=== PATIENT | male | born 1955 | race Caucasian/White ===

== ENCOUNTER 2019-06-16 08:24 | Day surgery (SDC) | payer OTHER ==
[2019-06-13 17:09] VITALS: BMI 34.0
[2019-06-16 08:53] LABS: BASO % 0.7 % (0-2.0); HEMATOCRIT 38.2 % (35.4-49); HEMOGLOBIN 12.5 GM/dL (11.7-16.9); MCH 30.1 pg (25.7-33.7); MCHC 32.7 g/dl (32.0-35.9); MEAN CELL VOLUME 92.1 fl (80-96); MONO % 10.6 % (3.8-10.2); NEUT % 68.7 % (42.8-82.8); PLATELET COUNT 253 K/MM3 (134-434); RBC 4.14 M/mm3 (4.00-5.60); RDW 13.7 % (11.9-15.9); WHITE BLOOD COUNT 8.1 K/mm3 (4.0-10.0)
[2019-06-16 10:01] LABS: INR 1.03 (0.83-1.09); PROTHROMBIN TIME (PATIENT) 12.1 SEC (9.7-13.0)
[2019-06-16 14:38] VITALS: TEMP 98
[2019-06-16 15:40] VITALS: BP 121/61; PULSE 68
--- NOTE | 2019-06-18 14:25 | PATH ---
Surgical Pathology Report Patient Name: JANELLE HAYES [facility]. Rec. #: [id number] /Age/Gender: 1955 (Age: 64) / M Account: [id number] Location: RADIOLOGY INTER Taken: 06/16/2019 Received: 06/16/2019 Reported: 06/18/2019 Physicians: Didi Cruz M.D. Specimen(s) Received LUNG, RIGHT, BIOPSY Clinical History 64-year-old male with biopsy proven left lung cancer and newly diagnosed right lower lobe nodule Final Diagnosis LUNG, RIGHT, CT GUIDED CORE BIOPSY: NON-SMALL CELL CARCINOMA, POORLY DIFFERENTIATED, FAVOR SQUAMOUS. SEE COMMENT. Comment: Immunohistochemical stains performed at [place], [place] ([id number]) and interpreted at [facility] show the tumor is positive for CK7, p40, and TTF-1 (weak, patchy), while negative for Napsin-A. Prior history of left lung cancer noted. Molecular studies pending, findings will be reported separately. Findings discussed with Dr. Cruz. Positive and negative controls (internal if applicable) show appropriate results. Electronically Signed Mayte Figueroa M.D. Gross Description Received in formalin labeled "right lung biopsy," is a 0.7 x 0.4 x 0.1 cm aggregate of slaughter soft tissue fragments. The formalin is filtered and the specimen is entirely submitted in one cassette. DL/06/16/2019 saudi/06/16/2019
== END 2019-06-16 16:00 ==
LOC: JRADIR 08:24
PROVIDERS: ATTEND Internal Medicine Hematology & Oncology
PROC: 0BBF3ZX Excision of Right Lower Lung Lobe, Percutaneous Approach, Diagnostic (ICD-10-PCS; principal; 2019-06-16)
DX: C34.31 Malignant neoplasm of lower lobe, right bronchus or lung (principal)
CPT/HCPCS: 32405; 36415; 71045-TC-FY; 77012-TC; 85025; 85610; 88305-TC

== ENCOUNTER 2019-10-07 09:11 | Day surgery (SDC) | payer OTHER ==
[2019-10-07 10:25] LABS: BASO % 0.8 % (0-2.0); EOS % 5.3 % (0-4.5); HEMOGLOBIN 12.2 GM/dL (11.7-16.9); LYMPH % 8.7 % (8-40); MCH 29.6 pg (25.7-33.7); MCHC 32.9 g/dl (32.0-35.9); MEAN PLT VOLUME 7.4 fl (7.5-11.1); NEUT % 73.2 % (42.8-82.8); PLATELET COUNT 257 K/MM3 (134-434); RBC 4.11 M/mm3 (4.00-5.60); RDW 14.8 % (11.9-15.9); WHITE BLOOD COUNT 8.2 K/mm3 (4.0-10.0)
[2019-10-07 10:46] LABS: INR 1.01 (0.83-1.09); PROTHROMBIN TIME (PATIENT) 11.9 SEC (9.7-13.0)
[2019-10-07] MEDS ORDERED: ONDANSETRON 4 MG/2 ML VIAL IVPUSH ONE (14:00)
--- NOTE | 2019-10-07 17:14 | PN ---
Progress Note (short form) - Note Progress Note: Patient seen in ambulatory surgery Underwent port insertion and post procedure-- nausea without emesis, some dehydration and required IV hydration and anti- emetics. Patient to receive taxol/carboplatinum on 10/08/2019. History of SAIGE resection for SCC of lung and history of SRS of RUL - both histologies SCC. Had positive mediastinal lymphadenopathy at time of surgery.Staged as pT3, pN2, pN0. For adjuvant therapy. Additional history of anemia, asthma, COPd, sleep apnea, -oxygen requiring H.s. HTN, HLD, TB treated with one year of INH, and [place] x2 with 2 cardiac stents. 1-08/21 ppd smoker x50 years; history of alcohol abuse and former drug abuse with marijuana and cocaine . Last Vital Signs Temp Pulse Resp BP Pulse Ox 97.6 F 66 20 92/40 L 90 L 10/07/19 13:35 10/07/19 13:35 10/07/19 13:35 10/07/19 13:35 10/07/19 13:35 Unkempt HEENT: [place]ILL[place], EOM Intact Oropharynx: No thrush, No mucositis Cor: RSR, No murmurs, No gallops Lungs:\rhonchi, wheezes Abd: Soft, Normal bowel sounds, No organomegaly Ext:No significant edema Skin: No rashes, Integument intact CBC, BMP 10/07/19 09:09 Impression SCC of SAIGE- s/p resection; SRS-- RUL for SCC. For adjuvant treatment with carboplatinum and taxol.
[2019-10-07] MEDS ORDERED: D5-1/2NS+20 MEQ KCL - 20 MEQ/1,000 ML INFUS.BAG IV SCH (17:15)
[2019-10-07] MEDS ORDERED: ALBUTEROL SO4 0.083% IH SOL 2.5 MG/3 ML VIAL.NEB. NEB PRN (17:18)
[2019-10-07] MEDS ORDERED: ONDANSETRON 4 MG/2 ML VIAL IVPB PRN (17:20)
[2019-10-07 18:25] VITALS: BMI 35.9
[2019-10-07] MEDS: BUDESONIDE/FORMETEROL FUMARATE 160/4.5 mcg INHALER IH SCH (22:16)
[2019-10-08 07:15] LABS: BASO % 0.5 % (0-2.0); EOS % 5.2 % (0-4.5); HEMATOCRIT 33.3 % (35.4-49); LYMPH % 10.4 % (8-40); MCH 29.8 pg (25.7-33.7); MCHC 33.1 g/dl (32.0-35.9); MEAN CELL VOLUME 90.2 fl (80-96); MEAN PLT VOLUME 7.2 fl (7.5-11.1); NEUT % 71.9 % (42.8-82.8); PLATELET COUNT 219 K/MM3 (134-434); RBC 3.69 M/mm3 (4.00-5.60); RDW 14.6 % (11.9-15.9); WHITE BLOOD COUNT 6.5 K/mm3 (4.0-10.0)
[2019-10-08 07:49] LABS: ALBUMIN 2.8 g/dl (3.4-5.0); BILIRUBIN,TOTAL 0.2 mg/dL (0.2-1); BLOOD UREA NITROGEN 14.6 mg/dL (7-18); CALCIUM 9.1 mg/dL (8.5-10.1); CREATININE 0.8 mg/dL (0.55-1.3); POTASSIUM 4.3 mmol/L (3.5-5.1); TOT PROT 6.2 g/dl (6.4-8.2)
[2019-10-08 08:24] VITALS: BP 123/60; PULSE 73; TEMP 98
[2019-10-08] MEDS: BUDESONIDE/FORMETEROL FUMARATE 160/4.5 mcg INHALER IH SCH (09:00)
[2019-10-08] MEDS ORDERED: DEXAMETHASONE 4 MG TABLET (FP) PO ONE ×2 (10:00)
--- NOTE | 2019-10-08 10:42 | CON.CARD ---
Consult Consult Specialty:: Cardiology Referred by:: Heme/onc Reason for Consultation:: history of CAD - History of Present Illness Chief Complaint: short of breath, cough History of Present Illness: 64M h/o HTN, HLD, CAD s/p [place] and two stents, lung cancer here s/p port insertion with plan to receive taxol/carboplatin while here. No chest pain, palps, dizziness, dyspnea. Complains of cough. Sees Dr. Best for cardio. - Alcohol/Substance Use Hx Alcohol Use: Yes (1984 stopped) - Smoking History Smoking history: Former smoker Have you smoked in the past 12 months: No If you are a former smoker, when did you quit?: 1984 Home Medications - Allergies Allergies/Adverse Reactions: Allergies Allergy/AdvReac Type Severity Reaction Status Date / Time egg Allergy Severe Difficulty Verified 07/03/19 10:18 Breathing mayonnaise Allergy Severe Difficulty Verified 07/03/19 10:18 Breathing Penicillins Allergy Severe Difficulty Verified 07/03/19 10:18 Breathing - Home Medications Home Medications: Ambulatory Orders Albuterol 0.083% Nebulizer Anupama [Ventolin 0.083% Nebulizer Soln -] 1 neb NEB Q6H 06/13/19 Aspirin [ASA -] 81 mg PO DAILY 06/13/19 Budesonide/Formeterol Fumarate [SYMBICORT 160/4.5mcg -] 2 inh PO BID 06/13/19 Bupropion HCl [Bupropion HCl Sr] 150 mg PO DAILY 06/13/19 Clopidogrel Bisulfate [Plavix -] 75 mg PO DAILY 06/13/19 Ferrous Sulfate [Iron] 325 mg PO DAILY 06/13/19 Multivitamins [Tab-A-Vit -] 1 tab PO DAILY 06/13/19 Cholecalciferol (Vitamin D3) [Vitamin D3] 1,000 unit PO DAILY 06/16/19 Mag Hydrox/Al Hydrox/Simeth [Mylanta Suspension -] 30 ml PO PRN 06/16/19 Polyethylene Glycol 3350 [Miralax (For Daily Use) -] 17 gm PO HS 06/16/19 Sennosides [Senna] 8.6 mg PO HS 06/16/19 Simvastatin [Zocor] 80 mg PO HS 06/16/19 Family Medical History Family History: Unremarkable Review of Systems - Review of Systems Constitutional: reports: No Symptoms Eyes: reports: No Symptoms HENT: reports: No Symptoms Neck: reports: No Symptoms Cardiovascular: reports: No Symptoms Respiratory: reports: Cough Gastrointestinal: reports: No Symptoms Genitourinary: reports: No Symptoms Musculoskeletal: reports: No Symptoms Integumentary: reports: No Symptoms Neurological: reports: No Symptoms Endocrine: reports: No Symptoms Hematology/Lymphatic: reports: No Symptoms Psychiatric: reports: No Symptoms Vital Signs: Vital Signs Temperature 98 F 10/08/19 08:22 Pulse Rate 73 10/08/19 08:22 Respiratory Rate 20 10/08/19 08:22 Blood Pressure 123/60 10/08/19 08:22 O2 Sat by Pulse Oximetry (%) 90 L 10/07/19 13:35 Constitutional: Yes: No Distress, Calm Eyes: Yes: Conjunctiva Clear, EOM Intact HENT: Yes: Atraumatic, Normocephalic Neck: Yes: Supple, Trachea Midline Respiratory: Yes: Regular, Cough, Diminished Gastrointestinal: Yes: Normal Bowel Sounds, Soft Cardiovascular: Yes: Regular Rate and Rhythm JVD: No Integumentary: No: Jaundice Neurological: Yes: Alert, Oriented Psychiatric: No: Agitated - Other Data Labs, Other Data: CBC, BMP 10/08/19 06:45 10/08/19 06:35 INR, PTT INR 1.01 (0.83-1.09) 10/07/19 09:18 Assessment/Plan echo 06/2019 nl LV/RV function, tr TR mibi 06/2019 mild inferolateral ischemia, no TID, nl EF lung cancer, s/p port insertion - stable post op - manage per onc, plan for chemo here CAD s/p [place], stents - mild ischemia on mibi 06/2019, low risk finding, asymptomatic - resume aspirin, clopidogrel when able post op - cont statin HLD - cont statin HTN - not on meds, stable here, monitor
== END 2019-10-08 10:30 | disposition home or self-care (01) ==
LOC: JRADIR 09:11 → JASUSAT 09:11 → J7W 18:02 → JASUSAT 10-08 10:30
PROVIDERS: ATTEND Internal Medicine Hematology & Oncology
PROC: 05HM33Z Insertion of Infusion Device into Right Internal Jugular Vein, Percutaneous Approach (ICD-10-PCS; principal; 2019-10-07)
PROC: B543ZZA Ultrasonography of Right Jugular Veins, Guidance (ICD-10-PCS; 2019-10-07)
DX: Z45.2 Encounter for adjustment and management of vascular access device (principal); C34.91 Malignant neoplasm of unspecified part of right bronchus or lung
CPT/HCPCS: 36561; C1788; 36415; 77001-TC-FY; 80053; 85025; 85610

== ENCOUNTER 2019-10-08 05:55 | Day surgery (SDC) | payer OTHER ==
[2019-10-08] MEDS ORDERED: DIPHENHYDRAMINE IVPB ONE (10:00)
[2019-10-08] MEDS ORDERED: PALONOSETRON HCL 0.25 MG/5 ML VIAL IVPUSH ONE ×2 (10:00→13:15)
[2019-10-08] MEDS ORDERED: SODIUM CHLORIDE IVPB ONE ×4 (10:00→13:45)
[2019-10-08] MEDS ORDERED: FAMOTIDINE 20 MG/50 ML IVPB 20 MG/50 ML MG IVPB ONE ×2 (10:00→13:53)
[2019-10-08] MEDS ORDERED: DEXAMETHASONE SODIUM PHOSPHATE IVPB ONE (10:00)
[2019-10-08] MEDS ORDERED: FOSAPREPITANT DIMEGLUMINE 150 MG in SODIUM CHLORIDE 150 ML IVPB ONE (10:00)
[2019-10-08] MEDS ORDERED: PACLITAXEL IVPB ONE (10:30)
[2019-10-08] MEDS ORDERED: DEXAMETHASONE 4 MG TABLET (FP) PO ONE (10:30)
[2019-10-08] MEDS ORDERED: SODIUM CHLORIDE 0.9% IVPB ONE (10:30)
[2019-10-08] MEDS ORDERED: DEXAMETHASONE SODIUM PHOSPHATE 10 MG in SODIUM CHLORIDE 50 ML IVPB ONE (13:00)
[2019-10-08] MEDS ORDERED: PACLITAXEL PROTEIN BOUND IVPB ONE (13:15)
[2019-10-08] MEDS ORDERED: ALBUTEROL SO4 HFA INHALER IH PRN (13:28)
[2019-10-08] MEDS ORDERED: CARBOPLATIN IVPB ONE ×2 (13:30→13:45)
[2019-10-08] MEDS ORDERED: FOSAPREPITANT DIMEGLUMINE 150 MG in SODIUM CHLORIDE 145 ML IVPB ONE (13:52)
[2019-10-08] MEDS ORDERED: DEXAMETHASONE SOD PHOSPHATE 10 MG/1 ML VIAL ONE (14:08)
[2019-10-08] MEDS: GABAPENTIN 100 MG CAPSULE PO SCH ×2 (14:11→21:30)
[2019-10-08] MEDS ORDERED: PORTA CATH FLUSH 10 ML IVPUSH ONE (16:29)
--- NOTE | 2019-10-08 19:07 | PN ---
Progress Note (short form) - Note Progress Note: Patient seen and examined Received and tolerated chemotherapy with carboplatinum and abraxane. Offers no complaints Last Vital Signs Temp Pulse Resp BP Pulse Ox 98.2 F 77 20 125/66 10/08/19 17:48 10/08/19 17:48 10/08/19 17:48 10/08/19 17:48 HEENT: CAMILLA, EOM Intact Cor: RSR, No murmurs, No gallops Lungs: poor inspiratory effort Decreased breath ssounds Abd: Soft, Normal bowel sounds, No organomegaly Ext:LE edema Skin: No rashes, Integument intact Current Medications Generic Name Dose Route Start Last Admin Trade Name Freq PRN Reason Stop Dose Admin Albuterol Sulfate 2 puff 10/08/19 13:28 Ventolin Hfa Inhaler - IH Q6H PRN SHORTNESS OF BREATH Aspirin 81 mg 10/09/19 10:00 Asa - PO DAILY [facility] Atorvastatin Calcium 40 mg 10/08/19 22:00 Lipitor - PO HS JENY Bupropion HCl 150 mg 10/09/19 10:00 Wellbutrin Xl - PO DAILY [facility] Cholecalciferol 1,000 unit 10/09/19 10:00 Vitamin D3 - PO DAILY JENY Clopidogrel Bisulfate 75 mg 10/09/19 10:00 Plavix - PO DAILY JENY Gabapentin 100 mg 10/08/19 14:00 10/08/19 14:11 Neurontin - PO 100 mg TID [facility] Administration Pantoprazole Sodium 40 mg 10/09/19 10:00 Protonix Iv IVPB DAILY [facility] Polyethylene Glycol 17 gm 10/09/19 10:00 Miralax (For Daily Use) - PO DAILY [facility] Tamsulosin HCl 0.4 mg 10/09/19 08:30 Flomax - PO DAILY@0830 [facility] Impression: S/P chemotherapy with carboplatinum and abraxane. "Adjuvant" chemotherapy .
[2019-10-08] MEDS ORDERED: oxyCODONE HCL 5 MG TABLET PO PRN (20:25)
[2019-10-08] MEDS ORDERED: ACETAMINOPHEN 325 MG TABLET (FP) PO PRN (20:25)
[2019-10-08] MEDS: ATORVASTATIN CA 40 MG TABLET (FP) PO SCH (21:30)
[2019-10-08] MEDS: BUDESONIDE/FORMETEROL FUMARATE 160/4.5 mcg INHALER IH SCH (21:31)
[2019-10-08] MEDS ORDERED: PANTOPRAZOLE SODIUM 40 MG VIAL IVPB SCH (22:00)
[2019-10-09] MEDS: GABAPENTIN 100 MG CAPSULE PO SCH ×3 (06:21→21:35)
[2019-10-09 07:39] LABS: BASO % 0.1 % (0-2.0); HEMATOCRIT 33.2 % (35.4-49); HEMOGLOBIN 11.1 GM/dL (11.7-16.9); LYMPH % 2.5 % (8-40); MCH 29.8 pg (25.7-33.7); MCHC 33.4 g/dl (32.0-35.9); MEAN CELL VOLUME 89.2 fl (80-96); MEAN PLT VOLUME 7.6 fl (7.5-11.1); MONO % 0.7 % (3.8-10.2); NEUT % 96.7 % (42.8-82.8); PLATELET COUNT 220 K/MM3 (134-434); RBC 3.72 M/mm3 (4.00-5.60); RDW 14.5 % (11.9-15.9); WHITE BLOOD COUNT 9.8 K/mm3 (4.0-10.0)
[2019-10-09 08:14] LABS: ALBUMIN 2.7 g/dl (3.4-5.0); BILIRUBIN,TOTAL 0.1 mg/dL (0.2-1); CALCIUM 8.7 mg/dL (8.5-10.1); CREATININE 0.8 mg/dL (0.55-1.3); MAGNESIUM 2.3 mg/dL (1.8-2.4); POTASSIUM 4.5 mmol/L (3.5-5.1); TOT PROT 6.4 g/dl (6.4-8.2)
[2019-10-09] MEDS: TAMSULOSIN HCL 0.4 MG CAP PO SCH (09:02)
[2019-10-09] MEDS: ASPIRIN 81 MG CHEWABLE TABLETS PO SCH (09:03)
[2019-10-09] MEDS: CLOPIDOGREL BISULFATE 75 MG TABLET (FP) PO SCH (09:03)
[2019-10-09] MEDS: BUDESONIDE/FORMETEROL FUMARATE 160/4.5 mcg INHALER IH SCH ×2 (09:03→21:35)
[2019-10-09] MEDS: CHOLECALCIFEROL (VIT D3) 1,000 UNIT (25 MCG) TABLET PO SCH (09:03)
[2019-10-09] MEDS: POLYETHYLENE GLYCOL 3350 119 GM BTL PO SCH (09:22)
[2019-10-09 09:46] LABS: ANISOCYTOSIS 0; MACROCYTOSIS 0; PLATELET ESTIMATE NORMAL
[2019-10-09] MEDS ORDERED: PANTOPRAZOLE SODIUM 40 MG VIAL IVPB SCH (10:00)
[2019-10-09] MEDS ORDERED: SODIUM CHLORIDE 500 ML IV SCH (10:00)
[2019-10-09] MEDS ORDERED: SODIUM CHLORIDE 1,000 ML IV SCH (10:00)
[2019-10-09] MEDS ORDERED: TBO-FILGRASTIM 480 MCG/0.8 ML DISP.SYRIN SQ ONE (15:00)
[2019-10-09] MEDS: ATORVASTATIN CA 40 MG TABLET (FP) PO SCH (21:35)
[2019-10-10] MEDS: GABAPENTIN 100 MG CAPSULE PO SCH (05:24)
[2019-10-10 08:38] VITALS: BP 133/59; PULSE 86; TEMP 97.9
[2019-10-10] MEDS: TAMSULOSIN HCL 0.4 MG CAP PO SCH (08:54)
[2019-10-10] MEDS: ASPIRIN 81 MG CHEWABLE TABLETS PO SCH (08:55)
[2019-10-10] MEDS: CLOPIDOGREL BISULFATE 75 MG TABLET (FP) PO SCH (08:55)
[2019-10-10] MEDS: CHOLECALCIFEROL (VIT D3) 1,000 UNIT (25 MCG) TABLET PO SCH (08:55)
[2019-10-10] MEDS: BUDESONIDE/FORMETEROL FUMARATE 160/4.5 mcg INHALER IH SCH (08:57)
[2019-10-10] MEDS: POLYETHYLENE GLYCOL 3350 119 GM BTL PO SCH (09:03)
--- NOTE | 2019-10-11 09:03 | PN ---
Progress Note (short form) - Note Progress Note: Feels ok No specific complaints AFVSS Cor: RSR, No murmurs, No gallops Lungs: Clear to P&A Abd: Soft, Normal bowel sounds, No organomegaly Ext:No significant edema Labs/meds reviewed A/P 61 y/o History of SAIGE resection for SCC of lung and history of SRS of RUL - both histologies SCC. Had positive mediastinal lymphadenopathy at time of surgery.Staged as pT3, pN2. 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 HTN, HLD, TB treated with one year of INH, and [place] x2 with 2 cardiac stents. 1-1/2 ppd smoker x50 years; history of alcohol abuse and former drug abuse with marijuana and cocaine s/p carboplatin and abraxane For neupogen
== END 2019-10-10 09:44 ==
LOC: JONCCHEMO 05:55 → J7W 10:31 → JONCCHEMO 10-10 09:44
PROVIDERS: ATTEND Internal Medicine Hematology & Oncology
PROC: 3E04305 Introduction of Other Antineoplastic into Central Vein, Percutaneous Approach (ICD-10-PCS; principal; 2019-10-08)
PROC: 3E043GC Introduction of Other Therapeutic Substance into Central Vein, Percutaneous Approach (ICD-10-PCS; 2019-10-08)
DX: Z51.11 Encounter for antineoplastic chemotherapy (principal); C34.92 Malignant neoplasm of unspecified part of left bronchus or lung
CPT/HCPCS: 36415; 80053; 83735; 85025; 96367; 96413; 96417; J1100; J1447; J1453; J2469; J9264

== ENCOUNTER 2019-10-15 05:41 | Day surgery (SDC) | payer OTHER ==
--- NOTE | 2019-10-11 08:50 | PN ---
Progress Note (short form) - Note Progress Note: PAtient seen and examined Feels ok No specific complaints AFVSS Cor: RSR, No murmurs, No gallops Lungs: Clear to P&A Abd: Soft, Normal bowel sounds, No organomegaly Ext:No significant edema Labs/meds reviewed A/P 61 y/o History of SAIGE resection for SCC of lung and history of SRS of RUL - both histologies SCC. Had positive mediastinal lymphadenopathy at time of surgery.Staged as pT3, pN2. 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 HTN, HLD, TB treated with one year of INH, and [place] x2 with 2 cardiac stents. 1-1/2 ppd smoker x50 years; history of alcohol abuse and former drug abuse with marijuana and cocaine s/p carboplatin and abraxane For neupogen
[2019-10-15] MEDS ORDERED: PALONOSETRON HCL 0.25 MG/5 ML VIAL IVPUSH ONE (10:00)
[2019-10-15] MEDS ORDERED: PACLITAXEL PROTEIN BOUND IVPB ONE (10:30)
[2019-10-15] MEDS ORDERED: SODIUM CHLORIDE IVPB ONE (10:30)
[2019-10-15 11:04] LABS: BASO % 0.3 % (0-2.0); EOS % 11.2 % (0-4.5); HEMATOCRIT 34.7 % (35.4-49); HEMOGLOBIN 11.3 GM/dL (11.7-16.9); LYMPH % 11.8 % (8-40); MCH 29.3 pg (25.7-33.7); MCHC 32.6 g/dl (32.0-35.9); MEAN CELL VOLUME 89.6 fl (80-96); MEAN PLT VOLUME 7.7 fl (7.5-11.1); MONO % 8.8 % (3.8-10.2); NEUT % 67.9 % (42.8-82.8); PLATELET COUNT 196 K/MM3 (134-434); RBC 3.87 M/mm3 (4.00-5.60); RDW 14.8 % (11.9-15.9); WHITE BLOOD COUNT 4.3 K/mm3 (4.0-10.0)
[2019-10-15] MEDS ORDERED: DEXAMETHASONE SOD PHOSPHATE 10 MG/1 ML VIAL IVPB ONE (11:35)
[2019-10-15 11:39] LABS: BILIRUBIN,TOTAL 0.4 mg/dL (0.2-1); BLOOD UREA NITROGEN 19.2 mg/dL (7-18); CALCIUM 9.2 mg/dL (8.5-10.1); CREATININE 0.8 mg/dL (0.55-1.3); POTASSIUM 4.6 mmol/L (3.5-5.1); TOT PROT 6.6 g/dl (6.4-8.2)
[2019-10-15] MEDS ORDERED: DEXAMETHASONE INJECTION 10 MG in SODIUM CHLORIDE 50 ML IVPB ONE (12:00)
[2019-10-15 16:02] VITALS: TEMP 98
[2019-10-15 16:03] VITALS: BP 131/77; PULSE 67
== END 2019-10-15 14:20 | disposition home or self-care (01) ==
LOC: JONCCHEMO 05:41 → J7W 11:25 → JONCCHEMO 14:20
PROVIDERS: ATTEND Internal Medicine Hematology & Oncology
DX: Z51.11 Encounter for antineoplastic chemotherapy (principal); C34.92 Malignant neoplasm of unspecified part of left bronchus or lung
CPT/HCPCS: 36415; 80053; 85025; 96375; 96413; J1100; J2469; J9264

== ENCOUNTER 2019-10-16 05:46 | Day surgery (SDC) | payer OTHER ==
[2019-10-16] MEDS ORDERED: TBO-FILGRASTIM 480 MCG/0.8 ML DISP.SYRIN SQ SCH (12:15)
[2019-10-16 15:10] VITALS: BP 126/73; PULSE 75; TEMP 97.8
== END 2019-10-16 12:45 | disposition home or self-care (01) ==
LOC: JONCCHEMO 05:46 → J7W 13:02
PROVIDERS: ATTEND Internal Medicine Hematology & Oncology
PROC: 3E013GC Introduction of Other Therapeutic Substance into Subcutaneous Tissue, Percutaneous Approach (ICD-10-PCS; principal; 2019-10-16)
DX: C34.92 Malignant neoplasm of unspecified part of left bronchus or lung (principal); Z76.89 Persons encountering health services in other specified circumstances
CPT/HCPCS: 96372; J1447

== ENCOUNTER 2019-10-22 05:44 | Day surgery (SDC) | payer OTHER ==
[2019-10-22 09:08] LABS: BASO % 0.8 % (0-2.0); EOS % 6.9 % (0-4.5); HEMATOCRIT 33.6 % (35.4-49); LYMPH % 15.5 % (8-40); MCH 29.3 pg (25.7-33.7); MCHC 32.7 g/dl (32.0-35.9); MEAN CELL VOLUME 89.4 fl (80-96); MEAN PLT VOLUME 7.7 fl (7.5-11.1); MONO % 11.6 % (3.8-10.2); NEUT % 65.2 % (42.8-82.8); PLATELET COUNT 183 K/MM3 (134-434); RBC 3.75 M/mm3 (4.00-5.60); RDW 15.1 % (11.9-15.9); WHITE BLOOD COUNT 3.1 K/mm3 (4.0-10.0)
[2019-10-22 09:49] LABS: ALBUMIN 3.1 g/dl (3.4-5.0); BILIRUBIN,TOTAL 0.2 mg/dL (0.2-1); CALCIUM 9.6 mg/dL (8.5-10.1); CREATININE 0.9 mg/dL (0.55-1.3); POTASSIUM 4.4 mmol/L (3.5-5.1); TOT PROT 6.6 g/dl (6.4-8.2)
[2019-10-22] MEDS ORDERED: PALONOSETRON HCL 0.25 MG/5 ML VIAL IVPUSH ONE (10:00)
[2019-10-22] MEDS ORDERED: DEXAMETHASONE SOD PHOSPHATE 4 MG/1 ML VIAL IVPB ONE (10:11)
[2019-10-22] MEDS ORDERED: SODIUM CHLORIDE IVPB ONE (10:30)
[2019-10-22] MEDS ORDERED: PACLITAXEL PROTEIN BOUND IVPB ONE (10:30)
[2019-10-22 14:19] VITALS: TEMP 97.9
[2019-10-22 14:20] VITALS: BP 131/69; PULSE 73
== END 2019-10-22 11:45 | disposition home or self-care (01) ==
LOC: JONCCHEMO 05:44 → J7W 10:26 → JONCCHEMO 11:45
PROVIDERS: ATTEND Internal Medicine Hematology & Oncology
PROC: 3E04305 Introduction of Other Antineoplastic into Central Vein, Percutaneous Approach (ICD-10-PCS; principal; 2019-10-22)
PROC: 3E043GC Introduction of Other Therapeutic Substance into Central Vein, Percutaneous Approach (ICD-10-PCS; 2019-10-22)
DX: Z51.11 Encounter for antineoplastic chemotherapy (principal); C34.92 Malignant neoplasm of unspecified part of left bronchus or lung
CPT/HCPCS: 36415; 80053; 85025; 96367; 96375; 96413; J2469; J9264

== ENCOUNTER 2019-10-29 07:19 | Day surgery (SDC) | payer OTHER ==
[2019-10-29] MEDS ORDERED: DEXAMETHASONE SODIUM PHOSPHATE 10 MG in SODIUM CHLORIDE 50 ML IVPB ONE (10:00)
[2019-10-29] MEDS ORDERED: PALONOSETRON HCL 0.25 MG/5 ML VIAL IVPUSH ONE (10:00)
[2019-10-29] MEDS ORDERED: DEXAMETHASONE SODIUM PHOSPHATE 16 MG in SODIUM CHLORIDE 50 ML IVPB ONE (10:12)
[2019-10-29] MEDS ORDERED: FOSAPREPITANT DIMEGLUMINE 150 MG in SODIUM CHLORIDE 145 ML IVPB ONE (10:12)
[2019-10-29 10:27] LABS: BASO % 0.8 % (0-2.0); EOS % 3.5 % (0-4.5); HEMATOCRIT 31.8 % (35.4-49); HEMOGLOBIN 10.3 GM/dL (11.7-16.9); LYMPH % 14.1 % (8-40); MCH 29.3 pg (25.7-33.7); MCHC 32.4 g/dl (32.0-35.9); MEAN CELL VOLUME 90.5 fl (80-96); MONO % 10.4 % (3.8-10.2); NEUT % 71.2 % (42.8-82.8); PLATELET COUNT 144 K/MM3 (134-434); RBC 3.51 M/mm3 (4.00-5.60); RDW 14.9 % (11.9-15.9); WHITE BLOOD COUNT 3.8 K/mm3 (4.0-10.0)
[2019-10-29] MEDS ORDERED: PACLITAXEL PROTEIN BOUND IVPB ONE (10:30)
[2019-10-29] MEDS ORDERED: SODIUM CHLORIDE IVPB ONE ×3 (10:30→12:00)
[2019-10-29] MEDS ORDERED: CARBOPLATIN IVPB ONE ×2 (11:00→12:00)
[2019-10-29 11:07] LABS: BILIRUBIN,TOTAL 0.3 mg/dL (0.2-1); BLOOD UREA NITROGEN 15.5 mg/dL (7-18); CALCIUM 8.6 mg/dL (8.5-10.1); CREATININE 0.9 mg/dL (0.55-1.3); MAGNESIUM 1.9 mg/dL (1.8-2.4); POTASSIUM 4.2 mmol/L (3.5-5.1); TOT PROT 6.4 g/dl (6.4-8.2)
[2019-10-29 15:18] LABS: ANISOCYTOSIS 1+; MACROCYTOSIS 0; PLATELET ESTIMATE DECREASED
[2019-10-29 18:23] VITALS: TEMP 98.4
[2019-10-29 18:28] VITALS: BP 109/61; PULSE 69
[2019-10-29] MEDS ORDERED: PORTA CATH FLUSH 10 ML IVPUSH ONE (18:28)
== END 2019-10-29 14:35 | disposition home or self-care (01) ==
LOC: JONCCHEMO 07:19 → J7W 10:29 → JONCCHEMO 14:35
PROVIDERS: ATTEND Internal Medicine Hematology & Oncology
DX: Z51.11 Encounter for antineoplastic chemotherapy (principal); C34.92 Malignant neoplasm of unspecified part of left bronchus or lung
CPT/HCPCS: 36415; 80053; 83735; 85025; J1453; J2469; J9264

== ENCOUNTER 2020-03-03 07:12 | Day surgery (SDC) | payer OTHER ==
[2020-03-03 10:01] VITALS: BP 102/66; PULSE 108; TEMP 98.5
[2020-03-03 10:34] LABS: BASO % 0.5 % (0-2.0); EOS % 3.6 % (0-4.5); HEMATOCRIT 28.1 % (35.4-49); HEMOGLOBIN 9.4 GM/dL (11.7-16.9); LYMPH % 12.6 % (8-40); MCHC 33.3 g/dl (32.0-35.9); MEAN PLT VOLUME 7.3 fl (7.5-11.1); MONO % 11.2 % (3.8-10.2); NEUT % 72.1 % (42.8-82.8); PLATELET COUNT 219 K/MM3 (134-434); RBC 2.68 M/mm3 (4.00-5.60); WHITE BLOOD COUNT 5.4 K/mm3 (4.0-10.0)
[2020-03-03 10:57] LABS: ANISOCYTOSIS 1+; MACROCYTOSIS 1+; PLATELET ESTIMATE NORMAL
[2020-03-03 11:42] LABS: ALBUMIN 3.2 g/dl (3.4-5.0); BILIRUBIN,TOTAL 0.4 mg/dL (0.2-1); BLOOD UREA NITROGEN 22.3 mg/dL (7-18); CALCIUM 9.5 mg/dL (8.5-10.1); CREATININE 0.9 mg/dL (0.55-1.3); POTASSIUM 4.2 mmol/L (3.5-5.1); TOT PROT 6.7 g/dl (6.4-8.2)
[2020-03-03] MEDS ORDERED: DIPHENHYDRAMINE 25 MG in SODIUM CHLORIDE 50 ML IVPB ONE (12:00)
[2020-03-03] MEDS ORDERED: ACETAMINOPHEN 325 MG TABLET (FP) PO ONE (12:00)
[2020-03-03] MEDS ORDERED: SODIUM CHLORIDE 250 ML IV STA (12:15)
[2020-03-03] MEDS ORDERED: PEMBROLIZUMAB 200 MG in SODIUM CHLORIDE 50 ML IV ONE (12:30)
[2020-03-03] MEDS ORDERED: PORTA CATH FLUSH 10 ML IVPUSH ONE (16:06)
== END 2020-03-03 13:35 | disposition home or self-care (01) ==
LOC: JONCCHEMO 07:12
PROVIDERS: ATTEND Internal Medicine Hematology & Oncology
DX: Z51.11 Encounter for antineoplastic chemotherapy (principal); C34.90 Malignant neoplasm of unspecified part of unspecified bronchus or lung
CPT/HCPCS: 36415; 80053; 84439; 84443; 85025; 96361; 96375; 96413; J9271

== ENCOUNTER 2020-03-24 07:17 | Day surgery (SDC) | payer OTHER ==
[2020-03-24] MEDS ORDERED: ACETAMINOPHEN 325 MG TABLET (FP) PO ONE (10:00)
[2020-03-24] MEDS ORDERED: DIPHENHYDRAMINE 25 MG in SODIUM CHLORIDE 50 ML IVPB ONE (10:00)
[2020-03-24] MEDS ORDERED: PEMBROLIZUMAB 200 MG in SODIUM CHLORIDE 50 ML IV ONE (10:30)
[2020-03-24 11:43] LABS: BASO % 0.5 % (0-2.0); HEMATOCRIT 32.5 % (35.4-49); HEMOGLOBIN 10.6 GM/dL (11.7-16.9); LYMPH % 9.1 % (8-40); MCH 33.6 pg (25.7-33.7); MCHC 32.6 g/dl (32.0-35.9); MEAN CELL VOLUME 103.1 fl (80-96); MEAN PLT VOLUME 7.6 fl (7.5-11.1); MONO % 11.3 % (3.8-10.2); NEUT % 75.1 % (42.8-82.8); PLATELET COUNT 230 K/MM3 (134-434); RBC 3.16 M/mm3 (4.00-5.60); RDW 17.1 % (11.9-15.9); WHITE BLOOD COUNT 8.6 K/mm3 (4.0-10.0)
[2020-03-24 12:24] LABS: ALBUMIN 3.3 g/dl (3.4-5.0); BILIRUBIN,TOTAL 0.2 mg/dL (0.2-1); BLOOD UREA NITROGEN 19.2 mg/dL (7-18); CALCIUM 9.4 mg/dL (8.5-10.1); CREATININE 0.9 mg/dL (0.55-1.3); TOT PROT 6.9 g/dl (6.4-8.2)
[2020-03-24 12:41] LABS: MAGNESIUM 2.1 mg/dL (1.8-2.4)
[2020-03-24 16:20] VITALS: TEMP 98.2
[2020-03-24 16:23] VITALS: BP 126/63; PULSE 79
[2020-03-24] MEDS ORDERED: PORTA CATH FLUSH 10 ML IVPUSH ONE (16:23)
== END 2020-03-24 14:15 | disposition home or self-care (01) ==
LOC: JONCCHEMO 07:17
PROVIDERS: ATTEND Internal Medicine Hematology & Oncology
PROC: 3E04305 Introduction of Other Antineoplastic into Central Vein, Percutaneous Approach (ICD-10-PCS; principal; 2020-03-24)
PROC: 3E043GC Introduction of Other Therapeutic Substance into Central Vein, Percutaneous Approach (ICD-10-PCS; 2020-03-24)
DX: Z51.11 Encounter for antineoplastic chemotherapy (principal); C34.92 Malignant neoplasm of unspecified part of left bronchus or lung; I10 Essential (primary) hypertension; I25.2 Old myocardial infarction; G47.30 Sleep apnea, unspecified; Z86.73 Personal history of transient ischemic attack (TIA), and cerebral infarction without residual deficits; E78.00 Pure hypercholesterolemia, unspecified; J44.9 Chronic obstructive pulmonary disease, unspecified; Z86.11 Personal history of tuberculosis
CPT/HCPCS: 36415; 80053; 83735; 84439; 84443; 85025; 96375; 96413; J9271

== ENCOUNTER 2020-04-14 10:07 | Inpatient (IN) | payer OTHER ==
[2020-04-14] MEDS ORDERED: LACTATED RINGERS SOLUTION 1000 ML INFUS.BAG IV ONE ×2 (10:46→10:56)
[2020-04-14] MEDS ORDERED: ACETAMINOPHEN 1000 MG/100 ML VIAL (NON FORMULARY) IVPB ONE (10:56)
[2020-04-14] MEDS ORDERED: ACETAMINOPHEN INJECTION 100 ML IVPB ONE (11:10)
--- NOTE | 2020-04-14 11:10 | PDOC ---
Documentation entered by Silvana Jj SCRIBE, acting as scribe for Beckie Brooke MD. Beckie Brooke MD: This documentation has been prepared by the Анна rivas Brenda, SCRIBE, under my direction and personally reviewed by me in its entirety. I confirm that the documentation accurately reflects all work, treatment, procedures, and medical decision making performed by me. History of Present Illness - General Chief Complaint: Lightheaded Stated Complaint: PAIN Time Seen by Provider: 04/14/20 10:40 History Source: Patient Exam Limitations: No Limitations - History of Present Illness Initial Comments: 04/14/20 10:44 64 YOM with a significant PMH of Sq Cell Lung CA (s/p resection in Jul 2019, port insertion, and chemo with carbo/abraxane), HTN, HLD, CAD (stents x2, on Plavix), COPD, [place] (on home O2 at night as needed), GERD, PVD and recent admission for COVID presents to the ED from [facility] for evaluation of nausea and weakness today. Patient states that he woke up today and felt very nauseas, tired, sleepy, weak and warm, prompting his arrival to the ED. He is also endorsing a low appetite, recent cough and shortness of breath along with 2 days of nonbloody diarrhea. Last chemotherapy was 3 weeks ago. Denies chest pain, palpitation, dizziness, Vomiting, abdominal pain, bladder and bowel problems, leg swelling, weakness, numbness or tingling. No sick contacts or travel. No new changes in medications. Allergies: Penicillins Past Medical History: Sq Call CA (s/p resection in Jul 2019, port insertion, and chemo with carbo/abraxane), HTN, CAD (stents x2, on Plavix), [place] (on home O2 at night as needed) and recent admission for COVID Social history: Lives at [facility]. No tobacco, ETOH or drug use. Meds: as documented in EMR Oncologist: Didi Cruz From [facility] 04/14/20 12:09 04/14/20 12:28 04/14/20 13:22 04/14/20 13:27 04/14/20 13:43 Past History - Medical History Allergies/Adverse Reactions: Allergies Allergy/AdvReac Type Severity Reaction Status Date / Time egg Allergy Severe Difficulty Verified 04/14/20 10:27 Breathing mayonnaise Allergy Severe Difficulty Verified 04/14/20 10:27 Breathing Penicillins Allergy Severe Difficulty Verified 04/14/20 10:27 Breathing Home Medications: Ambulatory Orders Aspirin [ASA -] 81 mg PO DAILY 06/13/19 Budesonide/Formeterol Fumarate [SYMBICORT 160/4.5mcg -] 2 inh PO BID 06/13/19 Bupropion HCl [Bupropion HCl Sr] 150 mg PO DAILY 06/13/19 Clopidogrel Bisulfate [Plavix -] 75 mg PO DAILY 06/13/19 Polyethylene Glycol 3350 [Miralax 119 gm Btl -] 17 gm PO HS 06/16/19 Sennosides [Senna] 8.6 mg PO HS 06/16/19 Simvastatin [Zocor] 80 mg PO HS 06/16/19 Tamsulosin HCl [Flomax] 0.4 mg PO HS 12/20/19 Ascorbic Acid [Vitamin C -] 250 mg PO BID #42 tablet 12/22/19 Zinc 50 mg PO BID #42 tablet 12/22/19 Acetaminophen [Tylenol] 650 mg PO ASDIR 03/03/20 Budesonide/Formeterol Fumarate [SYMBICORT 160/4.5mcg -] 2 inh IH BID 03/03/20 Cholecalciferol (Vitamin D3) [Vitamin D3 -] 1,000 unit PO DAILY 03/03/20 Ferrous Sulfate [Feosol] 325 mg PO DAILY 03/03/20 Mag Hydrox/Al Hydrox/Simeth [Mylanta *Suspension*] 15 ml PO ASDIR 03/03/20 Pantoprazole Sodium [Protonix -] 20 mg PO BID 03/03/20 Anemia: Yes Asthma: Yes Cancer: Yes (lung) Cardiac Disorders: Yes (CAD,NM,2 stents 2002, NSTEMI 2018) CVA: Yes (TIA) COPD: Yes HTN: Yes Hypercholesterolemia: Yes - Surgical History Cardiac Surgery: Yes (2 stents) - Psycho-Social/Smoking History Smoking History: Never smoked Have you smoked in the past 12 months: No If you are a former smoker, when did you quit?: 1984 - Substance Abuse Hx (Audit-C & DAST Scrn) How often the patient has a drink containing alcohol: Never Score: In Men: 4 or > Positive; In Women: 3 or > Positive: 0 Screen Result (Pos requires Nsg. Audit-10AR): Negative Review of Systems - Review of Systems Able to Perform ROS?: Yes Comments:: 04/14/20 10:46 Constitutional: (+) Feverish (+) Tired (+) Weakness generalized. no fevers or chills. HEENT: no headache or dizziness. No congestion. No visual/hearing disturbances. CVS: no cp or syncope. Resp: (+) Cough. No sob. Gastrointestinal: (+) Nausea (+) Diarrhea. no abdominal pain or vomiting. Genitourinary: no urinary sx, hematuria. MUSCULOSKELETAL: No joint pain and swelling. No neck or back pain. SKIN: no redness or skin changes, no discharge, no rash. No wounds. Hematologic: no easy bruising/bleeding. +history of anemia NEUROLOGIC: No headache, dizziness, LOC or altered mental status. No weakness, numbness or tingling. Psych: no anxiety +history of depression. Allergic/Immunologic: +medication allergies All other systems reviewed and negative, or as documented in HPI. 04/14/20 12:10 04/14/20 13:43 *Physical Exam - Vital Signs Last Vital Signs Temp Pulse Resp BP Pulse Ox 98 F 125 H 22 H 89/60 L 98 04/14/20 10:25 04/14/20 10:25 04/14/20 10:25 04/14/20 10:25 04/14/20 10:25 - Physical Exam 04/14/20 11:02 General: malaised appearing, awake and alert, NAD. HEENT: EOMI, PERRL, normal conjunctiva. airway patent, dry membranes. clear oropharynx. Neck: supple, FROM Resp: decreased breath sounds in the right lower lobe, normal and even respirations, no respiratory distress CVS: (+) Tachycardic (+) Irregularly Irregular. 2+ peripheral pulses throughout, no peripheral edema Chest: (+) Right chest port access. in place, no crepitus, no discoloration. Abdomen: soft, NTND, no rebound or guarding. No CVAT. Back: nontender, normal inspection and ROM MSK: no edema, HUMPHREY x4, ROM intact. No clubbing or cyanosis. normal bulk and tone. Extremities: no calf tenderness Neuro: alert, oriented appropriately; no focal neurologic deficits, speech clear. Skin: (+) Non blanching punctate machular lesions on LE. (+) Pale appearing (+) Dry Skin. Perfused, cap refill <2 sec. 04/14/20 12:11 04/14/20 12:13 04/14/20 12:53 04/14/20 13:23 Heart Score/ECG Review #1 ECG reviewed & interpreted by me at: 10:50 Compared to previous ECG there are: Changes noted 04/14/20 11:09 EKG atrial fibrillation RVR at 124 bpm. no interval abnormalities, narrow QRS, ST and T wave segments and morphology normal. Nonspecific T wave abnormalities ED Treatment Course - LABORATORY CBC & Chemistry Diagram: 04/14/20 10:50 04/14/20 10:50 Medical Decision Making - Critical Care Time Total Critical Care Time (minutes): 45 (Afib RVR) Critical Care Statement: The care of this patient involved high complexity decision making to prevent further life threatening deterioration of the patient's condition and/or to evaluate & treat vital organ system(s) failure or risk of failure. - Medical Decision Making 04/14/20 12:11 Vital Signs Temp Pulse Resp BP Pulse Ox 98.1 F 135 H 19 118/65 98 04/14/20 11:15 04/14/20 11:15 04/14/20 11:15 04/14/20 11:15 04/14/20 11:18 vitals reviewed, initially soft BP new onset Afib, irreg irregular, in RVR likely etiology of her sx lungs clear, no respiratory distress DDX. pulmonary edema, ACS, arrhythmia, anemia, electrolyte/metabolic derangements, dehydration, infection. sent in from Dr Ruiz' office - pending thyroid, culture. cortisol, LDH/cpk - all ordered sent in from there for new onset Afib apparently labs and lytes, trop, ekg covid swab again 04/14/20 12:28 IVF hydration for soft BP, responding, mentating, maps are appropriate. given rate control, diltiazem/ with improvement in rate control of new onset Afib EKG with Afib RVR trop is elevated 2.8 given ASA for NSTEMI likely demand ischemia, no cp or sob, ekg without changes aside from Afib RVR cxr Cardiomegaly, right-sided effusion versus developing infiltrate. We will give antibiotics to cover for pneumonia, healthcare associated. Cefepime and vancomycin is appropriate to cover. given pcn allergy, low cross reactivity with pcn. Blood cultures are pending. 04/14/20 13:[address] Argueta customer service consultant - agree with plan, add on heparin gtt for AC admit to [facility] - Discharge Information Problems reviewed: Yes Clinical Impression/Diagnosis: Atrial fibrillation with RVR, NSTEMI (non-ST elevated myocardial infarction) Condition: Guarded - Admission Yes - Follow up/Referral Referrals: Kota Xavier MD [Primary Care Provider] - - Patient Discharge Instructions - Post Discharge Activity Vital Signs - Vital Signs Vital signs refused: No Pulse Rate: 98 Respiratory Rate: 18 Blood Pressure: 103/63 BP Location: Left Arm Blood Pressure position: Supine
[2020-04-14 11:30] LABS: BASO % 0.4 % (0-2.0); EOS % 1.7 % (0-4.5); LYMPH % 8.7 % (8-40); MCH 31.5 pg (25.7-33.7); MCHC 32.3 g/dl (32.0-35.9); MEAN CELL VOLUME 97.5 fl (80-96); MEAN PLT VOLUME 7.7 fl (7.5-11.1); MONO % 15.2 % (3.8-10.2); PLATELET COUNT 184 K/MM3 (134-434); RBC 3.18 M/mm3 (4.00-5.60); WHITE BLOOD COUNT 7.9 K/mm3 (4.0-10.0)
[2020-04-14 11:37] LABS: INR 1.15 (0.83-1.09); PROTHROMBIN TIME (PATIENT) 13.6 SEC (9.7-13.0)
[2020-04-14 11:40] LABS: ACTIVATED PTT 32.5 SECONDS (25.2-36.5)
[2020-04-14] MEDS ORDERED: dilTIAZem HCL 50 MG/10 ML - 10 ML VIAL IVPUSH ONE (11:42)
[2020-04-14] MEDS ORDERED: dilTIAZem HCL 125 MG/25 ML - 25 ML VIAL ONE (11:42)
[2020-04-14] MEDS ORDERED: dilTIAZem HCL 60 MG TABLET ONE (12:16)
[2020-04-14 12:18] LABS: ALBUMIN 2.8 g/dl (3.4-5.0); BILIRUBIN,TOTAL 0.4 mg/dL (0.2-1); BLOOD UREA NITROGEN 28.1 mg/dL (7-18); CALCIUM 10.2 mg/dL (8.5-10.1); CREATININE 0.8 mg/dL (0.55-1.3); POTASSIUM 4.7 mmol/L (3.5-5.1); TOT PROT 6.5 g/dl (6.4-8.2)
[2020-04-14] MEDS ORDERED: ASPIRIN 81 MG CHEWABLE TABLETS PO ONE (12:25)
[2020-04-14] MEDS ORDERED: ASPIRIN 81 MG CHEWABLE TABLETS ONE (12:29)
[2020-04-14] MEDS ORDERED: CEFEPIME HCL/D5W 1 GM/50 ML BAG IVPB ONE (12:33)
[2020-04-14] MEDS ORDERED: VANCOMYCIN 2,000 MG in DEXTROSE 5%-WATER - 250 ML IVPB ONE (12:34)
[2020-04-14] MEDS ORDERED: CEFEPIME 1 GM/100 ML BAG IVPB ONE (12:39)
[2020-04-14] MEDS ORDERED: VANCOMYCIN 1 GRAM (PRE-DOCKED) 2,000 MG/500 ML BAG IVPB ONE (12:39)
--- NOTE | 2020-04-14 13:33 | HP ---
Admitting History and Physical - Primary Care Physician PCP: Andrea Galindo - Admission Chief Complaint: weakness History of Present Illness: History of Present Illness Initial Comments: 04/14/20 10:44 64 YOM with a significant PMH of Sq Cell Lung CA (s/p resection in Jul 2019, port insertion, and chemo with carbo/abraxane), HTN, HLD, CAD (stents x2, on Plavix), COPD, [place] (on home O2 at night as needed), GERD, PVD and recent admission for COVID presents to the ED from [facility] for evaluation of nausea and weakness today. Patient states that he woke up today and felt very nauseas, tired, sleepy, weak and warm, prompting his arrival to the ED. He is also endorsing a low appetite, recent cough and shortness of breath along with 2 days of nonbloody diarrhea. Last chemotherapy was 3 weeks ago. Denies chest pain, palpitation, dizziness, Vomiting, abdominal pain, bladder and bowel problems, leg swelling, weakness, numbness or tingling. No sick contacts or travel. No new changes in medications. Allergies: Penicillins Past Medical History: Sq Call CA (s/p resection in Jul 2019, port insertion, and chemo with carbo/abraxane), HTN, CAD (stents x2, on Plavix), [place] (on home O2 at night as needed) and recent admission for COVID Social history: Lives at [facility]. No tobacco, ETOH or drug use. Meds: as documented in EMR Oncologist: Didi Cruz From [facility] Pt examined by me in the ER Had chemo 3 weeks ago-- he c/o feeling weak, lightheaded, diarrhea+ No pain No chest pain No palpitations In the ER found to be in rapid Afib and NSTEMI Rate controlled with IV Cardizem and now he is on Heparin gtt History Source: Patient, Transfer Record - Past Medical History Cardiovascular: Yes: CAD, HTN, [place] Pulmonary: Yes: Cancer (Lung CA-- Left) Gastrointestinal: Yes: Other (GERD) Infectious Disease: Yes: Other (COVID 19 in November) - Past Surgical History Past Surgical History: Yes: Stent - Smoking History Smoking history: Never smoked Have you smoked in the past 12 months: No If you are a former smoker, when did you quit?: 1984 - Alcohol/Substance Use Hx Alcohol Use: Yes (1984 stopped) - Social History History of Recent Travel: No Home Medications - Allergies Allergies/Adverse Reactions: Allergies Allergy/AdvReac Type Severity Reaction Status Date / Time egg Allergy Severe Difficulty Verified 04/14/20 10:27 Breathing mayonnaise Allergy Severe Difficulty Verified 04/14/20 10:27 Breathing Penicillins Allergy Severe Difficulty Verified 04/14/20 10:27 Breathing - Home Medications Home Medications: Ambulatory Orders Aspirin [ASA -] 81 mg PO DAILY 06/13/19 Budesonide/Formeterol Fumarate [SYMBICORT 160/4.5mcg -] 2 inh PO BID 06/13/19 Bupropion HCl [Bupropion HCl Sr] 150 mg PO DAILY 06/13/19 Clopidogrel Bisulfate [Plavix -] 75 mg PO DAILY 06/13/19 Polyethylene Glycol 3350 [Miralax 119 gm Btl -] 17 gm PO HS 06/16/19 Sennosides [Senna] 8.6 mg PO HS 06/16/19 Simvastatin [Zocor] 80 mg PO HS 06/16/19 Tamsulosin HCl [Flomax] 0.4 mg PO HS 12/20/19 Ascorbic Acid [Vitamin C -] 250 mg PO BID #42 tablet 12/22/19 Zinc 50 mg PO BID #42 tablet 12/22/19 Acetaminophen [Tylenol] 650 mg PO ASDIR 03/03/20 Budesonide/Formeterol Fumarate [SYMBICORT 160/4.5mcg -] 2 inh IH BID 03/03/20 Cholecalciferol (Vitamin D3) [Vitamin D3 -] 1,000 unit PO DAILY 03/03/20 Ferrous Sulfate [Feosol] 325 mg PO DAILY 03/03/20 Mag Hydrox/Al Hydrox/Simeth [Mylanta *Suspension*] 15 ml PO ASDIR 03/03/20 Pantoprazole Sodium [Protonix -] 20 mg PO BID 03/03/20 Review of Systems - Review of Systems Constitutional: reports: Weakness. denies: Chills, Fever Cardiovascular: denies: Chest Pain, Edema, Palpitations, Shortness of Breath Respiratory: denies: Cough, SOB Physical Examination Vital Signs: Vital Signs Temperature 98.1 F 04/14/20 11:15 Pulse Rate 98 H 04/14/20 13:33 Respiratory Rate 18 04/14/20 13:33 Blood Pressure 118/65 04/14/20 11:15 O2 Sat by Pulse Oximetry (%) 98 04/14/20 11:18 Constitutional: Yes: No Distress, Calm Cardiovascular: Yes: Pulse Irregular Respiratory: Yes: Diminished Gastrointestinal: Yes: Normal Bowel Sounds, Soft, Abdomen, Obese. No: Tenderness Edema: Yes Edema: LLE: Trace, RLE: Trace Integumentary: Yes: Other (scales diffuse) Psychiatric: Yes: Alert, Oriented Labs: CBC, BMP 04/14/20 10:50 04/14/20 10:50 Imaging - Results Chest X-ray: Image Reviewed (right lung Pneumonia) EKG: Image Reviewed (Afib with RVR) Problem List - Problems (1) Pneumonia Code(s): J18.9 - PNEUMONIA, UNSPECIFIED ORGANISM (2) Hyperthyroidism Code(s): E05.90 - THYROTOXICOSIS, UNSP WITHOUT THYROTOXIC CRISIS OR STORM (3) Atrial fibrillation with RVR Code(s): I48.91 - UNSPECIFIED ATRIAL FIBRILLATION (4) NSTEMI (non-ST elevated myocardial infarction) Code(s): I21.4 - NON-ST ELEVATION (NSTEMI) MYOCARDIAL INFARCTION (5) Anemia Code(s): D64.9 - ANEMIA, UNSPECIFIED (6) CAD (coronary artery disease) Code(s): I25.10 - ATHSCL HEART DISEASE OF [place] CORONARY ARTERY W/O ANG PCTRS (7) Lung cancer Code(s): C34.90 - MALIGNANT NEOPLASM OF UNSP PART OF UNSP BRONCHUS OR LUNG Assessment/Plan PLAN AFib with RVR Hyperthyroidism NSTEMI right pneumonia Lung CA--- squamous cell left -- on Heparin gtt -- check cbc, monitor for bleeding -- check cardiac enzymes -- received iv antibiotics in ER -- check COVID 19 -- continue with iv antibiotics -- check sputum cultures -- start methimazole for hyperthyroidism -- telemetry -- rate control as per Cardiology
--- NOTE | 2020-04-14 14:00 | CON.CARD ---
Cardiology Consult (text) - Consultation Consultation Note: Consult Specialty:: Cardiology Referred by:: medicine Reason for Consultation:: afib - History of Present Illness Chief Complaint: nausea, weakness History of Present Illness: 64M h/o HTN, HLD, CAD s/p NE and two stents, lung cancer p/w nausea, weakness. also complained of diarrhea. Noted to have afib with RVR in the ER, no prior diagnosis of afib. Improved with IV cardizem. No chest pain, palps, dizziness, dyspnea. Feels better after IVF. Sees Dr. Best for cardio. - Alcohol/Substance Use Hx Alcohol Use: Yes (1984 stopped) - Smoking History Smoking history: Former smoker Have you smoked in the past 12 months: No If you are a former smoker, when did you quit?: 1984 Home Medications - Allergies Allergies/Adverse Reactions: Allergies Allergy/AdvReac Type Severity Reaction Status Date / Time egg Allergy Severe Difficulty Verified 04/14/20 10:27 Breathing mayonnaise Allergy Severe Difficulty Verified 04/14/20 10:27 Breathing Penicillins Allergy Severe Difficulty Verified 04/14/20 10:27 Breathing Home Medications Medication Instructions Recorded Aspirin [ASA -] 81 mg PO DAILY 06/13/19 Budesonide/Formeterol Fumarate 2 inh PO BID 06/13/19 [SYMBICORT 160/4.5mcg -] Bupropion HCl [Bupropion HCl Sr] 150 mg PO DAILY 06/13/19 Clopidogrel Bisulfate [Plavix -] 75 mg PO DAILY 06/13/19 Polyethylene Glycol 3350 [Miralax 17 gm PO HS 06/16/19 119 gm Btl -] Sennosides [Senna] 8.6 mg PO HS 06/16/19 Simvastatin [Zocor] 80 mg PO HS 06/16/19 Tamsulosin HCl [Flomax] 0.4 mg PO HS 12/20/19 Ascorbic Acid [Vitamin C -] 250 mg PO BID #42 tablet 12/22/19 Zinc 50 mg PO BID #42 tablet 12/22/19 Acetaminophen [Tylenol] 650 mg PO ASDIR 03/03/20 Budesonide/Formeterol Fumarate 2 inh IH BID 03/03/20 [SYMBICORT 160/4.5mcg -] Cholecalciferol (Vitamin D3) 1,000 unit PO DAILY 07/15/20 [Vitamin D3 -] Ferrous Sulfate [Feosol] 325 mg PO DAILY 03/03/20 Mag Hydrox/Al Hydrox/Simeth 15 ml PO ASDIR 03/03/20 [Mylanta *Suspension*] Pantoprazole Sodium [Protonix -] 20 mg PO BID 03/03/20 Family Medical History Family History: Unremarkable Review of Systems - Review of Systems Constitutional: reports: No Symptoms Eyes: reports: No Symptoms HENT: reports: No Symptoms Neck: reports: No Symptoms Cardiovascular: reports: No Symptoms Respiratory: reports: Cough Gastrointestinal: reports: No Symptoms Genitourinary: reports: No Symptoms Musculoskeletal: reports: No Symptoms Integumentary: reports: No Symptoms Neurological: reports: No Symptoms Endocrine: reports: No Symptoms Hematology/Lymphatic: reports: No Symptoms Psychiatric: reports: No Symptoms Vital Signs Period Temp Pulse Resp BP Sys/Adams Pulse Ox Last 24 Hr 98 F-98.1 F 98-135 18-22 89-118/60-65 98-99 Constitutional: Yes: No Distress, Calm Eyes: Yes: Conjunctiva Clear, EOM Intact HENT: Yes: Atraumatic, Normocephalic Neck: Yes: Supple, Trachea Midline Respiratory: Yes: Regular, Cough, Diminished Gastrointestinal: Yes: Normal Bowel Sounds, Soft Cardiovascular: Yes: irregular, nl s1 s2 JVD: No Integumentary: No: Jaundice Neurological: Yes: Alert, Oriented Psychiatric: No: Agitated Laboratory Last Values WBC 7.9 K/mm3 (4.0-10.0) 04/14/20 10:50 RBC 3.18 M/mm3 (4.00-5.60) L 04/14/20 10:50 Hgb 10.0 GM/dL (11.7-16.9) L 04/14/20 10:50 Hct 31.0 % (35.4-49) L 04/14/20 10:50 MCV 97.5 fl (80-96) H 04/14/20 10:50 MCH 31.5 pg (25.7-33.7) 04/14/20 10:50 MCHC 32.3 g/dl (32.0-35.9) 04/14/20 10:50 RDW 17.0 % (11.9-15.9) H 04/14/20 10:50 Plt Count 184 K/MM3 (134-434) 04/14/20 10:50 MPV 7.7 fl (7.5-11.1) 04/14/20 10:50 Absolute Neuts (auto) 5.9 K/mm3 (1.5-8.0) 04/14/20 10:50 Neutrophils % 74.0 % (42.8-82.8) 04/14/20 10:50 Lymphocytes % 8.7 % (8-40) 04/14/20 10:50 Monocytes % 15.2 % (3.8-10.2) H 04/14/20 10:50 Eosinophils % 1.7 % (0-4.5) 04/14/20 10:50 Basophils % 0.4 % (0-2.0) 04/14/20 10:50 Nucleated RBC % 0 % (0-0) 04/14/20 10:50 PT with INR 13.60 SEC (9.7-13.0) H 04/14/20 10:50 INR 1.15 (0.83-1.09) H 04/14/20 10:50 PTT (Actin FS) 32.5 SECONDS (25.2-36.5) 04/14/20 10:50 Sodium 139 mmol/L (136-145) 04/14/20 10:50 Potassium 4.7 mmol/L (3.5-5.1) 04/14/20 10:50 Chloride 101 mmol/L (98-107) 04/14/20 10:50 Carbon Dioxide 28 mmol/L (21-32) 04/14/20 10:50 Anion Gap 10 MMOL/L (8-16) 04/14/20 10:50 BUN 28.1 mg/dL (7-18) H 04/14/20 10:50 Creatinine 0.8 mg/dL (0.55-1.3) 04/14/20 10:50 Est GFR (CKD-EPI)AfAm 107.89 04/14/20 10:50 Est GFR (CKD-EPI)NonAf 93.09 04/14/20 10:50 Random Glucose 124 mg/dL (74-106) H 04/14/20 10:50 Lactic Acid 1.2 mmol/L (0.4-2.0) 04/14/20 10:50 Calcium 10.2 mg/dL (8.5-10.1) H 04/14/20 10:50 Total Bilirubin 0.4 mg/dL (0.2-1) 04/14/20 10:50 AST 30 U/L (15-37) 04/14/20 10:50 ALT 31 U/L (13-61) 04/14/20 10:50 Alkaline Phosphatase 86 U/L (45-117) 04/14/20 10:50 LD Total 187 U/L (87-246) 04/14/20 10:50 Creatine Kinase 131 U/L (26-308) 04/14/20 10:50 Troponin I 2.84 ng/ml (0.00-0.05) H* 04/14/20 10:50 Total Protein 6.5 g/dl (6.4-8.2) 04/14/20 10:50 Albumin 2.8 g/dl (3.4-5.0) L 04/14/20 10:50 TSH 0.01 uIU/ml (0.358-3.74) L D 04/14/20 10:50 Free T4 7.45 ng/dl (0.76-1.16) H 04/14/20 10:50 Blood Type O POSITIVE 04/14/20 10:50 Antibody Screen Negative 04/14/20 10:50 Assessment/Plan echo 06/2019 nl LV/RV function, tr TR mibi 06/2019 mild inferolateral ischemia, no TID, nl EF CXR: progressive R sided infiltrative changes, L side clear tele: afib RVR -> rates 90s-110s after IV cardizem afib - new diagnosis - initially in RVR, now improved after cardizem IV - start cardizem 30 mg PO Q6H, uptitrate as needed - monitor on tele - [id number] warrants AC, start heparin gtt here if no contraindication - check echo - may be in setting of hyperthyroidism hyperthyroidism - TSH 0.01 here with new onset afib - manage per primary elevated trop - no chest pain - likely demand in setting of new onset afib with RVR - serial cardiac enzymes - heparin gtt as above ?PNA - abx per primary, infiltrate on cxr lung cancer - manage per onc - had planned chemo this week CAD s/p NE, stents - mild ischemia on mibi 06/2019, low risk finding, asymptomatic - cont plavix, dc aspirin now on anticoagulation - cont statin HLD - cont statin HTN - not on meds, stable here, monitor
[2020-04-14] MEDS ORDERED: HEPARIN NA (PORCINE) 5,000 UNITS/ML 1ML VIAL ONE (14:24)
[2020-04-14] MEDS ORDERED: HEPARIN INFUSION - 25,000 UNITS/500 ML INFUS.BAG IVPB ONE (14:24)
[2020-04-14] MEDS: HEPARIN NA (PORCINE) 5,000 UNITS/ML 1ML VIAL IVPUSH PRN ×2 (14:33→21:45)
[2020-04-14] MEDS: HEPARIN - 25,000 UNIT in SODIUM CHLORIDE 495 ML IV SCH (14:33)
[2020-04-14] MEDS ORDERED: ACETAMINOPHEN 325 MG TABLET (FP) PO PRN (15:03)
[2020-04-14] MEDS ORDERED: POLYETHYLENE GLYCOL 3350 119 GM BTL PO PRN (15:03)
[2020-04-14] MEDS: SODIUM CHLORIDE 1,000 ML IV SCH (15:37)
--- NOTE | 2020-04-14 16:05 | EKG ---
Test Reason : Blood Pressure : / mmHG Vent. Rate : 124 BPM Atrial Rate : 097 BPM P-R Int : 000 ms QRS Dur : 094 ms QT Int : 292 ms P-R-T Axes : 000 020 -02 degrees QTc Int : 419 ms ATRIAL FIBRILLATION WITH RAPID VENTRICULAR RESPONSE NONSPECIFIC ST ABNORMALITY ABNORMAL ECG WHEN COMPARED WITH ECG OF 22-DEC-2019 09:31, ATRIAL FIBRILLATION HAS REPLACED SINUS RHYTHM MINIMAL CRITERIA FOR INFERIOR INFARCT ARE NO LONGER PRESENT ST NOW DEPRESSED IN INFERIOR LEADS ST NOW DEPRESSED IN ANTEROLATERAL LEADS Confirmed by MD Andi, Kristofer ([id number]) on 04/14/2020 4:04:54 PM Referred By: Confirmed By:Kristofer Escamilla MD
[2020-04-14] MEDS: METHIMAZOLE 10 MG TABLET (FP) PO SCH ×2 (16:23→17:56)
[2020-04-14] MEDS ORDERED: CEFEPIME HCL 1 GM VIAL (RESTRICTED TO ID) ONE (17:37)
[2020-04-14] MEDS ORDERED: DEXTROSE 5%-WATER 100 ML IVPB ONE (17:37)
[2020-04-14] MEDS: dilTIAZem HCL 30 MG TABLET PO SCH ×2 (17:56→23:42)
[2020-04-14] MEDS: CEFEPIME 1 GM in DEXTROSE 5%-WATER 100 ML IVPB SCH (17:56)
[2020-04-14] MEDS ORDERED: CEFEPIME HCL/D5W 1 GM/50 ML BAG IVPB SCH (18:00)
[2020-04-14 18:09] LABS: URINE APPEARANCE CLEAR; URINE BILIRUBIN 1+ (NEGATIVE); URINE COLOR DK YELLOW; URINE GLUCOSE (UA) NEGATIVE (NEGATIVE); URINE KETONE NEGATIVE (NEGATIVE); URINE LEUK ESTERASE NEGATIVE (NEGATIVE); URINE NITRITE NEGATIVE (NEGATIVE); URINE PROTEIN NEGATIVE (NEGATIVE); URINE UROBILINOGEN 0.2 mg/dL (0.2-1.0)
[2020-04-14] MEDS: PANTOPRAZOLE 20 MG TABLET PO SCH (21:58)
[2020-04-14] MEDS: SENNOSIDES 8.6MG TABLET (FP) PO SCH (21:58)
[2020-04-14] MEDS: ATORVASTATIN CA 80 MG TABLET (FP) PO SCH (21:58)
[2020-04-14] MEDS: TAMSULOSIN HCL 0.4 MG CAP PO SCH (21:58)
[2020-04-14] MEDS: BUDESONIDE/FORMETEROL FUMARATE 160/4.5 mcg INHALER IH SCH (22:28)
[2020-04-15] MEDS ORDERED: DEXTROSE 5%-WATER 100 ML IVPB ONE ×2 (01:18→09:08)
[2020-04-15] MEDS ORDERED: CEFEPIME HCL 1 GM VIAL (RESTRICTED TO ID) ONE ×2 (01:18→09:08)
[2020-04-15] MEDS: CEFEPIME 1 GM in DEXTROSE 5%-WATER 100 ML IVPB SCH ×2 (02:13→09:13)
[2020-04-15] MEDS: HEPARIN NA (PORCINE) 5,000 UNITS/ML 1ML VIAL IVPUSH PRN ×3 (04:51→22:00)
[2020-04-15 05:01] LABS: BASO % 0.4 % (0-2.0); EOS % 2.6 % (0-4.5); HEMATOCRIT 27.7 % (35.4-49); LYMPH % 8.6 % (8-40); MCH 31.7 pg (25.7-33.7); MCHC 32.3 g/dl (32.0-35.9); MEAN PLT VOLUME 8.1 fl (7.5-11.1); NEUT % 74.4 % (42.8-82.8); PLATELET COUNT 168 K/MM3 (134-434); RBC 2.83 M/mm3 (4.00-5.60); RDW 17.2 % (11.9-15.9); WHITE BLOOD COUNT 7.4 K/mm3 (4.0-10.0)
[2020-04-15] MEDS: dilTIAZem HCL 30 MG TABLET PO SCH ×3 (06:13→18:25)
--- NOTE | 2020-04-15 09:01 | CONSULT ---
Consult Consult Specialty:: Endocrinology Referred by:: Dr Maher Reason for Consultation:: Hyperthyroidism - History of Present Illness Chief Complaint: Weakness History of Present Illness: This is a 64 Y/O man with a significant PMH of Sq Cell Lung CA (s/p resection in Jul 2019, port insertion, and chemo with carbo/abraxane and Pembrolizumab), HTN, HLD, CAD (stents x2, on Plavix), COPD, [place] (on home O2 at night as needed), GERD, PVD and recent admission for COVID presented to the ED from [facility] for evaluation of nausea and weakness.. Pt found to be in A Fib with progressively increasing FT4. Pt started on Methimazole. Pt referred for management of abnormal TFT - History Source History Provided By: Patient, Medical Record - Past Medical History Cardio/Vascular: Yes: CAD, HTN, [place] Pulmonary: Yes: Cancer (Lung CA-- Left) Gastrointestinal: Yes: Other (GERD) Infectious Disease: Yes: Other (COVID 19 in November) - Past Surgical History Past Surgical History: Yes: Stent - Alcohol/Substance Use Hx Alcohol Use: Yes (1985 stopped) - Smoking History Smoking history: Never smoked Have you smoked in the past 12 months: No If you are a former smoker, when did you quit?: 1984 - Social History Usual Living Arrangement: Long-Term History of Recent Travel: No Home Medications - Allergies Allergies/Adverse Reactions: Allergies Allergy/AdvReac Type Severity Reaction Status Date / Time egg Allergy Severe Difficulty Verified 04/14/20 10:27 Breathing mayonnaise Allergy Severe Difficulty Verified 04/14/20 10:27 Breathing Penicillins Allergy Severe Difficulty Verified 04/14/20 10:27 Breathing - Home Medications Home Medications: Ambulatory Orders Aspirin [ASA -] 81 mg PO DAILY 06/13/19 Budesonide/Formeterol Fumarate [SYMBICORT 160/4.5mcg -] 2 inh PO BID 06/13/19 Bupropion HCl [Bupropion HCl Sr] 150 mg PO DAILY 06/13/19 Clopidogrel Bisulfate [Plavix -] 75 mg PO DAILY 06/13/19 Polyethylene Glycol 3350 [Miralax 119 gm Btl -] 17 gm PO HS 06/16/19 Sennosides [Senna] 8.6 mg PO HS 06/16/19 Simvastatin [Zocor] 80 mg PO HS 06/16/19 Tamsulosin HCl [Flomax] 0.4 mg PO HS 12/20/19 Ascorbic Acid [Vitamin C -] 250 mg PO BID #42 tablet 12/22/19 Zinc 50 mg PO BID #42 tablet 12/22/19 Acetaminophen [Tylenol] 650 mg PO ASDIR 03/03/20 Budesonide/Formeterol Fumarate [SYMBICORT 160/4.5mcg -] 2 inh IH BID 03/03/20 Cholecalciferol (Vitamin D3) [Vitamin D3 -] 1,000 unit PO DAILY 03/03/20 Ferrous Sulfate [Feosol] 325 mg PO DAILY 03/03/20 Mag Hydrox/Al Hydrox/Simeth [Mylanta *Suspension*] 15 ml PO ASDIR 03/03/20 Pantoprazole Sodium [Protonix -] 20 mg PO BID 03/03/20 Review of Systems - Review of Systems Constitutional: reports: Malaise, Weakness Eyes: reports: No Symptoms HENT: reports: No Symptoms Neck: reports: No Symptoms Cardiovascular: reports: No Symptoms Respiratory: reports: No Symptoms Gastrointestinal: reports: No Symptoms Genitourinary: reports: No Symptoms Musculoskeletal: reports: No Symptoms Neurological: reports: No Symptoms Endocrine: reports: No Symptoms Hematology/Lymphatic: reports: No Symptoms Physical Exam Vital Signs: Vital Signs Temperature 98 F 04/15/20 06:00 Pulse Rate 93 H 04/15/20 06:00 Respiratory Rate 19 04/15/20 06:00 Blood Pressure 120/59 L 04/15/20 06:00 O2 Sat by Pulse Oximetry (%) 98 04/15/20 06:00 Constitutional: Yes: No Distress, Calm Eyes: Yes: Conjunctiva Clear, EOM Intact HENT: Yes: Atraumatic, Normocephalic Neck: Yes: Supple, Trachea Midline Cardiovascular: Yes: Pulse Irregular Respiratory: Yes: Regular, CTA Bilaterally Gastrointestinal: Yes: Normal Bowel Sounds, Soft Extremities: Yes: WNL Edema: No Neurological: Yes: Alert Labs: CBC, BMP 04/15/20 04:50 Assessment/Plan AP: Hyperthyroidism: Graves vs Thyroiditis sec to Pembrolizumab FT4 1.12 on 03/03 to 1.38 on 03/24 to 7.45 on 04/14 In view of rapid rise of FT4, thyroiditis is the more likey diagnosis On Methimazole 10mg QD Off Pembrolizumab now Will consider Prednisone 1mg/Kg if no improvement. Monitor TFT, sed rate, IL6 Cortisol pending Lung CA A Fib CAD HLD Will f/u
[2020-04-15] MEDS: CLOPIDOGREL BISULFATE 75 MG TABLET (FP) PO SCH (09:13)
[2020-04-15] MEDS: PANTOPRAZOLE 20 MG TABLET PO SCH ×2 (09:13→22:11)
[2020-04-15] MEDS: BUDESONIDE/FORMETEROL FUMARATE 160/4.5 mcg INHALER IH SCH ×2 (09:14→22:14)
[2020-04-15] MEDS: METHIMAZOLE 10 MG TABLET (FP) PO SCH (09:14)
[2020-04-15 09:16] LABS: ALBUMIN 2.5 g/dl (3.4-5.0); BILIRUBIN,TOTAL 0.8 mg/dL (0.2-1); BLOOD UREA NITROGEN 25.4 mg/dL (7-18); CALCIUM 9.6 mg/dL (8.5-10.1); CREATININE 0.6 mg/dL (0.55-1.3); POTASSIUM 4.3 mmol/L (3.5-5.1); TOT PROT 5.8 g/dl (6.4-8.2)
[2020-04-15] MEDS ORDERED: PATIENT'S OWN MEDICATION (NON-FORMULARY) (Bupropion Hcl [Bupropion Hcl Sr] 150 MG) PO SCH (10:00)
[2020-04-15] MEDS ORDERED: ASPIRIN 81 MG CHEWABLE TABLETS PO SCH (10:00)
--- NOTE | 2020-04-15 12:35 | PN ---
Progress Note (short form) - Note Progress Note: ID CONSULT DICTATED R/O POST OBSTRUCTIVE R PNEUMONIA AFIB HX MAJOR PCN ALLERGY S/P COVID-19 OBTAIN SPUTUM C/S EMPIRIC VANCOMYCIN/ AZTREONAM
--- NOTE | 2020-04-15 12:51 | ECHO ---
Name: JANELLE HAYES Exam:Adult Echocardiogram Study Date: 04/15/2020 10:24 AM Age: 64 yrs Reason For Study: afib MMode/2D Measurements & Calculations IVSd: 1.1 cm Ao root diam: 3.5 cm LVIDd: 4.5 cm LA dimension: 3.8 cm LVIDs: 3.3 cm LVPWd: 1.3 cm LVPWs: 1.5 cm EDV(Teich): 93.4 ml ESV(Teich): 43.9 ml LAV (MOD-bp): 94.0 ml RV S Shun: 11.7 cm/sec Doppler Measurements & Calculations MV E max shun: 104.6 cm/sec Ao V2 max: 170.1 cm/sec MV A max shun: 80.5 cm/sec Ao max P.6 mmHg MV E/A: 1.3 MV dec time: 0.13 sec LV V1 max P.4 mmHg MR max shun: 511.7 cm/sec LV V1 max: 92.8 cm/sec MR max P.8 mmHg TR max shun: 514.4 cm/sec PA V2 max: 112.0 cm/sec TR max P.8 mmHg PA max P.0 mmHg Med Peak E' Shun: 8.2 cm/sec Med E/e': 12.7 Lat Peak E' Shun: 11.7 cm/sec Lat E/e': 8.9 Procedure A complete two-dimensional transthoracic echocardiogram was performed (2D, M-mode, Doppler and color flow Doppler). Left Ventricle The left ventricular size, thickness and function are normal. Ejection Fraction = 60-65%. The left ve ntricular wall motion is normal. Right Ventricle The right ventricle is normal in size and function. Atria Normal left and right atrial size and function. Mitral Valve There is no mitral regurgitation noted. Tricuspid Valve There is trace tricuspid regurgitation. There was insufficient TR detected to calculate RV systolic p ressure. Aortic Valve No hemodynamically significant valvular aortic stenosis. No aortic regurgitation is present. Pulmonic Valve There is no pulmonic valvular regurgitation. Great Vessels The aortic root is normal size. Pericardium/Pleura There is no pericardial effusion. Interpretation Summary The left ventricular size, thickness and function are normal The right ventricle is normal in size and function. There is trace tricuspid regurgitation. MD Bhavik Best 04/15/2020 12:50 PM
[2020-04-15] MEDS ORDERED: AZTREONAM 1 GM VIAL (RESTRICTED TO ID) ONE ×2 (13:22→18:05)
[2020-04-15] MEDS ORDERED: DEXTROSE 5%-WATER - 50 ML IVPB ONE ×2 (13:22→18:05)
[2020-04-15] MEDS: AZTREONAM 1 GM in DEXTROSE 5%-WATER - 50 ML IVPB SCH ×2 (13:26→18:25)
[2020-04-15] MEDS: VANCOMYCIN 1 GRAM (PRE-DOCKED) 1,000 MG/250 ML BAG IVPB SCH (13:30)
--- NOTE | 2020-04-15 13:37 | PN ---
Progress Note (short form) - Note Progress Note: comfortable no complaints Vital Signs - 24 hr 04/14/20 04/14/20 04/14/20 13:46 15:29 16:40 Temperature 98.1 F Pulse Rate 98 H Pulse Rate [ 95 H 98 H Apical] Respiratory 18 19 19 Rate Blood Pressure 103/63 Blood Pressure 95/57 L 101/69 [Right Arm] O2 Sat by Pulse 98 99 Oximetry (%) 04/14/20 04/14/20 04/15/20 17:20 21:00 00:00 Temperature 97.8 F 97.4 F L 97.8 F Pulse Rate 114 H 94 H 125 H Pulse Rate [ Apical] Respiratory 22 H 18 20 Rate Blood Pressure 114/60 103/62 100/60 Blood Pressure [Right Arm] O2 Sat by Pulse 99 97 Oximetry (%) 04/15/20 04/15/20 06:00 10:00 Temperature 98 F 98.2 F Pulse Rate 93 H 101 H Pulse Rate [ Apical] Respiratory 19 18 Rate Blood Pressure 120/59 L 110/51 L Blood Pressure [Right Arm] O2 Sat by Pulse 98 98 Oximetry (%) Current Medications Generic Name Dose Route Start Last Admin Trade Name Freq PRN Reason Stop Dose Admin Acetaminophen 650 mg 04/14/20 15:03 Tylenol - PO Q6H PRN FEVER Atorvastatin Calcium 80 mg 04/14/20 22:00 04/14/20 21:58 Lipitor - PO 80 mg HS JENY Administration Budesonide/Formoterol Fumarate 2 puff 04/14/20 22:00 04/15/20 09:14 Symbicort 160/4.5mcg - IH 2 puff BID JENY Administration Bupropion HCl 150 mg 04/15/20 10:00 04/15/20 09:13 Wellbutrin Xl - PO 150 mg DAILY JENY Administration Clopidogrel Bisulfate 75 mg 04/15/20 10:00 04/15/20 09:13 Plavix - PO 75 mg DAILY JENY Administration Diltiazem HCl 30 mg 04/14/20 18:00 04/15/20 12:48 Cardizem - PO 30 mg Q6HPO JENY Administration Heparin Sodium (Porcine) 1,000 unit 04/14/20 13:34 04/15/20 12:50 Heparin - IVPUSH 1,000 unit PRN PRN Administration Heparin Heparin Sodium (Porcine) 5,000 unit 04/14/20 13:34 04/15/20 04:51 Heparin - IVPUSH 5,000 unit PRN PRN Administration Heparin Heparin Sodium (Porcine) 25, 500 mls @ 20 mls/hr 04/14/20 13:45 04/15/20 12:42 000 unit/ Sodium Chloride IV 1,400 unit/hr TITR JENY 28 mls/hr Titration Protocol 1,000 UNIT/HR Sodium Chloride 1,000 mls @ 83 mls/hr 04/14/20 15:15 04/14/20 15:37 Normal Saline - IV 83 mls/hr ASDIR JENY Administration Vancomycin HCl 1,000 mg in 250 mls @ 166.667 mls/hr 04/15/20 13:15 04/15/20 13:30 Vancomycin (Pre-Docked) IVPB 166.667 mls/hr Q12H JENY Administration Protocol Aztreonam 1 gm/ Dextrose 50 mls @ 100 mls/hr 04/15/20 13:15 04/15/20 13:26 IVPB 100 mls/hr Q8H-IV JENY Administration Protocol Methimazole 10 mg 04/14/20 15:15 04/15/20 09:14 Tapazole - PO 10 mg DAILY JENY Administration Pantoprazole Sodium 20 mg 04/14/20 22:00 04/15/20 09:13 Protonix - PO 20 mg BID JENY Administration Polyethylene Glycol 17 gm 04/14/20 15:03 Miralax (For Daily Use) - PO HS PRN CONSTIPATION Senna 2 tab 04/14/20 22:00 04/14/20 21:58 Senna - PO 2 tab HS JENY Administration Tamsulosin HCl 0.4 mg 04/14/20 22:00 04/14/20 21:58 Flomax - PO 0.4 mg HS JENY Administration Laboratory Results - last 24 hr 04/14/20 04/14/20 04/14/20 15:30 17:15 20:25 WBC RBC Hgb Hct MCV MCH MCHC RDW Plt Count MPV Absolute Neuts (auto) Neutrophils % Lymphocytes % Monocytes % Eosinophils % Basophils % Nucleated RBC % PTT (Actin FS) Sodium Potassium Chloride Carbon Dioxide Anion Gap BUN Creatinine Est GFR (CKD-EPI)AfAm Est GFR (CKD-EPI)NonAf Random Glucose Calcium Total Bilirubin AST ALT Alkaline Phosphatase Creatine Kinase 128 104 Troponin I 3.00 H* 1.89 H* Total Protein Albumin Urine Color Dk yellow Urine Appearance Clear Urine pH 5.0 Ur Specific [place] 1.024 Urine Protein Negative Urine Glucose (UA) Negative Urine Ketones Negative Urine Blood Negative Urine Nitrite Negative Urine Bilirubin 1+ H Urine Urobilinogen 0.2 Ur Leukocyte Esterase Negative 04/14/20 04/15/20 04/15/20 20:25 04:00 04:00 WBC RBC Hgb Hct MCV MCH MCHC RDW Plt Count MPV Absolute Neuts (auto) Neutrophils % Lymphocytes % Monocytes % Eosinophils % Basophils % Nucleated RBC % PTT (Actin FS) 33.1 33.6 Sodium 140 Potassium 4.3 Chloride 104 Carbon Dioxide 28 Anion Gap 8 BUN 25.4 H Creatinine 0.6 Est GFR (CKD-EPI)AfAm 121.43 Est GFR (CKD-EPI)NonAf 104.77 Random Glucose 111 H Calcium 9.6 Total Bilirubin 0.8 AST 25 ALT 24 Alkaline Phosphatase 75 Creatine Kinase 82 Troponin I 1.67 H* Total Protein 5.8 L Albumin 2.5 L Urine Color Urine Appearance Urine pH Ur Specific [place] Urine Protein Urine Glucose (UA) Urine Ketones Urine Blood Urine Nitrite Urine Bilirubin Urine Urobilinogen Ur Leukocyte Esterase 04/15/20 04/15/20 04:50 11:25 WBC 7.4 RBC 2.83 L Hgb 9.0 L Hct 27.7 L MCV 98.0 H MCH 31.7 MCHC 32.3 RDW 17.2 H Plt Count 168 MPV 8.1 Absolute Neuts (auto) 5.5 Neutrophils % 74.4 Lymphocytes % 8.6 Monocytes % 14.0 H Eosinophils % 2.6 Basophils % 0.4 Nucleated RBC % 0 PTT (Actin FS) 48.4 H Sodium Potassium Chloride Carbon Dioxide Anion Gap BUN Creatinine Est GFR (CKD-EPI)AfAm Est GFR (CKD-EPI)NonAf Random Glucose Calcium Total Bilirubin AST ALT Alkaline Phosphatase Creatine Kinase Troponin I Total Protein Albumin Urine Color Urine Appearance Urine pH Ur Specific [place] Urine Protein Urine Glucose (UA) Urine Ketones Urine Blood Urine Nitrite Urine Bilirubin Urine Urobilinogen Ur Leukocyte Esterase S1 S2 Irregular Lungs decreased Abd- soft, obese, NT Edema PLAN continue with rate control with cardizem-- may need to add beta-blockers ID eval appreciated Endocrinology eval for hyperthyroidism echo--->normal LV function cardiac enzymes trending down COVID pending Problem List - Problems (1) Pneumonia Code(s): J18.9 - PNEUMONIA, UNSPECIFIED ORGANISM (2) Hyperthyroidism Code(s): E05.90 - THYROTOXICOSIS, UNSP WITHOUT THYROTOXIC CRISIS OR STORM (3) Atrial fibrillation with RVR Code(s): I48.91 - UNSPECIFIED ATRIAL FIBRILLATION (4) NSTEMI (non-ST elevated myocardial infarction) Code(s): I21.4 - NON-ST ELEVATION (NSTEMI) MYOCARDIAL INFARCTION (5) Anemia Code(s): D64.9 - ANEMIA, UNSPECIFIED (6) CAD (coronary artery disease) Code(s): I25.10 - ATHSCL HEART DISEASE OF [place] CORONARY ARTERY W/O ANG PCTRS (7) Lung cancer Code(s): C34.90 - MALIGNANT NEOPLASM OF UNSP PART OF UNSP BRONCHUS OR LUNG
--- NOTE | 2020-04-15 13:48 | CON.HO ---
Consult - text type - Consultation Consultation Note: 64M h/o HTN, HLD, CAD s/p ND, stents, lung cancer p/w nausea, weakness. Also complained of diarrhea. Noted to have afib on ausculataion. no prior diagnosis of afib. No chest pain, palps, dizziness, dyspnea. Sent to ER - Alcohol/Substance Use Hx Alcohol Use: Yes (1985 stopped) - Smoking History Smoking history: Former smoker - Allergies Allergies/Adverse Reactions: Allergies Allergy/AdvReac Type Severity Reaction Status Date / Time egg Allergy Severe Difficulty Verified 04/14/20 10:27 Breathing mayonnaise Allergy Severe Difficulty Verified 04/14/20 10:27 Breathing Penicillins Allergy Severe Difficulty Verified 04/14/20 10:27 Breathing Home Medications Medication Instructions Recorded Aspirin [ASA -] 81 mg PO DAILY 06/13/19 Budesonide/Formeterol Fumarate 2 inh PO BID 06/13/19 [SYMBICORT 160/4.5mcg -] Bupropion HCl [Bupropion HCl Sr] 150 mg PO DAILY 06/13/19 Clopidogrel Bisulfate [Plavix -] 75 mg PO DAILY 06/13/19 Polyethylene Glycol 3350 [Miralax 17 gm PO HS 06/16/19 119 gm Btl -] Sennosides [Senna] 8.6 mg PO HS 06/16/19 Simvastatin [Zocor] 80 mg PO HS 06/16/19 Tamsulosin HCl [Flomax] 0.4 mg PO HS 12/20/19 Ascorbic Acid [Vitamin C -] 250 mg PO BID #42 tablet 12/22/19 Zinc 50 mg PO BID #42 tablet 12/22/19 Acetaminophen [Tylenol] 650 mg PO ASDIR 03/03/20 Budesonide/Formeterol Fumarate 2 inh IH BID 03/03/20 [SYMBICORT 160/4.5mcg -] Cholecalciferol (Vitamin D3) 1,000 unit PO DAILY 03/03/20 [Vitamin D3 -] Ferrous Sulfate [Feosol] 325 mg PO DAILY 03/03/20 Mag Hydrox/Al Hydrox/Simeth 15 ml PO ASDIR 03/03/20 [Mylanta *Suspension*] Pantoprazole Sodium [Protonix -] 20 mg PO BID 03/03/20 Family Medical History Family History: Unremarkable Vital Signs Period Temp Pulse Resp BP Sys/Adams Pulse Ox Last 24 Hr 98 F-98.1 F 98-135 18-22 89-118/60-65 98-99 Cor: RSR, No murmurs, No gallops Lungs:coarse breath sounds at bases Abd: Soft, Normal bowel sounds, No organomegaly Ext:No significant edema Labs/Meds reviewed Assessment/Plan 64 y/o with HTN, CAD s/p stents, COPD/ILD, obesity Oligometastatic Squamous cell lung cancer. stage IV, s/p Lt. upper lobe wedge resection/Rt. upper lobe SRS s/p carbo/abraxane on immunotherapy with pembrolizumab Was due for C3 but present with generalized weakness/nausea/'new onset afib. fT4 7/TSH 0.01/ new onset afib ? autoimmune thyroiditis related to pembrolizumab. afib secondary to hyperthyroidism endocrine and cardiology consults holding pembrolizumab
--- NOTE | 2020-04-15 13:53 | CONS ---
INFECTIOUS DISEASE CONSULTATION DATE OF CONSULTATION: DATE OF DICTATION: 04/15/2020 HISTORY: The patient is a 64-[facility]-old [facility] who is evaluated for possible pneumonia. He has a known history of squamous cell CA of the lung. He is status post lung resection in July 2019 and chemotherapy, last cycle of which was approximately 3 weeks ago. He now presents with complaints of increasing shortness of breath, generalized weakness, anorexia, nausea and cough. He presented to the emergency room where he was noted to be hypotensive with new onset atrial fibrillation and hypothyroidism. Chest x-ray shows right-sided mass-like infiltrate. When compared to a CAT scan from January, he had similar mass-like infiltrate present at that time. Patient was empirically treated with vancomycin and cefepime for possible pneumonia. He is comfortable at rest. He denies any shortness of breath. He denies any chest pain, cough, sputum production or hemoptysis. He denies any ill contacts. He did have COVID-19 in November 2019, from which he recovered. He has a history of MAJOR PENICILLIN ALLERGY, reports developing shortness of breath in childhood after receiving penicillin. PAST MEDICAL HISTORY: Positive for squamous cell carcinoma of the lung, status post lung resection and chemotherapy; history of hypertension; hyperlipidemia, coronary artery disease; coronary artery stents; obstructive sleep apnea. PAST SURGICAL HISTORY: Status post port. ALLERGIES: To PENICILLIN, reports developing shortness of breath in childhood. MEDICATIONS: Include cefepime, vancomycin, tamsulosin, Plavix, heparin, Lipitor, diltiazem, Tylenol, aspirin, Protonix, Tapazole. Blood and urine cultures are pending. Sputum culture pending. PHYSICAL EXAMINATION: General: He is awake. He is in no acute distress. Vital Signs: Temperature 98.2, blood pressure 110/51, pulse 101 regular, respirations 18 per minute. HEENT: Sclerae are anicteric. Heart: Sounds S1, S2, irregular. Lungs: Rhonchi and wheezing right lung field. Abdomen: Obese, soft, nontender. Extremities: Edema 1+. LABORATORY DATA: White count 7.4, hematocrit 27.7, platelet count 168. Creatinine 0.6. Urine leukocyte esterase negative. IMPRESSION: 1. Rule out postobstructive right-sided pneumonia. 2. Squamous cell carcinoma of the lung. 3. New onset atrial fibrillation. 4. MAJOR PENICILLIN ALLERGY. 5. Status post COVID-19. Obtain sputum culture, urine legionella and pneumococcal antigen. Empiric antibiotic coverage in this patient with MAJOR PENICILLIN ALLERGY with vancomycin and Azactam. Thank you for the kind referral. DAMARI JOHNSTON M.D. [id number]
[2020-04-15] MEDS: MINERAL OIL/PET HY-PHL TOPICAL OINTMENT 454 GM JAR TP SCH (15:32)
--- NOTE | 2020-04-15 15:41 | PN ---
Progress Note (short form) - Note Progress Note: s: no cp sob palps dizzy; +cough Current Medications Generic Name Dose Route Start Last Admin Trade Name Freq PRN Reason Stop Dose Admin Acetaminophen 650 mg 04/14/20 15:03 Tylenol - PO Q6H PRN FEVER Atorvastatin Calcium 80 mg 04/14/20 22:00 04/14/20 21:58 Lipitor - PO 80 mg HS JENY Administration Budesonide/Formoterol Fumarate 2 puff 04/14/20 22:00 04/15/20 09:14 Symbicort 160/4.5mcg - IH 2 puff BID JENY Administration Bupropion HCl 150 mg 04/15/20 10:00 04/15/20 09:13 Wellbutrin Xl - PO 150 mg DAILY JENY Administration Clopidogrel Bisulfate 75 mg 04/15/20 10:00 04/15/20 09:13 Plavix - PO 75 mg DAILY JENY Administration Diltiazem HCl 30 mg 04/14/20 18:00 04/15/20 12:48 Cardizem - PO 30 mg Q6HPO JENY Administration Emollient Ointment 1 applic 04/15/20 13:45 04/15/20 15:32 Aquaphor - TP 1 applic DAILY JENY Administration Heparin Sodium (Porcine) 1,000 unit 04/14/20 13:34 04/15/20 12:50 Heparin - IVPUSH 1,000 unit PRN PRN Administration Heparin Heparin Sodium (Porcine) 5,000 unit 04/14/20 13:34 04/15/20 04:51 Heparin - IVPUSH 5,000 unit PRN PRN Administration Heparin Heparin Sodium (Porcine) 25, 500 mls @ 20 mls/hr 04/14/20 13:45 04/15/20 12:42 000 unit/ Sodium Chloride IV 1,400 unit/hr TITR JENY 28 mls/hr Titration Protocol 1,000 UNIT/HR Sodium Chloride 1,000 mls @ 83 mls/hr 04/14/20 15:15 04/14/20 15:37 Normal Saline - IV 83 mls/hr ASDIR JENY Administration Vancomycin HCl 1,000 mg in 250 mls @ 166.667 mls/hr 04/15/20 13:15 04/15/20 13:30 Vancomycin (Pre-Docked) IVPB 166.667 mls/hr Q12H JENY Administration Protocol Aztreonam 1 gm/ Dextrose 50 mls @ 100 mls/hr 04/15/20 13:15 04/15/20 13:26 IVPB 100 mls/hr Q8H-IV JENY Administration Protocol Methimazole 10 mg 04/14/20 15:15 04/15/20 09:14 Tapazole - PO 10 mg DAILY JENY Administration Pantoprazole Sodium 20 mg 04/14/20 22:00 04/15/20 09:13 Protonix - PO 20 mg BID JENY Administration Polyethylene Glycol 17 gm 04/14/20 15:03 Miralax (For Daily Use) - PO HS PRN CONSTIPATION Senna 2 tab 04/14/20 22:00 04/14/20 21:58 Senna - PO 2 tab HS JENY Administration Tamsulosin HCl 0.4 mg 04/14/20 22:00 04/14/20 21:58 Flomax - PO 0.4 mg HS JENY Administration Vital Signs Period Temp Pulse Resp BP Sys/Adams Pulse Ox Last 24 Hr 97.4 F-98.2 F 93-125 18-22 100-121/50-69 97-99 Constitutional: Yes: No Distress, Calm Eyes: Yes: Conjunctiva Clear Neck: Yes: Supple, Trachea Midline Respiratory: Yes: Regular, Cough, Diminished Gastrointestinal: Yes: Normal Bowel Sounds, Soft Cardiovascular: Yes: irregular, nl s1 s2 JVD: No Integumentary: No: Jaundice Neurological: Yes: Alert, Oriented Psychiatric: No: Agitated CBC, BMP 04/15/20 04:50 04/15/20 04:00 Assessment/Plan echo 06/2019 nl LV/RV function, tr TR echo 03/2020: nl lv/rv, no sig valve path mibi 06/2019 mild inferolateral ischemia, no TID, nl EF CXR: progressive R sided infiltrative changes, L side clear tele: afib, rates low 100s afib - new diagnosis - initially in RVR, now improved after cardizem IV - cont cardizem 30 mg PO Q6H, uptitrate as needed - monitor on tele - [id number] warrants AC, on start heparin gtt - may be in setting of hyperthyroidism hyperthyroidism - TSH 0.01 here with new onset afib - manage per primary elevated trop - no chest pain - likely demand in setting of new onset afib with RVR - echo unremarkable - once acute issues resolve (pt with active PNA) would consider updated MIBI to monitor ischemic burden lung cancer - manage per onc - had planned chemo this week CAD s/p NH, stents - mild ischemia on mibi 06/2019, low risk finding, asymptomatic - cont plavix, dc aspirin now on anticoagulation - cont statin HLD - cont statin HTN - not on meds, stable here, monitor
[2020-04-15] MEDS ORDERED: PT OWN MED DRAWER 7, Y5N ONE (15:59)
[2020-04-15] MEDS: HEPARIN - 25,000 UNIT in SODIUM CHLORIDE 495 ML IV SCH (16:15)
--- NOTE | 2020-04-15 17:01 | PN ---
Physical Exam: SUBJECTIVE: Patient seen and examined. Denies chest pain, sob, abdominal pain, diarrhea. OBJECTIVE: Vital Signs Temperature 97.7 F 04/15/20 14:05 Pulse Rate 108 H 04/15/20 14:05 Respiratory Rate 20 04/15/20 14:05 Blood Pressure 121/50 L 04/15/20 14:05 O2 Sat by Pulse Oximetry (%) 98 04/15/20 10:00 GENERAL: The patient is awake, alert, and fully oriented, in no acute distress. NECK: supple. LUNGS: decreased breath sounds on bilateral bases HEART: Irregular, S1, S2 ABDOMEN: Soft, nontender, nondistended, normoactive bowel sounds EXTREMITIES: 2+ pulses, warm, well-perfused, no edema. NEUROLOGICAL: Cranial nerves II through XII grossly intact. Normal speech PSYCH: Normal mood, normal affect. SKIN: Warm, dry, normal turgor Laboratory Results - last 24 hr 04/14/20 04/14/20 04/14/20 15:30 17:15 20:25 WBC RBC Hgb Hct MCV MCH MCHC RDW Plt Count MPV Absolute Neuts (auto) Neutrophils % Lymphocytes % Monocytes % Eosinophils % Basophils % Nucleated RBC % PTT (Actin FS) Sodium Potassium Chloride Carbon Dioxide Anion Gap BUN Creatinine Est GFR (CKD-EPI)AfAm Est GFR (CKD-EPI)NonAf Random Glucose Calcium Total Bilirubin AST ALT Alkaline Phosphatase Creatine Kinase 128 104 Troponin I 3.00 H* 1.89 H* Total Protein Albumin Urine Color Dk yellow Urine Appearance Clear Urine pH 5.0 Ur Specific [place] 1.024 Urine Protein Negative Urine Glucose (UA) Negative Urine Ketones Negative Urine Blood Negative Urine Nitrite Negative Urine Bilirubin 1+ H Urine Urobilinogen 0.2 Ur Leukocyte Esterase Negative 04/14/20 04/15/20 04/15/20 20:25 04:00 04:00 WBC RBC Hgb Hct MCV MCH MCHC RDW Plt Count MPV Absolute Neuts (auto) Neutrophils % Lymphocytes % Monocytes % Eosinophils % Basophils % Nucleated RBC % PTT (Actin FS) 33.1 33.6 Sodium 140 Potassium 4.3 Chloride 104 Carbon Dioxide 28 Anion Gap 8 BUN 25.4 H Creatinine 0.6 Est GFR (CKD-EPI)AfAm 121.43 Est GFR (CKD-EPI)NonAf 104.77 Random Glucose 111 H Calcium 9.6 Total Bilirubin 0.8 AST 25 ALT 24 Alkaline Phosphatase 75 Creatine Kinase 82 Troponin I 1.67 H* Total Protein 5.8 L Albumin 2.5 L Urine Color Urine Appearance Urine pH Ur Specific [place] Urine Protein Urine Glucose (UA) Urine Ketones Urine Blood Urine Nitrite Urine Bilirubin Urine Urobilinogen Ur Leukocyte Esterase 04/15/20 04/15/20 04:50 11:25 WBC 7.4 RBC 2.83 L Hgb 9.0 L Hct 27.7 L MCV 98.0 H MCH 31.7 MCHC 32.3 RDW 17.2 H Plt Count 168 MPV 8.1 Absolute Neuts (auto) 5.5 Neutrophils % 74.4 Lymphocytes % 8.6 Monocytes % 14.0 H Eosinophils % 2.6 Basophils % 0.4 Nucleated RBC % 0 PTT (Actin FS) 48.4 H Sodium Potassium Chloride Carbon Dioxide Anion Gap BUN Creatinine Est GFR (CKD-EPI)AfAm Est GFR (CKD-EPI)NonAf Random Glucose Calcium Total Bilirubin AST ALT Alkaline Phosphatase Creatine Kinase Troponin I Total Protein Albumin Urine Color Urine Appearance Urine pH Ur Specific [place] Urine Protein Urine Glucose (UA) Urine Ketones Urine Blood Urine Nitrite Urine Bilirubin Urine Urobilinogen Ur Leukocyte Esterase Active Medications Generic Name Dose Route Start Last Admin Trade Name Freq PRN Reason Stop Dose Admin Acetaminophen 650 mg 04/14/20 15:03 Tylenol - PO Q6H PRN FEVER Atorvastatin Calcium 80 mg 04/14/20 22:00 04/14/20 21:58 Lipitor - PO 80 mg HS JENY Administration Budesonide/Formoterol Fumarate 2 puff 04/14/20 22:00 04/15/20 09:14 Symbicort 160/4.5mcg - IH 2 puff BID JENY Administration Bupropion HCl 150 mg 04/15/20 10:00 04/15/20 09:13 Wellbutrin Xl - PO 150 mg DAILY JENY Administration Clopidogrel Bisulfate 75 mg 04/15/20 10:00 04/15/20 09:13 Plavix - PO 75 mg DAILY JENY Administration Diltiazem HCl 30 mg 04/14/20 18:00 04/15/20 12:48 Cardizem - PO 30 mg Q6HPO JENY Administration Emollient Ointment 1 applic 04/15/20 13:45 04/15/20 15:32 Aquaphor - TP 1 applic DAILY JENY Administration Heparin Sodium (Porcine) 1,000 unit 04/14/20 13:34 04/15/20 12:50 Heparin - IVPUSH 1,000 unit PRN PRN Administration Heparin Heparin Sodium (Porcine) 5,000 unit 04/14/20 13:34 04/15/20 04:51 Heparin - IVPUSH 5,000 unit PRN PRN Administration Heparin Heparin Sodium (Porcine) 25, 500 mls @ 20 mls/hr 04/14/20 13:45 04/15/20 16:15 000 unit/ Sodium Chloride IV 1,400 unit/hr TITR JENY 28 mls/hr Administration Protocol 1,000 UNIT/HR Sodium Chloride 1,000 mls @ 83 mls/hr 04/14/20 15:15 04/14/20 15:37 Normal Saline - IV 83 mls/hr ASDIR JENY Administration Vancomycin HCl 1,000 mg in 250 mls @ 166.667 mls/hr 04/15/20 13:15 04/15/20 13:30 Vancomycin (Pre-Docked) IVPB 166.667 mls/hr Q12H JENY Administration Protocol Aztreonam 1 gm/ Dextrose 50 mls @ 100 mls/hr 04/15/20 13:15 04/15/20 13:26 IVPB 100 mls/hr Q8H-IV JENY Administration Protocol Methimazole 10 mg 04/14/20 15:15 04/15/20 09:14 Tapazole - PO 10 mg DAILY JENY Administration Pantoprazole Sodium 20 mg 04/14/20 22:00 04/15/20 09:13 Protonix - PO 20 mg BID JENY Administration Polyethylene Glycol 17 gm 04/14/20 15:03 Miralax (For Daily Use) - PO HS PRN CONSTIPATION Senna 2 tab 04/14/20 22:00 04/14/20 21:58 Senna - PO 2 tab HS JENY Administration Tamsulosin HCl 0.4 mg 04/14/20 22:00 04/14/20 21:58 Flomax - PO 0.4 mg HS JENY Administration ASSESSMENT/PLAN: Patient is a 64 YOM with a significant PMH of Sq Cell Lung CA (s/p resection in Jul 2019, port insertion, and chemo with carbo/abraxane), HTN, HLD, CAD (stents x2, on Plavix), COPD, [place] (on home O2 at night as needed), GERD, PVD and recent admission for COVID presents to the ED after found to be tachycardic on Dr. Tolbert's clinic. Found to have Afib with RVR, with TFT consistent with hyperthyroid. #Metastatic squamous cell lung Ca -on carbo/abraxane, and immunotherapy with pembrolizumab, 2 cycles completed -New onset Afib with RVR, improved with cardizem. -TSH 0.01, FT4 7 -- ?autoimmune thyroiditis possible 2/2 pembrolizumab -afib likely 2/2 hyperthyroidism, ?r/o post obstructive pneumonia -empiric vancomycin/aztreonam. ID on board -holding pembrolizumab -Methimazole 10mg daily started. -Endocrine consulted. -Cardiology consulted. Visit type - Emergency Visit Emergency Visit: Yes ED Registration Date: 04/14/20 Care time: The patient presented to the Emergency Department on the above date and was hospitalized for further evaluation of their emergent condition. - New Patient This patient is new to me today: Yes Date on this admission: 04/15/20 - Critical Care Critical Care patient: No - Medication Review Med list reviewed for High Risk Meds patients 65 and older: Yes ATTENDING PHYSICIAN STATEMENT I saw and evaluated the patient. I reviewed the resident's note and discussed the case with the resident. I agree with the resident's findings and plan as documented. SUBJECTIVE: OBJECTIVE: ASSESSMENT AND PLAN:
[2020-04-15] MEDS: SODIUM CHLORIDE 1,000 ML IV SCH (18:24)
--- NOTE | 2020-04-15 21:59 | PN ---
Teaching Attending Note Name of Resident: Yennifer Gottlieb ATTENDING PHYSICIAN STATEMENT I saw and evaluated the patient. I reviewed the resident's note and discussed the case with the resident. I agree with the resident's findings and plan as documented. ASSESSMENT AND PLAN: 64 yo M with NSCLCa, squamous cell, stage IV. S/p SAIGE wedge resection, and RUL SRS. S/p tx with carbo/abraxane anf pembrolizumab. Admitted with new onset afib. Noted hypothyroid. Possible autoimmune thyroiditis related to pembrolizumab. On empiric vancomycin/aztreonam continue to hold pembrolizumab C/wMethimazole started. Follow-up Endocrine recommendations. D/w House Staff
[2020-04-15] MEDS: ATORVASTATIN CA 80 MG TABLET (FP) PO SCH (22:11)
[2020-04-15] MEDS: TAMSULOSIN HCL 0.4 MG CAP PO SCH (22:11)
[2020-04-15] MEDS: SENNOSIDES 8.6MG TABLET (FP) PO SCH (22:11)
[2020-04-16] MEDS: VANCOMYCIN 1 GRAM (PRE-DOCKED) 1,000 MG/250 ML BAG IVPB SCH ×2 (00:23→12:51)
[2020-04-16] MEDS: dilTIAZem HCL 30 MG TABLET PO SCH ×2 (00:23→07:00)
[2020-04-16] MEDS ORDERED: AZTREONAM 1 GM VIAL (RESTRICTED TO ID) ONE ×3 (01:11→15:45)
[2020-04-16] MEDS ORDERED: DEXTROSE 5%-WATER - 50 ML IVPB ONE ×3 (01:11→15:45)
[2020-04-16] MEDS: AZTREONAM 1 GM in DEXTROSE 5%-WATER - 50 ML IVPB SCH ×3 (02:45→17:11)
[2020-04-16] MEDS: HEPARIN NA (PORCINE) 5,000 UNITS/ML 1ML VIAL IVPUSH PRN (04:09)
--- NOTE | 2020-04-16 06:00 | PN ---
Progress Note, Physician Chief Complaint: TELE: NSR Denies CP/SOB/dizziness History of Present Illness: CAD Lung CA PAF - Current Medication List Current Medications: Active Medications Acetaminophen (Tylenol -) 650 mg PO Q6H PRN PRN Reason: FEVER Last Admin: 04/16/20 01:03 Dose: 650 mg Documented by: Atorvastatin Calcium (Lipitor -) 80 mg PO HS [facility] Last Admin: 04/15/20 22:11 Dose: 80 mg Documented by: Budesonide/Formoterol Fumarate (Symbicort 160/4.5mcg -) 2 puff IH BID [facility] Last Admin: 04/15/20 22:14 Dose: 2 puff Documented by: Bupropion HCl (Wellbutrin Xl -) 150 mg PO DAILY [facility] Last Admin: 04/15/20 09:13 Dose: 150 mg Documented by: Clopidogrel Bisulfate (Plavix -) 75 mg PO DAILY [facility] Last Admin: 04/15/20 09:13 Dose: 75 mg Documented by: Diltiazem HCl (Cardizem -) 30 mg PO Q6HPO [facility] Last Admin: 04/16/20 00:23 Dose: 30 mg Documented by: Emollient Ointment (Aquaphor -) 1 applic TP DAILY [facility] Last Admin: 04/15/20 15:32 Dose: 1 applic Documented by: Heparin Sodium (Porcine) (Heparin -) 1,000 unit IVPUSH PRN PRN PRN Reason: Heparin Last Admin: 04/16/20 04:09 Dose: 1,000 unit Documented by: Heparin Sodium (Porcine) (Heparin -) 5,000 unit IVPUSH PRN PRN PRN Reason: Heparin Last Admin: 04/15/20 22:00 Dose: 5,000 unit Documented by: Heparin Sodium (Porcine) 25, (000 unit/ Sodium Chloride) 500 mls @ 20 mls/hr IV TITR [facility]; Protocol Last Titration: 04/16/20 04:01 Dose: 1,650 unit/hr, 33 mls/hr Documented by: Sodium Chloride (Normal Saline -) 1,000 mls @ 83 mls/hr IV ASDIR JENY Last Admin: 04/15/20 18:24 Dose: Not Given Documented by: Vancomycin HCl (Vancomycin (Pre-Docked)) 1,000 mg in 250 mls @ 166.667 mls/hr IVPB Q12H JENY; Protocol Last Admin: 04/16/20 00:23 Dose: 166.667 mls/hr Documented by: Aztreonam 1 gm/ Dextrose 50 mls @ 100 mls/hr IVPB Q8H-IV [facility]; Protocol Last Admin: 04/16/20 02:45 Dose: 100 mls/hr Documented by: Methimazole (Tapazole -) 10 mg PO DAILY [facility] Last Admin: 04/15/20 09:14 Dose: 10 mg Documented by: Pantoprazole Sodium (Protonix -) 20 mg PO BID [facility] Last Admin: 04/15/20 22:11 Dose: 20 mg Documented by: Polyethylene Glycol (Miralax (For Daily Use) -) 17 gm PO HS PRN PRN Reason: CONSTIPATION Senna (Senna -) 2 tab PO HS [facility] Last Admin: 04/15/20 22:11 Dose: 2 tab Documented by: Tamsulosin HCl (Flomax -) 0.4 mg PO [facility] Last Admin: 04/15/20 22:11 Dose: 0.4 mg Documented by: - Objective Vital Signs: Vital Signs Temperature 97.9 F 04/16/20 01:00 Pulse Rate 94 H 04/16/20 01:00 Respiratory Rate 18 04/16/20 01:00 Blood Pressure 101/44 L 04/16/20 01:00 O2 Sat by Pulse Oximetry (%) 98 04/15/20 10:00 Constitutional: Yes: No Distress Cardiovascular: Yes: Regular Rate and Rhythm Respiratory: Yes: Other (decreased breath sounds) Gastrointestinal: Yes: Soft (nt) Edema: No Neurological: Yes: Alert ...Motor Strength: WNL Labs: CBC, BMP 04/15/20 04:50 04/15/20 04:00 INR, PTT INR 1.15 (0.83-1.09) H 04/14/20 10:50 Laboratory Tests 04/14/20 04/14/20 04/14/20 12:10 15:30 20:25 PTT (Actin FS) Sodium Potassium Troponin I 3.00 H* 1.89 H* Free T4 COVID-19 (HERNANDEZ) Not detected 04/15/20 04/16/20 04/16/20 04:00 03:35 06:28 PTT (Actin FS) 47.3 H Sodium 140 Potassium 4.3 Troponin I 1.67 H* Free T4 6.57 H COVID-19 (HERNANDEZ) Assessment/Plan DATA: echo 06/2019 nl LV/RV function, tr TR echo 03/2020: nl lv/rv, no sig valve path mibi 06/2019 mild inferolateral ischemia, no TID, nl EF CXR: progressive R sided infiltrative changes, L side clear afib: paroxysmal. In sinus this AM - new diagnosis - initially in RVR, now improved after cardizem IV - convert cardizem to CD 120 today - monitor on tele - Would convert UFH hep gtts to Eliquis if no contraindications - free T4 elevated, management as per PMD hyperthyroidism: - TSH 0.01 here with new onset afib - manage per primary elevated trop: - no chest pain - likely demand in setting of new onset afib with RVR - echo unremarkable - once acute issues resolve (pt with active PNA) would consider updated MIBI to monitor ischemic burden lung cancer: - manage per onc - had planned chemo this week CAD s/p [place], stents - mild ischemia on mibi 06/2019, low risk finding, asymptomatic - cont plavix, dc aspirin now on anticoagulation - cont statin HLD: - cont statin HTN: - not on meds, stable here, monitor
--- NOTE | 2020-04-16 08:40 | PN ---
Progress Note (short form) - Note Progress Note: Denies any complaints Vital Signs Period Temp Pulse Resp BP Sys/Adams Pulse Ox Last 24 Hr 97.7 F-98.9 F 94-108 18-20 101-121/44-70 90-100 PE: Awake alert Neck: Supple HEENT: EOMI Lungs: basal crackles CVS: S1S2 Abd: Benign Ext: No edema CMP Sodium 140 mmol/L (136-145) 04/15/20 04:00 Potassium 4.3 mmol/L (3.5-5.1) 04/15/20 04:00 Chloride 104 mmol/L (98-107) 04/15/20 04:00 Carbon Dioxide 28 mmol/L (21-32) 04/15/20 04:00 Anion Gap 8 MMOL/L (8-16) 04/15/20 04:00 BUN 25.4 mg/dL (7-18) H 04/15/20 04:00 Creatinine 0.6 mg/dL (0.55-1.3) 04/15/20 04:00 Est GFR (CKD-EPI)AfAm 121.43 04/15/20 04:00 Est GFR (CKD-EPI)NonAf 104.77 04/15/20 04:00 Random Glucose 111 mg/dL (74-106) H 04/15/20 04:00 Lactic Acid 1.2 mmol/L (0.4-2.0) 04/14/20 10:50 Calcium 9.6 mg/dL (8.5-10.1) 04/15/20 04:00 Total Bilirubin 0.8 mg/dL (0.2-1) 04/15/20 04:00 AST 25 U/L (15-37) 04/15/20 04:00 ALT 24 U/L (13-61) 04/15/20 04:00 Alkaline Phosphatase 75 U/L (45-117) 04/15/20 04:00 LD Total 187 U/L (87-246) 04/14/20 10:50 Creatine Kinase 82 U/L (26-308) 04/15/20 04:00 Troponin I 1.67 ng/ml (0.00-0.05) H* 04/15/20 04:00 Total Protein 5.8 g/dl (6.4-8.2) L 04/15/20 04:00 Albumin 2.5 g/dl (3.4-5.0) L 04/15/20 04:00 TSH 0.01 uIU/ml (0.358-3.74) L D 04/14/20 10:50 Free T4 7.45 ng/dl (0.76-1.16) H 04/14/20 10:50 Current Medications Generic Name Dose Route Start Last Admin Trade Name Freq PRN Reason Stop Dose Admin Acetaminophen 650 mg 04/14/20 15:03 04/16/20 01:03 Tylenol - PO 650 mg Q6H PRN Administration FEVER Atorvastatin Calcium 80 mg 04/14/20 22:00 04/15/20 22:11 Lipitor - PO 80 mg HS JENY Administration Budesonide/Formoterol Fumarate 2 puff 04/14/20 22:00 04/15/20 22:14 Symbicort 160/4.5mcg - IH 2 puff BID JENY Administration Bupropion HCl 150 mg 04/15/20 10:00 04/15/20 09:13 Wellbutrin Xl - PO 150 mg DAILY JENY Administration Clopidogrel Bisulfate 75 mg 04/15/20 10:00 04/15/20 09:13 Plavix - PO 75 mg DAILY JENY Administration Diltiazem HCl 30 mg 04/14/20 18:00 04/16/20 07:00 Cardizem - PO 30 mg Q6HPO JENY Administration Emollient Ointment 1 applic 04/15/20 13:45 04/15/20 15:32 Aquaphor - TP 1 applic DAILY JENY Administration Heparin Sodium (Porcine) 1,000 unit 04/14/20 13:34 04/16/20 04:09 Heparin - IVPUSH 1,000 unit PRN PRN Administration Heparin Heparin Sodium (Porcine) 5,000 unit 04/14/20 13:34 04/15/20 22:00 Heparin - IVPUSH 5,000 unit PRN PRN Administration Heparin Heparin Sodium (Porcine) 25, 500 mls @ 20 mls/hr 04/14/20 13:45 04/16/20 04:01 000 unit/ Sodium Chloride IV 1,650 unit/hr TITR JENY 33 mls/hr Titration Protocol 1,000 UNIT/HR Sodium Chloride 1,000 mls @ 83 mls/hr 04/14/20 15:15 04/15/20 18:24 Normal Saline - IV Not Given ASDIR JENY Vancomycin HCl 1,000 mg in 250 mls @ 166.667 mls/hr 04/15/20 13:15 04/16/20 00:23 Vancomycin (Pre-Docked) IVPB 166.667 mls/hr Q12H JENY Administration Protocol Aztreonam 1 gm/ Dextrose 50 mls @ 100 mls/hr 04/15/20 13:15 04/16/20 02:45 IVPB 100 mls/hr Q8H-IV JENY Administration Protocol Methimazole 10 mg 04/14/20 15:15 04/15/20 09:14 Tapazole - PO 10 mg DAILY JENY Administration Pantoprazole Sodium 20 mg 04/14/20 22:00 04/15/20 22:11 Protonix - PO 20 mg BID JENY Administration Polyethylene Glycol 17 gm 04/14/20 15:03 Miralax (For Daily Use) - PO HS PRN CONSTIPATION Senna 2 tab 04/14/20 22:00 04/15/20 22:11 Senna - PO 2 tab HS JENY Administration Tamsulosin HCl 0.4 mg 04/14/20 22:00 04/15/20 22:11 Flomax - PO 0.4 mg HS JENY Administration AP: Hyperthyroidism: Graves vs Thyroiditis sec to Pembrolizumab FT4 6.57 today. Sed rate 117 IL6 pending FT4 1.12 on 03/03 to 1.38 on 03/24 to 7.45 on 04/14 In view of rapid rise of FT4, thyroiditis is the more likey diagnosis On Methimazole 10mg QD Off Pembrolizumab now Will consider Prednisone 1mg/Kg if no improvement. Continue to monitor TFT. Pt likely to go hypothyroid from the thyroiditis in the future and need LT4 replacement. If the TSI is reported WNL and FT4 continue to come down, will D/C Methimazole. Cortisol pending Lung CA A Fib CAD HLD Will f/u
[2020-04-16] MEDS: PANTOPRAZOLE 20 MG TABLET PO SCH ×2 (11:13→21:09)
[2020-04-16] MEDS: BUDESONIDE/FORMETEROL FUMARATE 160/4.5 mcg INHALER IH SCH ×2 (11:13→21:22)
[2020-04-16] MEDS: METHIMAZOLE 10 MG TABLET (FP) PO SCH (11:13)
[2020-04-16] MEDS: CLOPIDOGREL BISULFATE 75 MG TABLET (FP) PO SCH (11:13)
[2020-04-16] MEDS: MINERAL OIL/PET HY-PHL TOPICAL OINTMENT 454 GM JAR TP SCH (11:13)
--- NOTE | 2020-04-16 11:19 | PN ---
Progress Note, Physician History of Present Illness: pt seen/ examined chart is reviewed d/w RN also Awake/ Comfortable - Current Medication List Current Medications: Active Medications Acetaminophen (Tylenol -) 650 mg PO Q6H PRN PRN Reason: FEVER Last Admin: 04/16/20 01:03 Dose: 650 mg Documented by: Atorvastatin Calcium (Lipitor -) 80 mg PO HS [facility] Last Admin: 04/15/20 22:11 Dose: 80 mg Documented by: Budesonide/Formoterol Fumarate (Symbicort 160/4.5mcg -) 2 puff IH BID [facility] Last Admin: 04/16/20 11:13 Dose: 2 puff Documented by: Bupropion HCl (Wellbutrin Xl -) 150 mg PO DAILY [facility] Last Admin: 04/16/20 11:13 Dose: 150 mg Documented by: Clopidogrel Bisulfate (Plavix -) 75 mg PO DAILY [facility] Last Admin: 04/16/20 11:13 Dose: 75 mg Documented by: Diltiazem HCl (Cardizem Cd -) 120 mg PO DAILY [facility] Emollient Ointment (Aquaphor -) 1 applic TP DAILY [facility] Last Admin: 04/16/20 11:13 Dose: 1 applic Documented by: Heparin Sodium (Porcine) (Heparin -) 1,000 unit IVPUSH PRN PRN PRN Reason: Heparin Last Admin: 04/16/20 04:09 Dose: 1,000 unit Documented by: Heparin Sodium (Porcine) (Heparin -) 5,000 unit IVPUSH PRN PRN PRN Reason: Heparin Last Admin: 04/15/20 22:00 Dose: 5,000 unit Documented by: Heparin Sodium (Porcine) 25, (000 unit/ Sodium Chloride) 500 mls @ 20 mls/hr IV TITR [facility]; Protocol Last Titration: 04/16/20 04:01 Dose: 1,650 unit/hr, 33 mls/hr Documented by: Sodium Chloride (Normal Saline -) 1,000 mls @ 83 mls/hr IV ASDIR [facility] Last Admin: 04/15/20 18:24 Dose: Not Given Documented by: Vancomycin HCl (Vancomycin (Pre-Docked)) 1,000 mg in 250 mls @ 166.667 mls/hr IVPB Q12H [facility]; Protocol Last Admin: 04/16/20 00:23 Dose: 166.667 mls/hr Documented by: Aztreonam 1 gm/ Dextrose 50 mls @ 100 mls/hr IVPB Q8H-IV JENY; Protocol Last Admin: 04/16/20 11:12 Dose: 100 mls/hr Documented by: Methimazole (Tapazole -) 10 mg PO DAILY [facility] Last Admin: 04/16/20 11:13 Dose: 10 mg Documented by: Pantoprazole Sodium (Protonix -) 20 mg PO BID [facility] Last Admin: 04/16/20 11:13 Dose: 20 mg Documented by: Polyethylene Glycol (Miralax (For Daily Use) -) 17 gm PO HS PRN PRN Reason: CONSTIPATION Senna (Senna -) 2 tab PO HS [facility] Last Admin: 04/15/20 22:11 Dose: 2 tab Documented by: Tamsulosin HCl (Flomax -) 0.4 mg PO HS [facility] Last Admin: 04/15/20 22:11 Dose: 0.4 mg Documented by: - Objective Vital Signs: Vital Signs Temperature 98.3 F 04/16/20 06:00 Pulse Rate 99 H 04/16/20 06:00 Respiratory Rate 20 04/16/20 06:00 Blood Pressure 105/44 L 04/16/20 06:00 O2 Sat by Pulse Oximetry (%) 100 04/16/20 06:00 Constitutional: Yes: No Distress, Calm Neck: Yes: Supple Respiratory: Yes: Diminished Gastrointestinal: Yes: Soft Edema: RUE: 1+, LLE: 1+ Neurological: Yes: Alert Labs: CBC, BMP 04/15/20 04:50 04/15/20 04:00 INR, PTT INR 1.15 (0.83-1.09) H 04/14/20 10:50 Problem List - Problems (1) Acute on chronic respiratory failure with hypoxemia Code(s): J96.21 - ACUTE AND CHRONIC RESPIRATORY FAILURE WITH HYPOXIA (2) Atrial fibrillation with RVR Code(s): I48.91 - UNSPECIFIED ATRIAL FIBRILLATION (3) Hyperthyroidism Code(s): E05.90 - THYROTOXICOSIS, UNSP WITHOUT THYROTOXIC CRISIS OR STORM (4) NSTEMI (non-ST elevated myocardial infarction) Code(s): I21.4 - NON-ST ELEVATION (NSTEMI) MYOCARDIAL INFARCTION (5) Pneumonia Code(s): J18.9 - PNEUMONIA, UNSPECIFIED ORGANISM (6) CAD (coronary artery disease) Code(s): I25.10 - ATHSCL HEART DISEASE OF [place] CORONARY ARTERY W/O ANG PCTRS (7) Lung cancer Code(s): C34.90 - MALIGNANT NEOPLASM OF UNSP PART OF UNSP BRONCHUS OR LUNG Assessment/Plan Continue present care Abx Rate control d/c heparin-- Change to Eliquis Pulmonary consult D/W Dr Vasquez also will follow
[2020-04-16] MEDS: APIXABAN 5 MG TABLET PO SCH ×2 (12:51→21:09)
--- NOTE | 2020-04-16 12:51 | PN ---
Progress Note, Physician History of Present Illness: AWAKE SEATED IN BED NO C/O DYSPNEA/ COUGH AFEBRILE TOLERATING ANTIBIOTICS - Current Medication List Current Medications: Active Medications Acetaminophen (Tylenol -) 650 mg PO Q6H PRN PRN Reason: FEVER Last Admin: 04/16/20 01:03 Dose: 650 mg Documented by: Apixaban (Eliquis -) 5 mg PO BID [facility] Atorvastatin Calcium (Lipitor -) 80 mg PO HS [facility] Last Admin: 04/15/20 22:11 Dose: 80 mg Documented by: Budesonide/Formoterol Fumarate (Symbicort 160/4.5mcg -) 2 puff IH BID [facility] Last Admin: 04/16/20 11:13 Dose: 2 puff Documented by: Bupropion HCl (Wellbutrin Xl -) 150 mg PO DAILY [facility] Last Admin: 04/16/20 11:13 Dose: 150 mg Documented by: Clopidogrel Bisulfate (Plavix -) 75 mg PO DAILY [facility] Last Admin: 04/16/20 11:13 Dose: 75 mg Documented by: Diltiazem HCl (Cardizem Cd -) 120 mg PO DAILY [facility] Last Admin: 04/16/20 11:40 Dose: Not Given Documented by: Emollient Ointment (Aquaphor -) 1 applic TP DAILY [facility] Last Admin: 04/16/20 11:13 Dose: 1 applic Documented by: Sodium Chloride (Normal Saline -) 1,000 mls @ 83 mls/hr IV ASDIR [facility] Last Admin: 04/15/20 18:24 Dose: Not Given Documented by: Vancomycin HCl (Vancomycin (Pre-Docked)) 1,000 mg in 250 mls @ 166.667 mls/hr IVPB Q12H [facility]; Protocol Last Admin: 04/16/20 00:23 Dose: 166.667 mls/hr Documented by: Aztreonam 1 gm/ Dextrose 50 mls @ 100 mls/hr IVPB Q8H-IV [facility]; Protocol Last Admin: 04/16/20 11:12 Dose: 100 mls/hr Documented by: Methimazole (Tapazole -) 10 mg PO DAILY [facility] Last Admin: 04/16/20 11:13 Dose: 10 mg Documented by: Pantoprazole Sodium (Protonix -) 20 mg PO BID [facility] Last Admin: 04/16/20 11:13 Dose: 20 mg Documented by: Polyethylene Glycol (Miralax (For Daily Use) -) 17 gm PO HS PRN PRN Reason: CONSTIPATION Senna (Senna -) [address] [facility] Last Admin: 04/15/20 22:11 Dose: 2 tab Documented by: Tamsulosin HCl (Flomax -) 0.[address] [facility] Last Admin: 04/15/20 22:11 Dose: 0.4 mg Documented by: - Objective Vital Signs: Vital Signs Temperature 98.3 F 04/16/20 06:00 Pulse Rate 99 H 04/16/20 06:00 Respiratory Rate 20 04/16/20 06:00 Blood Pressure 105/44 L 04/16/20 06:00 O2 Sat by Pulse Oximetry (%) 100 04/16/20 06:00 Constitutional: Yes: No Distress Cardiovascular: Yes: Regular Rate and Rhythm, S1, S2 Respiratory: Yes: Diminished Gastrointestinal: Yes: Normal Bowel Sounds, Soft, Abdomen, Obese. No: Tenderness Edema: Yes Labs: CBC, BMP 04/15/20 04:50 04/15/20 04:00 INR, PTT INR 1.15 (0.83-1.09) H 04/14/20 10:50 Assessment/Plan R/O POST OBSTRUCTIVE PNEUMONIA PCN ALLERGY AWAIT C/S CONTINUE VANCOMYCIN / AZTREONAM
--- NOTE | 2020-04-16 13:35 | PN ---
Progress Note (short form) - Note Progress Note: PULMONARY CONSULLTATION DICTATED 04/16/20 IMP ACUTE ON CHRONIC HYPOXEMIC RESPIRATORY FAILURE RLL PNEUMONIA LIKELY POST-OBSTRUCTIVE ADVANCED COPD ON NOCTURNAL O2 H/O LUNG CA S/P SAIGE RESECTION WITH RECURRENCE ON CHEMO ASHD S/P STENT AFIB WTH RVR + TROPONINS LIKELY DEMAND ISCHEMIA [place] GERD H/O COVID-07 DECEMBER 2019 PLAN SUPPLEMENTAL O2 NIPPV NEEDED INHALED BRONCHODILATORS STEROIDS ABX PER ID CULTURES MONITOR LYTES ABG CHEST CT AC TREND TROPONIN DR DUNCAN Problem List - Problems (1) Acute on chronic respiratory failure with hypoxemia Code(s): J96.21 - ACUTE AND CHRONIC RESPIRATORY FAILURE WITH HYPOXIA (2) Atrial fibrillation with RVR Code(s): I48.91 - UNSPECIFIED ATRIAL FIBRILLATION (3) Pneumonia Code(s): J18.9 - PNEUMONIA, UNSPECIFIED ORGANISM (4) Anemia Code(s): D64.9 - ANEMIA, UNSPECIFIED (5) CAD (coronary artery disease) Code(s): I25.10 - ATHSCL HEART DISEASE OF [place] CORONARY ARTERY W/O ANG PCTRS (6) Lung cancer Code(s): C34.90 - MALIGNANT NEOPLASM OF UNSP PART OF UNSP BRONCHUS OR LUNG (7) COPD (chronic obstructive pulmonary disease) Code(s): J44.9 - CHRONIC OBSTRUCTIVE PULMONARY DISEASE, UNSPECIFIED
[2020-04-16 13:59] LABS: ARTERIAL BLD GAS O2 SATURATION 64.1 mmHg (95-98); ARTERIAL BLOOD GAS BASE EXCESS 1.4 mmol/L (-2-2); ARTERIAL BLOOD GAS pH 7.312 (7.350-7.450)
[2020-04-16 14:03] LABS: ALLENS TEST POSITIVE
[2020-04-16 14:09] LABS: ARTERIAL BLOOD GAS PO2 36.9 mmHg (80-100)
[2020-04-16] MEDS: methylPREDNISolone NA SUCC 40 MG/1 ML VIAL IVPUSH SCH ×2 (14:28→17:11)
[2020-04-16] MEDS ORDERED: ALBUTEROL SO4 2.5/IPRATROPIUM 0.5 INH SOL 3 ML VIAL.NEB. NEB PRN (14:28)
--- NOTE | 2020-04-16 14:46 | CONS ---
DATE OF CONSULTATION: 04/16/2020 REFERRING PHYSICIAN: Adam Childress MD HISTORY: The patient is a 64-year-old male with past medical history of lung cancer status post left upper lobe resection July 2019, status post port insertion due to chemotherapy, has recurrent disease in right lung. Most recent chemo 3 weeks ago. Hypertension, hyperlipidemia, ASHD status post stents, maintained on Plavix. COPD, obstructive sleep apnea on home O2, predominantly at night. GERD, PVD, recently hospitalized at [facility] secondary to COVID in November 2019, resident of [facility], transferred to [facility] with nausea and weakness. Patient apparently for the past week or so has been feeling shortness of breath and weak. He woke up the day of admission, felt very tired, nausea, sleepy, weak, and warm. In the ER he was noted to have a cough, increasing shortness of breath, nonbloody diarrhea. Of note is hospitalization is significant for he was noted on admission to be in rapid atrial fibrillation which was improved with IV Cardizem. He was transferred to medical telemetry unit for further monitoring. He was started on anticoagulation. He was also noted on x-ray to have increasing right mid lung field infiltrate on previous exam of January of 2020. He was then evaluated by ID and placed on broad-spectrum antibiotics for likely postobstructive pneumonia. Patient was also noted on the floor today to have increasing respiratory distress and hypoxemia. PAST MEDICAL HISTORY: Again includes lung cancer status post resection, status post chemo, most recent being 3 weeks ago. History of COVID-07 December 2019, squamous cell cancer of the lung, hypertension, hyperlipidemia, ASHD status post stents, obstructive sleep apnea, COPD on home O2 at night, GERD, recent COVID, hypertension. CURRENT MEDICATIONS: Include Symbicort 160/4.5, Flomax, Tylenol, Azactam, vancomycin, Eliquis, Wellbutrin, Tapazole, Aquaphor, Cardizem, MiraLax, senna, normal saline, Lipitor, and pantoprazole. REVIEW OF SYSTEMS: Positive dyspnea, positive cough, positive weakness. No chest pain. Has lower extremity edema. PHYSICAL EXAMINATION: General: The patient is an obese male, well-developed, well-nourished, tachypneic, in moderate respiratory distress. Vital Signs: He is currently afebrile. Blood pressure is 105/44. Heart rate is 99 and irregular. O2 saturation is 90 on 3 L nasal cannula. HEENT: Exam is normocephalic, atraumatic. Neck: Supple. Heart: Irregularly irregular. Chest: Few crackles noted in the right lung field. Abdomen: Soft. Bowel sounds are positive. Extremities: Bilateral lower extremity edema. LABORATORY: COVID is non-detected. WBC 7.4, hemoglobin 9, hematocrit 27.7, a platelet count of 168,000. BUN 25, creatinine 0.4. Troponin initially is 3, most recent 1.6. Chest x-ray: Cardiomegaly, increased infiltrate and consolidation in right mid lung field. IMPRESSION: 1. Acute on chronic hypoxemic respiratory failure, likely secondary to pneumonia, likely postobstructive. 2. Advanced chronic obstructive pulmonary disease on nocturnal oxygen. 3. History of lung cancer status post left upper lobe resection with recurrence, currently on chemotherapy. 4. Arteriosclerotic heart disease status post stents. 5. Atrial fibrillation with rapid ventricular response. 6. Positive troponins, likely demand ischemia. 7. Gastroesophageal reflux disease. 8. History of COVID-07 December 2019. PLAN: Supplemental O2, inhaled bronchodilators, steroids, antibiotics as per Infectious Disease. Cultures, monitor electrolytes. Check arterial blood gas. CT scan of the chest. Continue anticoagulation. Trend troponins. CK DUNCAN M.D. LAURA/[id number] MTDD
[2020-04-16 14:50] LABS: N-TERMINAL BNP 2543.8 pg/ml (5-125)
[2020-04-16] MEDS: SODIUM CHLORIDE 1,000 ML IV SCH (15:15)
--- NOTE | 2020-04-16 16:23 | PN ---
Physical Exam: SUBJECTIVE: Patient seen and examined. Patient was noted to have increased respiratory distress and hypoxic this morning on nasal cannula. He was placed on NIPPV. OBJECTIVE: Vital Signs Temperature 98.1 F 04/16/20 14:00 Pulse Rate 120 H 04/16/20 14:00 Respiratory Rate 04/16/20 14:00 Blood Pressure 126/67 04/16/20 14:00 O2 Sat by Pulse Oximetry (%) 100 04/16/20 06:00 GENERAL: The patient is awake, alert, and fully oriented, on bipap NECK: supple. LUNGS: decreased breath sounds bilateral bases HEART: Irregular, S1, S2 ABDOMEN: Soft, nontender, nondistended, normoactive bowel sounds EXTREMITIES: 2+ pulses, warm, well-perfused, no edema. NEUROLOGICAL: Cranial nerves II through XII grossly intact. Normal speech PSYCH: Normal mood, normal affect. SKIN: Warm, dry, normal turgor Laboratory Results - last 24 hr 04/14/20 04/15/20 04/15/20 12:10 04:00 20:35 ESR PTT (Actin FS) 39.3 H Anticoagulation Therapy Puncture Site Patient Temperature ABG pH ABG pCO2 ABG pO2 ABG HCO3 ABG O2 Sat (Measured) ABG O2 Content ABG Base Excess Donell Test Patient On Oxygen O2 Delivery Device Oxygen Flow Rate Vent Mode Vent Rate Mechanical Rate PEEP Pressure Support Vent B-Natriuretic Peptide Free T4 Thyroglobulin Antibody 206.6 H COVID-19 (HERNANDEZ) Not detected 04/16/20 04/16/20 04/16/20 03:35 06:28 06:28 ESR 117 H PTT (Actin FS) 47.3 H Anticoagulation Therapy Puncture Site Patient Temperature ABG pH ABG pCO2 ABG pO2 ABG HCO3 ABG O2 Sat (Measured) ABG O2 Content ABG Base Excess Donell Test Patient On Oxygen O2 Delivery Device Oxygen Flow Rate Vent Mode Vent Rate Mechanical Rate PEEP Pressure Support Vent B-Natriuretic Peptide 2543.8 H Free T4 6.57 H Thyroglobulin Antibody COVID-19 (HERNANDEZ) 04/16/20 04/16/20 13:03 13:40 ESR PTT (Actin FS) 27.8 Anticoagulation Therapy No Result Required. Puncture Site Left radial Patient Temperature No Result Required. ABG pH 7.312 L ABG pCO2 58.80 H ABG pO2 36.9 L* ABG HCO3 29.1 H ABG O2 Sat (Measured) 64.1 L ABG O2 Content No Result Required. ABG Base Excess 1.4 Donell Test Positive Patient On Oxygen Yes O2 Delivery Device No Result Required. Oxygen Flow Rate 50 Vent Mode No Result Required. Vent Rate No Result Required. Mechanical Rate No Result Required. PEEP No Result Required. Pressure Support Vent No Result Required. B-Natriuretic Peptide Free T4 Thyroglobulin Antibody COVID-19 (HERNANDEZ) Active Medications Generic Name Dose Route Start Last Admin Trade Name Freq PRN Reason Stop Dose Admin Acetaminophen 650 mg 04/14/20 15:03 04/16/20 01:03 Tylenol - PO 650 mg Q6H PRN Administration FEVER Albuterol/Ipratropium 1 amp 04/16/20 14:28 Duoneb - NEB Q4H PRN SHORTNESS OF BREATH Apixaban 5 mg 04/16/20 12:45 04/16/20 12:51 Eliquis - PO 5 mg BID JENY Administration Atorvastatin Calcium 80 mg 04/14/20 22:00 04/15/20 22:11 Lipitor - PO 80 mg HS JENY Administration Budesonide/Formoterol Fumarate 2 puff 04/14/20 22:00 04/16/20 11:13 Symbicort 160/4.5mcg - IH 2 puff BID JENY Administration Bupropion HCl 150 mg 04/15/20 10:00 04/16/20 11:13 Wellbutrin Xl - PO 150 mg DAILY JENY Administration Clopidogrel Bisulfate 75 mg 04/15/20 10:00 04/16/20 11:13 Plavix - PO 75 mg DAILY JENY Administration Diltiazem HCl 120 mg 04/16/20 11:30 04/16/20 11:40 Cardizem Cd - PO Not Given DAILY JEN[facility] Emollient Ointment 1 applic 04/15/20 13:45 04/16/20 11:13 Aquaphor - TP 1 applic DAILY [facility]Y Administration Sodium Chloride 1,000 mls @ 83 mls/hr 04/14/20 15:15 04/15/20 18:24 Normal Saline - IV Not Given ASDIR [facility] Vancomycin HCl 1,000 mg in 250 mls @ 166.667 mls/hr 04/15/20 13:15 04/16/20 12:51 Vancomycin (Pre-Docked) IVPB 166.667 mls/hr Q12H JENY Administration Protocol Aztreonam 1 gm/ Dextrose 50 mls @ 100 mls/hr 04/15/20 13:15 04/16/20 11:12 IVPB 100 mls/hr Q8H-IV JENY Administration Protocol Methimazole 10 mg 04/14/20 15:15 04/16/20 11:13 Tapazole - PO 10 mg DAILY [facility]Y Administration Methylprednisolone Sodium Succinate 40 mg 04/16/20 14:00 04/16/20 14:28 Solu-Medrol - IVPUSH 40 mg Q8H-IV JENY Administration Pantoprazole Sodium 20 mg 04/14/20 22:00 04/16/20 11:13 Protonix - PO 20 mg BID EJNY Administration Polyethylene Glycol 17 gm 04/14/20 15:03 Miralax (For Daily Use) - PO HS PRN CONSTIPATION Senna 2 tab 04/14/20 22:00 04/15/20 22:11 Senna - PO 2 tab HS JENY Administration Tamsulosin HCl 0.4 mg 04/14/20 22:00 04/15/20 22:11 Flomax - PO 0.4 mg HS JENY Administration ASSESSMENT/PLAN: Patient is a 64 YOM with a significant PMH of Sq Cell Lung CA (s/p resection in Jul 2019, port insertion, and chemo with carbo/abraxane), HTN, HLD, CAD (stents x2, on Plavix), COPD, [place] (on home O2 at night as needed), GERD, PVD and recent admission for COVID presents to the ED after found to be tachycardic on Dr. Tolbert's clinic. Found to have Afib with RVR, with TFT consistent with hyperthyroid. #Metastatic squamous cell lung Ca -on carbo/abraxane, and immunotherapy with pembrolizumab, 2 cycles completed -hyperthyroidism likely 2/2 autoimmune thyroiditis 2/2 ?pembrolizumab -holding pembrolizumab #Afib with RVR -likely 2/2 hyperthyroid, pneumonia, no hx of afib -Improved with IV Cardizem -continue PO cardizem q6h -Elevated troponins likely demand ischemia -cardiology on board #Hyperthyroidism -TSH 0.01, FT4 7 -- ?autoimmune thyroiditis possible 2/2 pembrolizumab -Methimazole 10mg daily started. -monitor TFT, ESR, IL-6 -Endocrine consulted. #Acute on chronic hypoxic and hypercapneic respiratory failure -CXR 04/16 : progressive bilateral pulmonary and pleural changes in comparison to CXR on 04/14 -likely 2/2 post obstructive pneumonia 2/2 Lung Ca, ?pneumonitis 2/2 pembrolizumab -on IV vancomycin/aztreonam. ID on board -on Solu-medrol 40mg q8h -Chest CT -continue bipap as per pulm -Pulm consulted. Visit type - Emergency Visit Emergency Visit: Yes ED Registration Date: 04/14/20 Care time: The patient presented to the Emergency Department on the above date and was hospitalized for further evaluation of their emergent condition. - New Patient This patient is new to me today: No - Critical Care Critical Care patient: No - Medication Review Med list reviewed for High Risk Meds patients 65 and older: Yes ATTENDING PHYSICIAN STATEMENT I saw and evaluated the patient. I reviewed the resident's note and discussed the case with the resident. I agree with the resident's findings and plan as documented. SUBJECTIVE: OBJECTIVE: ASSESSMENT AND PLAN:
--- NOTE | 2020-04-16 16:39 | PN ---
Teaching Attending Note Name of Resident: Yennifer Gottlieb ATTENDING PHYSICIAN STATEMENT I saw and evaluated the patient. I reviewed the resident's note and discussed the case with the resident. I agree with the resident's findings and plan as documented. 64M with metastatic Lung SCC on carbo/abraxane/pembrolizumab(last dose 03/24) who was admitted for Afib and found to be hyperthyroid; thought to possibly be due to AEI 2/2 immunotherapy. Endocrine is on board, and he has gotten methimazole. Afib is controlled with Cardizem; Eliquis also started. Missed his dose of pembro for this week; today patient was placed on bipap for hypercapneic respiratory failure with ABG concerning for CO2 58. Pulm is following and patient is currently on broad spectrum AB and solumderol [address] chest as patient may also have pneumonitis from his immunotherapy, although he is already on high dose steroids which would be the treatment paradigm.
[2020-04-16] MEDS: FUROSEMIDE 40 MG/4 ML INJECTABLE VIAL IVPUSH SCH (19:06)
[2020-04-16] MEDS: SENNOSIDES 8.6MG TABLET (FP) PO SCH (21:09)
[2020-04-16] MEDS: TAMSULOSIN HCL 0.4 MG CAP PO SCH (21:09)
[2020-04-16] MEDS: ATORVASTATIN CA 80 MG TABLET (FP) PO SCH (21:09)
[2020-04-17] MEDS: VANCOMYCIN 1 GRAM (PRE-DOCKED) 1,000 MG/250 ML BAG IVPB SCH ×2 (01:10→12:32)
[2020-04-17] MEDS: methylPREDNISolone NA SUCC 40 MG/1 ML VIAL IVPUSH SCH ×3 (01:15→18:39)
[2020-04-17] MEDS ORDERED: AZTREONAM 1 GM VIAL (RESTRICTED TO ID) ONE ×3 (02:04→15:25)
[2020-04-17] MEDS ORDERED: DEXTROSE 5%-WATER - 50 ML IVPB ONE ×3 (02:05→15:26)
[2020-04-17] MEDS: AZTREONAM 1 GM in DEXTROSE 5%-WATER - 50 ML IVPB SCH ×3 (02:10→18:39)
--- NOTE | 2020-04-17 06:21 | PN ---
Progress Note, Physician Chief Complaint: Volume overloaded yesterday Elevated BNP and congested CXR, started on IV Lasix yest; ?? weight reliable?? NET NEG about 500ccs TELE: NSR, artifact On BiPAP Per RN, improved from yesterday afternoon after receiving Lasix. History of Present Illness: AF Acute nel CHF Hyperthyroid Lung CA - Current Medication List Current Medications: Active Medications Acetaminophen (Tylenol -) 650 mg PO Q6H PRN PRN Reason: FEVER Last Admin: 04/16/20 01:03 Dose: 650 mg Documented by: Albuterol/Ipratropium (Duoneb -) 1 amp NEB Q4H PRN PRN Reason: SHORTNESS OF BREATH Apixaban (Eliquis -) 5 mg PO BID [facility] Last Admin: 04/16/20 21:09 Dose: 5 mg Documented by: Atorvastatin Calcium (Lipitor -) 80 mg PO HS [facility] Last Admin: 04/16/20 21:09 Dose: 80 mg Documented by: Budesonide/Formoterol Fumarate (Symbicort 160/4.5mcg -) 2 puff IH BID [facility] Last Admin: 04/16/20 21:22 Dose: 2 puff Documented by: Bupropion HCl (Wellbutrin Xl -) 150 mg PO DAILY [facility] Last Admin: 04/16/20 11:13 Dose: 150 mg Documented by: Clopidogrel Bisulfate (Plavix -) 75 mg PO DAILY [facility] Last Admin: 04/16/20 11:13 Dose: 75 mg Documented by: Diltiazem HCl (Cardizem Cd -) 120 mg PO DAILY [facility] Last Admin: 04/16/20 11:40 Dose: Not Given Documented by: Emollient Ointment (Aquaphor -) 1 applic TP DAILY [facility] Last Admin: 04/16/20 11:13 Dose: 1 applic Documented by: Furosemide (Lasix Injection -) 40 mg IVPUSH DAILY [facility] Last Admin: 04/16/20 19:06 Dose: 40 mg Documented by: Sodium Chloride (Normal Saline -) 1,000 mls @ 83 mls/hr IV ASDIR [facility] Last Admin: 04/16/20 15:15 Dose: Not Given Documented by: Vancomycin HCl (Vancomycin (Pre-Docked)) 1,000 mg in 250 mls @ 166.667 mls/hr IVPB Q12H [facility]EN[facility]; Protocol Last Admin: 04/17/20 01:10 Dose: 166.667 mls/hr Documented by: Aztreonam 1 gm/ Dextrose 50 mls @ 100 mls/hr IVPB Q8H-IV [facility]; Protocol Last Admin: 04/17/20 02:10 Dose: 100 mls/hr Documented by: Methimazole (Tapazole -) 10 mg PO DAILY [facility] Last Admin: 04/16/20 11:13 Dose: 10 mg Documented by: Methylprednisolone Sodium Succinate (Solu-Medrol -) 40 mg IVPUSH Q8H-IV [facility] Last Admin: 04/17/20 01:15 Dose: 40 mg Documented by: Pantoprazole Sodium (Protonix -) 20 mg PO BID [facility] Last Admin: 04/16/20 21:09 Dose: 20 mg Documented by: Polyethylene Glycol (Miralax (For Daily Use) -) 17 gm PO HS PRN PRN Reason: CONSTIPATION Senna (Senna -) 2 tab PO HS [facility] Last Admin: 04/16/20 21:09 Dose: 2 tab Documented by: Tamsulosin HCl (Flomax -) 0.4 mg PO [facility] Last Admin: 04/16/20 21:09 Dose: 0.4 mg Documented by: - Objective Vital Signs: Vital Signs Temperature 98 F 04/17/20 01:00 Pulse Rate 101 H 04/17/20 01:00 Respiratory Rate 20 04/17/20 01:00 Blood Pressure 128/54 L 04/17/20 01:00 O2 Sat by Pulse Oximetry (%) 95 04/17/20 04:30 Constitutional: Yes: No Distress Cardiovascular: Yes: Regular Rate and Rhythm Respiratory: Yes: Other (decreased breath sounds b/l. No active wheezing.) Gastrointestinal: Yes: Soft, Abdomen, Obese Edema: No Neurological: Yes: Alert, Oriented Labs: CBC, BMP 04/15/20 04:50 04/15/20 04:00 INR, PTT INR 1.15 (0.83-1.09) H 04/14/20 10:50 Laboratory Tests 04/17/20 04/17/20 06:35 06:35 WBC 6.2 Hgb 8.5 L Plt Count 162 Sodium 140 Potassium 3.7 BUN 20.0 H Creatinine 0.5 L - ....Imaging EKG: Image Reviewed Assessment/Plan DATA: echo 06/2019 nl LV/RV function, tr TR echo 03/2020: nl lv/rv, no sig valve path mibi 06/2019 mild inferolateral ischemia, no TID, nl EF IMP/PLAN: acute on chronic diastolic CHF: -likely precipitated by SALUD/steroids -IV Lasix, daily weights and BMP to follow renal fxn -clinically mildly improved, net neg about 500ccs; weights ?reliable Pafib: new dx -Remains in NSR. - initially in AF w/ RVR, now improved after cardizem IV and converted to cardizem CD 04/17. On Eliquis - monitor on tele - free T4 elevated, management as per PMD hyperthyroidism: - TSH 0.01 here with new onset afib - manage per primary elevated trop: - no chest pain - likely demand in setting of new onset afib with RVR - echo unremarkable - once acute issues resolve (pt with active PNA and CHF) would consider updated MIBI to monitor ischemic burden lung cancer: - manage per onc - had planned chemo this week CAD s/p IN, stents: - mild ischemia on mibi 06/2019, low risk finding, asymptomatic - cont plavix, dc aspirin now on anticoagulation - cont statin HLD: - cont statin HTN: - not on meds, stable here, monitor
[2020-04-17 07:21] LABS: HEMATOCRIT 26.3 % (35.4-49); HEMOGLOBIN 8.5 GM/dL (11.7-16.9); LYMPH % 3.3 % (8-40); MCH 31.2 pg (25.7-33.7); MCHC 32.5 g/dl (32.0-35.9); MEAN CELL VOLUME 95.9 fl (80-96); MEAN PLT VOLUME 8.2 fl (7.5-11.1); MONO % 2.2 % (3.8-10.2); NEUT % 94.5 % (42.8-82.8); PLATELET COUNT 162 K/MM3 (134-434); RBC 2.74 M/mm3 (4.00-5.60); RDW 16.6 % (11.9-15.9); WHITE BLOOD COUNT 6.2 K/mm3 (4.0-10.0)
[2020-04-17 07:56] LABS: ALBUMIN 2.4 g/dl (3.4-5.0); BILIRUBIN,TOTAL 0.5 mg/dL (0.2-1); CREATININE 0.5 mg/dL (0.55-1.3); POTASSIUM 3.7 mmol/L (3.5-5.1); TOT PROT 5.8 g/dl (6.4-8.2)
[2020-04-17] MEDS: FUROSEMIDE 40 MG/4 ML INJECTABLE VIAL IVPUSH SCH (09:33)
[2020-04-17] MEDS: CLOPIDOGREL BISULFATE 75 MG TABLET (FP) PO SCH (09:33)
[2020-04-17] MEDS: MINERAL OIL/PET HY-PHL TOPICAL OINTMENT 454 GM JAR TP SCH (09:34)
[2020-04-17] MEDS: METHIMAZOLE 10 MG TABLET (FP) PO SCH (09:34)
[2020-04-17] MEDS: PANTOPRAZOLE 20 MG TABLET PO SCH ×2 (09:34→21:22)
[2020-04-17] MEDS: BUDESONIDE/FORMETEROL FUMARATE 160/4.5 mcg INHALER IH SCH ×2 (09:34→21:22)
[2020-04-17] MEDS: APIXABAN 5 MG TABLET PO SCH ×2 (09:34→21:22)
[2020-04-17] MEDS: POTASSIUM CHLORIDE ORAL LIQUID 20 MEQ/15 ML PO SCH (10:00)
[2020-04-17 10:44] LABS: ANISOCYTOSIS 0; MACROCYTOSIS 0; PLATELET ESTIMATE DECREASED
--- NOTE | 2020-04-17 10:51 | PN ---
Progress Note (short form) - Note Progress Note: Feels better +SOB Vital Signs Period Temp Pulse Resp BP Sys/Adams Pulse Ox Last 24 Hr 98 F-98.7 F 99-120 20-22 126-144/54-70 93-98 PE: Awake alert Neck: Supple HEENT: EOMI Lungs: basal crackles CVS: S1S2 Abd: Benign Ext: trace edema CMP Sodium 140 mmol/L (136-145) 04/17/20 06:35 Potassium 3.7 mmol/L (3.5-5.1) 04/17/20 06:35 Chloride 101 mmol/L (98-107) 04/17/20 06:35 Carbon Dioxide 34 mmol/L (21-32) H 04/17/20 06:35 Anion Gap 5 MMOL/L (8-16) L 04/17/20 06:35 BUN 20.0 mg/dL (7-18) H 04/17/20 06:35 Creatinine 0.5 mg/dL (0.55-1.3) L 04/17/20 06:35 Est GFR (CKD-EPI)AfAm 130.88 04/17/20 06:35 Est GFR (CKD-EPI)NonAf 112.92 04/17/20 06:35 Random Glucose 186 mg/dL (74-106) H 04/17/20 06:35 Lactic Acid 1.2 mmol/L (0.4-2.0) 04/14/20 10:50 Calcium 10.0 mg/dL (8.5-10.1) 04/17/20 06:35 Total Bilirubin 0.5 mg/dL (0.2-1) 04/17/20 06:35 AST 14 U/L (15-37) L 04/17/20 06:35 ALT 18 U/L (13-61) 04/17/20 06:35 Alkaline Phosphatase 74 U/L (45-117) 04/17/20 06:35 LD Total 187 U/L (87-246) 04/14/20 10:50 Creatine Kinase 82 U/L (26-308) 04/15/20 04:00 Troponin I 1.67 ng/ml (0.00-0.05) H* 04/15/20 04:00 B-Natriuretic Peptide 2543.8 pg/ml (5-125) H 04/16/20 06:28 Total Protein 5.8 g/dl (6.4-8.2) L 04/17/20 06:35 Albumin 2.4 g/dl (3.4-5.0) L 04/17/20 06:35 TSH 0.01 uIU/ml (0.358-3.74) L D 04/14/20 10:50 Free T4 6.57 ng/dl (0.76-1.16) H 04/16/20 06:28 Free T3 9.9 pg/ml (2.0-4.4) H 04/16/20 06:28 Current Medications Generic Name Dose Route Start Last Admin Trade Name Freq PRN Reason Stop Dose Admin Acetaminophen 650 mg 04/14/20 15:03 04/16/20 01:03 Tylenol - PO 650 mg Q6H PRN Administration FEVER Albuterol/Ipratropium 1 amp 04/16/20 14:28 Duoneb - NEB Q4H PRN SHORTNESS OF BREATH Apixaban 5 mg 04/16/20 12:45 04/17/20 09:34 Eliquis - PO 5 mg BID JENY Administration Atorvastatin Calcium 80 mg 04/14/20 22:00 04/16/20 21:09 Lipitor - PO 80 mg HS JENY Administration Budesonide/Formoterol Fumarate 2 puff 04/14/20 22:00 04/17/20 09:34 Symbicort 160/4.5mcg - IH 2 puff BID JENY Administration Bupropion HCl 150 mg 04/15/20 10:00 04/17/20 09:34 Wellbutrin Xl - PO 150 mg DAILY JENY Administration Clopidogrel Bisulfate 75 mg 04/15/20 10:00 04/17/20 09:33 Plavix - PO 75 mg DAILY JENY Administration Diltiazem HCl 120 mg 04/16/20 11:30 04/17/20 09:33 Cardizem Cd - PO 120 mg DAILY JENY Administration Emollient Ointment 1 applic 04/15/20 13:45 04/17/20 09:34 Aquaphor - TP 1 applic DAILY JENY Administration Furosemide 40 mg 04/16/20 17:45 04/17/20 09:33 Lasix Injection - IVPUSH 40 mg DAILY JENY Administration Sodium Chloride 1,000 mls @ 83 mls/hr 04/14/20 15:15 04/16/20 15:15 Normal Saline - IV Not Given ASDIR JENY Vancomycin HCl 1,000 mg in 250 mls @ 166.667 mls/hr 04/15/20 13:15 04/17/20 01:10 Vancomycin (Pre-Docked) IVPB 166.667 mls/hr Q12H JENY Administration Protocol Aztreonam 1 gm/ Dextrose 50 mls @ 100 mls/hr 04/15/20 13:15 04/17/20 09:32 IVPB 100 mls/hr Q8H-IV JENY Administration Protocol Methimazole 10 mg 04/14/20 15:15 04/17/20 09:34 Tapazole - PO 10 mg DAILY JENY Administration Methylprednisolone Sodium Succinate 40 mg 04/16/20 14:00 04/17/20 09:33 Solu-Medrol - IVPUSH 40 mg Q8H-IV JENY Administration Pantoprazole Sodium 20 mg 04/14/20 22:00 04/17/20 09:34 Protonix - PO 20 mg BID JENY Administration Polyethylene Glycol 17 gm 04/14/20 15:03 Miralax (For Daily Use) - PO HS PRN CONSTIPATION Potassium Chloride 40 meq 04/17/20 10:00 04/17/20 10:00 Potassium Chloride Oral Liquid PO 40 meq DAILY JENY Administration Senna 2 tab 04/14/20 22:00 04/16/20 21:09 Senna - PO 2 tab HS JENY Administration Tamsulosin HCl 0.4 mg 04/14/20 22:00 04/16/20 21:09 Flomax - PO 0.4 mg HS JENY Administration AP: Hyperthyroidism: Graves vs Thyroiditis sec to Pembrolizumab FT4 6.57 today. Sed rate 117 IL6 pending FT4 1.12 on 03/03 to 1.38 on 03/24 to 7.45 on 04/14 In view of rapid rise of FT4, thyroiditis is the more likey diagnosis On Methimazole 10mg QD Off Pembrolizumab now On Methylprednisolone now for his lungs. It should help with the thyroiditis also. Continue to monitor TFT. Pt likely to go hypothyroid from the thyroiditis in the future and need LT4 replacement. If the TSI is reported WNL and FT4 continue to come down, will D/C Methimazole. Cortisol pending Lung CA A Fib CAD HLD Will f/u
--- NOTE | 2020-04-17 12:50 | PN ---
Progress Note, Physician History of Present Illness: pt seen/ examined chart is reviewed Awake/ Comfortable Decreased shortness of breath No distress - Current Medication List Current Medications: Active Medications Acetaminophen (Tylenol -) 650 mg PO Q6H PRN PRN Reason: FEVER Last Admin: 04/16/20 01:03 Dose: 650 mg Documented by: Albuterol/Ipratropium (Duoneb -) 1 amp NEB Q4H PRN PRN Reason: SHORTNESS OF BREATH Apixaban (Eliquis -) 5 mg PO BID [facility] Last Admin: 04/17/20 09:34 Dose: 5 mg Documented by: Atorvastatin Calcium (Lipitor -) 80 mg PO HS [facility] Last Admin: 04/16/20 21:09 Dose: 80 mg Documented by: Budesonide/Formoterol Fumarate (Symbicort 160/4.5mcg -) 2 puff IH BID [facility] Last Admin: 04/17/20 09:34 Dose: 2 puff Documented by: Bupropion HCl (Wellbutrin Xl -) 150 mg PO DAILY [facility] Last Admin: 04/17/20 09:34 Dose: 150 mg Documented by: Clopidogrel Bisulfate (Plavix -) 75 mg PO DAILY [facility] Last Admin: 04/17/20 09:33 Dose: 75 mg Documented by: Diltiazem HCl (Cardizem Cd -) 120 mg PO DAILY [facility] Last Admin: 04/17/20 09:33 Dose: 120 mg Documented by: Emollient Ointment (Aquaphor -) 1 applic TP DAILY [facility] Last Admin: 04/17/20 09:34 Dose: 1 applic Documented by: Furosemide (Lasix Injection -) 40 mg IVPUSH DAILY [facility] Last Admin: 04/17/20 09:33 Dose: 40 mg Documented by: Vancomycin HCl (Vancomycin (Pre-Docked)) 1,000 mg in 250 mls @ 166.667 mls/hr I VPB Q12H JENY; Protocol Last Admin: 04/17/20 12:32 Dose: 166.667 mls/hr Documented by: Aztreonam 1 gm/ Dextrose 50 mls @ 100 mls/hr IVPB Q8H-IV JENY; Protocol Last Admin: 04/17/20 09:32 Dose: 100 mls/hr Documented by: Methimazole (Tapazole -) 10 mg PO DAILY [facility] Last Admin: 04/17/20 09:34 Dose: 10 mg Documented by: Methylprednisolone Sodium Succinate (Solu-Medrol -) 40 mg IVPUSH Q8H-IV [facility] Last Admin: 04/17/20 09:33 Dose: 40 mg Documented by: Pantoprazole Sodium (Protonix -) 20 mg PO BID [facility] Last Admin: 04/17/20 09:34 Dose: 20 mg Documented by: Polyethylene Glycol (Miralax (For Daily Use) -) 17 gm PO HS PRN PRN Reason: CONSTIPATION Potassium Chloride (Potassium Chloride Oral Liquid) 40 meq PO DAILY [facility] Last Admin: 04/17/20 10:00 Dose: 40 meq Documented by: Senna (Senna -) 2 tab PO HS [facility] Last Admin: 04/16/20 21:09 Dose: 2 tab Documented by: Tamsulosin HCl (Flomax -) 0.4 mg PO HS [facility] Last Admin: 04/16/20 21:09 Dose: 0.4 mg Documented by: - Objective Vital Signs: Vital Signs Temperature 98 F 04/17/20 01:00 Pulse Rate 99 H 04/17/20 05:00 Respiratory Rate 20 04/17/20 05:00 Blood Pressure 136/70 04/17/20 05:00 O2 Sat by Pulse Oximetry (%) 95 04/17/20 04:30 Constitutional: Yes: No Distress Neck: Yes: Supple Cardiovascular: Yes: Regular Rate and Rhythm Respiratory: Yes: Other (Crackles) Gastrointestinal: Yes: Soft Edema: LLE: 1+, RLE: 1+ Labs: CBC, BMP 04/17/20 06:35 04/17/20 06:35 INR, PTT INR 1.15 (0.83-1.09) H 04/14/20 10:50 Problem List - Problems (1) Acute on chronic respiratory failure with hypoxemia Code(s): J96.21 - ACUTE AND CHRONIC RESPIRATORY FAILURE WITH HYPOXIA (2) Atrial fibrillation with RVR Code(s): I48.91 - UNSPECIFIED ATRIAL FIBRILLATION (3) Hyperthyroidism Code(s): E05.90 - THYROTOXICOSIS, UNSP WITHOUT THYROTOXIC CRISIS OR STORM (4) NSTEMI (non-ST elevated myocardial infarction) Code(s): I21.4 - NON-ST ELEVATION (NSTEMI) MYOCARDIAL INFARCTION (5) Pneumonia Code(s): J18.9 - PNEUMONIA, UNSPECIFIED ORGANISM (6) CAD (coronary artery disease) Code(s): I25.10 - ATHSCL HEART DISEASE OF [place] CORONARY ARTERY W/O ANG PCTRS (7) Lung cancer Code(s): C34.90 - MALIGNANT NEOPLASM OF UNSP PART OF UNSP BRONCHUS OR LUNG Assessment/Plan Continue present care Abx Rate control Pulmonary consult appreciated will follow
--- NOTE | 2020-04-17 13:09 | PN ---
Progress Note (short form) - Note Progress Note: PULMONARY States breathing is improving. Minimal cough. No fevers. Vital Signs Period Temp Pulse Resp BP Sys/Adams Pulse Ox Last 24 Hr 98 F-98.7 F 99-120 20-22 126-144/54-70 93-98 Gen: NAD at rest Heart: RRR Lung: decreased breath sounds at the bases Abd: soft, nontender Ext: no edema CBC, BMP 04/17/20 06:35 04/17/20 06:35 Active Medications Acetaminophen (Tylenol -) 650 mg PO Q6H PRN PRN Reason: FEVER Last Admin: 04/16/20 01:03 Dose: 650 mg Documented by: Albuterol/Ipratropium (Duoneb -) 1 amp NEB Q4H PRN PRN Reason: SHORTNESS OF BREATH Apixaban (Eliquis -) 5 mg PO BID [facility] Last Admin: 04/17/20 09:34 Dose: 5 mg Documented by: Atorvastatin Calcium (Lipitor -) 80 mg PO HS [facility] Last Admin: 04/16/20 21:09 Dose: 80 mg Documented by: Budesonide/Formoterol Fumarate (Symbicort 160/4.5mcg -) 2 puff IH BID [facility] Last Admin: 04/17/20 09:34 Dose: 2 puff Documented by: Bupropion HCl (Wellbutrin Xl -) 150 mg PO DAILY [facility] Last Admin: 04/17/20 09:34 Dose: 150 mg Documented by: Clopidogrel Bisulfate (Plavix -) 75 mg PO DAILY [facility] Last Admin: 04/17/20 09:33 Dose: 75 mg Documented by: Diltiazem HCl (Cardizem Cd -) 120 mg PO DAILY [facility] Last Admin: 04/17/20 09:33 Dose: 120 mg Documented by: Emollient Ointment (Aquaphor -) 1 applic TP DAILY [facility] Last Admin: 04/17/20 09:34 Dose: 1 applic Documented by: Furosemide (Lasix Injection -) 40 mg IVPUSH DAILY [facility] Last Admin: 04/17/20 09:33 Dose: 40 mg Documented by: Vancomycin HCl (Vancomycin (Pre-Docked)) 1,000 mg in 250 mls @ 166.667 mls/hr IVPB Q12H [facility]; Protocol Last Admin: 04/17/20 12:32 Dose: 166.667 mls/hr Documented by: Aztreonam 1 gm/ Dextrose 50 mls @ 100 mls/hr IVPB Q8H-IV JENY; Protocol Last Admin: 04/17/20 09:32 Dose: 100 mls/hr Documented by: Methimazole (Tapazole -) 10 mg PO DAILY [facility] Last Admin: 04/17/20 09:34 Dose: 10 mg Documented by: Methylprednisolone Sodium Succinate (Solu-Medrol -) 40 mg IVPUSH Q8H-IV JENY Last Admin: 04/17/20 09:33 Dose: 40 mg Documented by: Pantoprazole Sodium (Protonix -) 20 mg PO BID [facility] Last Admin: 04/17/20 09:34 Dose: 20 mg Documented by: Polyethylene Glycol (Miralax (For Daily Use) -) 17 gm PO HS PRN PRN Reason: CONSTIPATION Potassium Chloride (Potassium Chloride Oral Liquid) 40 meq PO DAILY [facility] Last Admin: 04/17/20 10:00 Dose: 40 meq Documented by: Senna (Senna -) 2 tab PO HS [facility] Last Admin: 04/16/20 21:09 Dose: 2 tab Documented by: Tamsulosin HCl (Flomax -) 0.4 mg PO HS [facility] Last Admin: 04/16/20 21:09 Dose: 0.4 mg Documented by: A/P Acute on Chronic Hypoxic Respiratory Failure Lung Cancer Pneumonia COPD Atrial Fibrillation CAD +Troponins likely Demand Ischemia [place] GERD h/o COVID19 - continue antibiotics - f/u cultures - inhaled bronchodilators - continue medrol - O2 to keep SpO2 >90% - rate control - continue anticoagulation
[2020-04-17 16:07] LABS: THYROID STIM IMMUNOGLOBULIN <0.10 IU/L (0.00-0.55)
--- NOTE | 2020-04-17 21:15 | PN ---
Progress Note (short form) - Note Progress Note: Patient seen in follow up. No new complaints. No significant events overnight. Inpatient Meds reviewed. Current Medications Generic Name Dose Route Start Last Admin Trade Name Freq PRN Reason Stop Dose Admin Acetaminophen 650 mg 04/14/20 15:03 04/16/20 01:03 Tylenol - PO 650 mg Q6H PRN Administration FEVER Albuterol/Ipratropium 1 amp 04/16/20 14:28 Duoneb - NEB Q4H PRN SHORTNESS OF BREATH Apixaban 5 mg 04/16/20 12:45 04/17/20 09:34 Eliquis - PO 5 mg BID JENY Administration Atorvastatin Calcium 80 mg 04/14/20 22:00 04/16/20 21:09 Lipitor - PO 80 mg HS JENY Administration Budesonide/Formoterol Fumarate 2 puff 04/14/20 22:00 04/17/20 09:34 Symbicort 160/4.5mcg - IH 2 puff BID JENY Administration Bupropion HCl 150 mg 04/15/20 10:00 04/17/20 09:34 Wellbutrin Xl - PO 150 mg DAILY JENY Administration Clopidogrel Bisulfate 75 mg 04/15/20 10:00 04/17/20 09:33 Plavix - PO 75 mg DAILY JENY Administration Diltiazem HCl 120 mg 04/16/20 11:30 04/17/20 09:33 Cardizem Cd - PO 120 mg DAILY JENY Administration Emollient Ointment 1 applic 04/15/20 13:45 04/17/20 09:34 Aquaphor - TP 1 applic DAILY JENY Administration Furosemide 40 mg 04/16/20 17:45 04/17/20 09:33 Lasix Injection - IVPUSH 40 mg DAILY JENY Administration Vancomycin HCl 1,000 mg in 250 mls @ 166.667 mls/hr 04/15/20 13:15 04/17/20 12:32 Vancomycin (Pre-Docked) IVPB 166.667 mls/hr Q12H JENY Administration Protocol Aztreonam 1 gm/ Dextrose 50 mls @ 100 mls/hr 04/15/20 13:15 04/17/20 18:39 IVPB 100 mls/hr Q8H-IV JENY Administration Protocol Methimazole 10 mg 04/14/20 15:15 04/17/20 09:34 Tapazole - PO 10 mg DAILY JENY Administration Methylprednisolone Sodium Succinate 40 mg 04/16/20 14:00 04/17/20 18:39 Solu-Medrol - IVPUSH 40 mg Q8H-IV JENY Administration Pantoprazole Sodium 20 mg 04/14/20 22:00 04/17/20 09:34 Protonix - PO 20 mg BID JENY Administration Polyethylene Glycol 17 gm 04/14/20 15:03 Miralax (For Daily Use) - PO HS PRN CONSTIPATION Potassium Chloride 40 meq 04/17/20 10:00 04/17/20 10:00 Potassium Chloride Oral Liquid PO 40 meq DAILY JENY Administration Senna 2 tab 04/14/20 22:00 04/16/20 21:09 Senna - PO 2 tab HS JENY Administration Tamsulosin HCl 0.4 mg 04/14/20 22:00 04/16/20 21:09 Flomax - PO 0.4 mg HS JENY Administration On Examination: Last Vital Signs Temp Pulse Resp BP Pulse Ox 97.9 F 93 H 20 106/51 L 97 04/17/20 14:00 04/17/20 14:00 04/17/20 10:00 04/17/20 14:00 04/17/20 12:30 General: In no acute distress, lying comfortably flat and supine in bed. Extremities: No pallor or icterus. No palpable lymphadenopathy. CVS: S1, S2, regular, no gallop or murmur. Chest: soft breath sounds bilaterally, clear Abdomen: Non-distended, non-tender, no palpable organomegaly. Neuro: Alert, oriented, non-focal. Labs: CBC, BMP 04/17/20 06:35 04/17/20 06:35 Assessment. Metastatic SCC lung, on carbo/abraxane/pembrolizumab (last dose 03/24), was admitted for Afib. Started on Eliquis. Dyspneic on admission, improved with diuresis. Empirically on antibiotic for presumptive pneumonia - ?discontinue. Will follow up with oncology following discharge.
[2020-04-17] MEDS: TAMSULOSIN HCL 0.4 MG CAP PO SCH (21:22)
[2020-04-17] MEDS: ATORVASTATIN CA 80 MG TABLET (FP) PO SCH (21:22)
[2020-04-17] MEDS: SENNOSIDES 8.6MG TABLET (FP) PO SCH (21:22)
[2020-04-18] MEDS ORDERED: AZTREONAM 1 GM VIAL (RESTRICTED TO ID) ONE ×3 (01:10→17:04)
[2020-04-18] MEDS ORDERED: DEXTROSE 5%-WATER - 50 ML IVPB ONE ×2 (01:10→17:04)
[2020-04-18] MEDS: AZTREONAM 1 GM in DEXTROSE 5%-WATER - 50 ML IVPB SCH ×3 (01:57→19:04)
[2020-04-18] MEDS: VANCOMYCIN 1 GRAM (PRE-DOCKED) 1,000 MG/250 ML BAG IVPB SCH ×2 (01:57→15:25)
[2020-04-18] MEDS: methylPREDNISolone NA SUCC 40 MG/1 ML VIAL IVPUSH SCH ×3 (01:57→19:04)
--- NOTE | 2020-04-18 05:48 | PN ---
Progress Note, Physician Chief Complaint: weight stable F/u CXR today: pending Appears comfortable BP slightly low this AM TELE: NORMAL SINUS - Current Medication List Current Medications: Active Medications Acetaminophen (Tylenol -) 650 mg PO Q6H PRN PRN Reason: FEVER Last Admin: 04/16/20 01:03 Dose: 650 mg Documented by: Albuterol/Ipratropium (Duoneb -) 1 amp NEB Q4H PRN PRN Reason: SHORTNESS OF BREATH Apixaban (Eliquis -) 5 mg PO BID [facility] Last Admin: 04/17/20 21:22 Dose: 5 mg Documented by: Atorvastatin Calcium (Lipitor -) 80 mg PO HS [facility] Last Admin: 04/17/20 21:22 Dose: 80 mg Documented by: Budesonide/Formoterol Fumarate (Symbicort 160/4.5mcg -) 2 puff IH BID [facility] Last Admin: 04/17/20 21:22 Dose: 2 puff Documented by: Bupropion HCl (Wellbutrin Xl -) 150 mg PO DAILY [facility] Last Admin: 04/17/20 09:34 Dose: 150 mg Documented by: Clopidogrel Bisulfate (Plavix -) 75 mg PO DAILY [facility] Last Admin: 04/17/20 09:33 Dose: 75 mg Documented by: Diltiazem HCl (Cardizem Cd -) 120 mg PO DAILY [facility] Last Admin: 04/17/20 09:33 Dose: 120 mg Documented by: Emollient Ointment (Aquaphor -) 1 applic TP DAILY [facility] Last Admin: 04/17/20 09:34 Dose: 1 applic Documented by: Furosemide (Lasix Injection -) 40 mg IVPUSH DAILY [facility] Last Admin: 04/17/20 09:33 Dose: 40 mg Documented by: Vancomycin HCl (Vancomycin (Pre-Docked)) 1,000 mg in 250 mls @ 166.667 mls/hr IVPB Q12H JENY; Protocol Last Admin: 04/18/20 01:57 Dose: 166.667 mls/hr Documented by: Aztreonam 1 gm/ Dextrose 50 mls @ 100 mls/hr IVPB Q8H-IV JENY; Protocol Last Admin: 04/18/20 01:57 Dose: 100 mls/hr Documented by: Methimazole (Tapazole -) 10 mg PO DAILY [facility] Last Admin: 04/17/20 09:34 Dose: 10 mg Documented by: Methylprednisolone Sodium Succinate (Solu-Medrol -) 40 mg IVPUSH Q8H-IV [facility] Last Admin: 04/18/20 01:57 Dose: 40 mg Documented by: Pantoprazole Sodium (Protonix -) 20 mg PO BID [facility] Last Admin: 04/17/20 21:22 Dose: 20 mg Documented by: Polyethylene Glycol (Miralax (For Daily Use) -) 17 gm PO HS PRN PRN Reason: CONSTIPATION Potassium Chloride (Potassium Chloride Oral Liquid) 40 meq PO DAILY [facility] Last Admin: 04/17/20 10:00 Dose: 40 meq Documented by: Senna (Senna -) 2 tab PO HS [facility] Last Admin: 04/17/20 21:22 Dose: 2 tab Documented by: Tamsulosin HCl (Flomax -) 0.4 mg PO HS [facility] Last Admin: 04/17/20 21:22 Dose: 0.4 mg Documented by: - Objective Vital Signs: Vital Signs Temperature 98.4 F 04/18/20 00:56 Pulse Rate 81 04/18/20 00:56 Respiratory Rate 20 04/18/20 00:56 Blood Pressure 127/51 L 04/18/20 00:56 O2 Sat by Pulse Oximetry (%) 95 04/17/20 22:00 Constitutional: Yes: No Distress Eyes: Yes: Conjunctiva Clear Cardiovascular: Yes: Regular Rate and Rhythm Respiratory: Yes: Other (decreased breath sounds b/l) Gastrointestinal: Yes: Soft, Abdomen, Obese Edema: No Neurological: Yes: Alert, Oriented Labs: CBC, BMP 04/17/20 06:35 04/17/20 06:35 INR, PTT INR 1.15 (0.83-1.09) H 04/14/20 10:50 Laboratory Tests 04/18/20 06:59 Sodium 137 Potassium 4.5 BUN 34.0 H Creatinine 0.6 Magnesium 2.1 Laboratory Tests 04/18/20 06:59 BUN 34.0 H Creatinine 0.6 - ....Imaging EKG: Image Reviewed Assessment/Plan DATA: echo 06/2019 nl LV/RV function, tr TR echo 03/2020: nl lv/rv, no sig valve path mibi 06/2019 mild inferolateral ischemia, no TID, nl EF IMP/PLAN: acute on chronic diastolic CHF: improved now with soft BP and elevated BUN -precipitant was likely SALUD/steroids -hold Lasix today, CXR. D/W RN Pafib: new dx -Remains in NSR. - initially in AF w/ RVR, now improved after cardizem IV and converted to cardizem CD 04/17. On Eliquis - monitor on tele - free T4 elevated, management as per PMD hyperthyroidism: - TSH 0.01 here with new onset afib - manage per primary elevated trop: - no chest pain - likely demand in setting of new onset afib with RVR - echo unremarkable - once acute issues resolve (pt with active PNA and CHF) would consider updated MIBI to monitor ischemic burden lung cancer: - manage per onc - had planned chemo this week CAD s/p CT, stents: - mild ischemia on mibi 06/2019, low risk finding, asymptomatic - cont plavix, dc aspirin now on anticoagulation - cont statin HLD: - cont statin HTN: - not on meds, stable here, monitor
[2020-04-18 08:49] LABS: CALCIUM 10.2 mg/dL (8.5-10.1); CREATININE 0.6 mg/dL (0.55-1.3); MAGNESIUM 2.1 mg/dL (1.8-2.4); POTASSIUM 4.5 mmol/L (3.5-5.1)
[2020-04-18] MEDS: APIXABAN 5 MG TABLET PO SCH ×2 (09:51→21:24)
[2020-04-18] MEDS: CLOPIDOGREL BISULFATE 75 MG TABLET (FP) PO SCH (09:51)
[2020-04-18] MEDS: PANTOPRAZOLE 20 MG TABLET PO SCH ×2 (09:51→21:24)
[2020-04-18] MEDS: POTASSIUM CHLORIDE ORAL LIQUID 20 MEQ/15 ML PO SCH (09:51)
[2020-04-18] MEDS: MINERAL OIL/PET HY-PHL TOPICAL OINTMENT 454 GM JAR TP SCH (09:52)
[2020-04-18] MEDS: METHIMAZOLE 10 MG TABLET (FP) PO SCH (09:52)
[2020-04-18] MEDS: BUDESONIDE/FORMETEROL FUMARATE 160/4.5 mcg INHALER IH SCH ×2 (09:53→21:40)
--- NOTE | 2020-04-18 10:09 | PN ---
Progress Note, Physician History of Present Illness: pt seen/ examined continue to improve slowly Awake/ Comfortable Decreased shortness of breath No distress - Current Medication List Current Medications: Active Medications Acetaminophen (Tylenol -) 650 mg PO Q6H PRN PRN Reason: FEVER Last Admin: 04/16/20 01:03 Dose: 650 mg Documented by: Albuterol/Ipratropium (Duoneb -) 1 amp NEB Q4H PRN PRN Reason: SHORTNESS OF BREATH Apixaban (Eliquis -) 5 mg PO BID [facility] Last Admin: 04/18/20 09:51 Dose: 5 mg Documented by: Atorvastatin Calcium (Lipitor -) 80 mg PO HS [facility] Last Admin: 04/17/20 21:22 Dose: 80 mg Documented by: Budesonide/Formoterol Fumarate (Symbicort 160/4.5mcg -) 2 puff IH BID [facility] Last Admin: 04/18/20 09:53 Dose: 2 puff Documented by: Bupropion HCl (Wellbutrin Xl -) 150 mg PO DAILY [facility] Last Admin: 04/18/20 09:52 Dose: 150 mg Documented by: Clopidogrel Bisulfate (Plavix -) 75 mg PO DAILY [facility] Last Admin: 04/18/20 09:51 Dose: 75 mg Documented by: Diltiazem HCl (Cardizem Cd -) 120 mg PO DAILY [facility] Last Admin: 04/18/20 09:53 Dose: 120 mg Documented by: Emollient Ointment (Aquaphor -) 1 applic TP DAILY [facility] Last Admin: 04/18/20 09:52 Dose: 1 applic Documented by: Vancomycin HCl (Vancomycin (Pre-Docked)) 1,000 mg in 250 mls @ 166.667 mls/hr IVPB Q12H [facility]; Protocol Last Admin: 04/18/20 01:57 Dose: 166.667 mls/hr Documented by: Aztreonam 1 gm/ Dextrose 50 mls @ 100 mls/hr IVPB Q8H-IV JENY; Protocol Last Admin: 04/18/20 09:51 Dose: 100 mls/hr Documented by: Methimazole (Tapazole -) 10 mg PO DAILY [facility] Last Admin: 04/18/20 09:52 Dose: 10 mg Documented by: Methylprednisolone Sodium Succinate (Solu-Medrol -) 40 mg IVPUSH Q8H-IV [facility] Last Admin: 04/18/20 09:51 Dose: 40 mg Documented by: Pantoprazole Sodium (Protonix -) 20 mg PO BID [facility] Last Admin: 04/18/20 09:51 Dose: 20 mg Documented by: Polyethylene Glycol (Miralax (For Daily Use) -) 17 gm PO HS PRN PRN Reason: CONSTIPATION Potassium Chloride (Potassium Chloride Oral Liquid) 40 meq PO DAILY [facility] Last Admin: 04/18/20 09:51 Dose: 40 meq Documented by: Senna (Senna -) 2 tab PO HS [facility] Last Admin: 04/17/20 21:22 Dose: 2 tab Documented by: Tamsulosin HCl (Flomax -) 0.4 mg PO [facility] Last Admin: 04/17/20 21:22 Dose: 0.4 mg Documented by: - Objective Vital Signs: Vital Signs Temperature 98.4 F 04/18/20 00:56 Pulse Rate 82 04/18/20 06:00 Respiratory Rate 20 04/18/20 06:00 Blood Pressure 96/46 L 04/18/20 06:00 O2 Sat by Pulse Oximetry (%) 93 L 04/18/20 08:51 Constitutional: Yes: No Distress, Calm Eyes: Yes: Conjunctiva Clear Neck: Yes: Supple Cardiovascular: Yes: Pulse Irregular Respiratory: Yes: Diminished Gastrointestinal: Yes: Soft Edema: LLE: 1+, RLE: 1+ Neurological: Yes: Alert Labs: CBC, BMP 04/17/20 06:35 04/18/20 06:59 INR, PTT INR 1.15 (0.83-1.09) H 04/14/20 10:50 Problem List - Problems (1) Acute on chronic respiratory failure with hypoxemia Code(s): J96.21 - ACUTE AND CHRONIC RESPIRATORY FAILURE WITH HYPOXIA (2) Atrial fibrillation with RVR Code(s): I48.91 - UNSPECIFIED ATRIAL FIBRILLATION (3) Hyperthyroidism Code(s): E05.90 - THYROTOXICOSIS, UNSP WITHOUT THYROTOXIC CRISIS OR STORM (4) NSTEMI (non-ST elevated myocardial infarction) Code(s): I21.4 - NON-ST ELEVATION (NSTEMI) MYOCARDIAL INFARCTION (5) Pneumonia Code(s): J18.9 - PNEUMONIA, UNSPECIFIED ORGANISM (6) CAD (coronary artery disease) Code(s): I25.10 - ATHSCL HEART DISEASE OF LIME CORONARY ARTERY W/O ANG PCTRS (7) Lung cancer Code(s): C34.90 - MALIGNANT NEOPLASM OF UNSP PART OF UNSP BRONCHUS OR LUNG Assessment/Plan clinically better Continue present care Abx heart rate under control monitor discharge planning Anticipate tomorrow if remains stable will follow
--- NOTE | 2020-04-18 12:02 | PN ---
Progress Note (short form) - Note Progress Note: PULMONARY States breathing is improving. Minimal cough. No fevers. Vital Signs Period Temp Pulse Resp BP Sys/Adams Pulse Ox Last 24 Hr 97.9 F-98.5 F 81-93 20-22 96-128/46-55 93-99 Gen: NAD at rest Heart: RRR Lung: decreased breath sounds at the bases Abd: soft, nontender Ext: no edema CBC, BMP 04/17/20 06:35 04/18/20 06:59 Active Medications Acetaminophen (Tylenol -) 650 mg PO Q6H PRN PRN Reason: FEVER Last Admin: 04/16/20 01:03 Dose: 650 mg Documented by: Albuterol/Ipratropium (Duoneb -) 1 amp NEB Q4H PRN PRN Reason: SHORTNESS OF BREATH Apixaban (Eliquis -) 5 mg PO BID [facility] Last Admin: 04/18/20 09:51 Dose: 5 mg Documented by: Atorvastatin Calcium (Lipitor -) 80 mg PO HS [facility] Last Admin: 04/17/20 21:22 Dose: 80 mg Documented by: Budesonide/Formoterol Fumarate (Symbicort 160/4.5mcg -) 2 puff IH BID [facility] Last Admin: 04/18/20 09:53 Dose: 2 puff Documented by: Bupropion HCl (Wellbutrin Xl -) 150 mg PO DAILY [facility] Last Admin: 04/18/20 09:52 Dose: 150 mg Documented by: Clopidogrel Bisulfate (Plavix -) 75 mg PO DAILY [facility] Last Admin: 04/18/20 09:51 Dose: 75 mg Documented by: Diltiazem HCl (Cardizem Cd -) 120 mg PO DAILY [facility] Last Admin: 04/18/20 09:53 Dose: 120 mg Documented by: Emollient Ointment (Aquaphor -) 1 applic TP DAILY [facility] Last Admin: 04/18/20 09:52 Dose: 1 applic Documented by: Vancomycin HCl (Vancomycin (Pre-Docked)) 1,000 mg in 250 mls @ 166.667 mls/hr IVPB Q12H [facility]; Protocol Last Admin: 04/18/20 01:57 Dose: 166.667 mls/hr Documented by: Aztreonam 1 gm/ Dextrose 50 mls @ 100 mls/hr IVPB Q8H-IV [facility]EN[facility]; Protocol Last Admin: 04/18/20 09:51 Dose: 100 mls/hr Documented by: Methimazole (Tapazole -) 10 mg PO DAILY [facility] Last Admin: 04/18/20 09:52 Dose: 10 mg Documented by: Methylprednisolone Sodium Succinate (Solu-Medrol -) 40 mg IVPUSH Q8H-IV [facility] Last Admin: 04/18/20 09:51 Dose: 40 mg Documented by: Pantoprazole Sodium (Protonix -) 20 mg PO BID [facility] Last Admin: 04/18/20 09:51 Dose: 20 mg Documented by: Polyethylene Glycol (Miralax (For Daily Use) -) 17 gm PO HS PRN PRN Reason: CONSTIPATION Potassium Chloride (Potassium Chloride Oral Liquid) 40 meq PO DAILY [facility] Last Admin: 04/18/20 09:51 Dose: 40 meq Documented by: Senna (Senna -) 2 tab PO HS [facility] Last Admin: 04/17/20 21:22 Dose: 2 tab Documented by: Tamsulosin HCl (Flomax -) 0.4 mg PO HS [facility] Last Admin: 04/17/20 21:22 Dose: 0.4 mg Documented by: A/P Acute on Chronic Hypoxic Respiratory Failure Lung Cancer Pneumonia COPD Atrial Fibrillation CAD +Troponins likely Demand Ischemia [place] GERD h/o COVID19 - continue antibiotics - f/u cultures - inhaled bronchodilators - continue medrol - O2 to keep SpO2 >90% - rate control - continue anticoagulation
[2020-04-18] MEDS: ATORVASTATIN CA 80 MG TABLET (FP) PO SCH (21:24)
[2020-04-18] MEDS: TAMSULOSIN HCL 0.4 MG CAP PO SCH (21:24)
[2020-04-18] MEDS: SENNOSIDES 8.6MG TABLET (FP) PO SCH (21:24)
[2020-04-19] MEDS ORDERED: DEXTROSE 5%-WATER - 50 ML IVPB ONE ×2 (00:57→17:45)
[2020-04-19] MEDS ORDERED: AZTREONAM 1 GM VIAL (RESTRICTED TO ID) ONE ×2 (00:57→17:44)
[2020-04-19] MEDS: methylPREDNISolone NA SUCC 40 MG/1 ML VIAL IVPUSH SCH ×3 (01:11→21:45)
[2020-04-19] MEDS: VANCOMYCIN 1 GRAM (PRE-DOCKED) 1,000 MG/250 ML BAG IVPB SCH ×2 (01:11→12:44)
[2020-04-19] MEDS: AZTREONAM 1 GM in DEXTROSE 5%-WATER - 50 ML IVPB SCH ×3 (03:19→17:46)
--- NOTE | 2020-04-19 07:41 | PN ---
Progress Note, Physician History of Present Illness: pulmonary alert,no distress,-sob,-cp - Current Medication List Current Medications: Active Medications Acetaminophen (Tylenol -) 650 mg PO Q6H PRN PRN Reason: FEVER Last Admin: 04/16/20 01:03 Dose: 650 mg Documented by: Albuterol/Ipratropium (Duoneb -) 1 amp NEB Q4H PRN PRN Reason: SHORTNESS OF BREATH Apixaban (Eliquis -) 5 mg PO BID [facility] Last Admin: 04/18/20 21:24 Dose: 5 mg Documented by: Atorvastatin Calcium (Lipitor -) 80 mg PO HS [facility] Last Admin: 04/18/20 21:24 Dose: 80 mg Documented by: Budesonide/Formoterol Fumarate (Symbicort 160/4.5mcg -) 2 puff IH BID [facility] Last Admin: 04/18/20 21:40 Dose: 2 puff Documented by: Bupropion HCl (Wellbutrin Xl -) 150 mg PO DAILY [facility] Last Admin: 04/18/20 09:52 Dose: 150 mg Documented by: Clopidogrel Bisulfate (Plavix -) 75 mg PO DAILY [facility] Last Admin: 04/18/20 09:51 Dose: 75 mg Documented by: Diltiazem HCl (Cardizem Cd -) 120 mg PO DAILY [facility] Last Admin: 04/18/20 09:53 Dose: 120 mg Documented by: Emollient Ointment (Aquaphor -) 1 applic TP DAILY [facility] Last Admin: 04/18/20 09:52 Dose: 1 applic Documented by: Vancomycin HCl (Vancomycin (Pre-Docked)) 1,000 mg in 250 mls @ 166.667 mls/hr IVPB Q12H [facility]; Protocol Last Admin: 04/19/20 01:11 Dose: 166.667 mls/hr Documented by: Aztreonam 1 gm/ Dextrose 50 mls @ 100 mls/hr IVPB Q8H-IV [facility]; Protocol Last Admin: 04/19/20 03:19 Dose: 100 mls/hr Documented by: Methimazole (Tapazole -) 10 mg PO DAILY [facility] Last Admin: 04/18/20 09:52 Dose: 10 mg Documented by: Methylprednisolone Sodium Succinate (Solu-Medrol -) 40 mg IVPUSH Q8H-IV [facility] Last Admin: 04/19/20 01:11 Dose: 40 mg Documented by: Pantoprazole Sodium (Protonix -) 20 mg PO BID [facility] Last Admin: 04/18/20 21:24 Dose: 20 mg Documented by: Polyethylene Glycol (Miralax (For Daily Use) -) 17 gm PO HS PRN PRN Reason: CONSTIPATION Potassium Chloride (Potassium Chloride Oral Liquid) 40 meq PO DAILY [facility] Last Admin: 04/18/20 09:51 Dose: 40 meq Documented by: Senna (Senna -) 2 tab PO [facility] Last Admin: 04/18/20 21:24 Dose: Not Given Documented by: Tamsulosin HCl (Flomax -) 0.4 mg PO [facility] Last Admin: 04/18/20 21:24 Dose: 0.4 mg Documented by: - Objective Vital Signs: Vital Signs Temperature 97.8 F 04/19/20 02:00 Pulse Rate 76 04/19/20 06:00 Respiratory Rate 22 H 04/19/20 06:00 Blood Pressure 111/60 04/19/20 06:00 O2 Sat by Pulse Oximetry (%) 98 04/19/20 04:30 Constitutional: Yes: Calm, Obese Eyes: Yes: WNL HENT: Yes: WNL Neck: Yes: WNL Cardiovascular: Yes: Pulse Irregular, S1, S2 Respiratory: Yes: Diminished Gastrointestinal: Yes: Normal Bowel Sounds, Soft, Abdomen, Obese Extremities: Yes: WNL Edema: Yes Labs: Problem List - Problems (1) Acute on chronic respiratory failure with hypoxemia Code(s): J96.21 - ACUTE AND CHRONIC RESPIRATORY FAILURE WITH HYPOXIA (2) Atrial fibrillation with RVR Code(s): I48.91 - UNSPECIFIED ATRIAL FIBRILLATION (3) Pneumonia Code(s): J18.9 - PNEUMONIA, UNSPECIFIED ORGANISM (4) Anemia Code(s): D64.9 - ANEMIA, UNSPECIFIED (5) CAD (coronary artery disease) Code(s): I25.10 - ATHSCL HEART DISEASE OF [place] CORONARY ARTERY W/O ANG PCTRS (6) Lung cancer Code(s): C34.90 - MALIGNANT NEOPLASM OF UNSP PART OF UNSP BRONCHUS OR LUNG (7) COPD (chronic obstructive pulmonary disease) Code(s): J44.9 - CHRONIC OBSTRUCTIVE PULMONARY DISEASE, UNSPECIFIED Assessment/Plan A/P Acute on Chronic Hypoxic Respiratory Failure improved Lung Cancer Pneumonia COPD Atrial Fibrillation CAD +Troponins likely Demand Ischemia [place] GERD h/o COVID19 - continue antibiotics - inhaled bronchodilators - medrol taper - O2 to keep SpO2 >90% - rate control - anticoagulation DR DUNCAN
[2020-04-19 08:05] LABS: CALCIUM 9.9 mg/dL (8.5-10.1); CREATININE 0.7 mg/dL (0.55-1.3)
[2020-04-19] MEDS ORDERED: PT OWN MED DRAWER 7, Y5N ONE ×2 (09:40→17:44)
[2020-04-19] MEDS: MINERAL OIL/PET HY-PHL TOPICAL OINTMENT 454 GM JAR TP SCH (09:51)
[2020-04-19] MEDS: PANTOPRAZOLE 20 MG TABLET PO SCH ×2 (09:51→21:45)
[2020-04-19] MEDS: CLOPIDOGREL BISULFATE 75 MG TABLET (FP) PO SCH (09:51)
[2020-04-19] MEDS: APIXABAN 5 MG TABLET PO SCH ×2 (09:51→21:45)
[2020-04-19] MEDS: POTASSIUM CHLORIDE ORAL LIQUID 20 MEQ/15 ML PO SCH (09:52)
[2020-04-19] MEDS: METHIMAZOLE 10 MG TABLET (FP) PO SCH (09:53)
[2020-04-19] MEDS: BUDESONIDE/FORMETEROL FUMARATE 160/4.5 mcg INHALER IH SCH ×2 (09:53→21:46)
--- NOTE | 2020-04-19 11:15 | PN ---
Physical Exam: SUBJECTIVE: Patient seen and examined. Patient reports feeling better. Denies any fevers, chills, chest pain, shortness of breath. Was on bipap overnight, desats to the 80s on venti mask while sleeping. He reports breathing better with the bipap at night. OBJECTIVE: Vital Signs Temperature 97.7 F 04/19/20 09:59 Pulse Rate 92 H 04/19/20 09:59 Respiratory Rate 18 04/19/20 09:59 Blood Pressure 121/65 04/19/20 09:59 O2 Sat by Pulse Oximetry (%) 96 04/19/20 09:59 GENERAL: The patient is awake, alert, and fully oriented, on 5L Nc NECK: supple. LUNGS: coarse breath sounds bilaterally HEART: Irregular, S1, S2 ABDOMEN: Soft, nontender, nondistended, normoactive bowel sounds EXTREMITIES: 2+ pulses, warm, well-perfused, no edema. NEUROLOGICAL: Cranial nerves II through XII grossly intact. Normal speech PSYCH: Normal mood, normal affect. SKIN: Warm, dry, normal turgor Laboratory Results - last 24 hr 04/16/20 04/19/20 06:28 05:45 Sodium 138 Potassium 5.0 Chloride 101 Carbon Dioxide 34 H Anion Gap 3 L BUN 41.0 H Creatinine 0.7 Est GFR (CKD-EPI)AfAm 113.98 Est GFR (CKD-EPI)NonAf 98.34 Random Glucose 191 H Calcium 9.9 Interleukin 6 36.2 H Active Medications Generic Name Dose Route Start Last Admin Trade Name Freq PRN Reason Stop Dose Admin Acetaminophen 650 mg 04/14/20 15:03 04/16/20 01:03 Tylenol - PO 650 mg Q6H PRN Administration FEVER Albuterol/Ipratropium 1 amp 04/16/20 14:28 Duoneb - NEB Q4H PRN SHORTNESS OF BREATH Apixaban 5 mg 04/16/20 12:45 04/19/20 09:51 Eliquis - PO 5 mg BID [facility] Administration Atorvastatin Calcium 80 mg 04/14/20 22:00 04/18/20 21:24 Lipitor - PO 80 mg HS [facility] Administration Budesonide/Formoterol Fumarate 2 puff 04/14/20 22:00 04/19/20 09:53 Symbicort 160/4.5mcg - IH 2 puff BID [facility] Administration Bupropion HCl 150 mg 04/15/20 10:00 04/19/20 09:51 Wellbutrin Xl - PO 150 mg DAILY [facility] Administration Clopidogrel Bisulfate 75 mg 04/15/20 10:00 04/19/20 09:51 Plavix - PO 75 mg DAILY [facility] Administration Diltiazem HCl 120 mg 04/16/20 11:30 04/19/20 09:52 Cardizem Cd - PO 120 mg DAILY [facility] Administration Emollient Ointment 1 applic 04/15/20 13:45 04/19/20 09:51 Aquaphor - TP 1 applic DAILY [facility] Administration Vancomycin HCl 1,000 mg in 250 mls @ 166.667 mls/hr 04/15/20 13:15 04/19/20 01:11 Vancomycin (Pre-Docked) IVPB 166.667 mls/hr Q12H [facility] Administration Protocol Aztreonam 1 gm/ Dextrose 50 mls @ 100 mls/hr 04/15/20 13:15 04/19/20 10:36 IVPB 100 mls/hr Q8H-IV [facility] Administration Protocol Methimazole 10 mg 04/14/20 15:15 04/19/20 09:53 Tapazole - PO 10 mg DAILY [facility] Administration Methylprednisolone Sodium Succinate 40 mg 04/16/20 14:00 04/19/20 09:51 Solu-Medrol - IVPUSH 40 mg Q8H-IV [facility] Administration Pantoprazole Sodium 20 mg 04/14/20 22:00 04/19/20 09:51 Protonix - PO 20 mg BID [facility] Administration Polyethylene Glycol 17 gm 04/14/20 15:03 Miralax (For Daily Use) - PO HS PRN CONSTIPATION Potassium Chloride 40 meq 04/17/20 10:00 04/19/20 09:52 Potassium Chloride Oral Liquid PO Not Given DAILY [facility] Senna 2 tab 04/14/20 22:00 04/18/20 21:24 Senna - PO Not Given HS [facility] Tamsulosin HCl 0.4 mg 04/14/20 22:00 04/18/20 21:24 Flomax - PO 0.4 mg HS [facility] Administration ASSESSMENT/PLAN: Patient is a 64 YOM with a significant PMH of Sq Cell Lung CA (s/p resection in Jul 2019, port insertion, and chemo with carbo/abraxane), HTN, HLD, CAD (stents x2, on Plavix), COPD, [place] (on home O2 at night as needed), GERD, PVD and recent admission for COVID presents to the ED after found to be tachycardic on Dr. Tolbert's clinic. Found to have Afib with RVR, with TFT consistent with hyperthyroid. #Metastatic squamous cell lung Ca -on carbo/abraxane, and immunotherapy with pembrolizumab, 2 cycles completed -hyperthyroidism likely 2/2 autoimmune thyroiditis 2/2 ?pembrolizumab -holding pembrolizumab #Afib with RVR -likely 2/2 hyperthyroid, pneumonia, no hx of afib -Improved with IV Cardizem -continue PO cardizem 120mg daily -on Eliquis 5mg bid -Elevated troponins likely demand ischemia -cardiology on board #Hyperthyroidism -TSH 0.01, FT4 7 -- ?autoimmune thyroiditis possible 2/2 pembrolizumab -Pt likely to go hypothyroid from the thyroiditis in the future and need LT4 replacement. If the TSI is reported WNL and FT4 continue to come down, will D/C Methimazole. -FT4 trending down, TSI wnl -Methimazole 10mg daily -Endocrine on board #Acute on chronic hypoxic and hypercapneic respiratory failure -CXR 04/16 : progressive bilateral pulmonary and pleural changes in comparison to CXR on 04/14 -likely 2/2 post obstructive pneumonia 2/2 Lung Ca, ?pneumonitis 2/2 pembrolizumab -on IV vancomycin/aztreonam. ID on board -Blood cultures negative, Urine legionella/pneumoniae negative -inhaled bronchodilators -on Solu-medrol 40mg q8h -supplemental oxygen to keep spo2 >90% -bipap prn -Pulm consulted. Visit type - Emergency Visit Emergency Visit: Yes ED Registration Date: 04/14/20 Care time: The patient presented to the Emergency Department on the above date and was hospitalized for further evaluation of their emergent condition. - New Patient This patient is new to me today: No - Critical Care Critical Care patient: No - Medication Review Med list reviewed for High Risk Meds patients 65 and older: Yes ATTENDING PHYSICIAN STATEMENT I saw and evaluated the patient. I reviewed the resident's note and discussed the case with the resident. I agree with the resident's findings and plan as documented. SUBJECTIVE: OBJECTIVE: ASSESSMENT AND PLAN:
--- NOTE | 2020-04-19 11:17 | PN ---
Progress Note, Physician History of Present Illness: pt seen/ examined continue to improve Awake/ Comfortable Decreased shortness of breath No distress - Current Medication List Current Medications: Active Medications Acetaminophen (Tylenol -) 650 mg PO Q6H PRN PRN Reason: FEVER Last Admin: 04/16/20 01:03 Dose: 650 mg Documented by: Albuterol/Ipratropium (Duoneb -) 1 amp NEB Q4H PRN PRN Reason: SHORTNESS OF BREATH Apixaban (Eliquis -) 5 mg PO BID [facility] Last Admin: 04/19/20 09:51 Dose: 5 mg Documented by: Atorvastatin Calcium (Lipitor -) 80 mg PO HS [facility] Last Admin: 04/18/20 21:24 Dose: 80 mg Documented by: Budesonide/Formoterol Fumarate (Symbicort 160/4.5mcg -) 2 puff IH BID [facility] Last Admin: 04/19/20 09:53 Dose: 2 puff Documented by: Bupropion HCl (Wellbutrin Xl -) 150 mg PO DAILY [facility] Last Admin: 04/19/20 09:51 Dose: 150 mg Documented by: Clopidogrel Bisulfate (Plavix -) 75 mg PO DAILY [facility] Last Admin: 04/19/20 09:51 Dose: 75 mg Documented by: Diltiazem HCl (Cardizem Cd -) 120 mg PO DAILY [facility] Last Admin: 04/19/20 09:52 Dose: 120 mg Documented by: Emollient Ointment (Aquaphor -) 1 applic TP DAILY [facility] Last Admin: 04/19/20 09:51 Dose: 1 applic Documented by: Vancomycin HCl (Vancomycin (Pre-Docked)) 1,000 mg in 250 mls @ 166.667 mls/hr IVPB Q12H [facility]; Protocol Last Admin: 04/19/20 01:11 Dose: 166.667 mls/hr Documented by: Aztreonam 1 gm/ Dextrose 50 mls @ 100 mls/hr IVPB Q8H-IV [facility]; Protocol Last Admin: 04/19/20 10:36 Dose: 100 mls/hr Documented by: Methimazole (Tapazole -) 10 mg PO DAILY [facility] Last Admin: 04/19/20 09:53 Dose: 10 mg Documented by: Methylprednisolone Sodium Succinate (Solu-Medrol -) 40 mg IVPUSH Q8H-IV [facility] Last Admin: 04/19/20 09:51 Dose: 40 mg Documented by: Pantoprazole Sodium (Protonix -) 20 mg PO BID [facility] Last Admin: 04/19/20 09:51 Dose: 20 mg Documented by: Polyethylene Glycol (Miralax (For Daily Use) -) 17 gm PO HS PRN PRN Reason: CONSTIPATION Potassium Chloride (Potassium Chloride Oral Liquid) 40 meq PO DAILY [facility] Last Admin: 04/19/20 09:52 Dose: Not Given Documented by: Senna (Senna -) 2 tab PO [facility] Last Admin: 04/18/20 21:24 Dose: Not Given Documented by: Tamsulosin HCl (Flomax -) 0.4 mg PO [facility] Last Admin: 04/18/20 21:24 Dose: 0.4 mg Documented by: - Objective Vital Signs: Vital Signs Temperature 97.7 F 04/19/20 09:59 Pulse Rate 92 H 04/19/20 09:59 Respiratory Rate 18 04/19/20 09:59 Blood Pressure 121/65 04/19/20 09:59 O2 Sat by Pulse Oximetry (%) 96 04/19/20 09:59 Constitutional: Yes: No Distress, Calm Neck: Yes: Supple Cardiovascular: Yes: Pulse Irregular Respiratory: Yes: Diminished Gastrointestinal: Yes: Soft Edema: No Neurological: Yes: Alert Labs: CBC, BMP 04/17/20 06:35 04/19/20 05:45 INR, PTT INR 1.15 (0.83-1.09) H 04/14/20 10:50 Problem List - Problems (1) Acute on chronic respiratory failure with hypoxemia Code(s): J96.21 - ACUTE AND CHRONIC RESPIRATORY FAILURE WITH HYPOXIA (2) Atrial fibrillation with RVR Code(s): I48.91 - UNSPECIFIED ATRIAL FIBRILLATION (3) Hyperthyroidism Code(s): E05.90 - THYROTOXICOSIS, UNSP WITHOUT THYROTOXIC CRISIS OR STORM (4) NSTEMI (non-ST elevated myocardial infarction) Code(s): I21.4 - NON-ST ELEVATION (NSTEMI) MYOCARDIAL INFARCTION (5) Pneumonia Code(s): J18.9 - PNEUMONIA, UNSPECIFIED ORGANISM (6) CAD (coronary artery disease) Code(s): I25.10 - ATHSCL HEART DISEASE OF [place] CORONARY ARTERY W/O ANG PCTRS (7) Lung cancer Code(s): C34.90 - MALIGNANT NEOPLASM OF UNSP PART OF UNSP BRONCHUS OR LUNG Assessment/Plan clinically better Continue present care Abx heart rate under control monitor taper steroids will follow
--- NOTE | 2020-04-19 11:53 | PN ---
Progress Note (short form) - Note Progress Note: s: no cp sob palps dizzy; +cough Current Medications Generic Name Dose Route Start Last Admin Trade Name Freq PRN Reason Stop Dose Admin Acetaminophen 650 mg 04/14/20 15:03 04/16/20 01:03 Tylenol - PO 650 mg Q6H PRN Administration FEVER Albuterol/Ipratropium 1 amp 04/16/20 14:28 Duoneb - NEB Q4H PRN SHORTNESS OF BREATH Apixaban 5 mg 04/16/20 12:45 04/19/20 09:51 Eliquis - PO 5 mg BID [facility] Administration Atorvastatin Calcium 80 mg 04/14/20 22:00 04/18/20 21:24 Lipitor - PO 80 mg HS [facility] Administration Budesonide/Formoterol Fumarate 2 puff 04/14/20 22:00 04/19/20 09:53 Symbicort 160/4.5mcg - IH 2 puff BID [facility] Administration Bupropion HCl 150 mg 04/15/20 10:00 04/19/20 09:51 Wellbutrin Xl - PO 150 mg DAILY [facility] Administration Clopidogrel Bisulfate 75 mg 04/15/20 10:00 04/19/20 09:51 Plavix - PO 75 mg DAILY [facility] Administration Diltiazem HCl 120 mg 04/16/20 11:30 04/19/20 09:52 Cardizem Cd - PO 120 mg DAILY [facility] Administration Emollient Ointment 1 applic 04/15/20 13:45 04/19/20 09:51 Aquaphor - TP 1 applic DAILY [facility] Administration Furosemide 40 mg 04/19/20 12:00 Lasix Injection - IVPUSH DAILY [facility] Vancomycin HCl 1,000 mg in 250 mls @ 166.667 mls/hr 04/15/20 13:15 04/19/20 01:11 Vancomycin (Pre-Docked) IVPB 166.667 mls/hr Q12H [facility] Administration Protocol Aztreonam 1 gm/ Dextrose 50 mls @ 100 mls/hr 04/15/20 13:15 04/19/20 10:36 IVPB 100 mls/hr Q8H-IV [facility] Administration Protocol Methimazole 10 mg 04/14/20 15:15 04/19/20 09:53 Tapazole - PO 10 mg DAILY [facility] Administration Methylprednisolone Sodium Succinate 40 mg 04/19/20 22:00 Solu-Medrol - IVPUSH BID [facility] Pantoprazole Sodium 20 mg 04/14/20 22:00 04/19/20 09:51 Protonix - PO 20 mg BID [facility] Administration Polyethylene Glycol 17 gm 04/14/20 15:03 Miralax (For Daily Use) - PO HS PRN CONSTIPATION Potassium Chloride 40 meq 04/17/20 10:00 04/19/20 09:52 Potassium Chloride Oral Liquid PO Not Given DAILY [facility] Senna 2 tab 04/14/20 22:00 04/18/20 21:24 Senna - PO Not Given HS [facility] Tamsulosin HCl 0.4 mg 04/14/20 22:00 04/18/20 21:24 Flomax - PO 0.4 mg HS [facility] Administration Vital Signs Period Temp Pulse Resp BP Sys/Adams Pulse Ox Last 24 Hr 97.0 F-98.1 F 76-99 18-22 99-137/51-69 96-99 Constitutional: Yes: No Distress, Calm Eyes: Yes: Conjunctiva Clear Neck: Yes: Supple, Trachea Midline Respiratory: Yes: Regular, Cough, Diminished Gastrointestinal: Yes: Normal Bowel Sounds, Soft Cardiovascular: Yes: irregular, nl s1 s2 JVD: No Integumentary: No: Jaundice Neurological: Yes: Alert, Oriented Psychiatric: No: Agitated CBC, BMP 04/17/20 06:35 04/19/20 05:45 Assessment/Plan echo 06/2019 nl LV/RV function, tr TR echo 03/2020: nl lv/rv, no sig valve path mibi 06/2019 mild inferolateral ischemia, no TID, nl EF CXR: progressive R sided infiltrative changes, L side clear tele: sr acute on chronic diastolic CHF: -cxr still with CHF, cr stable (bun likely up due to steroids), will resume lasix iv -daily chem7 Pafib: new dx -Remains in SR. - initially in AF w/ RVR, now improved after cardizem IV and converted to cardizem CD 04/17. On Eliquis - monitor on tele - free T4 elevated, management as per PMD hyperthyroidism: - TSH 0.01 here with new onset afib - manage per primary elevated trop: - no chest pain - likely demand in setting of new onset afib with RVR - echo unremarkable - once acute issues resolve (pt with active PNA and CHF) would consider updated MIBI to monitor ischemic burden lung cancer: - manage per onc CAD s/p TN, stents: - mild ischemia on mibi 06/2019, low risk finding, asymptomatic - cont plavix, dc aspirin now on anticoagulation - cont statin HLD: - cont statin HTN: - not on meds, stable here, monitor
[2020-04-19] MEDS: FUROSEMIDE 40 MG/4 ML INJECTABLE VIAL IVPUSH SCH (12:33)
--- NOTE | 2020-04-19 15:53 | PN ---
Teaching Attending Note Name of Resident: Yennifer Gottlieb 64M with metastatic Lung SCC on carbo/abraxane/pembrolizumab(last dose 03/24) who was admitted for Afib and found to be hyperthyroid; thought to possibly be due to pembro? Endocrine is on board, and he has gotten methimazole with improvement, afib also controlled. Had some hypoxia requiring bipap but now downgraded to NC during the day, currently on broad spectrum ab and solumedrol 40mg q8hrs. Recommend titrating down steroids as patient is clinically improving.
[2020-04-19] MEDS: ATORVASTATIN CA 80 MG TABLET (FP) PO SCH (21:45)
[2020-04-19] MEDS: TAMSULOSIN HCL 0.4 MG CAP PO SCH (21:46)
[2020-04-19] MEDS: SENNOSIDES 8.6MG TABLET (FP) PO SCH (21:46)
[2020-04-20] MEDS ORDERED: PT OWN MED DRAWER 7, Y5N ONE (01:01)
[2020-04-20] MEDS ORDERED: AZTREONAM 1 GM VIAL (RESTRICTED TO ID) ONE ×4 (01:02→17:06)
[2020-04-20] MEDS: AZTREONAM 1 GM in DEXTROSE 5%-WATER - 50 ML IVPB SCH ×3 (01:15→17:08)
[2020-04-20] MEDS: VANCOMYCIN 1 GRAM (PRE-DOCKED) 1,000 MG/250 ML BAG IVPB SCH ×2 (01:55→14:14)
--- NOTE | 2020-04-20 07:43 | PN ---
Progress Note, Physician History of Present Illness: pulmonary alert,less dyspneic on nasal o2 5l,02 sat 94% - Current Medication List Current Medications: Active Medications Acetaminophen (Tylenol -) 650 mg PO Q6H PRN PRN Reason: FEVER Last Admin: 04/16/20 01:03 Dose: 650 mg Documented by: Albuterol/Ipratropium (Duoneb -) 1 amp NEB Q4H PRN PRN Reason: SHORTNESS OF BREATH Apixaban (Eliquis -) 5 mg PO BID [facility] Last Admin: 04/19/20 21:45 Dose: 5 mg Documented by: Atorvastatin Calcium (Lipitor -) 80 mg PO HS [facility] Last Admin: 04/19/20 21:45 Dose: 80 mg Documented by: Budesonide/Formoterol Fumarate (Symbicort 160/4.5mcg -) 2 puff IH BID [facility] Last Admin: 04/19/20 21:46 Dose: 2 puff Documented by: Bupropion HCl (Wellbutrin Xl -) 150 mg PO DAILY [facility] Last Admin: 04/19/20 09:51 Dose: 150 mg Documented by: Clopidogrel Bisulfate (Plavix -) 75 mg PO DAILY [facility] Last Admin: 04/19/20 09:51 Dose: 75 mg Documented by: Diltiazem HCl (Cardizem Cd -) 120 mg PO DAILY [facility] Last Admin: 04/19/20 09:52 Dose: 120 mg Documented by: Emollient Ointment (Aquaphor -) 1 applic TP DAILY [facility] Last Admin: 04/19/20 09:51 Dose: 1 applic Documented by: Furosemide (Lasix Injection -) 40 mg IVPUSH DAILY [facility] Last Admin: 04/19/20 12:33 Dose: 40 mg Documented by: Vancomycin HCl (Vancomycin (Pre-Docked)) 1,000 mg in 250 mls @ 166.667 mls/hr IVPB Q12H JENY; Protocol Last Admin: 04/20/20 01:55 Dose: 166.667 mls/hr Documented by: Aztreonam 1 gm/ Dextrose 50 mls @ 100 mls/hr IVPB Q8H-IV JENY; Protocol Last Admin: 04/20/20 01:15 Dose: 100 mls/hr Documented by: Methimazole (Tapazole -) 10 mg PO DAILY [facility] Last Admin: 04/19/20 09:53 Dose: 10 mg Documented by: Methylprednisolone Sodium Succinate (Solu-Medrol -) 40 mg IVPUSH BID [facility] Last Admin: 04/19/20 21:45 Dose: 40 mg Documented by: Pantoprazole Sodium (Protonix -) 20 mg PO BID [facility] Last Admin: 04/19/20 21:45 Dose: 20 mg Documented by: Polyethylene Glycol (Miralax (For Daily Use) -) 17 gm PO HS PRN PRN Reason: CONSTIPATION Potassium Chloride (Potassium Chloride Oral Liquid) 40 meq PO DAILY [facility] Last Admin: 04/19/20 09:52 Dose: Not Given Documented by: Senna (Senna -) 2 tab PO [facility] Last Admin: 04/19/20 21:46 Dose: Not Given Documented by: Tamsulosin HCl (Flomax -) 0.4 mg PO HS [facility] Last Admin: 04/19/20 21:46 Dose: 0.4 mg Documented by: - Objective Vital Signs: Vital Signs Temperature 97.8 F 04/20/20 06:00 Pulse Rate 85 04/20/20 06:00 Respiratory Rate 04/20/20 06:00 Blood Pressure 99/54 L 04/20/20 06:00 O2 Sat by Pulse Oximetry (%) 94 L 04/20/20 06:00 Constitutional: Yes: Calm, Obese Eyes: Yes: WNL HENT: Yes: WNL Neck: Yes: WNL Cardiovascular: Yes: Pulse Irregular, S1, S2 Respiratory: Yes: Diminished Gastrointestinal: Yes: Normal Bowel Sounds, Soft, Abdomen, Obese Extremities: Yes: WNL Edema: Yes Labs: CBC, BMP 04/17/20 06:3 Problem List - Problems (1) Acute on chronic respiratory failure with hypoxemia Code(s): J96.21 - ACUTE AND CHRONIC RESPIRATORY FAILURE WITH HYPOXIA (2) Atrial fibrillation with RVR Code(s): I48.91 - UNSPECIFIED ATRIAL FIBRILLATION (3) Pneumonia Code(s): J18.9 - PNEUMONIA, UNSPECIFIED ORGANISM (4) Anemia Code(s): D64.9 - ANEMIA, UNSPECIFIED (5) CAD (coronary artery disease) Code(s): I25.10 - ATHSCL HEART DISEASE OF [place] CORONARY ARTERY W/O ANG PCTRS (6) Lung cancer Code(s): C34.90 - MALIGNANT NEOPLASM OF UNSP PART OF UNSP BRONCHUS OR LUNG (7) COPD (chronic obstructive pulmonary disease) Code(s): J44.9 - CHRONIC OBSTRUCTIVE PULMONARY DISEASE, UNSPECIFIED Assessment/Plan A/P Acute on Chronic Hypoxic Respiratory Failure improving Lung Cancer Pneumonia COPD Atrial Fibrillation CAD +Troponins likely Demand Ischemia [place] GERD h/o COVID19 - continue antibiotics - inhaled bronchodilators - continue medrol taper - O2 to keep SpO2 >90% - rate control - anticoagulation - chest ct DR DUNCAN
[2020-04-20] MEDS ORDERED: DEXTROSE 5%-WATER - 50 ML IVPB ONE ×2 (09:51→17:06)
[2020-04-20] MEDS: POTASSIUM CHLORIDE ORAL LIQUID 20 MEQ/15 ML PO SCH (09:57)
[2020-04-20] MEDS: APIXABAN 5 MG TABLET PO SCH ×2 (09:57→21:47)
[2020-04-20] MEDS: PANTOPRAZOLE 20 MG TABLET PO SCH ×2 (09:57→21:47)
[2020-04-20] MEDS: CLOPIDOGREL BISULFATE 75 MG TABLET (FP) PO SCH (09:57)
[2020-04-20] MEDS: METHIMAZOLE 10 MG TABLET (FP) PO SCH (09:58)
[2020-04-20] MEDS: MINERAL OIL/PET HY-PHL TOPICAL OINTMENT 454 GM JAR TP SCH (10:00)
[2020-04-20] MEDS: BUDESONIDE/FORMETEROL FUMARATE 160/4.5 mcg INHALER IH SCH ×2 (10:00→21:54)
[2020-04-20] MEDS: FUROSEMIDE 40 MG/4 ML INJECTABLE VIAL IVPUSH SCH (10:09)
[2020-04-20] MEDS: methylPREDNISolone NA SUCC 40 MG/1 ML VIAL IVPUSH SCH ×2 (10:10→21:47)
--- NOTE | 2020-04-20 12:59 | PN ---
Progress Note (short form) - Note Progress Note: s: no cp sob palps dizzy. still has cough Current Medications Generic Name Dose Route Start Last Admin Trade Name Freq PRN Reason Stop Dose Admin Acetaminophen 650 mg 04/14/20 15:03 04/16/20 01:03 Tylenol - PO 650 mg Q6H PRN Administration FEVER Albuterol/Ipratropium 1 amp 04/16/20 14:28 Duoneb - NEB Q4H PRN SHORTNESS OF BREATH Apixaban 5 mg 04/16/20 12:45 04/20/20 09:57 Eliquis - PO 5 mg BID JENY Administration Atorvastatin Calcium 80 mg 04/14/20 22:00 04/19/20 21:45 Lipitor - PO 80 mg HS JENY Administration Budesonide/Formoterol Fumarate 2 puff 04/14/20 22:00 04/20/20 10:00 Symbicort 160/4.5mcg - IH 2 puff BID JENY Administration Bupropion HCl 150 mg 04/15/20 10:00 04/20/20 09:57 Wellbutrin Xl - PO 150 mg DAILY JENY Administration Clopidogrel Bisulfate 75 mg 04/15/20 10:00 04/20/20 09:57 Plavix - PO 75 mg DAILY JENY Administration Diltiazem HCl 120 mg 04/16/20 11:30 04/20/20 09:58 Cardizem Cd - PO 120 mg DAILY JENY Administration Emollient Ointment 1 applic 04/15/20 13:45 04/20/20 10:00 Aquaphor - TP 1 applic DAILY JENY Administration Furosemide 40 mg 04/19/20 12:00 04/20/20 10:09 Lasix Injection - IVPUSH 40 mg DAILY JENY Administration Vancomycin HCl 1,000 mg in 250 mls @ 166.667 mls/hr 04/15/20 13:15 04/20/20 01:55 Vancomycin (Pre-Docked) IVPB 166.667 mls/hr Q12H JENY Administration Protocol Aztreonam 1 gm/ Dextrose 50 mls @ 100 mls/hr 04/15/20 13:15 04/20/20 09:58 IVPB 100 mls/hr Q8H-IV JENY Administration Protocol Methimazole 10 mg 04/14/20 15:15 04/20/20 09:58 Tapazole - PO 10 mg DAILY JENY Administration Methylprednisolone Sodium Succinate 40 mg 04/19/20 22:00 04/20/20 10:10 Solu-Medrol - IVPUSH 40 mg BID JENY Administration Pantoprazole Sodium 20 mg 04/14/20 22:00 04/20/20 09:57 Protonix - PO 20 mg BID JENY Administration Polyethylene Glycol 17 gm 04/14/20 15:03 Miralax (For Daily Use) - PO HS PRN CONSTIPATION Potassium Chloride 40 meq 04/17/20 10:00 04/20/20 09:57 Potassium Chloride Oral Liquid PO 40 meq DAILY JENY Administration Senna 2 tab 04/14/20 22:00 04/19/20 21:46 Senna - PO Not Given HS JENY Tamsulosin HCl 0.4 mg 04/14/20 22:00 04/19/20 21:46 Flomax - PO 0.4 mg HS JENY Administration Vital Signs Period Temp Pulse Resp BP Sys/Adams Pulse Ox Last 24 Hr 97.5 F-97.8 F 85-105 18-20 99-126/46-71 94-100 Constitutional: Yes: No Distress, Calm Eyes: Yes: Conjunctiva Clear Neck: Yes: Supple, Trachea Midline Respiratory: Yes: Regular, Cough, Diminished Gastrointestinal: Yes: Normal Bowel Sounds, Soft Cardiovascular: Yes: irregular, nl s1 s2 JVD: No Integumentary: No: Jaundice Neurological: Yes: Alert, Oriented Psychiatric: No: Agitated Assessment/Plan echo 06/2019 nl LV/RV function, tr TR echo 03/2020: nl lv/rv, no sig valve path mibi 06/2019 mild inferolateral ischemia, no TID, nl EF CXR: progressive R sided infiltrative changes, L side clear tele: sr, NSVT acute on chronic diastolic CHF: -cxr 04/18 still with CHF, cr stable (bun likely up due to steroids) - cont lasix iv -daily chem7 Pafib: new dx -Remains in SR. - initially in AF w/ RVR, now improved after cardizem IV and converted to cardizem CD 04/17. On Eliquis - monitor on tele - free T4 elevated, management as per PMD hyperthyroidism: - TSH 0.01 here with new onset afib - manage per primary elevated trop: - no chest pain - likely demand in setting of new onset afib with RVR - echo unremarkable - once acute issues resolve (pt with active PNA and CHF) would consider updated MIBI to monitor ischemic burden lung cancer: - manage per onc CAD s/p ND, stents: - mild ischemia on mibi 06/2019, low risk finding, asymptomatic - cont plavix, dc aspirin now on anticoagulation - cont statin HLD: - cont statin HTN: - not on meds, stable here, monitor NSVT - maintain K>4, Mg >2 - normal LV function on echo here - mibi when acute issues resolve
--- NOTE | 2020-04-20 14:30 | PN ---
Physical Exam: SUBJECTIVE: Patient seen and examined. Denies fevers, chills, chest pain, shortness of breath. On bipap at night. OBJECTIVE: Vital Signs Temperature 97.9 F 04/20/20 10:00 Pulse Rate 92 H 04/20/20 10:00 Respiratory Rate 20 04/20/20 10:00 Blood Pressure 130/62 04/20/20 10:00 O2 Sat by Pulse Oximetry (%) 91 L 04/20/20 10:00 GENERAL: The patient is awake, alert, and fully oriented, on 5L Nc NECK: supple. LUNGS: coarse breath sounds bilaterally HEART: regular, S1, S2 ABDOMEN: Soft, nontender, nondistended, normoactive bowel sounds EXTREMITIES: 2+ pulses, warm, well-perfused, no edema. NEUROLOGICAL: Cranial nerves II through XII grossly intact. Normal speech PSYCH: Normal mood, normal affect. SKIN: Warm, dry, normal turgor Laboratory Results - last 24 hr 04/14/20 04/18/20 17:15 06:59 Free T3 4.4 Ur Free Cortisol 24 Hr Cancelled Urine Free Cortisol Cancelled Active Medications Generic Name Dose Route Start Last Admin Trade Name Freq PRN Reason Stop Dose Admin Acetaminophen 650 mg 04/14/20 15:03 04/16/20 01:03 Tylenol - PO 650 mg Q6H PRN Administration FEVER Albuterol/Ipratropium 1 amp 04/16/20 14:28 Duoneb - NEB Q4H PRN SHORTNESS OF BREATH Apixaban 5 mg 04/16/20 12:45 04/20/20 09:57 Eliquis - PO 5 mg BID JENY Administration Atorvastatin Calcium 80 mg 04/14/20 22:00 04/19/20 21:45 Lipitor - PO 80 mg HS JENY Administration Budesonide/Formoterol Fumarate 2 puff 04/14/20 22:00 04/20/20 10:00 Symbicort 160/4.5mcg - IH 2 puff BID JENY Administration Bupropion HCl 150 mg 04/15/20 10:00 04/20/20 09:57 Wellbutrin Xl - PO 150 mg DAILY JENY Administration Clopidogrel Bisulfate 75 mg 04/15/20 10:00 04/20/20 09:57 Plavix - PO 75 mg DAILY JENY Administration Diltiazem HCl 120 mg 04/16/20 11:30 04/20/20 09:58 Cardizem Cd - PO 120 mg DAILY JENY Administration Emollient Ointment 1 applic 04/15/20 13:45 04/20/20 10:00 Aquaphor - TP 1 applic DAILY JENY Administration Furosemide 40 mg 04/19/20 12:00 04/20/20 10:09 Lasix Injection - IVPUSH 40 mg DAILY JENY Administration Vancomycin HCl 1,000 mg in 250 mls @ 166.667 mls/hr 04/15/20 13:15 04/20/20 14:14 Vancomycin (Pre-Docked) IVPB 166.667 mls/hr Q12H JENY Administration Protocol Aztreonam 1 gm/ Dextrose 50 mls @ 100 mls/hr 04/15/20 13:15 04/20/20 09:58 IVPB 100 mls/hr Q8H-IV JENY Administration Protocol Methimazole 10 mg 04/14/20 15:15 04/20/20 09:58 Tapazole - PO 10 mg DAILY JENY Administration Methylprednisolone Sodium Succinate 40 mg 04/19/20 22:00 04/20/20 10:10 Solu-Medrol - IVPUSH 40 mg BID JENY Administration Pantoprazole Sodium 20 mg 04/14/20 22:00 04/20/20 09:57 Protonix - PO 20 mg BID JENY Administration Polyethylene Glycol 17 gm 04/14/20 15:03 Miralax (For Daily Use) - PO HS PRN CONSTIPATION Potassium Chloride 40 meq 04/17/20 10:00 04/20/20 09:57 Potassium Chloride Oral Liquid PO 40 meq DAILY JENY Administration Senna 2 tab 04/14/20 22:00 04/19/20 21:46 Senna - PO Not Given HS JENY Tamsulosin HCl 0.4 mg 04/14/20 22:00 04/19/20 21:46 Flomax - PO 0.4 mg HS JEYN Administration ASSESSMENT/PLAN: Patient is a 64 YOM with a significant PMH of Sq Cell Lung CA (s/p resection in Jul 2019, port insertion, and chemo with carbo/abraxane), HTN, HLD, CAD (stents x2, on Plavix), COPD, [place] (on home O2 at night as needed), GERD, PVD and recent admission for COVID presents to the ED after found to be tachycardic on Dr. Tolbert's clinic. Found to have Afib with RVR, with TFT consistent with hyperthyroid. #Metastatic squamous cell lung Ca -on carbo/abraxane, and immunotherapy with pembrolizumab, 2 cycles completed -hyperthyroidism likely 2/2 autoimmune thyroiditis 2/2 ?pembrolizumab -holding pembrolizumab #Afib with RVR -likely 2/2 hyperthyroid, pneumonia, no hx of afib -Improved with IV Cardizem -continue PO cardizem 120mg daily -on Eliquis 5mg bid -Elevated troponins likely demand ischemia -cardiology on board #Hyperthyroidism -TSH 0.01, FT4 7 -- ?autoimmune thyroiditis possible 2/2 pembrolizumab -Pt likely to go hypothyroid from the thyroiditis and need LT4 replacement. -FT4 trending down, TSI wnl -Methimazole 10mg daily -Endocrine on board #Acute on chronic hypoxic and hypercapneic respiratory failure -CXR 04/16 : progressive bilateral pulmonary and pleural changes in comparison to CXR on 04/14 -likely 2/2 post obstructive pneumonia 2/2 Lung Ca, ?pneumonitis 2/2 pembrolizumab -on IV vancomycin/aztreonam. ID on board -Blood cultures negative, Urine legionella/pneumoniae negative -inhaled bronchodilators -on Solu-medrol 40mg bid -supplemental oxygen to keep spo2 >90% -bipap prn -Pulm consulted. Visit type - Emergency Visit Emergency Visit: Yes ED Registration Date: 04/14/20 Care time: The patient presented to the Emergency Department on the above date and was hospitalized for further evaluation of their emergent condition. - New Patient This patient is new to me today: No - Critical Care Critical Care patient: No - Medication Review Med list reviewed for High Risk Meds patients 65 and older: Yes ATTENDING PHYSICIAN STATEMENT I saw and evaluated the patient. I reviewed the resident's note and discussed the case with the resident. I agree with the resident's findings and plan as documented. SUBJECTIVE: OBJECTIVE: ASSESSMENT AND PLAN:
--- NOTE | 2020-04-20 14:40 | PN ---
Progress Note (short form) - Note Progress Note: comfortable tremors Vital Signs - 24 hr 04/19/20 04/19/20 04/19/20 17:54 20:11 21:00 Temperature 97.6 F 97.6 F Pulse Rate 88 88 Respiratory 20 20 Rate Blood Pressure 111/46 L 121/61 O2 Sat by Pulse 96 96 95 Oximetry (%) 04/20/20 04/20/20 04/20/20 01:00 02:00 04:52 Temperature 97.5 F L Pulse Rate 105 H Respiratory 20 Rate Blood Pressure 126/71 O2 Sat by Pulse 95 100 Oximetry (%) 04/20/20 04/20/20 04/20/20 06:00 09:00 10:00 Temperature 97.8 F 97.9 F Pulse Rate 85 92 H Respiratory 20 20 Rate Blood Pressure 99/54 L 130/62 O2 Sat by Pulse 94 L 91 L 91 L Oximetry (%) Current Medications Generic Name Dose Route Start Last Admin Trade Name Freq PRN Reason Stop Dose Admin Acetaminophen 650 mg 04/14/20 15:03 04/16/20 01:03 Tylenol - PO 650 mg Q6H PRN Administration FEVER Albuterol/Ipratropium 1 amp 04/16/20 14:28 Duoneb - NEB Q4H PRN SHORTNESS OF BREATH Apixaban 5 mg 04/16/20 12:45 04/20/20 09:57 Eliquis - PO 5 mg BID JENY Administration Atorvastatin Calcium 80 mg 04/14/20 22:00 04/19/20 21:45 Lipitor - PO 80 mg HS JENY Administration Budesonide/Formoterol Fumarate 2 puff 04/14/20 22:00 04/20/20 10:00 Symbicort 160/4.5mcg - IH 2 puff BID JENY Administration Bupropion HCl 150 mg 04/15/20 10:00 04/20/20 09:57 Wellbutrin Xl - PO 150 mg DAILY JENY Administration Clopidogrel Bisulfate 75 mg 04/15/20 10:00 04/20/20 09:57 Plavix - PO 75 mg DAILY JENY Administration Diltiazem HCl 120 mg 04/16/20 11:30 04/20/20 09:58 Cardizem Cd - PO 120 mg DAILY JENY Administration Emollient Ointment 1 applic 04/15/20 13:45 04/20/20 10:00 Aquaphor - TP 1 applic DAILY JENY Administration Furosemide 40 mg 04/19/20 12:00 04/20/20 10:09 Lasix Injection - IVPUSH 40 mg DAILY JENY Administration Vancomycin HCl 1,000 mg in 250 mls @ 166.667 mls/hr 04/15/20 13:15 04/20/20 14:14 Vancomycin (Pre-Docked) IVPB 166.667 mls/hr Q12H JENY Administration Protocol Aztreonam 1 gm/ Dextrose 50 mls @ 100 mls/hr 04/15/20 13:15 04/20/20 09:58 IVPB 100 mls/hr Q8H-IV JENY Administration Protocol Methimazole 10 mg 04/14/20 15:15 04/20/20 09:58 Tapazole - PO 10 mg DAILY JENY Administration Methylprednisolone Sodium Succinate 40 mg 04/19/20 22:00 04/20/20 10:10 Solu-Medrol - IVPUSH 40 mg BID JENY Administration Pantoprazole Sodium 20 mg 04/14/20 22:00 04/20/20 09:57 Protonix - PO 20 mg BID JENY Administration Polyethylene Glycol 17 gm 04/14/20 15:03 Miralax (For Daily Use) - PO HS PRN CONSTIPATION Potassium Chloride 40 meq 04/17/20 10:00 04/20/20 09:57 Potassium Chloride Oral Liquid PO 40 meq DAILY JENY Administration Senna 2 tab 04/14/20 22:00 04/19/20 21:46 Senna - PO Not Given HS JENY Tamsulosin HCl 0.4 mg 04/14/20 22:00 04/19/20 21:46 Flomax - PO 0.4 mg HS JENY Administration Laboratory Results - last 24 hr 04/14/20 04/18/20 17:15 06:59 Free T3 4.4 Ur Free Cortisol 24 Hr Cancelled Urine Free Cortisol Cancelled tremors+ S1 S2 Irregular Lungs decreased Abd- soft, obese, NT Edema PLAN recheck TSH, free T4 rate control with Cardizem Taper solumedrol PT eval continue with iv antibiotics per ID Problem List - Problems (1) Pneumonia Code(s): J18.9 - PNEUMONIA, UNSPECIFIED ORGANISM (2) Hyperthyroidism Code(s): E05.90 - THYROTOXICOSIS, UNSP WITHOUT THYROTOXIC CRISIS OR STORM (3) Atrial fibrillation with RVR Code(s): I48.91 - UNSPECIFIED ATRIAL FIBRILLATION (4) NSTEMI (non-ST elevated myocardial infarction) Code(s): I21.4 - NON-ST ELEVATION (NSTEMI) MYOCARDIAL INFARCTION (5) Anemia Code(s): D64.9 - ANEMIA, UNSPECIFIED (6) CAD (coronary artery disease) Code(s): I25.10 - ATHSCL HEART DISEASE OF [place] CORONARY ARTERY W/O ANG PCTRS (7) Lung cancer Code(s): C34.90 - MALIGNANT NEOPLASM OF UNSP PART OF UNSP BRONCHUS OR LUNG
--- NOTE | 2020-04-20 16:13 | PN ---
Teaching Attending Note Name of Resident: Yennifer Gottlieb ATTENDING PHYSICIAN STATEMENT I saw and evaluated the patient. I reviewed the resident's note and discussed the case with the resident. I agree with the resident's findings and plan as documented. ASSESSMENT AND PLAN: 64 y/o gentleman with HTN, CAD s/p stents, COPD/ILD, obesity Oligometastatic Squamous cell lung cancer. Stage IV, s/p Lt. upper lobe wedge resection/Rt. upper lobe SRS s/p carbo/abraxane on immunotherapy with pembrolizumab (on hold) Was due for C3 but presented with generalized weakness/nausea/'new onset afib. fT4 7/TSH 0.01/ new onset afib ? autoimmune thyroiditis related to pembrolizumab. afib secondary to hyperthyroidism Solumedrol 40 mg IV bid (tapering)
[2020-04-20 16:24] VITALS: BMI 35.3
[2020-04-20] MEDS: TAMSULOSIN HCL 0.4 MG CAP PO SCH (21:47)
[2020-04-20] MEDS: ATORVASTATIN CA 80 MG TABLET (FP) PO SCH (21:47)
[2020-04-20] MEDS: SENNOSIDES 8.6MG TABLET (FP) PO SCH (21:53)
[2020-04-21] MEDS ORDERED: AZTREONAM 1 GM VIAL (RESTRICTED TO ID) ONE ×2 (00:49→09:27)
[2020-04-21] MEDS ORDERED: DEXTROSE 5%-WATER - 50 ML IVPB ONE ×2 (00:50→09:27)
[2020-04-21] MEDS: AZTREONAM 1 GM in DEXTROSE 5%-WATER - 50 ML IVPB SCH ×3 (01:00→18:52)
[2020-04-21] MEDS: VANCOMYCIN 1 GRAM (PRE-DOCKED) 1,000 MG/250 ML BAG IVPB SCH ×2 (01:49→13:54)
[2020-04-21 06:56] LABS: HEMATOCRIT 28.6 % (35.4-49); HEMOGLOBIN 9.1 GM/dL (11.7-16.9); MCHC 31.9 g/dl (32.0-35.9); MEAN CELL VOLUME 97.2 fl (80-96); MEAN PLT VOLUME 8.8 fl (7.5-11.1); PLATELET COUNT 170 K/MM3 (134-434); RBC 2.94 M/mm3 (4.00-5.60); RDW 17.6 % (11.9-15.9); WHITE BLOOD COUNT 14.6 K/mm3 (4.0-10.0)
--- NOTE | 2020-04-21 07:09 | PN ---
Progress Note, Physician History of Present Illness: PULMONARY ALERT,COMFORTABLE,ON NASAL O2,LESS DYSPNEIC,O2 SAT 91% - Current Medication List Current Medications: Active Medications Acetaminophen (Tylenol -) 650 mg PO Q6H PRN PRN Reason: FEVER Last Admin: 04/16/20 01:03 Dose: 650 mg Documented by: Albuterol/Ipratropium (Duoneb -) 1 amp NEB Q4H PRN PRN Reason: SHORTNESS OF BREATH Last Admin: 04/20/20 21:01 Dose: 1 amp Documented by: Apixaban (Eliquis -) 5 mg PO BID [facility] Last Admin: 04/20/20 21:47 Dose: 5 mg Documented by: Atorvastatin Calcium (Lipitor -) 80 mg PO HS [facility] Last Admin: 04/20/20 21:47 Dose: 80 mg Documented by: Budesonide/Formoterol Fumarate (Symbicort 160/4.5mcg -) 2 puff IH BID [facility] Last Admin: 04/20/20 21:54 Dose: 2 puff Documented by: Bupropion HCl (Wellbutrin Xl -) 150 mg PO DAILY [facility] Last Admin: 04/20/20 09:57 Dose: 150 mg Documented by: Clopidogrel Bisulfate (Plavix -) 75 mg PO DAILY [facility] Last Admin: 04/20/20 09:57 Dose: 75 mg Documented by: Diltiazem HCl (Cardizem Cd -) 120 mg PO DAILY [facility] Last Admin: 04/20/20 09:58 Dose: 120 mg Documented by: Emollient Ointment (Aquaphor -) 1 applic TP DAILY [facility] Last Admin: 04/20/20 10:00 Dose: 1 applic Documented by: Furosemide (Lasix Injection -) 40 mg IVPUSH DAILY [facility] Last Admin: 04/20/20 10:09 Dose: 40 mg Documented by: Vancomycin HCl (Vancomycin (Pre-Docked)) 1,000 mg in 250 mls @ 166.667 mls/hr IVPB Q12H JENY; Protocol Last Admin: 04/21/20 01:49 Dose: 166.667 mls/hr Documented by: Aztreonam 1 gm/ Dextrose 50 mls @ 100 mls/hr IVPB Q8H-IV JENY; Protocol Last Admin: 04/21/20 01:00 Dose: 100 mls/hr Documented by: Methimazole (Tapazole -) 10 mg PO DAILY [facility] Last Admin: 04/20/20 09:58 Dose: 10 mg Documented by: Methylprednisolone Sodium Succinate (Solu-Medrol -) 40 mg IVPUSH BID [facility] Last Admin: 04/20/20 21:47 Dose: 40 mg Documented by: Pantoprazole Sodium (Protonix -) 20 mg PO BID [facility] Last Admin: 04/20/20 21:47 Dose: 20 mg Documented by: Polyethylene Glycol (Miralax (For Daily Use) -) 17 gm PO HS PRN PRN Reason: CONSTIPATION Potassium Chloride (Potassium Chloride Oral Liquid) 40 meq PO DAILY [facility] Last Admin: 04/20/20 09:57 Dose: 40 meq Documented by: Senna (Senna -) 2 tab PO [facility] Last Admin: 04/20/20 21:53 Dose: Not Given Documented by: Tamsulosin HCl (Flomax -) 0.4 mg PO HS [facility] Last Admin: 04/20/20 21:47 Dose: 0.4 mg Documented by: - Objective Vital Signs: Vital Signs Temperature 97.6 F 04/21/20 06:00 Pulse Rate 83 04/21/20 06:00 Respiratory Rate 20 04/21/20 06:00 Blood Pressure 101/52 L 04/21/20 06:00 O2 Sat by Pulse Oximetry (%) 91 L 04/21/20 06:00 Constitutional: Yes: Calm, Obese Eyes: Yes: WNL HENT: Yes: WNL Neck: Yes: WNL Cardiovascular: Yes: Pulse Irregular, S1, S2 Respiratory: Yes: Wheezes (FEW SCATTERED WHEEZES) Gastrointestinal: Yes: Normal Bowel Sounds, Soft, Abdomen, Obese Extremities: Yes: WNL Edema: Yes Labs: CBC, BMP 04/21/20 06:30 - ....Imaging Cat Scan: Report Reviewed, Image Reviewed ([place] EFFUSIONS) Problem List - Problems (1) Acute on chronic respiratory failure with hypoxemia Code(s): J96.21 - ACUTE AND CHRONIC RESPIRATORY FAILURE WITH HYPOXIA (2) Atrial fibrillation with RVR Code(s): I48.91 - UNSPECIFIED ATRIAL FIBRILLATION (3) Pneumonia Code(s): J18.9 - PNEUMONIA, UNSPECIFIED ORGANISM (4) Anemia Code(s): D64.9 - ANEMIA, UNSPECIFIED (5) CAD (coronary artery disease) Code(s): I25.10 - ATHSCL HEART DISEASE OF [place] CORONARY ARTERY W/O ANG PCTRS (6) Lung cancer Code(s): C34.90 - MALIGNANT NEOPLASM OF UNSP PART OF UNSP BRONCHUS OR LUNG (7) COPD (chronic obstructive pulmonary disease) Code(s): J44.9 - CHRONIC OBSTRUCTIVE PULMONARY DISEASE, UNSPECIFIED Assessment/Plan A/P Acute on Chronic Hypoxic Respiratory Failure Lung Cancer Pneumonia COPD Atrial Fibrillation CHF CAD +Troponins likely Demand Ischemia [place] GERD h/o COVID19 - continue antibiotics - inhaled bronchodilators - continue medrol taper - O2 to keep SpO2 >90% - rate control - anticoagulation - jackix DR DUNCAN
[2020-04-21 07:22] LABS: ALBUMIN 2.4 g/dl (3.4-5.0); BILIRUBIN,TOTAL 0.4 mg/dL (0.2-1); BLOOD UREA NITROGEN 34.6 mg/dL (7-18); CALCIUM 9.9 mg/dL (8.5-10.1); CREATININE 0.7 mg/dL (0.55-1.3); TOT PROT 5.9 g/dl (6.4-8.2)
[2020-04-21] MEDS: FUROSEMIDE 40 MG/4 ML INJECTABLE VIAL IVPUSH SCH (10:46)
[2020-04-21] MEDS: methylPREDNISolone NA SUCC 40 MG/1 ML VIAL IVPUSH SCH (10:50)
[2020-04-21] MEDS: PANTOPRAZOLE 20 MG TABLET PO SCH ×2 (10:50→21:54)
[2020-04-21] MEDS: POTASSIUM CHLORIDE ORAL LIQUID 20 MEQ/15 ML PO SCH (10:50)
[2020-04-21] MEDS: MINERAL OIL/PET HY-PHL TOPICAL OINTMENT 454 GM JAR TP SCH (10:51)
[2020-04-21] MEDS: BUDESONIDE/FORMETEROL FUMARATE 160/4.5 mcg INHALER IH SCH ×2 (10:51→21:59)
[2020-04-21] MEDS: APIXABAN 5 MG TABLET PO SCH ×2 (10:51→21:54)
[2020-04-21] MEDS: CLOPIDOGREL BISULFATE 75 MG TABLET (FP) PO SCH (10:51)
[2020-04-21] MEDS: METHIMAZOLE 10 MG TABLET (FP) PO SCH (11:08)
--- NOTE | 2020-04-21 12:36 | PN ---
Progress Note (short form) - Note Progress Note: s: no cp sob palps dizzy Current Medications Generic Name Dose Route Start Last Admin Trade Name Freq PRN Reason Stop Dose Admin Acetaminophen 650 mg 04/14/20 15:03 04/16/20 01:03 Tylenol - PO 650 mg Q6H PRN Administration FEVER Albuterol/Ipratropium 1 amp 04/16/20 14:28 04/20/20 21:01 Duoneb - NEB 1 amp Q4H PRN Administration SHORTNESS OF BREATH Apixaban 5 mg 04/16/20 12:45 04/21/20 10:51 Eliquis - PO 5 mg BID JENY Administration Atorvastatin Calcium 80 mg 04/14/20 22:00 04/20/20 21:47 Lipitor - PO 80 mg HS JENY Administration Budesonide/Formoterol Fumarate 2 puff 04/14/20 22:00 04/21/20 10:51 Symbicort 160/4.5mcg - IH 2 puff BID JENY Administration Bupropion HCl 150 mg 04/15/20 10:00 04/21/20 10:50 Wellbutrin Xl - PO 150 mg DAILY JENY Administration Clopidogrel Bisulfate 75 mg 04/15/20 10:00 04/21/20 10:51 Plavix - PO 75 mg DAILY JENY Administration Diltiazem HCl 120 mg 04/16/20 11:30 04/21/20 10:51 Cardizem Cd - PO 120 mg DAILY JENY Administration Emollient Ointment 1 applic 04/15/20 13:45 04/21/20 10:51 Aquaphor - TP 1 applic DAILY JENY Administration Furosemide 40 mg 04/19/20 12:00 04/21/20 10:46 Lasix Injection - IVPUSH 40 mg DAILY JENY Administration Vancomycin HCl 1,000 mg in 250 mls @ 166.667 mls/hr 04/15/20 13:15 04/21/20 01:49 Vancomycin (Pre-Docked) IVPB 166.667 mls/hr Q12H JENY Administration Protocol Aztreonam 1 gm/ Dextrose 50 mls @ 100 mls/hr 04/15/20 13:15 04/21/20 10:46 IVPB 100 mls/hr Q8H-IV JENY Administration Protocol Methimazole 10 mg 04/14/20 15:15 04/21/20 11:08 Tapazole - PO 10 mg DAILY JENY Administration Methylprednisolone Sodium Succinate 40 mg 04/19/20 22:00 04/21/20 10:50 Solu-Medrol - IVPUSH 40 mg BID JENY Administration Pantoprazole Sodium 20 mg 04/14/20 22:00 04/21/20 10:50 Protonix - PO 20 mg BID JENY Administration Polyethylene Glycol 17 gm 04/14/20 15:03 Miralax (For Daily Use) - PO HS PRN CONSTIPATION Potassium Chloride 40 meq 04/17/20 10:00 04/21/20 10:50 Potassium Chloride Oral Liquid PO Not Given DAILY JENY Senna 2 tab 04/14/20 22:00 04/20/20 21:53 Senna - PO Not Given HS JENY Tamsulosin HCl 0.4 mg 04/14/20 22:00 04/20/20 21:47 Flomax - PO 0.4 mg HS JENY Administration Vital Signs Period Temp Pulse Resp BP Sys/Adams Pulse Ox Last 24 Hr 97.6 F-97.9 F 80-90 20-22 101-122/50-58 88-98 Constitutional: Yes: No Distress, Calm Eyes: Yes: Conjunctiva Clear Neck: Yes: Supple, Trachea Midline Respiratory: Yes: Regular, Cough, Diminished Gastrointestinal: Yes: Normal Bowel Sounds, Soft Cardiovascular: Yes: irregular, nl s1 s2 JVD: No Integumentary: No: Jaundice Neurological: Yes: Alert, Oriented Psychiatric: No: Agitated Assessment/Plan echo 06/2019 nl LV/RV function, tr TR echo 03/2020: nl lv/rv, no sig valve path mibi 06/2019 mild inferolateral ischemia, no TID, nl EF CXR: progressive R sided infiltrative changes, L side clear tele: sr, NSVT, brief episodes afib rvr acute on chronic diastolic CHF: -cr stable (bun likely up due to steroids) - cont lasix iv -daily chem7 Pafib: new dx -Remains in SR. - initially in AF w/ RVR, now improved after cardizem IV and converted to cardizem CD 04/17. On Eliquis - monitor on tele - free T4 elevated, management as per PMD hyperthyroidism: - TSH 0.01 here with new onset afib - manage per primary elevated trop: - no chest pain - likely demand in setting of new onset afib with RVR - echo unremarkable - once acute issues resolve (pt with active PNA and CHF) would consider updated MIBI to monitor ischemic burden lung cancer: - manage per onc CAD s/p [place], stents: - mild ischemia on mibi 06/2019, low risk finding, asymptomatic - cont plavix, dc aspirin now on anticoagulation - cont statin HLD: - cont statin HTN: - not on meds, stable here, monitor NSVT - maintain K>4, Mg >2 - normal LV function on echo here - mibi when acute issues resolve
--- NOTE | 2020-04-21 12:41 | PN ---
Progress Note (short form) - Note Progress Note: comfortable no sob no chest pain no palpitations Vital Signs - 24 hr 04/20/20 04/20/20 04/20/20 14:00 17:26 21:00 Temperature 97.9 F 97.7 F 97.9 F Pulse Rate 90 85 87 Respiratory 22 H 20 20 Rate Blood Pressure 112/52 L 109/51 L 121/58 L O2 Sat by Pulse 92 L 94 L Oximetry (%) 04/20/20 04/21/20 04/21/20 23:38 02:00 02:12 Temperature 97.8 F Pulse Rate 80 Respiratory 20 Rate Blood Pressure 122/50 L O2 Sat by Pulse 97 88 L 98 Oximetry (%) 04/21/20 06:00 Temperature 97.6 F Pulse Rate 83 Respiratory 20 Rate Blood Pressure 101/52 L O2 Sat by Pulse 91 L Oximetry (%) Current Medications Generic Name Dose Route Start Last Admin Trade Name Freq PRN Reason Stop Dose Admin Acetaminophen 650 mg 04/14/20 15:03 04/16/20 01:03 Tylenol - PO 650 mg Q6H PRN Administration FEVER Albuterol/Ipratropium 1 amp 04/16/20 14:28 04/20/20 21:01 Duoneb - NEB 1 amp Q4H PRN Administration SHORTNESS OF BREATH Apixaban 5 mg 04/16/20 12:45 04/21/20 10:51 Eliquis - PO 5 mg BID JENY Administration Atorvastatin Calcium 80 mg 04/14/20 22:00 04/20/20 21:47 Lipitor - PO 80 mg HS JENY Administration Budesonide/Formoterol Fumarate 2 puff 04/14/20 22:00 04/21/20 10:51 Symbicort 160/4.5mcg - IH 2 puff BID JENY Administration Bupropion HCl 150 mg 04/15/20 10:00 04/21/20 10:50 Wellbutrin Xl - PO 150 mg DAILY JENY Administration Clopidogrel Bisulfate 75 mg 04/15/20 10:00 04/21/20 10:51 Plavix - PO 75 mg DAILY JENY Administration Diltiazem HCl 120 mg 04/16/20 11:30 04/21/20 10:51 Cardizem Cd - PO 120 mg DAILY JENY Administration Emollient Ointment 1 applic 04/15/20 13:45 04/21/20 10:51 Aquaphor - TP 1 applic DAILY JENY Administration Furosemide 40 mg 04/19/20 12:00 04/21/20 10:46 Lasix Injection - IVPUSH 40 mg DAILY JENY Administration Vancomycin HCl 1,000 mg in 250 mls @ 166.667 mls/hr 04/15/20 13:15 04/21/20 01:49 Vancomycin (Pre-Docked) IVPB 166.667 mls/hr Q12H JENY Administration Protocol Aztreonam 1 gm/ Dextrose 50 mls @ 100 mls/hr 04/15/20 13:15 04/21/20 10:46 IVPB 100 mls/hr Q8H-IV JENY Administration Protocol Methimazole 10 mg 04/14/20 15:15 04/21/20 11:08 Tapazole - PO 10 mg DAILY JENY Administration Methylprednisolone Sodium Succinate 40 mg 04/19/20 22:00 04/21/20 10:50 Solu-Medrol - IVPUSH 40 mg BID JENY Administration Pantoprazole Sodium 20 mg 04/14/20 22:00 04/21/20 10:50 Protonix - PO 20 mg BID JENY Administration Polyethylene Glycol 17 gm 04/14/20 15:03 Miralax (For Daily Use) - PO HS PRN CONSTIPATION Potassium Chloride 40 meq 04/17/20 10:00 04/21/20 10:50 Potassium Chloride Oral Liquid PO Not Given DAILY JENY Senna 2 tab 04/14/20 22:00 04/20/20 21:53 Senna - PO Not Given HS JENY Tamsulosin HCl 0.4 mg 04/14/20 22:00 04/20/20 21:47 Flomax - PO 0.4 mg HS JENY Administration Laboratory Results - last 24 hr 04/14/20 04/21/20 04/21/20 17:15 06:30 06:30 WBC 14.6 H RBC 2.94 L Hgb 9.1 L Hct 28.6 L MCV 97.2 H MCH 31.0 MCHC 31.9 L RDW 17.6 H Plt Count 170 MPV 8.8 Sodium 138 Potassium 5.0 Chloride 99 Carbon Dioxide 35 H Anion Gap 4 L BUN 34.6 H Creatinine 0.7 Est GFR (CKD-EPI)AfAm 113.98 Est GFR (CKD-EPI)NonAf 98.34 Random Glucose 149 H Calcium 9.9 Total Bilirubin 0.4 AST 16 ALT 26 Alkaline Phosphatase 74 Total Protein 5.9 L Albumin 2.4 L TSH 0.01 L Free T4 2.69 H Ur Free Cortisol 24 Hr Cancelled Urine Free Cortisol Cancelled S1 S2 Irregular Lungs decreased Abd- soft, obese, NT Edema PLAN Afib- -rate control with Cardizem. -Had episodes of RVR today -spoke with Cardiology Thyroiditis --TSH- remains the same -- free T4 trending down Acute on chronic respiratory failure --Taper solumedrol --PT eval -- CT chest reviewed Pneumonia --continue with iv antibiotics per ID Problem List - Problems (1) Pneumonia Code(s): J18.9 - PNEUMONIA, UNSPECIFIED ORGANISM (2) Hyperthyroidism Code(s): E05.90 - THYROTOXICOSIS, UNSP WITHOUT THYROTOXIC CRISIS OR STORM (3) Atrial fibrillation with RVR Code(s): I48.91 - UNSPECIFIED ATRIAL FIBRILLATION (4) NSTEMI (non-ST elevated myocardial infarction) Code(s): I21.4 - NON-ST ELEVATION (NSTEMI) MYOCARDIAL INFARCTION (5) Anemia Code(s): D64.9 - ANEMIA, UNSPECIFIED (6) CAD (coronary artery disease) Code(s): I25.10 - ATHSCL HEART DISEASE OF [place] CORONARY ARTERY W/O ANG PCTRS (7) Lung cancer Code(s): C34.90 - MALIGNANT NEOPLASM OF UNSP PART OF UNSP BRONCHUS OR LUNG
[2020-04-21] MEDS ORDERED: FUROSEMIDE 40 MG/4 ML INJECTABLE VIAL IVPUSH SCH (12:44)
[2020-04-21] MEDS: ATORVASTATIN CA 80 MG TABLET (FP) PO SCH (21:54)
[2020-04-21] MEDS: TAMSULOSIN HCL 0.4 MG CAP PO SCH (21:54)
[2020-04-21] MEDS: SENNOSIDES 8.6MG TABLET (FP) PO SCH (21:58)
--- NOTE | 2020-04-21 22:51 | PN.HO ---
Progress Note (short form) - Note Progress Note: PAtient seen and examined Feels improved AFVSS Cor: RSR, No murmurs, No gallops Lungs: decreased at bases Abd: Soft, Normal bowel sounds, No organomegaly Ext:No significant edema Labs/Meds reviewed A/P 64 y/o with HTN, CAD s/p stents, COPD/ILD, obesity Oligometastatic Squamous cell lung cancer. stage IV, s/p Lt. upper lobe wedge resection/Rt. upper lobe SRS s/p carbo/abraxane on immunotherapy with pembrolizumab Was due for C3 but present with generalized weakness/nausea/'new onset afib. fT4 7/TSH 0.01/ new onset afib ? autoimmune thyroiditis related to pembrolizumab. afib secondary to hyperthyroidism CHF ? pneumonits on steroid taper/ antibiotics/ diuretics/methimazole CT chest reviewed Repeat imaging as outpatient
[2020-04-22] MEDS ORDERED: AZTREONAM 1 GM VIAL (RESTRICTED TO ID) ONE ×2 (00:58→08:32)
[2020-04-22] MEDS ORDERED: DEXTROSE 5%-WATER - 50 ML IVPB ONE ×2 (00:59→08:32)
[2020-04-22] MEDS: VANCOMYCIN 1 GRAM (PRE-DOCKED) 1,000 MG/250 ML BAG IVPB SCH (01:03)
[2020-04-22] MEDS: AZTREONAM 1 GM in DEXTROSE 5%-WATER - 50 ML IVPB SCH ×2 (02:28→09:25)
[2020-04-22 06:48] LABS: HEMATOCRIT 27.7 % (35.4-49); HEMOGLOBIN 8.9 GM/dL (11.7-16.9); MCHC 31.9 g/dl (32.0-35.9); MEAN CELL VOLUME 97.2 fl (80-96); MEAN PLT VOLUME 8.6 fl (7.5-11.1); PLATELET COUNT 163 K/MM3 (134-434); RBC 2.85 M/mm3 (4.00-5.60); WHITE BLOOD COUNT 14.5 K/mm3 (4.0-10.0)
[2020-04-22 07:18] LABS: BLOOD UREA NITROGEN 31.7 mg/dL (7-18); CALCIUM 9.2 mg/dL (8.5-10.1); CREATININE 0.6 mg/dL (0.55-1.3); POTASSIUM 4.2 mmol/L (3.5-5.1)
--- NOTE | 2020-04-22 07:49 | PN ---
Progress Note, Physician History of Present Illness: pulmonary alert,dyspnea improving on nasal o2 - Current Medication List Current Medications: Active Medications Acetaminophen (Tylenol -) 650 mg PO Q6H PRN PRN Reason: FEVER Last Admin: 04/16/20 01:03 Dose: 650 mg Documented by: Apixaban (Eliquis -) 5 mg PO BID [facility] Last Admin: 04/21/20 21:54 Dose: 5 mg Documented by: Atorvastatin Calcium (Lipitor -) 80 mg PO HS [facility] Last Admin: 04/21/20 21:54 Dose: 80 mg Documented by: Budesonide/Formoterol Fumarate (Symbicort 160/4.5mcg -) 2 puff IH BID [facility] Last Admin: 04/21/20 21:59 Dose: 2 puff Documented by: Bupropion HCl (Wellbutrin Xl -) 150 mg PO DAILY [facility] Last Admin: 04/21/20 10:50 Dose: 150 mg Documented by: Clopidogrel Bisulfate (Plavix -) 75 mg PO DAILY [facility] Last Admin: 04/21/20 10:51 Dose: 75 mg Documented by: Diltiazem HCl (Cardizem Cd -) 120 mg PO DAILY [facility] Last Admin: 04/21/20 10:51 Dose: 120 mg Documented by: Emollient Ointment (Aquaphor -) 1 applic TP DAILY [facility] Last Admin: 04/21/20 10:51 Dose: 1 applic Documented by: Furosemide (Lasix Injection -) 40 mg IVPUSH DAILY [facility] Vancomycin HCl (Vancomycin (Pre-Docked)) 1,000 mg in 250 mls @ 166.667 mls/hr IVPB Q12H [facility]; Protocol Last Admin: 04/22/20 01:03 Dose: 166.667 mls/hr Documented by: Aztreonam 1 gm/ Dextrose 50 mls @ 100 mls/hr IVPB Q8H-IV JENY; Protocol Last Admin: 04/22/20 02:28 Dose: 100 mls/hr Documented by: Methimazole (Tapazole -) 10 mg PO DAILY [facility] Last Admin: 04/21/20 11:08 Dose: 10 mg Documented by: Methylprednisolone Sodium Succinate (Solu-Medrol -) 40 mg IVPUSH DAILY [facility] Pantoprazole Sodium (Protonix -) 20 mg PO BID [facility] Last Admin: 04/21/20 21:54 Dose: 20 mg Documented by: Polyethylene Glycol (Miralax (For Daily Use) -) 17 gm PO HS PRN PRN Reason: CONSTIPATION Potassium Chloride (Potassium Chloride Oral Liquid) 40 meq PO DAILY [facility] Last Admin: 04/21/20 10:50 Dose: Not Given Documented by: Senna (Senna -) 2 tab PO [facility] Last Admin: 04/21/20 21:58 Dose: Not Given Documented by: Tamsulosin HCl (Flomax -) 0.4 mg PO [facility] Last Admin: 04/21/20 21:54 Dose: 0.4 mg Documented by: - Objective Vital Signs: Vital Signs Temperature 97.8 F 04/22/20 06:00 Pulse Rate 72 04/22/20 06:00 Respiratory Rate 20 04/22/20 06:00 Blood Pressure 109/50 L 04/22/20 06:00 O2 Sat by Pulse Oximetry (%) 94 L 04/22/20 06:00 Constitutional: Yes: Well Nourished, Calm, Obese Eyes: Yes: WNL HENT: Yes: WNL Neck: Yes: WNL Cardiovascular: Yes: Pulse Irregular, S1, S2 Respiratory: Yes: Rales, Rhonchi (scattered rhonchi) Gastrointestinal: Yes: Normal Bowel Sounds, Soft, Abdomen, Obese Extremities: Yes: WNL Edema: Yes Labs: CBC, BMP 04/22/20 06:04 INR, PTT INR 1.15 (0.83-1.09) H 04/14/20 10:50 Problem List - Problems (1) Acute on chronic respiratory failure with hypoxemia Code(s): J96.21 - ACUTE AND CHRONIC RESPIRATORY FAILURE WITH HYPOXIA (2) Atrial fibrillation with RVR Code(s): I48.91 - UNSPECIFIED ATRIAL FIBRILLATION (3) Pneumonia Code(s): J18.9 - PNEUMONIA, UNSPECIFIED ORGANISM (4) Anemia Code(s): D64.9 - ANEMIA, UNSPECIFIED (5) CAD (coronary artery disease) Code(s): I25.10 - ATHSCL HEART DISEASE OF [place] CORONARY ARTERY W/O ANG PCTRS (6) Lung cancer Code(s): C34.90 - MALIGNANT NEOPLASM OF UNSP PART OF UNSP BRONCHUS OR LUNG (7) COPD (chronic obstructive pulmonary disease) Code(s): J44.9 - CHRONIC OBSTRUCTIVE PULMONARY DISEASE, UNSPECIFIED Assessment/Plan A/P Acute on Chronic Hypoxic Respiratory Failure Lung Cancer Pneumonia COPD Atrial Fibrillation CHF CAD +Troponins likely Demand Ischemia [place]ER[place] h/o COVID19 - antibiotics - inhaled bronchodilators - continue medrol taper - O2 to keep SpO2 >90% - rate control - anticoagulation - lasix DR DUNCAN
[2020-04-22] MEDS: APIXABAN 5 MG TABLET PO SCH ×2 (09:25→21:30)
[2020-04-22] MEDS: POTASSIUM CHLORIDE ORAL LIQUID 20 MEQ/15 ML PO SCH (09:25)
[2020-04-22] MEDS: CLOPIDOGREL BISULFATE 75 MG TABLET (FP) PO SCH (09:25)
[2020-04-22] MEDS: PANTOPRAZOLE 20 MG TABLET PO SCH ×2 (09:25→21:30)
[2020-04-22] MEDS: MINERAL OIL/PET HY-PHL TOPICAL OINTMENT 454 GM JAR TP SCH (09:27)
[2020-04-22] MEDS: BUDESONIDE/FORMETEROL FUMARATE 160/4.5 mcg INHALER IH SCH ×2 (09:27→21:31)
[2020-04-22] MEDS: methylPREDNISolone NA SUCC 40 MG/1 ML VIAL IVPUSH SCH (09:32)
[2020-04-22] MEDS: FUROSEMIDE 40 MG/4 ML INJECTABLE VIAL IVPUSH SCH (09:33)
[2020-04-22] MEDS: METHIMAZOLE 10 MG TABLET (FP) PO SCH (09:33)
--- NOTE | 2020-04-22 12:19 | PN ---
Progress Note (short form) - Note Progress Note: s: no cp sob palps dizzy; +cough Current Medications Generic Name Dose Route Start Last Admin Trade Name Freq PRN Reason Stop Dose Admin Acetaminophen 650 mg 04/14/20 15:03 04/16/20 01:03 Tylenol - PO 650 mg Q6H PRN Administration FEVER Apixaban 5 mg 04/16/20 12:45 04/22/20 09:25 Eliquis - PO 5 mg BID JENY Administration Atorvastatin Calcium 80 mg 04/14/20 22:00 04/21/20 21:54 Lipitor - PO 80 mg HS JENY Administration Budesonide/Formoterol Fumarate 2 puff 04/14/20 22:00 04/22/20 09:27 Symbicort 160/4.5mcg - IH 2 puff BID JENY Administration Bupropion HCl 150 mg 04/15/20 10:00 04/22/20 09:25 Wellbutrin Xl - PO 150 mg DAILY JENY Administration Clopidogrel Bisulfate 75 mg 04/15/20 10:00 04/22/20 09:25 Plavix - PO 75 mg DAILY JENY Administration Diltiazem HCl 120 mg 04/16/20 11:30 04/22/20 09:34 Cardizem Cd - PO 120 mg DAILY JENY Administration Emollient Ointment 1 applic 04/15/20 13:45 04/22/20 09:27 Aquaphor - TP 1 applic DAILY JENY Administration Furosemide 40 mg 04/21/20 12:45 04/22/20 09:33 Lasix Injection - IVPUSH 40 mg DAILY JENY Administration Vancomycin HCl 1,000 mg in 250 mls @ 166.667 mls/hr 04/15/20 13:15 04/22/20 01:03 Vancomycin (Pre-Docked) IVPB 166.667 mls/hr Q12H JENY Administration Protocol Aztreonam 1 gm/ Dextrose 50 mls @ 100 mls/hr 04/15/20 13:15 04/22/20 09:25 IVPB 100 mls/hr Q8H-IV JENY Administration Protocol Methimazole 10 mg 04/14/20 15:15 04/22/20 09:33 Tapazole - PO 10 mg DAILY JENY Administration Methylprednisolone Sodium Succinate 40 mg 04/22/20 10:00 04/22/20 09:32 Solu-Medrol - IVPUSH 40 mg DAILY JENY Administration Pantoprazole Sodium 20 mg 04/14/20 22:00 04/22/20 09:25 Protonix - PO 20 mg BID JENY Administration Polyethylene Glycol 17 gm 04/14/20 15:03 Miralax (For Daily Use) - PO HS PRN CONSTIPATION Potassium Chloride 40 meq 04/17/20 10:00 04/22/20 09:25 Potassium Chloride Oral Liquid PO 40 meq DAILY JENY Administration Senna 2 tab 04/14/20 22:00 04/21/20 21:58 Senna - PO Not Given HS JENY Tamsulosin HCl 0.4 mg 04/14/20 22:00 04/21/20 21:54 Flomax - PO 0.4 mg HS JENY Administration Vital Signs Period Temp Pulse Resp BP Sys/Adams Pulse Ox Last 24 Hr 97.5 F-98.2 F 64-84 18-20 109-127/50-64 94-99 Constitutional: Yes: No Distress, Calm Eyes: Yes: Conjunctiva Clear Neck: Yes: Supple, Trachea Midline Respiratory: Yes: Regular, Cough, Diminished Gastrointestinal: Yes: Normal Bowel Sounds, Soft Cardiovascular: Yes: irregular, nl s1 s2 JVD: No Integumentary: No: Jaundice Neurological: Yes: Alert, Oriented Psychiatric: No: Agitated CBC, BMP 04/22/20 06:04 04/22/20 06:04 Assessment/Plan echo 06/2019 nl LV/RV function, tr TR echo 03/2020: nl lv/rv, no sig valve path mibi 06/2019 mild inferolateral ischemia, no TID, nl EF CXR: progressive R sided infiltrative changes, L side clear tele: sr acute on chronic diastolic CHF: -cr stable (bun likely up due to steroids) -cont lasix iv -daily chem7 Pafib: new dx -Remains in SR. - initially in AF w/ RVR, now improved after cardizem IV and converted to cardizem CD 04/17. On Eliquis - monitor on tele - free T4 elevated, management as per PMD hyperthyroidism: - TSH 0.01 here with new onset afib - manage per primary elevated trop: - no chest pain - likely demand in setting of new onset afib with RVR - echo unremarkable - once acute issues resolve (pt with active PNA and CHF) would consider updated MIBI to monitor ischemic burden lung cancer: - manage per onc CAD s/p [place], stents: - mild ischemia on mibi 06/2019, low risk finding, asymptomatic - cont plavix, dc aspirin now on anticoagulation - cont statin HLD: - cont statin HTN: - not on meds, stable here, monitor NSVT - maintain K>4, Mg >2 - normal LV function on echo here - mibi when acute issues resolve
--- NOTE | 2020-04-22 13:05 | PN ---
Progress Note (short form) - Note Progress Note: comfortable no sob no chest pain no palpitations coughing Vital Signs - 24 hr 04/21/20 04/21/20 04/21/20 14:15 21:00 22:00 Temperature 97.6 F 97.7 F Pulse Rate 64 84 Respiratory 18 18 18 Rate Blood Pressure 127/64 122/55 L O2 Sat by Pulse 94 L 94 L Oximetry (%) 04/21/20 04/22/20 04/22/20 22:30 01:26 06:00 Temperature 98.2 F 97.8 F Pulse Rate 81 72 Respiratory 20 20 Rate Blood Pressure 118/58 L 109/50 L O2 Sat by Pulse 96 94 L Oximetry (%) 04/22/20 04/22/20 04/22/20 07:35 08:15 10:00 Temperature 97.5 F L Pulse Rate 77 Respiratory 20 18 Rate Blood Pressure 122/64 O2 Sat by Pulse 99 94 L 97 Oximetry (%) Current Medications Generic Name Dose Route Start Last Admin Trade Name Freq PRN Reason Stop Dose Admin Acetaminophen 650 mg 04/14/20 15:03 04/16/20 01:03 Tylenol - PO 650 mg Q6H PRN Administration FEVER Apixaban 5 mg 04/16/20 12:45 04/22/20 09:25 Eliquis - PO 5 mg BID JENY Administration Atorvastatin Calcium 80 mg 04/14/20 22:00 04/21/20 21:54 Lipitor - PO 80 mg HS JENY Administration Budesonide/Formoterol Fumarate 2 puff 04/14/20 22:00 04/22/20 09:27 Symbicort 160/4.5mcg - IH 2 puff BID JENY Administration Bupropion HCl 150 mg 04/15/20 10:00 04/22/20 09:25 Wellbutrin Xl - PO 150 mg DAILY JENY Administration Clopidogrel Bisulfate 75 mg 04/15/20 10:00 04/22/20 09:25 Plavix - PO 75 mg DAILY JENY Administration Diltiazem HCl 120 mg 04/16/20 11:30 04/22/20 09:34 Cardizem Cd - PO 120 mg DAILY JENY Administration Emollient Ointment 1 applic 04/15/20 13:45 04/22/20 09:27 Aquaphor - TP 1 applic DAILY JENY Administration Furosemide 40 mg 04/21/20 12:45 04/22/20 09:33 Lasix Injection - IVPUSH 40 mg DAILY JENY Administration Vancomycin HCl 1,000 mg in 250 mls @ 166.667 mls/hr 04/15/20 13:15 04/22/20 01:03 Vancomycin (Pre-Docked) IVPB 166.667 mls/hr Q12H JENY Administration Protocol Aztreonam 1 gm/ Dextrose 50 mls @ 100 mls/hr 04/15/20 13:15 04/22/20 09:25 IVPB 100 mls/hr Q8H-IV JENY Administration Protocol Methimazole 10 mg 04/14/20 15:15 04/22/20 09:33 Tapazole - PO 10 mg DAILY JENY Administration Methylprednisolone Sodium Succinate 40 mg 04/22/20 10:00 04/22/20 09:32 Solu-Medrol - IVPUSH 40 mg DAILY JENY Administration Pantoprazole Sodium 20 mg 04/14/20 22:00 04/22/20 09:25 Protonix - PO 20 mg BID JENY Administration Polyethylene Glycol 17 gm 04/14/20 15:03 Miralax (For Daily Use) - PO HS PRN CONSTIPATION Potassium Chloride 40 meq 04/17/20 10:00 04/22/20 09:25 Potassium Chloride Oral Liquid PO 40 meq DAILY JENY Administration Senna 2 tab 04/14/20 22:00 04/21/20 21:58 Senna - PO Not Given HS JENY Tamsulosin HCl 0.4 mg 04/14/20 22:00 04/21/20 21:54 Flomax - PO 0.4 mg HS JENY Administration Laboratory Results - last 24 hr 04/22/20 04/22/20 06:04 06:04 WBC 14.5 H RBC 2.85 L Hgb 8.9 L Hct 27.7 L MCV 97.2 H MCH 31.0 MCHC 31.9 L RDW 18.0 H Plt Count 163 MPV 8.6 Sodium 138 Potassium 4.2 Chloride 98 Carbon Dioxide 37 H Anion Gap 4 L BUN 31.7 H Creatinine 0.6 Est GFR (CKD-EPI)AfAm 121.43 Est GFR (CKD-EPI)NonAf 104.77 Random Glucose 109 H Calcium 9.2 Microbiology 04/14/20 10:50 Blood - Peripheral Venous Blood Culture - Final NO GROWTH AFTER 5 DAYS INCUBATION 04/14/20 10:50 Blood - Peripheral Venous Blood Culture - Final NO GROWTH AFTER 5 DAYS INCUBATION 04/15/20 17:00 Urine For Antigen Detection Legionella Antigen - Final 04/15/20 17:00 Urine For Antigen Detection Streptococcus pneumoniae Antigen (M - Final 04/14/20 17:15 Urine - Urine Clean Catch Urine Culture - Final NO GROWTH OBTAINED S1 S2 Irregular Lungs decreased Abd- soft, obese, NT Edema PLAN Afib- -rate control with Cardizem. -no episodes of RVR today -spoke with Cardiology-- dc tele Thyroiditis --TSH- remains the same -- free T4 trending down -- continue Methimazole Acute on chronic respiratory failure --Taper solumedrol --PT eval -- CT chest reviewed Pneumonia --continue with iv antibiotics per ID Problem List - Problems (1) Pneumonia Code(s): J18.9 - PNEUMONIA, UNSPECIFIED ORGANISM (2) Hyperthyroidism Code(s): E05.90 - THYROTOXICOSIS, UNSP WITHOUT THYROTOXIC CRISIS OR STORM (3) Atrial fibrillation with RVR Code(s): I48.91 - UNSPECIFIED ATRIAL FIBRILLATION (4) NSTEMI (non-ST elevated myocardial infarction) Code(s): I21.4 - NON-ST ELEVATION (NSTEMI) MYOCARDIAL INFARCTION (5) Anemia Code(s): D64.9 - ANEMIA, UNSPECIFIED (6) CAD (coronary artery disease) Code(s): I25.10 - ATHSCL HEART DISEASE OF [place] CORONARY ARTERY W/O ANG PCTRS (7) Lung cancer Code(s): C34.90 - MALIGNANT NEOPLASM OF UNSP PART OF UNSP BRONCHUS OR LUNG
--- NOTE | 2020-04-22 13:28 | PN.HO ---
Progress Note (short form) - Note Progress Note: Patient seen and examined at bedside, still on NC. Reports feeling well and anxious to go home General: in NAD, A&Ox3 HEENT: NCAT, PERRL, anicteric sclera, CVS: S1, S2, no m/r/g Resp: decreased breath sounds b/l Abd: +BS, soft, NT, ND no pain on palpation Ext: no ll edema A/P 64M with Metastatic Lung SCC currently on carbo/abraxane/pembro (last dose 03/24) presents for Afib RVR also found to be hyperthyroid, thought to be autoimmune from pembro. Currently on solumedrol 40mg q day -continue to taper steroids -ab management as per primary team -will need close outpatient f/u with repeat imaging
[2020-04-22] MEDS: TAMSULOSIN HCL 0.4 MG CAP PO SCH (21:30)
[2020-04-22] MEDS: ATORVASTATIN CA 80 MG TABLET (FP) PO SCH (21:30)
[2020-04-22] MEDS: SENNOSIDES 8.6MG TABLET (FP) PO SCH (21:31)
--- NOTE | 2020-04-22 23:02 | PN ---
Progress Note, Physician History of Present Illness: AWAKE SEATED IN BED NO C/O DYSPNEA/ COUGH AFEBRILE TOLERATING ANTIBIOTICS - Current Medication List Current Medications: Active Medications Acetaminophen (Tylenol -) 650 mg PO Q6H PRN PRN Reason: FEVER Last Admin: 04/16/20 01:03 Dose: 650 mg Documented by: Apixaban (Eliquis -) 5 mg PO BID [facility] Last Admin: 04/22/20 21:30 Dose: 5 mg Documented by: Atorvastatin Calcium (Lipitor -) 80 mg PO HS [facility] Last Admin: 04/22/20 21:30 Dose: 80 mg Documented by: Budesonide/Formoterol Fumarate (Symbicort 160/4.5mcg -) 2 puff IH BID [facility] Last Admin: 04/22/20 21:31 Dose: 2 puff Documented by: Bupropion HCl (Wellbutrin Xl -) 150 mg PO DAILY [facility] Last Admin: 04/22/20 09:25 Dose: 150 mg Documented by: Clopidogrel Bisulfate (Plavix -) 75 mg PO DAILY [facility] Last Admin: 04/22/20 09:25 Dose: 75 mg Documented by: Diltiazem HCl (Cardizem Cd -) 120 mg PO DAILY [facility] Last Admin: 04/22/20 09:34 Dose: 120 mg Documented by: Emollient Ointment (Aquaphor -) 1 applic TP DAILY [facility] Last Admin: 04/22/20 09:27 Dose: 1 applic Documented by: Furosemide (Lasix Injection -) 40 mg IVPUSH DAILY [facility] Last Admin: 04/22/20 09:33 Dose: 40 mg Documented by: Methimazole (Tapazole -) 10 mg PO DAILY [facility] Last Admin: 04/22/20 09:33 Dose: 10 mg Documented by: Methylprednisolone Sodium Succinate (Solu-Medrol -) 40 mg IVPUSH DAILY [facility] Last Admin: 04/22/20 09:32 Dose: 40 mg Documented by: Pantoprazole Sodium (Protonix -) 20 mg PO BID [facility] Last Admin: 04/22/20 21:30 Dose: 20 mg Documented by: Polyethylene Glycol (Miralax (For Daily Use) -) 17 gm PO HS PRN PRN Reason: CONSTIPATION Potassium Chloride (Potassium Chloride Oral Liquid) 40 meq PO DAILY [facility] Last Admin: 04/22/20 09:25 Dose: 40 meq Documented by: Senna (Senna -) 2 tab PO [facility] Last Admin: 04/22/20 21:31 Dose: 2 tab Documented by: Tamsulosin HCl (Flomax -) 0.4 mg PO [facility] Last Admin: 04/22/20 21:30 Dose: 0.4 mg Documented by: - Objective Vital Signs: Vital Signs Temperature 98 F 04/22/20 21:58 Pulse Rate 80 04/22/20 21:58 Respiratory Rate 20 04/22/20 21:58 Blood Pressure 137/65 04/22/20 21:58 O2 Sat by Pulse Oximetry (%) 95 04/22/20 21:58 Constitutional: Yes: No Distress, Obese Cardiovascular: Yes: Regular Rate and Rhythm, S1, S2 Respiratory: Yes: Diminished Gastrointestinal: Yes: Normal Bowel Sounds, Soft Labs: CBC, BMP 04/22/20 06:04 04/22/20 06:04 INR, PTT INR 1.15 (0.83-1.09) H 04/14/20 10:50 Assessment/Plan R/O POST OBSTRUCTIVE PNEUMONIA PCN ALLERGY AWAIT C/S CONTINUE VANCOMYCIN / AZTREONAM
--- NOTE | 2020-04-23 06:09 | PN ---
Progress Note, Physician Chief Complaint: no cp, sob, palps - Current Medication List Current Medications: Active Medications Acetaminophen (Tylenol -) 650 mg PO Q6H PRN PRN Reason: FEVER Last Admin: 04/16/20 01:03 Dose: 650 mg Documented by: Apixaban (Eliquis -) 5 mg PO BID [facility] Last Admin: 04/22/20 21:30 Dose: 5 mg Documented by: Atorvastatin Calcium (Lipitor -) 80 mg PO HS [facility] Last Admin: 04/22/20 21:30 Dose: 80 mg Documented by: Budesonide/Formoterol Fumarate (Symbicort 160/4.5mcg -) 2 puff IH BID [facility] Last Admin: 04/22/20 21:31 Dose: 2 puff Documented by: Bupropion HCl (Wellbutrin Xl -) 150 mg PO DAILY [facility] Last Admin: 04/22/20 09:25 Dose: 150 mg Documented by: Clopidogrel Bisulfate (Plavix -) 75 mg PO DAILY [facility] Last Admin: 04/22/20 09:25 Dose: 75 mg Documented by: Diltiazem HCl (Cardizem Cd -) 120 mg PO DAILY [facility] Last Admin: 04/22/20 09:34 Dose: 120 mg Documented by: Emollient Ointment (Aquaphor -) 1 applic TP DAILY [facility] Last Admin: 04/22/20 09:27 Dose: 1 applic Documented by: Furosemide (Lasix Injection -) 40 mg IVPUSH DAILY [facility] Last Admin: 04/22/20 09:33 Dose: 40 mg Documented by: Methimazole (Tapazole -) 10 mg PO DAILY [facility] Last Admin: 04/22/20 09:33 Dose: 10 mg Documented by: Methylprednisolone Sodium Succinate (Solu-Medrol -) 40 mg IVPUSH DAILY [facility] Last Admin: 04/22/20 09:32 Dose: 40 mg Documented by: Pantoprazole Sodium (Protonix -) 20 mg PO BID [facility] Last Admin: 04/22/20 21:30 Dose: 20 mg Documented by: Polyethylene Glycol (Miralax (For Daily Use) -) 17 gm PO HS PRN PRN Reason: CONSTIPATION Potassium Chloride (Potassium Chloride Oral Liquid) 40 meq PO DAILY [facility] Last Admin: 04/22/20 09:25 Dose: 40 meq Documented by: Senna (Senna -) 2 tab PO HS [facility] Last Admin: 04/22/20 21:31 Dose: 2 tab Documented by: Tamsulosin HCl (Flomax -) 0.4 mg PO HS [facility] Last Admin: 04/22/20 21:30 Dose: 0.4 mg Documented by: - Objective Vital Signs: Vital Signs Temperature 98 F 04/22/20 21:58 Pulse Rate 80 04/22/20 21:58 Respiratory Rate 20 04/22/20 21:58 Blood Pressure 137/65 04/22/20 21:58 O2 Sat by Pulse Oximetry (%) 98 04/23/20 00:56 Constitutional: Yes: No Distress Cardiovascular: Yes: Regular Rate and Rhythm Respiratory: Yes: Other (decreased breath sounds b/l, no wheezing) Gastrointestinal: Yes: Soft (nt), Abdomen, Obese Edema: No Neurological: Yes: Alert, Oriented Labs: CBC, BMP 04/22/20 06:04 04/22/20 06:04 INR, PTT INR 1.15 (0.83-1.09) H 04/14/20 10:50 Assessment/Plan DATA: echo 06/2019 nl LV/RV function, tr TR echo 03/2020: nl lv/rv, no sig valve path mibi 06/2019 mild inferolateral ischemia, no TID, nl EF IMP/PLAN: acute on chronic diastolic CHF: -cr stable (bun likely up due to steroids) -Exam is difficult to assess volume status (JVD not easily determined, weights not reliable) -cont lasix iv for now, repeat BNP to compare with prior -daily chem7 Pafib: new dx -Remains in SR. - initially in AF w/ RVR, now improved after cardizem IV and converted to cardizem CD 04/17. On Eliquis - monitor on tele - free T4 elevated, management as per PMD hyperthyroidism: - TSH 0.01 here with new onset afib - manage per primary elevated trop: - no chest pain - likely demand in setting of new onset afib with RVR - echo unremarkable - once acute issues resolve (pt with active PNA and CHF) would consider updated MIBI to monitor ischemic burden lung cancer: - manage per onc CAD s/p PA, stents: - mild ischemia on mibi 06/2019, low risk finding, asymptomatic - cont plavix, dc aspirin now on anticoagulation - cont statin HLD: - cont statin HTN: - not on meds, stable here, monitor NSVT - maintain K>4, Mg >2 - normal LV function on echo here - mibi when acute issues resolve
[2020-04-23 07:46] LABS: BLOOD UREA NITROGEN 28.6 mg/dL (7-18); CALCIUM 9.6 mg/dL (8.5-10.1); CREATININE 0.5 mg/dL (0.55-1.3); MAGNESIUM 2.2 mg/dL (1.8-2.4); POTASSIUM 4.2 mmol/L (3.5-5.1)
--- NOTE | 2020-04-23 07:59 | PN ---
Progress Note, Physician History of Present Illness: pulmonary alert,less dyspneic on nasal o2 3L,sat 94% - Current Medication List Current Medications: Active Medications Acetaminophen (Tylenol -) 650 mg PO Q6H PRN PRN Reason: FEVER Last Admin: 04/16/20 01:03 Dose: 650 mg Documented by: Apixaban (Eliquis -) 5 mg PO BID [facility] Last Admin: 04/22/20 21:30 Dose: 5 mg Documented by: Atorvastatin Calcium (Lipitor -) 80 mg PO HS [facility] Last Admin: 04/22/20 21:30 Dose: 80 mg Documented by: Budesonide/Formoterol Fumarate (Symbicort 160/4.5mcg -) 2 puff IH BID [facility] Last Admin: 04/22/20 21:31 Dose: 2 puff Documented by: Bupropion HCl (Wellbutrin Xl -) 150 mg PO DAILY [facility] Last Admin: 04/22/20 09:25 Dose: 150 mg Documented by: Clopidogrel Bisulfate (Plavix -) 75 mg PO DAILY [facility] Last Admin: 04/22/20 09:25 Dose: 75 mg Documented by: Diltiazem HCl (Cardizem Cd -) 120 mg PO DAILY [facility] Last Admin: 04/22/20 09:34 Dose: 120 mg Documented by: Emollient Ointment (Aquaphor -) 1 applic TP DAILY [facility] Last Admin: 04/22/20 09:27 Dose: 1 applic Documented by: Furosemide (Lasix Injection -) 40 mg IVPUSH DAILY [facility] Last Admin: 04/22/20 09:33 Dose: 40 mg Documented by: Vancomycin HCl 1,000 mg/ (Dextrose) 250 mls @ 166.667 mls/hr IVPB Q12H [facility]; Protocol Aztreonam 1 gm/ Dextrose 50 mls @ 100 mls/hr IVPB Q8H-IV [facility]; Protocol Methimazole (Tapazole -) 10 mg PO DAILY [facility] Last Admin: 04/22/20 09:33 Dose: 10 mg Documented by: Methylprednisolone Sodium Succinate (Solu-Medrol -) 40 mg IVPUSH DAILY [facility] Last Admin: 04/22/20 09:32 Dose: 40 mg Documented by: Pantoprazole Sodium (Protonix -) 20 mg PO BID [facility] Last Admin: 04/22/20 21:30 Dose: 20 mg Documented by: Polyethylene Glycol (Miralax (For Daily Use) -) 17 gm PO HS PRN PRN Reason: CONSTIPATION Potassium Chloride (Potassium Chloride Oral Liquid) 40 meq PO DAILY [facility] Last Admin: 04/22/20 09:25 Dose: 40 meq Documented by: Senna (Senna -) 2 tab PO [facility] Last Admin: 04/22/20 21:31 Dose: 2 tab Documented by: Tamsulosin HCl (Flomax -) 0.4 mg PO [facility] Last Admin: 04/22/20 21:30 Dose: 0.4 mg Documented by: - Objective Vital Signs: Vital Signs Temperature 97.9 F 04/23/20 06:41 Pulse Rate 74 04/23/20 06:41 Respiratory Rate 20 04/23/20 06:41 Blood Pressure 119/45 L 04/23/20 06:41 O2 Sat by Pulse Oximetry (%) 95 04/23/20 06:41 Constitutional: Yes: Calm, Obese Eyes: Yes: WNL HENT: Yes: WNL Neck: Yes: WNL Cardiovascular: Yes: Pulse Irregular, S1, S2 Respiratory: Yes: Wheezes (bilateral wheezes) Gastrointestinal: Yes: Normal Bowel Sounds, Soft, Abdomen, Obese Extremities: Yes: WNL Edema: Yes Labs: CBC, BMP 04/23/20 06:18 INR, PTT INR 1.15 (0.83-1.09) H 04/14/20 10:50 Problem List - Problems (1) Acute on chronic respiratory failure with hypoxemia Code(s): J96.21 - ACUTE AND CHRONIC RESPIRATORY FAILURE WITH HYPOXIA (2) Atrial fibrillation with RVR Code(s): I48.91 - UNSPECIFIED ATRIAL FIBRILLATION (3) Pneumonia Code(s): J18.9 - PNEUMONIA, UNSPECIFIED ORGANISM (4) Anemia Code(s): D64.9 - ANEMIA, UNSPECIFIED (5) CAD (coronary artery disease) Code(s): I25.10 - ATHSCL HEART DISEASE OF [place] CORONARY ARTERY W/O ANG PCTRS (6) Lung cancer Code(s): C34.90 - MALIGNANT NEOPLASM OF UNSP PART OF UNSP BRONCHUS OR LUNG (7) COPD (chronic obstructive pulmonary disease) Code(s): J44.9 - CHRONIC OBSTRUCTIVE PULMONARY DISEASE, UNSPECIFIED Assessment/Plan A/P Acute on Chronic Hypoxic Respiratory Failure Lung Cancer Pneumonia COPD Atrial Fibrillation CHF CAD +Troponins likely Demand Ischemia [place] GERD h/o COVID19 - antibiotics - inhaled bronchodilators - continue medrol taper - O2 to keep SpO2 >90% - rate control - anticoagulation - lasix DR DUNCAN
[2020-04-23] MEDS: VANCOMYCIN 1 GRAM (PRE-DOCKED) 1,000 MG/250 ML BAG IVPB SCH ×2 (08:39→20:43)
[2020-04-23] MEDS: AZTREONAM 1 GM in DEXTROSE 5%-WATER - 50 ML IVPB SCH ×2 (08:40→17:08)
[2020-04-23] MEDS ORDERED: DEXTROSE 5%-WATER - 50 ML IVPB ONE ×2 (09:20→16:37)
[2020-04-23] MEDS ORDERED: AZTREONAM 1 GM VIAL (RESTRICTED TO ID) ONE ×2 (09:20→16:37)
[2020-04-23] MEDS: APIXABAN 5 MG TABLET PO SCH ×2 (09:32→21:18)
[2020-04-23] MEDS: PANTOPRAZOLE 20 MG TABLET PO SCH ×2 (09:32→21:18)
[2020-04-23] MEDS: MINERAL OIL/PET HY-PHL TOPICAL OINTMENT 454 GM JAR TP SCH (09:32)
[2020-04-23] MEDS: CLOPIDOGREL BISULFATE 75 MG TABLET (FP) PO SCH (09:32)
[2020-04-23] MEDS: FUROSEMIDE 40 MG/4 ML INJECTABLE VIAL IVPUSH SCH (09:32)
[2020-04-23] MEDS: METHIMAZOLE 10 MG TABLET (FP) PO SCH (09:33)
[2020-04-23] MEDS: methylPREDNISolone NA SUCC 40 MG/1 ML VIAL IVPUSH SCH (09:33)
[2020-04-23] MEDS: BUDESONIDE/FORMETEROL FUMARATE 160/4.5 mcg INHALER IH SCH ×2 (09:33→21:19)
[2020-04-23] MEDS: POTASSIUM CHLORIDE ORAL LIQUID 20 MEQ/15 ML PO SCH (09:33)
--- NOTE | 2020-04-23 14:24 | PN ---
Physical Exam: SUBJECTIVE: Patient seen and examined. Reports feeling better and wants to go home. On nasal cannula. OBJECTIVE: Vital Signs Temperature 97.8 F 04/23/20 10:00 Pulse Rate 82 04/23/20 10:00 Respiratory Rate 20 04/23/20 10:00 Blood Pressure 108/57 L 04/23/20 10:00 O2 Sat by Pulse Oximetry (%) 94 L 04/23/20 09:00 GENERAL: The patient is awake, alert, and fully oriented, on 3L [place] NECK: supple. LUNGS: +wheezes bilaterally HEART: irregular, S1, S2 ABDOMEN: Soft, nontender, nondistended, normoactive bowel sounds EXTREMITIES: 2+ pulses, warm, well-perfused, no edema. NEUROLOGICAL: Cranial nerves II through XII grossly intact. Normal speech PSYCH: Normal mood, normal affect. SKIN: Warm, dry, normal turgor Laboratory Results - last 24 hr 04/23/20 06:18 Sodium 139 Potassium 4.2 Chloride 99 Carbon Dioxide 36 H Anion Gap 4 L BUN 28.6 H Creatinine 0.5 L Est GFR (CKD-EPI)AfAm 130.88 Est GFR (CKD-EPI)NonAf 112.92 Random Glucose 90 Calcium 9.6 Magnesium 2.2 B-Natriuretic Peptide 3776.0 H Active Medications Generic Name Dose Route Start Last Admin Trade Name Freq PRN Reason Stop Dose Admin Acetaminophen 650 mg 04/14/20 15:03 04/16/20 01:03 Tylenol - PO 650 mg Q6H PRN Administration FEVER Apixaban 5 mg 04/16/20 12:45 04/23/20 09:32 Eliquis - PO 5 mg BID [facility] Administration Atorvastatin Calcium 80 mg 04/14/20 22:00 04/22/20 21:30 Lipitor - PO 80 mg HS [facility] Administration Budesonide/Formoterol Fumarate 2 puff 04/14/20 22:00 04/23/20 09:33 Symbicort 160/4.5mcg - IH 2 puff BID [facility] Administration Bupropion HCl 150 mg 04/15/20 10:00 04/23/20 09:32 Wellbutrin Xl - PO 150 mg DAILY [facility] Administration Clopidogrel Bisulfate 75 mg 04/15/20 10:00 04/23/20 09:32 Plavix - PO 75 mg DAILY [facility] Administration Diltiazem HCl 120 mg 04/16/20 11:30 04/23/20 09:33 Cardizem Cd - PO 120 mg DAILY [facility] Administration Emollient Ointment 1 applic 04/15/20 13:45 04/23/20 09:32 Aquaphor - TP 1 applic DAILY [facility] Administration Furosemide 40 mg 04/21/20 12:45 04/23/20 09:32 Lasix Injection - IVPUSH 40 mg DAILY [facility] Administration Vancomycin HCl 1,000 mg in 250 mls @ 166.667 mls/hr 04/23/20 08:00 04/23/20 08:39 Vancomycin (Pre-Docked) IVPB 166.667 mls/hr Q12H [facility] Administration Protocol Aztreonam 1 gm/ Dextrose 50 mls @ 100 mls/hr 04/23/20 08:15 IVPB Q8H-IV [facility] Protocol Methimazole 10 mg 04/14/20 15:15 04/23/20 09:33 Tapazole - PO 10 mg DAILY [facility] Administration Methylprednisolone Sodium Succinate 40 mg 04/22/20 10:00 04/23/20 09:33 Solu-Medrol - IVPUSH 40 mg DAILY [facility] Administration Pantoprazole Sodium 20 mg 04/14/20 22:00 04/23/20 09:32 Protonix - PO 20 mg BID [facility] Administration Polyethylene Glycol 17 gm 04/14/20 15:03 Miralax (For Daily Use) - PO HS PRN CONSTIPATION Potassium Chloride 40 meq 04/17/20 10:00 04/23/20 09:33 Potassium Chloride Oral Liquid PO 40 meq DAILY [facility] Administration Senna 2 tab 04/14/20 22:00 04/22/20 21:31 Senna - PO 2 tab HS [facility] Administration Tamsulosin HCl 0.4 mg 04/14/20 22:00 04/22/20 21:30 Flomax - PO 0.4 mg HS [facility] Administration ASSESSMENT/PLAN: Patient is a 64 YOM with a significant PMH of Sq Cell Lung CA (s/p resection in Jul 2019, port insertion, and chemo with carbo/abraxane), HTN, HLD, CAD (stents x2, on Plavix), COPD, [place] (on home O2 at night as needed), GERD, PVD and recent admission for COVID presents to the ED after found to be tachycardic on Dr. Tolbert's clinic. Found to have Afib with RVR, with TFT consistent with hyperthyroid. #Metastatic squamous cell lung Ca -on carbo/abraxane, and immunotherapy with pembrolizumab, 2 cycles completed -hyperthyroidism likely 2/2 autoimmune thyroiditis 2/2 ?pembrolizumab -holding pembrolizumab -to follow up with Dr. Tolbert in clinic #Afib with RVR -likely 2/2 hyperthyroid, pneumonia, no hx of afib -Improved with IV Cardizem -continue PO cardizem 120mg daily -on Eliquis 5mg bid -Elevated troponins likely demand ischemia -cardiology on board #Hyperthyroidism -TSH 0.01, FT4 7 -- ?autoimmune thyroiditis possible 2/2 pembrolizumab -Pt likely to go hypothyroid from the thyroiditis and need LT4 replacement. -FT4 trending down, TSI wnl -Methimazole 10mg daily -Endocrine on board #Acute on chronic hypoxic and hypercapneic respiratory failure -CXR 04/16 : progressive bilateral pulmonary and pleural changes in comparison to CXR on 04/14 -likely 2/2 post obstructive pneumonia 2/2 Lung Ca, ?pneumonitis 2/2 pembrolizumab -on IV vancomycin/aztreonam. ID on board -Blood cultures negative, Urine legionella/pneumoniae negative -inhaled bronchodilators -on Solu-medrol 40mg daily -supplemental oxygen to keep spo2 >90% -bipap prn -Pulm consulted. Visit type - Emergency Visit Emergency Visit: Yes ED Registration Date: 04/14/20 Care time: The patient presented to the Emergency Department on the above date and was hospitalized for further evaluation of their emergent condition. - New Patient This patient is new to me today: No - Critical Care Critical Care patient: No - Medication Review Med list reviewed for High Risk Meds patients 65 and older: Yes ATTENDING PHYSICIAN STATEMENT I saw and evaluated the patient. I reviewed the resident's note and discussed the case with the resident. I agree with the resident's findings and plan as documented. SUBJECTIVE: OBJECTIVE: ASSESSMENT AND PLAN:
--- NOTE | 2020-04-23 14:33 | PN ---
Progress Note, Physician History of Present Illness: pt seen/ examined all f/u noted Awake/ Comfortable No distress - Current Medication List Current Medications: Active Medications Acetaminophen (Tylenol -) 650 mg PO Q6H PRN PRN Reason: FEVER Last Admin: 04/16/20 01:03 Dose: 650 mg Documented by: Apixaban (Eliquis -) 5 mg PO BID [facility] Last Admin: 04/23/20 09:32 Dose: 5 mg Documented by: Atorvastatin Calcium (Lipitor -) 80 mg PO HS [facility] Last Admin: 04/22/20 21:30 Dose: 80 mg Documented by: Budesonide/Formoterol Fumarate (Symbicort 160/4.5mcg -) 2 puff IH BID [facility] Last Admin: 04/23/20 09:33 Dose: 2 puff Documented by: Bupropion HCl (Wellbutrin Xl -) 150 mg PO DAILY [facility] Last Admin: 04/23/20 09:32 Dose: 150 mg Documented by: Clopidogrel Bisulfate (Plavix -) 75 mg PO DAILY [facility] Last Admin: 04/23/20 09:32 Dose: 75 mg Documented by: Diltiazem HCl (Cardizem Cd -) 120 mg PO DAILY [facility] Last Admin: 04/23/20 09:33 Dose: 120 mg Documented by: Emollient Ointment (Aquaphor -) 1 applic TP DAILY [facility] Last Admin: 04/23/20 09:32 Dose: 1 applic Documented by: Furosemide (Lasix Injection -) 40 mg IVPUSH DAILY [facility] Last Admin: 04/23/20 09:32 Dose: 40 mg Documented by: Vancomycin HCl (Vancomycin (Pre-Docked)) 1,000 mg in 250 mls @ 166.667 mls/hr IVPB Q12H [facility]; Protocol Last Admin: 04/23/20 08:39 Dose: 166.667 mls/hr Documented by: Aztreonam 1 gm/ Dextrose 50 mls @ 100 mls/hr IVPB Q8H-IV [facility]; Protocol Methimazole (Tapazole -) 10 mg PO DAILY [facility] Last Admin: 04/23/20 09:33 Dose: 10 mg Documented by: Methylprednisolone Sodium Succinate (Solu-Medrol -) 40 mg IVPUSH DAILY [facility] Last Admin: 04/23/20 09:33 Dose: 40 mg Documented by: Pantoprazole Sodium (Protonix -) 20 mg PO BID [facility] Last Admin: 04/23/20 09:32 Dose: 20 mg Documented by: Polyethylene Glycol (Miralax (For Daily Use) -) 17 gm PO HS PRN PRN Reason: CONSTIPATION Potassium Chloride (Potassium Chloride Oral Liquid) 40 meq PO DAILY [facility] Last Admin: 04/23/20 09:33 Dose: 40 meq Documented by: Senna (Senna -) 2 tab PO [facility] Last Admin: 04/22/20 21:31 Dose: 2 tab Documented by: Tamsulosin HCl (Flomax -) 0.4 mg PO [facility] Last Admin: 04/22/20 21:30 Dose: 0.4 mg Documented by: - Objective Vital Signs: Vital Signs Temperature 97.8 F 04/23/20 10:00 Pulse Rate 82 04/23/20 10:00 Respiratory Rate 20 04/23/20 10:00 Blood Pressure 108/57 L 04/23/20 10:00 O2 Sat by Pulse Oximetry (%) 94 L 04/23/20 09:00 Constitutional: Yes: No Distress Neck: Yes: Supple Cardiovascular: Yes: Pulse Irregular. No: Regular Rate and Rhythm Respiratory: Yes: Diminished Gastrointestinal: Yes: Soft Edema: LLE: 1+, RLE: 1+ Neurological: Yes: Alert Psychiatric: Yes: Alert Labs: CBC, BMP 04/22/20 06:04 04/23/20 06:18 INR, PTT INR 1.15 (0.83-1.09) H 04/14/20 10:50 Problem List - Problems (1) Acute on chronic respiratory failure with hypoxemia Code(s): J96.21 - ACUTE AND CHRONIC RESPIRATORY FAILURE WITH HYPOXIA (2) Atrial fibrillation with RVR Code(s): I48.91 - UNSPECIFIED ATRIAL FIBRILLATION (3) Hyperthyroidism Code(s): E05.90 - THYROTOXICOSIS, UNSP WITHOUT THYROTOXIC CRISIS OR STORM (4) NSTEMI (non-ST elevated myocardial infarction) Code(s): I21.4 - NON-ST ELEVATION (NSTEMI) MYOCARDIAL INFARCTION (5) Pneumonia Code(s): J18.9 - PNEUMONIA, UNSPECIFIED ORGANISM (6) CAD (coronary artery disease) Code(s): I25.10 - ATHSCL HEART DISEASE OF [place] CORONARY ARTERY W/O ANG PCTRS (7) Lung cancer Code(s): C34.90 - MALIGNANT NEOPLASM OF UNSP PART OF UNSP BRONCHUS OR LUNG Assessment/Plan clinically better Continue present care Abx as per i/d heart rate under control monitor taper steroids will follow
[2020-04-23] MEDS ORDERED: PORTA CATH FLUSH 10 ML IVPUSH PRN (18:24)
[2020-04-23] MEDS: SENNOSIDES 8.6MG TABLET (FP) PO SCH (21:18)
[2020-04-23] MEDS: TAMSULOSIN HCL 0.4 MG CAP PO SCH (21:18)
[2020-04-23] MEDS: ATORVASTATIN CA 80 MG TABLET (FP) PO SCH (21:18)
--- NOTE | 2020-04-23 23:22 | PN ---
Progress Note, Physician History of Present Illness: AWAKE SUPINE IN BED NO C/O DYSPNEA/ COUGH AFEBRILE TOLERATING ANTIBIOTICS - Current Medication List Current Medications: Active Medications Acetaminophen (Tylenol -) 650 mg PO Q6H PRN PRN Reason: FEVER Last Admin: 04/16/20 01:03 Dose: 650 mg Documented by: Apixaban (Eliquis -) 5 mg PO BID [facility] Last Admin: 04/23/20 21:18 Dose: 5 mg Documented by: Atorvastatin Calcium (Lipitor -) 80 mg PO HS [facility] Last Admin: 04/23/20 21:18 Dose: 80 mg Documented by: Budesonide/Formoterol Fumarate (Symbicort 160/4.5mcg -) 2 puff IH BID [facility] Last Admin: 04/23/20 21:19 Dose: 2 puff Documented by: Bupropion HCl (Wellbutrin Xl -) 150 mg PO DAILY [facility] Last Admin: 04/23/20 09:32 Dose: 150 mg Documented by: Clopidogrel Bisulfate (Plavix -) 75 mg PO DAILY [facility] Last Admin: 04/23/20 09:32 Dose: 75 mg Documented by: Cosyntropin (Cortrosyn -) 0.25 mg IM ONCE ONE Stop: 04/24/20 06:06 Diltiazem HCl (Cardizem Cd -) 120 mg PO DAILY [facility] Last Admin: 04/23/20 09:33 Dose: 120 mg Documented by: Emollient Ointment (Aquaphor -) 1 applic TP DAILY [facility] Last Admin: 04/23/20 09:32 Dose: 1 applic Documented by: Furosemide (Lasix Injection -) 40 mg IVPUSH DAILY [facility] Last Admin: 04/23/20 09:32 Dose: 40 mg Documented by: IV Flush ([place]-Cath Flush) 10 ml IVPUSH PRN PRN PRN Reason: FLUSH Vancomycin HCl (Vancomycin (Pre-Docked)) 1,000 mg in 250 mls @ 166.667 mls/hr IVPB Q12H [facility]; Protocol Last Admin: 04/23/20 20:43 Dose: 166.667 mls/hr Documented by: Aztreonam 1 gm/ Dextrose 50 mls @ 100 mls/hr IVPB Q8H-IV [facility]; Protocol Last Admin: 04/23/20 17:08 Dose: 100 mls/hr Documented by: Methimazole (Tapazole -) 10 mg PO DAILY [facility] Last Admin: 04/23/20 09:33 Dose: 10 mg Documented by: Methylprednisolone Sodium Succinate (Solu-Medrol -) 20 mg IVPUSH DAILY [facility] Pantoprazole Sodium (Protonix -) 20 mg PO BID [facility] Last Admin: 04/23/20 21:18 Dose: 20 mg Documented by: Polyethylene Glycol (Miralax (For Daily Use) -) 17 gm PO HS PRN PRN Reason: CONSTIPATION Potassium Chloride (Potassium Chloride Oral Liquid) 40 meq PO DAILY [facility] Last Admin: 04/23/20 09:33 Dose: 40 meq Documented by: Senna (Senna -) 2 tab PO [facility] Last Admin: 04/23/20 21:18 Dose: 2 tab Documented by: Tamsulosin HCl (Flomax -) 0.4 mg PO [facility] Last Admin: 04/23/20 21:18 Dose: 0.4 mg Documented by: - Objective Vital Signs: Vital Signs Temperature 98 F 04/23/20 22:00 Pulse Rate 75 04/23/20 22:00 Respiratory Rate 20 04/23/20 22:00 Blood Pressure 124/61 04/23/20 22:00 O2 Sat by Pulse Oximetry (%) 97 04/23/20 22:00 Constitutional: Yes: Obese Eyes: Yes: Conjunctiva Clear Cardiovascular: Yes: Regular Rate and Rhythm, S1, S2 Respiratory: Yes: Rhonchi Gastrointestinal: Yes: Normal Bowel Sounds, Soft Edema: No Labs: CBC, BMP 04/22/20 06:04 04/23/20 06:18 INR, PTT INR 1.15 (0.83-1.09) H 04/14/20 10:50 Assessment/Plan R/O POST OBSTRUCTIVE PNEUMONIA PCN ALLERGY AWAIT C/S CONTINUE VANCOMYCIN / AZTREONAM
[2020-04-24] MEDS ORDERED: AZTREONAM 1 GM VIAL (RESTRICTED TO ID) ONE ×3 (00:44→16:51)
[2020-04-24] MEDS ORDERED: DEXTROSE 5%-WATER - 50 ML IVPB ONE ×3 (00:45→16:51)
[2020-04-24] MEDS: AZTREONAM 1 GM in DEXTROSE 5%-WATER - 50 ML IVPB SCH ×3 (01:19→17:24)
[2020-04-24] MEDS ORDERED: COSYNTROPIN 0.25 MG VIAL IM ONE (06:05)
--- NOTE | 2020-04-24 06:37 | PN ---
Progress Note, Physician History of Present Illness: pulmonary alert,feeling better,less dyspneic - Current Medication List Current Medications: Active Medications Acetaminophen (Tylenol -) 650 mg PO Q6H PRN PRN Reason: FEVER Last Admin: 04/16/20 01:03 Dose: 650 mg Documented by: Apixaban (Eliquis -) 5 mg PO BID [facility] Last Admin: 04/23/20 21:18 Dose: 5 mg Documented by: Atorvastatin Calcium (Lipitor -) 80 mg PO HS [facility] Last Admin: 04/23/20 21:18 Dose: 80 mg Documented by: Budesonide/Formoterol Fumarate (Symbicort 160/4.5mcg -) 2 puff IH BID [facility] Last Admin: 04/23/20 21:19 Dose: 2 puff Documented by: Bupropion HCl (Wellbutrin Xl -) 150 mg PO DAILY [facility] Last Admin: 04/23/20 09:32 Dose: 150 mg Documented by: Clopidogrel Bisulfate (Plavix -) 75 mg PO DAILY [facility] Last Admin: 04/23/20 09:32 Dose: 75 mg Documented by: Diltiazem HCl (Cardizem Cd -) 120 mg PO DAILY [facility] Last Admin: 04/23/20 09:33 Dose: 120 mg Documented by: Emollient Ointment (Aquaphor -) 1 applic TP DAILY [facility] Last Admin: 04/23/20 09:32 Dose: 1 applic Documented by: Furosemide (Lasix Injection -) 40 mg IVPUSH DAILY [facility] Last Admin: 04/23/20 09:32 Dose: 40 mg Documented by: IV Flush (Sydney-Cath Flush) 10 ml IVPUSH PRN PRN PRN Reason: FLUSH Vancomycin HCl (Vancomycin (Pre-Docked)) 1,000 mg in 250 mls @ 166.667 mls/hr IVPB Q12H [facility]; Protocol Last Admin: 04/23/20 20:43 Dose: 166.667 mls/hr Documented by: Aztreonam 1 gm/ Dextrose 50 mls @ 100 mls/hr IVPB Q8H-IV JENY; Protocol Last Admin: 04/24/20 01:19 Dose: 100 mls/hr Documented by: Methimazole (Tapazole -) 10 mg PO DAILY [facility] Last Admin: 04/23/20 09:33 Dose: 10 mg Documented by: Methylprednisolone Sodium Succinate (Solu-Medrol -) 20 mg IVPUSH DAILY [facility] Pantoprazole Sodium (Protonix -) 20 mg PO BID [facility] Last Admin: 04/23/20 21:18 Dose: 20 mg Documented by: Polyethylene Glycol (Miralax (For Daily Use) -) 17 gm PO HS PRN PRN Reason: CONSTIPATION Potassium Chloride (Potassium Chloride Oral Liquid) 40 meq PO DAILY [facility] Last Admin: 04/23/20 09:33 Dose: 40 meq Documented by: Senna (Senna -) 2 tab PO HS [facility] Last Admin: 04/23/20 21:18 Dose: 2 tab Documented by: Tamsulosin HCl (Flomax -) 0.4 mg PO HS [facility] Last Admin: 04/23/20 21:18 Dose: 0.4 mg Documented by: - Objective Vital Signs: Vital Signs Temperature 98 F 04/24/20 05:38 Pulse Rate 68 04/24/20 05:38 Respiratory Rate 20 04/24/20 05:38 Blood Pressure 112/52 L 04/24/20 05:38 O2 Sat by Pulse Oximetry (%) 100 04/24/20 05:38 Constitutional: Yes: Calm, Obese Eyes: Yes: WNL HENT: Yes: WNL Neck: Yes: WNL Cardiovascular: Yes: Pulse Irregular, S1, S2 Respiratory: Yes: Wheezes (less wheezes bilaterally) Gastrointestinal: Yes: Normal Bowel Sounds, Soft, Abdomen, Obese Extremities: Yes: WNL Edema: Yes Labs: CBC, BMP 04/22/20 06:04 04/23/20 06:18 INR, PTT INR 1.15 (0.83-1.09) H 04/14/20 10:50 Problem List - Problems (1) Acute on chronic respiratory failure with hypoxemia Code(s): J96.21 - ACUTE AND CHRONIC RESPIRATORY FAILURE WITH HYPOXIA (2) Atrial fibrillation with RVR Code(s): I48.91 - UNSPECIFIED ATRIAL FIBRILLATION (3) Pneumonia Code(s): J18.9 - PNEUMONIA, UNSPECIFIED ORGANISM (4) Anemia Code(s): D64.9 - ANEMIA, UNSPECIFIED (5) CAD (coronary artery disease) Code(s): I25.10 - ATHSCL HEART DISEASE OF [place] CORONARY ARTERY W/O ANG PCTRS (6) Lung cancer Code(s): C34.90 - MALIGNANT NEOPLASM OF UNSP PART OF UNSP BRONCHUS OR LUNG (7) COPD (chronic obstructive pulmonary disease) Code(s): J44.9 - CHRONIC OBSTRUCTIVE PULMONARY DISEASE, UNSPECIFIED Assessment/Plan A/P Acute on Chronic Hypoxic Respiratory Failure improving Lung Cancer Pneumonia COPD Atrial Fibrillation CHF CAD +Troponins likely Demand Ischemia [place] GERD h/o COVID19 - antibiotics - inhaled bronchodilators - continue medrol taper - O2 to keep SpO2 >90% - rate control - anticoagulation - emily DUNCAN
[2020-04-24] MEDS: VANCOMYCIN 1 GRAM (PRE-DOCKED) 1,000 MG/250 ML BAG IVPB SCH ×2 (07:58→21:40)
[2020-04-24] MEDS: FUROSEMIDE 40 MG/4 ML INJECTABLE VIAL IVPUSH SCH (09:57)
[2020-04-24] MEDS: methylPREDNISolone NA SUCC 40 MG/1 ML VIAL IVPUSH SCH (09:57)
[2020-04-24] MEDS: APIXABAN 5 MG TABLET PO SCH ×2 (09:57→21:41)
[2020-04-24] MEDS: MINERAL OIL/PET HY-PHL TOPICAL OINTMENT 454 GM JAR TP SCH (09:58)
[2020-04-24] MEDS: CLOPIDOGREL BISULFATE 75 MG TABLET (FP) PO SCH (09:58)
[2020-04-24] MEDS: METHIMAZOLE 10 MG TABLET (FP) PO SCH (09:58)
[2020-04-24] MEDS: PANTOPRAZOLE 20 MG TABLET PO SCH ×2 (09:58→21:41)
[2020-04-24] MEDS: BUDESONIDE/FORMETEROL FUMARATE 160/4.5 mcg INHALER IH SCH ×2 (09:58→21:41)
[2020-04-24] MEDS: POTASSIUM CHLORIDE ORAL LIQUID 20 MEQ/15 ML PO SCH (10:00)
--- NOTE | 2020-04-24 11:09 | PN ---
Progress Note (short form) - Note Progress Note: s: no cp sob palps dizzy Current Medications Generic Name Dose Route Start Last Admin Trade Name Freq PRN Reason Stop Dose Admin Acetaminophen 650 mg 04/14/20 15:03 04/16/20 01:03 Tylenol - PO 650 mg Q6H PRN Administration FEVER Apixaban 5 mg 04/16/20 12:45 04/24/20 09:57 Eliquis - PO 5 mg BID JENY Administration Atorvastatin Calcium 80 mg 04/14/20 22:00 04/23/20 21:18 Lipitor - PO 80 mg HS JENY Administration Budesonide/Formoterol Fumarate 2 puff 04/14/20 22:00 04/24/20 09:58 Symbicort 160/4.5mcg - IH 2 puff BID JENY Administration Bupropion HCl 150 mg 04/15/20 10:00 04/24/20 09:58 Wellbutrin Xl - PO 150 mg DAILY JENY Administration Clopidogrel Bisulfate 75 mg 04/15/20 10:00 04/24/20 09:58 Plavix - PO 75 mg DAILY JENY Administration Diltiazem HCl 120 mg 04/16/20 11:30 04/24/20 09:58 Cardizem Cd - PO 120 mg DAILY JENY Administration Emollient Ointment 1 applic 04/15/20 13:45 04/24/20 09:58 Aquaphor - TP 1 applic DAILY JENY Administration Furosemide 40 mg 04/21/20 12:45 04/24/20 09:57 Lasix Injection - IVPUSH 40 mg DAILY JENY Administration IV Flush 10 ml 04/23/20 18:24 Sydney-Cath Flush IVPUSH PRN PRN FLUSH Vancomycin HCl 1,000 mg in 250 mls @ 166.667 mls/hr 04/23/20 08:00 04/24/20 07:58 Vancomycin (Pre-Docked) IVPB 166.667 mls/hr Q12H JENY Administration Protocol Aztreonam 1 gm/ Dextrose 50 mls @ 100 mls/hr 04/23/20 08:15 04/24/20 10:00 IVPB 100 mls/hr Q8H-IV JENY Administration Protocol Methimazole 10 mg 04/14/20 15:15 04/24/20 09:58 Tapazole - PO 10 mg DAILY JENY Administration Methylprednisolone Sodium Succinate 20 mg 04/24/20 10:00 04/24/20 09:57 Solu-Medrol - IVPUSH 20 mg DAILY JENY Administration Pantoprazole Sodium 20 mg 04/14/20 22:00 04/24/20 09:58 Protonix - PO 20 mg BID JENY Administration Polyethylene Glycol 17 gm 04/14/20 15:03 Miralax (For Daily Use) - PO HS PRN CONSTIPATION Potassium Chloride 40 meq 04/17/20 10:00 04/24/20 10:00 Potassium Chloride Oral Liquid PO 40 meq DAILY JENY Administration Senna 2 tab 04/14/20 22:00 04/23/20 21:18 Senna - PO 2 tab HS JENY Administration Tamsulosin HCl 0.4 mg 04/14/20 22:00 04/23/20 21:18 Flomax - PO 0.4 mg HS JENY Administration Vital Signs Period Temp Pulse Resp BP Sys/Adams Pulse Ox Last 24 Hr 97.4 F-99.5 F 68-75 20-20 105-124/44-62 92-100 Constitutional: Yes: No Distress, Calm Eyes: Yes: Conjunctiva Clear Neck: Yes: Supple, Trachea Midline Respiratory: Yes: Regular, Cough, Diminished Gastrointestinal: Yes: Normal Bowel Sounds, Soft Cardiovascular: Yes: irregular, nl s1 s2 JVD: No Integumentary: No: Jaundice Neurological: Yes: Alert, Oriented Psychiatric: No: Agitated CBC, BMP 04/22/20 06:04 04/23/20 06:18 Assessment/Plan echo 06/2019 nl LV/RV function, tr TR echo 03/2020: nl lv/rv, no sig valve path mibi 06/2019 mild inferolateral ischemia, no TID, nl EF CXR: progressive R sided infiltrative changes, L side clear acute on chronic diastolic CHF: -cr stable -cont lasix iv -daily chem7 Pafib: new dx -Remains in SR. - initially in AF w/ RVR, now improved after cardizem IV and converted to cardi zem CD 04/17. On Eliquis - monitor on tele - free T4 elevated, management as per PMD hyperthyroidism: - TSH 0.01 here with new onset afib - manage per primary elevated trop: - no chest pain - likely demand in setting of new onset afib with RVR - echo unremarkable - once acute issues resolve (pt with active PNA and CHF) would consider updated MIBI to monitor ischemic burden lung cancer: - manage per onc CAD s/p [place], stents: - mild ischemia on mibi 06/2019, low risk finding, asymptomatic - cont plavix, dc aspirin now on anticoagulation - cont statin HLD: - cont statin HTN: - not on meds, stable here, monitor NSVT - maintain K>4, Mg >2 - normal LV function on echo here - mibi when acute issues resolve
--- NOTE | 2020-04-24 12:29 | PN ---
Progress Note (short form) - Note Progress Note: comfortable no sob no chest pain no palpitations coughing Vital Signs - 24 hr 04/23/20 04/23/20 04/23/20 14:15 18:00 20:40 Temperature 99.5 F 97.4 F L Pulse Rate 73 70 Respiratory 20 20 Rate Blood Pressure 105/44 L 112/62 O2 Sat by Pulse 94 L 92 L Oximetry (%) 04/23/20 04/23/20 04/24/20 20:56 22:00 00:00 Temperature 98 F Pulse Rate 75 Respiratory 20 20 Rate Blood Pressure 124/61 O2 Sat by Pulse 97 97 95 Oximetry (%) 04/24/20 04/24/20 04/24/20 00:34 05:35 05:38 Temperature 98 F Pulse Rate 68 Respiratory 20 Rate Blood Pressure 112/52 L O2 Sat by Pulse 100 97 100 Oximetry (%) 04/24/20 04/24/20 04/24/20 08:46 09:00 10:00 Temperature 97.5 F L Pulse Rate 79 Respiratory 18 18 Rate Blood Pressure 113/49 L O2 Sat by Pulse 100 100 100 Oximetry (%) Current Medications Generic Name Dose Route Start Last Admin Trade Name Freq PRN Reason Stop Dose Admin Acetaminophen 650 mg 04/14/20 15:03 04/16/20 01:03 Tylenol - PO 650 mg Q6H PRN Administration FEVER Apixaban 5 mg 04/16/20 12:45 04/24/20 09:57 Eliquis - PO 5 mg BID JENY Administration Atorvastatin Calcium 80 mg 04/14/20 22:00 04/23/20 21:18 Lipitor - PO 80 mg HS JENY Administration Budesonide/Formoterol Fumarate 2 puff 04/14/20 22:00 04/24/20 09:58 Symbicort 160/4.5mcg - IH 2 puff BID JENY Administration Bupropion HCl 150 mg 04/15/20 10:00 04/24/20 09:58 Wellbutrin Xl - PO 150 mg DAILY JENY Administration Clopidogrel Bisulfate 75 mg 04/15/20 10:00 04/24/20 09:58 Plavix - PO 75 mg DAILY JENY Administration Diltiazem HCl 120 mg 04/16/20 11:30 04/24/20 09:58 Cardizem Cd - PO 120 mg DAILY J[facility]Y Administration Emollient Ointment 1 applic 08/27/20 13:45 04/24/20 09:58 Aquaphor - TP 1 applic DAILY J[facility]Y Administration Furosemide 40 mg 04/21/20 12:45 04/24/20 09:57 Lasix Injection - IVPUSH 40 mg DAILY JEYN Administration IV Flush 10 ml 04/23/20 18:24 Sydney-Cath Flush IVPUSH PRN PRN FLUSH Vancomycin HCl 1,000 mg in 250 mls @ 166.667 mls/hr 04/23/20 08:00 04/24/20 07:58 Vancomycin (Pre-Docked) IVPB 166.667 mls/hr Q12H J[facility]Y Administration Protocol Aztreonam 1 gm/ Dextrose 50 mls @ 100 mls/hr 04/23/20 08:15 04/24/20 10:00 IVPB 100 mls/hr Q8H-IV JENY Administration Protocol Methimazole 10 mg 04/14/20 15:15 04/24/20 09:58 Tapazole - PO 10 mg DAILY [facility] Administration Methylprednisolone Sodium Succinate 20 mg 04/24/20 10:00 04/24/20 09:57 Solu-Medrol - IVPUSH 20 mg DAILY [facility] Administration Pantoprazole Sodium 20 mg 04/14/20 22:00 04/24/20 09:58 Protonix - PO 20 mg BID JENY Administration Polyethylene Glycol 17 gm 04/14/20 15:03 Miralax (For Daily Use) - PO HS PRN CONSTIPATION Potassium Chloride 40 meq 04/17/20 10:00 04/24/20 10:00 Potassium Chloride Oral Liquid PO 40 meq DAILY J[facility]Y Administration Senna 2 tab 04/14/20 22:00 04/23/20 21:18 Senna - PO 2 tab HS JENY Administration Tamsulosin HCl 0.4 mg 04/14/20 22:00 04/23/20 21:18 Flomax - PO 0.4 mg HS JENY Administration S1 S2 Irregular Lungs decreased Abd- soft, obese, NT Edema PLAN Afib- -rate control with Cardizem. Thyroiditis --TSH- remains the same -- free T4 trending down -- continue Methimazole Acute on chronic respiratory failure --Taper solumedrol --PT eval -- CT chest reviewed Pneumonia --continue with iv antibiotics per ID Problem List - Problems (1) Pneumonia Code(s): J18.9 - PNEUMONIA, UNSPECIFIED ORGANISM (2) Hyperthyroidism Code(s): E05.90 - THYROTOXICOSIS, UNSP WITHOUT THYROTOXIC CRISIS OR STORM (3) Atrial fibrillation with RVR Code(s): I48.91 - UNSPECIFIED ATRIAL FIBRILLATION (4) NSTEMI (non-ST elevated myocardial infarction) Code(s): I21.4 - NON-ST ELEVATION (NSTEMI) MYOCARDIAL INFARCTION (5) Anemia Code(s): D64.9 - ANEMIA, UNSPECIFIED (6) CAD (coronary artery disease) Code(s): I25.10 - ATHSCL HEART DISEASE OF [place] CORONARY ARTERY W/O ANG PCTRS (7) Lung cancer Code(s): C34.90 - MALIGNANT NEOPLASM OF UNSP PART OF UNSP BRONCHUS OR LUNG
[2020-04-24] MEDS: SENNOSIDES 8.6MG TABLET (FP) PO SCH ×2 (21:40→21:49)
[2020-04-24] MEDS: ATORVASTATIN CA 80 MG TABLET (FP) PO SCH (21:41)
[2020-04-24] MEDS: TAMSULOSIN HCL 0.4 MG CAP PO SCH (21:41)
[2020-04-25] MEDS ORDERED: DEXTROSE 5%-WATER - 50 ML IVPB ONE ×3 (02:26→17:01)
[2020-04-25] MEDS ORDERED: AZTREONAM 1 GM VIAL (RESTRICTED TO ID) ONE ×3 (02:26→17:00)
[2020-04-25] MEDS: AZTREONAM 1 GM in DEXTROSE 5%-WATER - 50 ML IVPB SCH ×3 (02:38→17:07)
--- NOTE | 2020-04-25 07:00 | PN ---
Progress Note, Physician History of Present Illness: PULMONARY ALERT,FEELING BETTER,SOB IMPROVING - Current Medication List Current Medications: Active Medications Acetaminophen (Tylenol -) 650 mg PO Q6H PRN PRN Reason: FEVER Last Admin: 04/16/20 01:03 Dose: 650 mg Documented by: Apixaban (Eliquis -) 5 mg PO BID [facility] Last Admin: 04/24/20 21:41 Dose: 5 mg Documented by: Atorvastatin Calcium (Lipitor -) 80 mg PO HS [facility] Last Admin: 04/24/20 21:41 Dose: 80 mg Documented by: Budesonide/Formoterol Fumarate (Symbicort 160/4.5mcg -) 2 puff IH BID [facility] Last Admin: 04/24/20 21:41 Dose: 2 puff Documented by: Bupropion HCl (Wellbutrin Xl -) 150 mg PO DAILY [facility] Last Admin: 04/24/20 09:58 Dose: 150 mg Documented by: Clopidogrel Bisulfate (Plavix -) 75 mg PO DAILY [facility] Last Admin: 04/24/20 09:58 Dose: 75 mg Documented by: Diltiazem HCl (Cardizem Cd -) 120 mg PO DAILY [facility] Last Admin: 04/24/20 09:58 Dose: 120 mg Documented by: Emollient Ointment (Aquaphor -) 1 applic TP DAILY [facility] Last Admin: 04/24/20 09:58 Dose: 1 applic Documented by: Furosemide (Lasix Injection -) 40 mg IVPUSH DAILY [facility] Last Admin: 04/24/20 09:57 Dose: 40 mg Documented by: IV Flush ([place]-Cath Flush) 10 ml IVPUSH PRN PRN PRN Reason: FLUSH Vancomycin HCl (Vancomycin (Pre-Docked)) 1,000 mg in 250 mls @ 166.667 mls/hr IVPB Q12H [facility]; Protocol Last Admin: 04/24/20 21:40 Dose: 166.667 mls/hr Documented by: Aztreonam 1 gm/ Dextrose 50 mls @ 100 mls/hr IVPB Q8H-IV [facility]; Protocol Last Admin: 04/25/20 02:38 Dose: 100 mls/hr Documented by: Methimazole (Tapazole -) 10 mg PO DAILY [facility] Last Admin: 04/24/20 09:58 Dose: 10 mg Documented by: Methylprednisolone Sodium Succinate (Solu-Medrol -) 20 mg IVPUSH DAILY [facility] Last Admin: 04/24/20 09:57 Dose: 20 mg Documented by: Pantoprazole Sodium (Protonix -) 20 mg PO BID [facility] Last Admin: 04/24/20 21:41 Dose: 20 mg Documented by: Polyethylene Glycol (Miralax (For Daily Use) -) 17 gm PO HS PRN PRN Reason: CONSTIPATION Potassium Chloride (Potassium Chloride Oral Liquid) 40 meq PO DAILY [facility] Last Admin: 04/24/20 10:00 Dose: 40 meq Documented by: Senna (Senna -) 2 tab PO HS [facility] Last Admin: 04/24/20 21:49 Dose: Not Given Documented by: Tamsulosin HCl (Flomax -) 0.4 mg PO HS [facility] Last Admin: 04/24/20 21:41 Dose: 0.4 mg Documented by: - Objective Vital Signs: Vital Signs Temperature 98.4 F 04/24/20 22:00 Pulse Rate 74 04/24/20 22:00 Respiratory Rate 18 04/25/20 05:57 Blood Pressure 123/55 L 04/25/20 05:57 O2 Sat by Pulse Oximetry (%) 98 04/25/20 05:57 Constitutional: Yes: Calm, Obese Eyes: Yes: WNL HENT: Yes: WNL Neck: Yes: WNL Cardiovascular: Yes: Pulse Irregular, S1, S2 Respiratory: Yes: Wheezes (LESS WHEEZES [place]) Gastrointestinal: Yes: Normal Bowel Sounds, Soft Extremities: Yes: WNL Edema: Yes Labs: CBC, BMP 04/22/20 06:04 Problem List - Problems (1) Acute on chronic respiratory failure with hypoxemia Code(s): J96.21 - ACUTE AND CHRONIC RESPIRATORY FAILURE WITH HYPOXIA (2) Atrial fibrillation with RVR Code(s): I48.91 - UNSPECIFIED ATRIAL FIBRILLATION (3) Pneumonia Code(s): J18.9 - PNEUMONIA, UNSPECIFIED ORGANISM (4) Anemia Code(s): D64.9 - ANEMIA, UNSPECIFIED (5) CAD (coronary artery disease) Code(s): I25.10 - ATHSCL HEART DISEASE OF [place] CORONARY ARTERY W/O ANG PCTRS (6) Lung cancer Code(s): C34.90 - MALIGNANT NEOPLASM OF UNSP PART OF UNSP BRONCHUS OR LUNG (7) COPD (chronic obstructive pulmonary disease) Code(s): J44.9 - CHRONIC OBSTRUCTIVE PULMONARY DISEASE, UNSPECIFIED Assessment/Plan A/P Acute on Chronic Hypoxic Respiratory Failure improving Lung Cancer Pneumonia COPD Atrial Fibrillation CHF CAD +Troponins likely Demand Ischemia [place] [facility]ER[facility] h/o COVID19 - antibiotics - inhaled bronchodilators - prednisone - O2 to keep SpO2 >90% - rate control - anticoagulation - lasix DR DUNCAN
[2020-04-25] MEDS: VANCOMYCIN 1 GRAM (PRE-DOCKED) 1,000 MG/250 ML BAG IVPB SCH ×2 (08:49→20:14)
[2020-04-25] MEDS: FUROSEMIDE 40 MG/4 ML INJECTABLE VIAL IVPUSH SCH (09:28)
[2020-04-25] MEDS: methylPREDNISolone NA SUCC 40 MG/1 ML VIAL IVPUSH SCH (09:28)
[2020-04-25] MEDS: POTASSIUM CHLORIDE ORAL LIQUID 20 MEQ/15 ML PO SCH (09:28)
[2020-04-25] MEDS: METHIMAZOLE 10 MG TABLET (FP) PO SCH (09:28)
[2020-04-25] MEDS: PANTOPRAZOLE 20 MG TABLET PO SCH ×2 (09:28→22:33)
[2020-04-25] MEDS: APIXABAN 5 MG TABLET PO SCH ×2 (09:28→22:33)
[2020-04-25] MEDS: CLOPIDOGREL BISULFATE 75 MG TABLET (FP) PO SCH (09:28)
[2020-04-25] MEDS: BUDESONIDE/FORMETEROL FUMARATE 160/4.5 mcg INHALER IH SCH ×2 (09:29→22:33)
[2020-04-25] MEDS: MINERAL OIL/PET HY-PHL TOPICAL OINTMENT 454 GM JAR TP SCH (09:29)
[2020-04-25] MEDS ORDERED: PORTA CATH FLUSH 10 ML IVPUSH PRN (10:50)
--- NOTE | 2020-04-25 10:50 | PN ---
Progress Note (short form) - Note Progress Note: s: no cp sob palps dizzy Current Medications Generic Name Dose Route Start Last Admin Trade Name Freq PRN Reason Stop Dose Admin Acetaminophen 650 mg 04/14/20 15:03 04/16/20 01:03 Tylenol - PO 650 mg Q6H PRN Administration FEVER Apixaban 5 mg 04/16/20 12:45 04/25/20 09:28 Eliquis - PO 5 mg BID JENY Administration Atorvastatin Calcium 80 mg 04/14/20 22:00 04/24/20 21:41 Lipitor - PO 80 mg HS [facility]ENY Administration Budesonide/Formoterol Fumarate 2 puff 04/14/20 22:00 04/25/20 09:29 Symbicort 160/4.5mcg - IH 2 puff BID [facility]ENY Administration Bupropion HCl 150 mg 04/15/20 10:00 04/25/20 09:28 Wellbutrin Xl - PO 150 mg DAILY [facility]Y Administration Clopidogrel Bisulfate 75 mg 04/15/20 10:00 04/25/20 09:28 Plavix - PO 75 mg DAILY [facility] Administration Diltiazem HCl 120 mg 04/16/20 11:30 04/25/20 09:29 Cardizem Cd - PO 120 mg DAILY [facility] Administration Emollient Ointment 1 applic 04/15/20 13:45 04/25/20 09:29 Aquaphor - TP 1 applic DAILY [facility] Administration Furosemide 40 mg 04/21/20 12:45 04/25/20 09:28 Lasix Injection - IVPUSH 40 mg DAILY [facility]ENY Administration IV Flush 10 ml 04/23/20 18:24 Sydney-Cath Flush IVPUSH PRN PRN FLUSH Vancomycin HCl 1,000 mg in 250 mls @ 166.667 mls/hr 04/23/20 08:00 04/25/20 08:49 Vancomycin (Pre-Docked) IVPB 166.667 mls/hr Q12H [facility] Administration Protocol Aztreonam 1 gm/ Dextrose 50 mls @ 100 mls/hr 04/23/20 08:15 04/25/20 10:38 IVPB 100 mls/hr Q8H-IV [facility]Y Administration Protocol Methimazole 10 mg 04/14/20 15:15 04/25/20 09:28 Tapazole - PO 10 mg DAILY JENY Administration Pantoprazole Sodium 20 mg 04/14/20 22:00 04/25/20 09:28 Protonix - PO 20 mg BID [facility]Y Administration Polyethylene Glycol 17 gm 04/14/20 15:03 Miralax (For Daily Use) - PO HS PRN CONSTIPATION Potassium Chloride 40 meq 04/17/20 10:00 04/25/20 09:28 Potassium Chloride Oral Liquid PO 40 meq DAILY [facility] Administration Prednisone 20 mg 04/26/20 10:00 Deltasone - PO DAILY JENY Senna 2 tab 04/14/20 22:00 04/24/20 21:49 Senna - PO Not Given HS JENY Tamsulosin HCl 0.4 mg 04/14/20 22:00 04/24/20 21:41 Flomax - PO 0.4 mg HS JENY Administration Vital Signs Period Temp Pulse Resp BP Sys/Adams Pulse Ox Last 24 Hr 97.8 F-98.4 F 67-78 18-20 107-123/52-60 93-99 Constitutional: Yes: No Distress, Calm Eyes: Yes: Conjunctiva Clear Neck: Yes: Supple, Trachea Midline Respiratory: Yes: Regular, Cough, Diminished Gastrointestinal: Yes: Normal Bowel Sounds, Soft Cardiovascular: Yes: irregular, nl s1 s2 JVD: No Integumentary: No: Jaundice Neurological: Yes: Alert, Oriented Psychiatric: No: Agitated CBC, BMP 04/22/20 06:04 04/23/20 06:18 Assessment/Plan echo 06/2019 nl LV/RV function, tr TR echo 03/2020: nl lv/rv, no sig valve path mibi 06/2019 mild inferolateral ischemia, no TID, nl EF CXR: progressive R sided infiltrative changes, L side clear acute on chronic diastolic CHF: -cr stable -cont lasix iv -daily chem7 Pafib: new dx -Remains in SR. - initially in AF w/ RVR, now improved after cardizem IV and converted to cardizem CD 04/17. On Eliquis - monitor on tele - free T4 elevated, management as per PMD hyperthyroidism: - TSH 0.01 here with new onset afib - manage per primary elevated trop: - no chest pain - likely demand in setting of new onset afib with RVR - echo unremarkable - once acute issues resolve (pt with active PNA and CHF) would consider updated MIBI to monitor ischemic burden lung cancer: - manage per onc CAD s/p [place], stents: - mild ischemia on mibi 06/2019, low risk finding, asymptomatic - cont plavix, dc aspirin now on anticoagulation - cont statin HLD: - cont statin HTN: - not on meds, stable here, monitor NSVT - maintain K>4, Mg >2 - normal LV function on echo here - mibi when acute issues resolve
--- NOTE | 2020-04-25 11:39 | PN ---
Progress Note (short form) - Note Progress Note: comfortable no sob no chest pain no palpitations Vital Signs - 24 hr 04/24/20 04/24/20 04/24/20 14:15 18:20 21:00 Temperature 98.4 F 97.9 F Pulse Rate 78 67 Respiratory 20 18 Rate Blood Pressure 107/54 L 116/58 L O2 Sat by Pulse 99 Oximetry (%) 04/24/20 04/25/20 04/25/20 22:00 00:48 05:18 Temperature 98.4 F Pulse Rate 74 Respiratory 18 Rate Blood Pressure 117/60 O2 Sat by Pulse 98 99 98 Oximetry (%) 04/25/20 04/25/20 04/25/20 05:57 08:09 09:00 Temperature Pulse Rate Respiratory 18 18 Rate Blood Pressure 123/55 L O2 Sat by Pulse 98 93 L 98 Oximetry (%) 04/25/20 10:00 Temperature 97.8 F Pulse Rate 76 Respiratory 18 Rate Blood Pressure 110/52 L O2 Sat by Pulse Oximetry (%) Current Medications Generic Name Dose Route Start Last Admin Trade Name Freq PRN Reason Stop Dose Admin Acetaminophen 650 mg 04/14/20 15:03 04/16/20 01:03 Tylenol - PO 650 mg Q6H PRN Administration FEVER Apixaban 5 mg 04/16/20 12:45 04/25/20 09:28 Eliquis - PO 5 mg BID JENY Administration Atorvastatin Calcium 80 mg 04/14/20 22:00 04/24/20 21:41 Lipitor - PO 80 mg HS JENY Administration Budesonide/Formoterol Fumarate 2 puff 04/14/20 22:00 04/25/20 09:29 Symbicort 160/4.5mcg - IH 2 puff BID JENY Administration Bupropion HCl 150 mg 04/15/20 10:00 04/25/20 09:28 Wellbutrin Xl - PO 150 mg DAILY JENY Administration Clopidogrel Bisulfate 75 mg 04/15/20 10:00 04/25/20 09:28 Plavix - PO 75 mg DAILY JENY Administration Diltiazem HCl 120 mg 04/16/20 11:30 04/25/20 09:29 Cardizem Cd - PO 120 mg DAILY JENY Administration Emollient Ointment 1 applic 04/15/20 13:45 04/25/20 09:29 Aquaphor - TP 1 applic DAILY JENY Administration Furosemide 40 mg 04/21/20 12:45 04/25/20 09:28 Lasix Injection - IVPUSH 40 mg DAILY JENY Administration IV Flush 10 ml 04/23/20 18:24 [place]-Cath Flush IVPUSH PRN PRN FLUSH IV Flush 10 ml 04/25/20 10:50 [place]-Cath Flush IVPUSH PRN PRN FLUSH Vancomycin HCl 1,000 mg in 250 mls @ 166.667 mls/hr 04/23/20 08:00 04/25/20 08:49 Vancomycin (Pre-Docked) IVPB 166.667 mls/hr Q12H [facility]ENY Administration Protocol Aztreonam 1 gm/ Dextrose 50 mls @ 100 mls/hr 04/23/20 08:15 04/25/20 10:38 IVPB 100 mls/hr Q8H-IV JENY Administration Protocol Methimazole 10 mg 04/14/20 15:15 04/25/20 09:28 Tapazole - PO 10 mg DAILY JENY Administration Pantoprazole Sodium 20 mg 04/14/20 22:00 04/25/20 09:28 Protonix - PO 20 mg BID JENY Administration Polyethylene Glycol 17 gm 04/14/20 15:03 Miralax (For Daily Use) - PO HS PRN CONSTIPATION Potassium Chloride 40 meq 04/17/20 10:00 04/25/20 09:28 Potassium Chloride Oral Liquid PO 40 meq DAILY JENY Administration Prednisone 20 mg 04/26/20 10:00 Deltasone - PO DAILY JENY Senna 2 tab 04/14/20 22:00 04/24/20 21:49 Senna - PO Not Given HS JENY Tamsulosin HCl 0.4 mg 04/14/20 22:00 04/24/20 21:41 Flomax - PO 0.4 mg HS JENY Administration Laboratory Results - last 24 hr 04/24/20 04/24/20 06:30 06:55 Cortisol 30 Minute 4.10 Cortisol 60 Minute 5.5 Microbiology 04/22/20 16:00 Gram Stain - Final Sputum - Expectorated Sputum Culture - Final Yeast Like Organism S1 S2 Irregular Lungs decreased Abd- soft, obese, NT Edema PLAN Afib- -rate control with Cardizem. Thyroiditis --TSH- remains the same -- free T4 trending down -- continue Methimazole Acute on chronic respiratory failure --Taper solumedrol --PT eval -- CT chest reviewed Pneumonia --continue with iv antibiotics per ID --= ID follow up with regards to duration -- sputum cultures noted- add Diflucan Problem List - Problems (1) Pneumonia Code(s): J18.9 - PNEUMONIA, UNSPECIFIED ORGANISM (2) Hyperthyroidism Code(s): E05.90 - THYROTOXICOSIS, UNSP WITHOUT THYROTOXIC CRISIS OR STORM (3) Atrial fibrillation with RVR Code(s): I48.91 - UNSPECIFIED ATRIAL FIBRILLATION (4) NSTEMI (non-ST elevated myocardial infarction) Code(s): I21.4 - NON-ST ELEVATION (NSTEMI) MYOCARDIAL INFARCTION (5) Anemia Code(s): D64.9 - ANEMIA, UNSPECIFIED (6) CAD (coronary artery disease) Code(s): I25.10 - ATHSCL HEART DISEASE OF [place] CORONARY ARTERY W/O ANG PCTRS (7) Lung cancer Code(s): C34.90 - MALIGNANT NEOPLASM OF UNSP PART OF UNSP BRONCHUS OR LUNG
[2020-04-25] MEDS: FLUCONAZOLE 100 MG TABLET (UD) PO SCH (13:45)
[2020-04-25] MEDS: TAMSULOSIN HCL 0.4 MG CAP PO SCH (22:32)
[2020-04-25] MEDS: SENNOSIDES 8.6MG TABLET (FP) PO SCH (22:33)
[2020-04-25] MEDS: ATORVASTATIN CA 80 MG TABLET (FP) PO SCH (22:33)
[2020-04-26] MEDS ORDERED: DEXTROSE 5%-WATER - 50 ML IVPB ONE ×3 (01:40→16:24)
[2020-04-26] MEDS ORDERED: AZTREONAM 1 GM VIAL (RESTRICTED TO ID) ONE ×3 (01:40→16:24)
[2020-04-26] MEDS: AZTREONAM 1 GM in DEXTROSE 5%-WATER - 50 ML IVPB SCH ×3 (01:45→17:58)
--- NOTE | 2020-04-26 07:12 | PN ---
Progress Note, Physician History of Present Illness: PULMONARY ALERT,COMFORTABLE,DYSPNEA IMPROVING - Current Medication List Current Medications: Active Medications Acetaminophen (Tylenol -) 650 mg PO Q6H PRN PRN Reason: FEVER Last Admin: 04/16/20 01:03 Dose: 650 mg Documented by: Apixaban (Eliquis -) 5 mg PO BID [facility] Last Admin: 04/25/20 22:33 Dose: 5 mg Documented by: Atorvastatin Calcium (Lipitor -) 80 mg PO HS [facility] Last Admin: 04/25/20 22:33 Dose: 80 mg Documented by: Budesonide/Formoterol Fumarate (Symbicort 160/4.5mcg -) 2 puff IH BID [facility] Last Admin: 04/25/20 22:33 Dose: 2 puff Documented by: Bupropion HCl (Wellbutrin Xl -) 150 mg PO DAILY [facility] Last Admin: 04/25/20 09:28 Dose: 150 mg Documented by: Clopidogrel Bisulfate (Plavix -) 75 mg PO DAILY [facility] Last Admin: 04/25/20 09:28 Dose: 75 mg Documented by: Diltiazem HCl (Cardizem Cd -) 120 mg PO DAILY [facility] Last Admin: 04/25/20 09:29 Dose: 120 mg Documented by: Emollient Ointment (Aquaphor -) 1 applic TP DAILY [facility] Last Admin: 04/25/20 09:29 Dose: 1 applic Documented by: Fluconazole (Diflucan -) 100 mg PO DAILY [facility] Last Admin: 04/25/20 13:45 Dose: 100 mg Documented by: Furosemide (Lasix Injection -) 40 mg IVPUSH DAILY [facility] Last Admin: 04/25/20 09:28 Dose: 40 mg Documented by: IV Flush (Sydney-Cath Flush) 10 ml IVPUSH PRN PRN PRN Reason: FLUSH IV Flush (Sydney-Cath Flush) 10 ml IVPUSH PRN PRN PRN Reason: FLUSH Vancomycin HCl (Vancomycin (Pre-Docked)) 1,000 mg in 250 mls @ 166.667 mls/hr IVPB Q12H [facility]; Protocol Last Admin: 04/25/20 20:14 Dose: 166.667 mls/hr Documented by: Aztreonam 1 gm/ Dextrose 50 mls @ 100 mls/hr IVPB Q8H-IV [facility]; Protocol Last Admin: 04/26/20 01:45 Dose: 100 mls/hr Documented by: Methimazole (Tapazole -) 10 mg PO DAILY [facility] Last Admin: 04/25/20 09:28 Dose: 10 mg Documented by: Pantoprazole Sodium (Protonix -) 20 mg PO BID [facility] Last Admin: 04/25/20 22:33 Dose: 20 mg Documented by: Polyethylene Glycol (Miralax (For Daily Use) -) 17 gm PO HS PRN PRN Reason: CONSTIPATION Potassium Chloride (Potassium Chloride Oral Liquid) 40 meq PO DAILY [facility] Last Admin: 04/25/20 09:28 Dose: 40 meq Documented by: Prednisone (Deltasone -) 20 mg PO DAILY [facility] Senna (Senna -) 2 tab PO HS [facility] Last Admin: 04/25/20 22:33 Dose: 2 tab Documented by: Tamsulosin HCl (Flomax -) 0.4 mg PO HS [facility] Last Admin: 04/25/20 22:32 Dose: 0.4 mg Documented by: - Objective Vital Signs: Vital Signs Temperature 97.6 F 04/26/20 02:47 Pulse Rate 57 L 04/26/20 02:47 Respiratory Rate 18 04/26/20 02:47 Blood Pressure 102/40 L 04/26/20 02:47 O2 Sat by Pulse Oximetry (%) 95 04/25/20 21:00 Constitutional: Yes: Well Nourished, Calm Eyes: Yes: WNL HENT: Yes: WNL Neck: Yes: WNL Cardiovascular: Yes: Pulse Irregular, S1, S2 Respiratory: Yes: Wheezes (FEW WHEEZES AND CRACKLES(IMPROVING)) Extremities: Yes: WNL Edema: Yes Labs: CBC, BMP Problem List - Problems (1) Acute on chronic respiratory failure with hypoxemia Code(s): J96.21 - ACUTE AND CHRONIC RESPIRATORY FAILURE WITH HYPOXIA (2) Atrial fibrillation with RVR Code(s): I48.91 - UNSPECIFIED ATRIAL FIBRILLATION (3) Pneumonia Code(s): J18.9 - PNEUMONIA, UNSPECIFIED ORGANISM (4) Anemia Code(s): D64.9 - ANEMIA, UNSPECIFIED (5) CAD (coronary artery disease) Code(s): I25.10 - ATHSCL HEART DISEASE OF [place] CORONARY ARTERY W/O ANG PCTRS (6) Lung cancer Code(s): C34.90 - MALIGNANT NEOPLASM OF UNSP PART OF UNSP BRONCHUS OR LUNG (7) COPD (chronic obstructive pulmonary disease) Code(s): J44.9 - CHRONIC OBSTRUCTIVE PULMONARY DISEASE, UNSPECIFIED Assessment/Plan A/P Acute on Chronic Hypoxic Respiratory Failure improving Lung Cancer Pneumonia COPD Atrial Fibrillation CHF CAD +Troponins likely Demand Ischemia [place] GERD h/o COVID19 - antibiotics - inhaled bronchodilators - prednisone - O2 to keep SpO2 >90% - rate control - anticoagulation - lasix DR DUNCAN
[2020-04-26] MEDS ORDERED: PT OWN MED DRAWER 7, Y5N ONE (08:24)
[2020-04-26] MEDS: VANCOMYCIN 1 GRAM (PRE-DOCKED) 1,000 MG/250 ML BAG IVPB SCH ×2 (09:32→21:40)
[2020-04-26] MEDS: predniSONE 20 MG TABLET (UD) PO SCH (09:33)
[2020-04-26] MEDS: FLUCONAZOLE 100 MG TABLET (UD) PO SCH (09:33)
[2020-04-26] MEDS: POTASSIUM CHLORIDE ORAL LIQUID 20 MEQ/15 ML PO SCH (09:33)
[2020-04-26] MEDS: PANTOPRAZOLE 20 MG TABLET PO SCH ×2 (09:33→21:49)
[2020-04-26] MEDS: APIXABAN 5 MG TABLET PO SCH ×2 (09:33→21:49)
[2020-04-26] MEDS: CLOPIDOGREL BISULFATE 75 MG TABLET (FP) PO SCH (09:33)
[2020-04-26] MEDS: METHIMAZOLE 10 MG TABLET (FP) PO SCH (09:33)
[2020-04-26] MEDS: MINERAL OIL/PET HY-PHL TOPICAL OINTMENT 454 GM JAR TP SCH (09:34)
[2020-04-26] MEDS: FUROSEMIDE 40 MG/4 ML INJECTABLE VIAL IVPUSH SCH (09:34)
[2020-04-26] MEDS: BUDESONIDE/FORMETEROL FUMARATE 160/4.5 mcg INHALER IH SCH ×2 (09:35→21:47)
--- NOTE | 2020-04-26 10:45 | PN ---
Progress Note (short form) - Note Progress Note: s: no cp sob palps dizzy Current Medications Generic Name Dose Route Start Last Admin Trade Name Freq PRN Reason Stop Dose Admin Acetaminophen 650 mg 04/14/20 15:03 04/16/20 01:03 Tylenol - PO 650 mg Q6H PRN Administration FEVER Apixaban 5 mg 04/16/20 12:45 04/26/20 09:33 Eliquis - PO 5 mg BID [facility] Administration Atorvastatin Calcium 80 mg 04/14/20 22:00 04/25/20 22:33 Lipitor - PO 80 mg HS [facility] Administration Budesonide/Formoterol Fumarate 2 puff 04/14/20 22:00 04/26/20 09:35 Symbicort 160/4.5mcg - IH 2 puff BID [facility] Administration Bupropion HCl 150 mg 04/15/20 10:00 04/26/20 09:33 Wellbutrin Xl - PO 150 mg DAILY [facility] Administration Clopidogrel Bisulfate 75 mg 04/15/20 10:00 04/26/20 09:33 Plavix - PO 75 mg DAILY [facility] Administration Diltiazem HCl 120 mg 04/16/20 11:30 04/26/20 09:34 Cardizem Cd - PO 120 mg DAILY [facility] Administration Emollient Ointment 1 applic 04/15/20 13:45 04/26/20 09:34 Aquaphor - TP 1 applic DAILY [facility] Administration Fluconazole 100 mg 04/25/20 12:15 04/26/20 09:33 Diflucan - PO 100 mg DAILY [facility] Administration Furosemide 40 mg 04/21/20 12:45 04/26/20 09:34 Lasix Injection - IVPUSH 40 mg DAILY [facility] Administration IV Flush 10 ml 04/23/20 18:24 Sydney-Cath Flush IVPUSH PRN PRN FLUSH IV Flush 10 ml 04/25/20 10:50 Sydney-Cath Flush IVPUSH PRN PRN FLUSH Vancomycin HCl 1,000 mg in 250 mls @ 166.667 mls/hr 04/23/20 08:00 04/26/20 09:32 Vancomycin (Pre-Docked) IVPB 166.667 mls/hr Q12H [facility] Administration Protocol Aztreonam 1 gm/ Dextrose 50 mls @ 100 mls/hr 04/23/20 08:15 04/26/20 09:32 IVPB 100 mls/hr Q8H-IV [facility] Administration Protocol Methimazole 10 mg 04/14/20 15:15 04/26/20 09:33 Tapazole - PO 10 mg DAILY [facility] Administration Pantoprazole Sodium 20 mg 04/14/20 22:00 04/26/20 09:33 Protonix - PO 20 mg BID [facility] Administration Polyethylene Glycol 17 gm 04/14/20 15:03 Miralax (For Daily Use) - PO HS PRN CONSTIPATION Potassium Chloride 40 meq 04/17/20 10:00 04/26/20 09:33 Potassium Chloride Oral Liquid PO 40 meq DAILY [facility] Administration Prednisone 20 mg 04/26/20 10:00 04/26/20 09:33 Deltasone - PO 20 mg DAILY [facility] Administration Senna 2 tab 04/14/20 22:00 04/25/20 22:33 Senna - PO 2 tab HS [facility] Administration Tamsulosin HCl 0.4 mg 04/14/20 22:00 04/25/20 22:32 Flomax - PO 0.4 mg HS [facility] Administration Vital Signs Period Temp Pulse Resp BP Sys/Adams Pulse Ox Last 24 Hr 97.6 F-98.1 F 57-80 18-18 97-123/40-67 95-98 Constitutional: Yes: No Distress, Calm Eyes: Yes: Conjunctiva Clear Neck: Yes: Supple, Trachea Midline Respiratory: Yes: Regular, Cough, Diminished Gastrointestinal: Yes: Normal Bowel Sounds, Soft Cardiovascular: Yes: irregular, nl s1 s2 JVD: No Integumentary: No: Jaundice Neurological: Yes: Alert, Oriented Psychiatric: No: Agitated CBC, BMP 04/22/20 06:04 04/23/20 06:18 Assessment/Plan echo 06/2019 nl LV/RV function, tr TR echo 03/2020: nl lv/rv, no sig valve path mibi 06/2019 mild inferolateral ischemia, no TID, nl EF CXR: progressive R sided infiltrative changes, L side clear acute on chronic diastolic CHF: -vol status improved with iv lasix, cr stable. Will change to po lasix now. Pafib: new dx -Remains in SR. - initially in AF w/ RVR, now improved after cardizem IV and converted to cardizem CD 04/17. On Eliquis - free T4 elevated, management as per PMD hyperthyroidism: - TSH 0.01 here with new onset afib - manage per primary elevated trop: - no chest pain - likely demand in setting of new onset afib with RVR - echo unremarkable - chf, pna, and copd improving, will plan on nuclear stress test tomorrow for risk stratification given trop elevation here. lung cancer: - manage per onc CAD s/p MO, stents: - mild ischemia on mibi 06/2019, low risk finding, asymptomatic - cont plavix, dc aspirin now on anticoagulation - cont statin HLD: - cont statin HTN: - not on meds, stable here, monitor NSVT - maintain K>4, Mg >2 - normal LV function on echo here - mibi as above
--- NOTE | 2020-04-26 12:46 | PN ---
Progress Note (short form) - Note Progress Note: comfortable no sob no chest pain no palpitations Vital Signs - 24 hr 04/25/20 04/25/20 04/26/20 14:05 21:00 02:47 Temperature 97.8 F 98.1 F 97.6 F Pulse Rate 66 80 57 L Respiratory 18 18 18 Rate Blood Pressure 112/52 L 123/67 102/40 L O2 Sat by Pulse 95 Oximetry (%) 04/26/20 04/26/20 04/26/20 06:00 08:13 09:00 Temperature 97.6 F Pulse Rate 68 Respiratory 18 18 Rate Blood Pressure 97/46 L O2 Sat by Pulse 98 96 Oximetry (%) 04/26/20 10:00 Temperature 97.8 F Pulse Rate 78 Respiratory 18 Rate Blood Pressure 122/61 O2 Sat by Pulse 96 Oximetry (%) Current Medications Generic Name Dose Route Start Last Admin Trade Name Freq PRN Reason Stop Dose Admin Acetaminophen 650 mg 04/14/20 15:03 04/16/20 01:03 Tylenol - PO 650 mg Q6H PRN Administration FEVER Apixaban 5 mg 04/16/20 12:45 04/26/20 09:33 Eliquis - PO 5 mg BID [facility] Administration Atorvastatin Calcium 80 mg 04/14/20 22:00 04/25/20 22:33 Lipitor - PO 80 mg HS [facility] Administration Budesonide/Formoterol Fumarate 2 puff 04/14/20 22:00 04/26/20 09:35 Symbicort 160/4.5mcg - IH 2 puff BID [facility] Administration Bupropion HCl 150 mg 04/15/20 10:00 04/26/20 09:33 Wellbutrin Xl - PO 150 mg DAILY [facility] Administration Clopidogrel Bisulfate 75 mg 04/15/20 10:00 04/26/20 09:33 Plavix - PO 75 mg DAILY [facility] Administration Diltiazem HCl 120 mg 04/16/20 11:30 04/26/20 09:34 Cardizem Cd - PO 120 mg DAILY [facility] Administration Emollient Ointment 1 applic 04/15/20 13:45 04/26/20 09:34 Aquaphor - TP 1 applic DAILY [facility] Administration Fluconazole 100 mg 04/25/20 12:15 04/26/20 09:33 Diflucan - PO 100 mg DAILY [facility] Administration Furosemide 40 mg 04/27/20 10:00 Lasix - PO DAILY [facility] IV Flush 10 ml 04/23/20 18:24 Sydney-Cath Flush IVPUSH PRN PRN FLUSH IV Flush 10 ml 04/25/20 10:50 Sydney-Cath Flush IVPUSH PRN PRN FLUSH Vancomycin HCl 1,000 mg in 250 mls @ 166.667 mls/hr 04/23/20 08:00 04/26/20 09:32 Vancomycin (Pre-Docked) IVPB 166.667 mls/hr Q12H [facility] Administration Protocol Aztreonam 1 gm/ Dextrose 50 mls @ 100 mls/hr 04/23/20 08:15 04/26/20 09:32 IVPB 100 mls/hr Q8H-IV [facility] Administration Protocol Pantoprazole Sodium 20 mg 04/14/20 22:00 04/26/20 09:33 Protonix - PO 20 mg BID [facility] Administration Polyethylene Glycol 17 gm 04/14/20 15:03 Miralax (For Daily Use) - PO HS PRN CONSTIPATION Potassium Chloride 40 meq 04/17/20 10:00 04/26/20 09:33 Potassium Chloride Oral Liquid PO 40 meq DAILY [facility] Administration Prednisone 20 mg 04/26/20 10:00 04/26/20 09:33 Deltasone - PO 20 mg DAILY [facility] Administration Senna 2 tab 04/14/20 22:00 04/25/20 22:33 Senna - PO 2 tab HS [facility] Administration Tamsulosin HCl 0.4 mg 04/14/20 22:00 04/25/20 22:32 Flomax - PO 0.4 mg HS [facility] Administration S1 S2 Irregular Lungs decreased Abd- soft, obese, NT Edema PLAN Afib- -rate control with Cardizem. -- for stress test tomorrow -- IV lasix changed to PO Thyroiditis --TSH- remains the same -- free T4 trending down -- continue Methimazole -- check labs Acute on chronic respiratory failure --Taper prednisone --PT eval -- CT chest reviewed Pneumonia --continue with iv antibiotics per ID - check vancp trough --= ID follow up with regards to duration -- sputum cultures noted- add Diflucan Problem List - Problems (1) Pneumonia Code(s): J18.9 - PNEUMONIA, UNSPECIFIED ORGANISM (2) Hyperthyroidism Code(s): E05.90 - THYROTOXICOSIS, UNSP WITHOUT THYROTOXIC CRISIS OR STORM (3) Atrial fibrillation with RVR Code(s): I48.91 - UNSPECIFIED ATRIAL FIBRILLATION (4) NSTEMI (non-ST elevated myocardial infarction) Code(s): I21.4 - NON-ST ELEVATION (NSTEMI) MYOCARDIAL INFARCTION (5) Anemia Code(s): D64.9 - ANEMIA, UNSPECIFIED (6) CAD (coronary artery disease) Code(s): I25.10 - ATHSCL HEART DISEASE OF [place] CORONARY ARTERY W/O ANG PCTRS (7) Lung cancer Code(s): C34.90 - MALIGNANT NEOPLASM OF UNSP PART OF UNSP BRONCHUS OR LUNG
--- NOTE | 2020-04-26 12:48 | PN.HO ---
Progress Note (short form) - Note Progress Note: PAtient seen and examined Feels improved Last Vital Signs Temp Pulse Resp BP Pulse Ox 97.8 F 78 18 122/61 96 04/26/20 10:00 04/26/20 10:00 04/26/20 10:00 04/26/20 10:00 04/26/20 10:00 Cor: RSR, No murmurs, No gallops Lungs: decreased at bases Abd: Soft, Normal bowel sounds, No organomegaly Ext:No significant edema Labs/Meds reviewed A/P 64 y/o with HTN, CAD s/p stents, COPD/ILD, obesity Oligometastatic Squamous cell lung cancer. stage IV, s/p Lt. upper lobe wedge resection/Rt. upper lobe SRS s/p carbo/abraxane on immunotherapy with pembrolizumab Was due for C3 but present with generalized weakness/nausea/'new onset afib. 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 afib secondary to hyperthyroidism hypoadrenalism -- low am cortisol grade 3 pneumonitis requiring oxygen CHF on steroid taper/ antibiotics/ diuretics/methimazole CT chest reviewed Repeat imaging as outpatient hold pembrolizumab
[2020-04-26] MEDS: SENNOSIDES 8.6MG TABLET (FP) PO SCH (21:48)
[2020-04-26] MEDS: ATORVASTATIN CA 80 MG TABLET (FP) PO SCH (21:49)
[2020-04-26] MEDS: TAMSULOSIN HCL 0.4 MG CAP PO SCH (21:50)
[2020-04-27] MEDS ORDERED: AZTREONAM 1 GM VIAL (RESTRICTED TO ID) ONE ×2 (00:53→13:22)
[2020-04-27] MEDS ORDERED: DEXTROSE 5%-WATER - 50 ML IVPB ONE ×2 (00:53→13:23)
[2020-04-27] MEDS: AZTREONAM 1 GM in DEXTROSE 5%-WATER - 50 ML IVPB SCH ×3 (01:29→17:04)
--- NOTE | 2020-04-27 07:44 | PN ---
Progress Note, Physician History of Present Illness: PULMONARY ALERT,COMFORTABLE, SOB IMPROVING - Current Medication List Current Medications: Active Medications Acetaminophen (Tylenol -) 650 mg PO Q6H PRN PRN Reason: FEVER Last Admin: 04/16/20 01:03 Dose: 650 mg Documented by: Apixaban (Eliquis -) 5 mg PO BID [facility] Last Admin: 04/26/20 21:49 Dose: 5 mg Documented by: Atorvastatin Calcium (Lipitor -) 80 mg PO HS [facility] Last Admin: 04/26/20 21:49 Dose: 80 mg Documented by: Budesonide/Formoterol Fumarate (Symbicort 160/4.5mcg -) 2 puff IH BID [facility] Last Admin: 04/26/20 21:47 Dose: 2 puff Documented by: Bupropion HCl (Wellbutrin Xl -) 150 mg PO DAILY [facility] Last Admin: 04/26/20 09:33 Dose: 150 mg Documented by: Clopidogrel Bisulfate (Plavix -) 75 mg PO DAILY [facility] Last Admin: 04/26/20 09:33 Dose: 75 mg Documented by: Diltiazem HCl (Cardizem Cd -) 120 mg PO DAILY [facility] Last Admin: 04/26/20 09:34 Dose: 120 mg Documented by: Emollient Ointment (Aquaphor -) 1 applic TP DAILY [facility] Last Admin: 04/26/20 09:34 Dose: 1 applic Documented by: Fluconazole (Diflucan -) 100 mg PO DAILY [facility] Last Admin: 04/26/20 09:33 Dose: 100 mg Documented by: Furosemide (Lasix -) 40 mg PO DAILY [facility] IV Flush (Sydney-Cath Flush) 10 ml IVPUSH PRN PRN PRN Reason: FLUSH IV Flush ([place]-Cath Flush) 10 ml IVPUSH PRN PRN PRN Reason: FLUSH Aztreonam 1 gm/ Dextrose 50 mls @ 100 mls/hr IVPB Q8H-IV [facility]; Protocol Last Admin: 04/27/20 01:29 Dose: 100 mls/hr Documented by: Pantoprazole Sodium (Protonix -) 20 mg PO BID [facility] Last Admin: 04/26/20 21:49 Dose: 20 mg Documented by: Polyethylene Glycol (Miralax (For Daily Use) -) 17 gm PO HS PRN PRN Reason: CONSTIPATION Potassium Chloride (Potassium Chloride Oral Liquid) 40 meq PO DAILY [facility] Last Admin: 04/26/20 09:33 Dose: 40 meq Documented by: Prednisone (Deltasone -) 20 mg PO DAILY [facility] Last Admin: 04/26/20 09:33 Dose: 20 mg Documented by: Senna (Senna -) 2 tab PO [facility] Last Admin: 04/26/20 21:48 Dose: 2 tab Documented by: Tamsulosin HCl (Flomax -) 0.4 mg PO [facility] Last Admin: 04/26/20 21:50 Dose: 0.4 mg Documented by: - Objective Vital Signs: Vital Signs Temperature 98.2 F 04/27/20 06:06 Pulse Rate 70 04/27/20 06:06 Respiratory Rate 18 04/27/20 06:06 Blood Pressure 104/49 L 04/27/20 06:06 O2 Sat by Pulse Oximetry (%) 97 04/26/20 22:00 Constitutional: Yes: Well Nourished, Calm Eyes: Yes: WNL HENT: Yes: WNL Neck: Yes: WNL Cardiovascular: Yes: Pulse Irregular, S1, S2 Respiratory: Yes: Wheezes (FEW WHEEZES) Gastrointestinal: Yes: Normal Bowel Sounds, Soft Extremities: Yes: WNL Edema: Yes Labs: CBC, BMP Problem List - Problems (1) Acute on chronic respiratory failure with hypoxemia Code(s): J96.21 - ACUTE AND CHRONIC RESPIRATORY FAILURE WITH HYPOXIA (2) Atrial fibrillation with RVR Code(s): I48.91 - UNSPECIFIED ATRIAL FIBRILLATION (3) Pneumonia Code(s): J18.9 - PNEUMONIA, UNSPECIFIED ORGANISM (4) Anemia Code(s): D64.9 - ANEMIA, UNSPECIFIED (5) CAD (coronary artery disease) Code(s): I25.10 - ATHSCL HEART DISEASE OF [place] CORONARY ARTERY W/O ANG PCTRS (6) Lung cancer Code(s): C34.90 - MALIGNANT NEOPLASM OF UNSP PART OF UNSP BRONCHUS OR LUNG (7) COPD (chronic obstructive pulmonary disease) Code(s): J44.9 - CHRONIC OBSTRUCTIVE PULMONARY DISEASE, UNSPECIFIED Assessment/Plan A/P Acute on Chronic Hypoxic Respiratory Failure improving Lung Cancer Pneumonia COPD Atrial Fibrillation CHF CAD +Troponins likely Demand Ischemia [place] GERD h/o COVID19 - antibiotics - inhaled bronchodilators - prednisone - O2 to keep SpO2 >90% - rate control - anticoagulation - emily DUNCAN
[2020-04-27] MEDS ORDERED: REGADENOSON 0.4 MG/5 ML PRE-FILLED SYRINGE IVPUSH ONE ×2 (10:14→10:45)
[2020-04-27] MEDS ORDERED: AMINOPHYLLINE 250 MG/10 ML VIAL IVPUSH ONE (11:26)
[2020-04-27] MEDS ORDERED: AMINOPHYLLINE 250 MG/10 ML VIAL ONE (11:35)
[2020-04-27] MEDS ORDERED: predniSONE 10 MG TABLET (UD) PO SCH (12:30)
--- NOTE | 2020-04-27 12:30 | PN ---
Progress Note (short form) - Note Progress Note: comfortable no sob no chest pain no palpitations for stress test today Vital Signs - 24 hr 04/26/20 04/26/20 04/26/20 18:00 21:00 22:00 Temperature 97.9 F 97.8 F Pulse Rate 73 72 Respiratory 18 20 Rate Blood Pressure 114/59 L 103/47 L O2 Sat by Pulse 97 97 97 Oximetry (%) 04/27/20 04/27/20 04/27/20 06:06 08:51 09:00 Temperature 98.2 F 97.9 F Pulse Rate 70 72 Respiratory 18 20 20 Rate Blood Pressure 104/49 L 101/50 L O2 Sat by Pulse 99 99 Oximetry (%) 04/27/20 10:00 Temperature 97.9 F Pulse Rate 72 Respiratory 20 Rate Blood Pressure 101/50 L O2 Sat by Pulse 99 Oximetry (%) Current Medications Generic Name Dose Route Start Last Admin Trade Name Freq PRN Reason Stop Dose Admin Acetaminophen 650 mg 04/14/20 15:03 04/16/20 01:03 Tylenol - PO 650 mg Q6H PRN Administration FEVER Apixaban 5 mg 04/16/20 12:45 04/26/20 21:49 Eliquis - PO 5 mg BID [facility] Administration Atorvastatin Calcium 80 mg 04/14/20 22:00 04/26/20 21:49 Lipitor - PO 80 mg HS [facility] Administration Budesonide/Formoterol Fumarate 2 puff 04/14/20 22:00 04/26/20 21:47 Symbicort 160/4.5mcg - IH 2 puff BID [facility] Administration Bupropion HCl 150 mg 04/15/20 10:00 04/26/20 09:33 Wellbutrin Xl - PO 150 mg DAILY [facility] Administration Clopidogrel Bisulfate 75 mg 04/15/20 10:00 04/26/20 09:33 Plavix - PO 75 mg DAILY [facility] Administration Diltiazem HCl 120 mg 04/16/20 11:30 04/26/20 09:34 Cardizem Cd - PO 120 mg DAILY [facility] Administration Emollient Ointment 1 applic 04/15/20 13:45 04/26/20 09:34 Aquaphor - TP 1 applic DAILY [facility] Administration Fluconazole 100 mg 04/25/20 12:15 04/26/20 09:33 Diflucan - PO 100 mg DAILY [facility] Administration Furosemide 40 mg 09/08/20 10:00 Lasix - PO DAILY [facility] IV Flush 10 ml 04/23/20 18:24 Sydney-Cath Flush IVPUSH PRN PRN FLUSH IV Flush 10 ml 04/25/20 10:50 Sydney-Cath Flush IVPUSH PRN PRN FLUSH Aztreonam 1 gm/ Dextrose 50 mls @ 100 mls/hr 04/23/20 08:15 04/27/20 01:29 IVPB 100 mls/hr Q8H-IV [facility] Administration Protocol Pantoprazole Sodium 20 mg 04/14/20 22:00 04/26/20 21:49 Protonix - PO 20 mg BID [facility] Administration Polyethylene Glycol 17 gm 04/14/20 15:03 Miralax (For Daily Use) - PO HS PRN CONSTIPATION Potassium Chloride 40 meq 04/17/20 10:00 04/26/20 09:33 Potassium Chloride Oral Liquid PO 40 meq DAILY [facility] Administration Prednisone 20 mg 04/26/20 10:00 04/26/20 09:33 Deltasone - PO 20 mg DAILY [facility] Administration Senna 2 tab 04/14/20 22:00 04/26/20 21:48 Senna - PO 2 tab HS [facility] Administration Tamsulosin HCl 0.4 mg 04/14/20 22:00 04/26/20 21:50 Flomax - PO 0.4 mg HS [facility] Administration Laboratory Results - last 24 hr 04/26/20 04/27/20 19:33 06:10 TSH 0.04 L D Free T4 1.32 H Vancomycin Pre-Dose 19.4 H S1 S2 Irregular Lungs decreased Abd- soft, obese, NT Edema PLAN Afib- -rate control with Cardizem. -- for stress test tomorrow -- IV lasix changed to PO Thyroiditis --TSH- rising -- free T4 trending down -- continue Methimazole Acute on chronic respiratory failure --Taper prednisone --PT eval -- CT chest reviewed Pneumonia --spoke with ID--- will be discontinuing antibiotics -- sputum cultures noted- add Diflucan DC planning to [place] depending upon stress test Problem List - Problems (1) Pneumonia Code(s): J18.9 - PNEUMONIA, UNSPECIFIED ORGANISM (2) Hyperthyroidism Code(s): E05.90 - THYROTOXICOSIS, UNSP WITHOUT THYROTOXIC CRISIS OR STORM (3) Atrial fibrillation with RVR Code(s): I48.91 - UNSPECIFIED ATRIAL FIBRILLATION (4) NSTEMI (non-ST elevated myocardial infarction) Code(s): I21.4 - NON-ST ELEVATION (NSTEMI) MYOCARDIAL INFARCTION (5) Anemia Code(s): D64.9 - ANEMIA, UNSPECIFIED (6) CAD (coronary artery disease) Code(s): I25.10 - ATHSCL HEART DISEASE OF [place] CORONARY ARTERY W/O ANG PCTRS (7) Lung cancer Code(s): C34.90 - MALIGNANT NEOPLASM OF UNSP PART OF UNSP BRONCHUS OR LUNG
--- NOTE | 2020-04-27 13:40 | PN ---
Progress Note (short form) - Note Progress Note: s: no cp sob palps dizzy Current Medications Generic Name Dose Route Start Last Admin Trade Name Freq PRN Reason Stop Dose Admin Acetaminophen 650 mg 04/14/20 15:03 04/16/20 01:03 Tylenol - PO 650 mg Q6H PRN Administration FEVER Apixaban 5 mg 04/16/20 12:45 04/26/20 21:49 Eliquis - PO 5 mg BID JENY Administration Atorvastatin Calcium 80 mg 04/14/20 22:00 04/26/20 21:49 Lipitor - PO 80 mg HS JENY Administration Budesonide/Formoterol Fumarate 2 puff 04/14/20 22:00 04/26/20 21:47 Symbicort 160/4.5mcg - IH 2 puff BID JENY Administration Bupropion HCl 150 mg 04/15/20 10:00 04/26/20 09:33 Wellbutrin Xl - PO 150 mg DAILY JENY Administration Clopidogrel Bisulfate 75 mg 04/15/20 10:00 04/26/20 09:33 Plavix - PO 75 mg DAILY JENY Administration Diltiazem HCl 120 mg 04/16/20 11:30 04/26/20 09:34 Cardizem Cd - PO 120 mg DAILY JENY Administration Emollient Ointment 1 applic 04/15/20 13:45 04/26/20 09:34 Aquaphor - TP 1 applic DAILY JENY Administration Fluconazole 100 mg 04/25/20 12:15 04/26/20 09:33 Diflucan - PO 100 mg DAILY JENY Administration Furosemide 40 mg 04/27/20 10:00 Lasix - PO DAILY JENY IV Flush 10 ml 04/23/20 18:24 Sydney-Cath Flush IVPUSH PRN PRN FLUSH IV Flush 10 ml 04/25/20 10:50 Sydney-Cath Flush IVPUSH PRN PRN FLUSH Aztreonam 1 gm/ Dextrose 50 mls @ 100 mls/hr 04/23/20 08:15 04/27/20 01:29 IVPB 100 mls/hr Q8H-IV JENY Administration Protocol Pantoprazole Sodium 20 mg 04/14/20 22:00 04/26/20 21:49 Protonix - PO 20 mg BID JENY Administration Polyethylene Glycol 17 gm 04/14/20 15:03 Miralax (For Daily Use) - PO HS PRN CONSTIPATION Potassium Chloride 40 meq 04/17/20 10:00 04/26/20 09:33 Potassium Chloride Oral Liquid PO 40 meq DAILY JENY Administration Prednisone 10 mg 04/27/20 12:30 Deltasone - PO DAILY JENY Senna 2 tab 04/14/20 22:00 04/26/20 21:48 Senna - PO 2 tab HS JENY Administration Tamsulosin HCl 0.4 mg 04/14/20 22:00 04/26/20 21:50 Flomax - PO 0.4 mg HS JENY Administration Vital Signs Period Temp Pulse Resp BP Sys/Adams Pulse Ox Last 24 Hr 97.8 F-98.2 F 70-73 18-20 101-114/47-59 97-99 Constitutional: Yes: No Distress, Calm Eyes: Yes: Conjunctiva Clear Neck: Yes: Supple, Trachea Midline Respiratory: Yes: Regular, Cough, Diminished Gastrointestinal: Yes: Normal Bowel Sounds, Soft Cardiovascular: Yes: irregular, nl s1 s2 JVD: No Integumentary: No: Jaundice Neurological: Yes: Alert, Oriented Psychiatric: No: Agitated Assessment/Plan echo 06/2019 nl LV/RV function, tr TR echo 03/2020: nl lv/rv, no sig valve path mibi 06/2019 mild inferolateral ischemia, no TID, nl EF CXR: progressive R sided infiltrative changes, L side clear acute on chronic diastolic CHF: -vol status improved with iv lasix - cont PO lasix Pafib: new dx -Remains in SR. - initially in AF w/ RVR, now improved after cardizem IV and converted to cardizem CD 04/17. On Eliquis - free T4 elevated, management as per PMD hyperthyroidism: - TSH 0.01 here with new onset afib - manage per primary elevated trop: - no chest pain - likely demand in setting of new onset afib with RVR - echo unremarkable - chf, pna, and copd improving - nuclear stress pending lung cancer: - manage per onc CAD s/p NM, stents: - mild ischemia on mibi 06/2019, low risk finding, asymptomatic - cont plavix, dc aspirin now on anticoagulation - cont statin HLD: - cont statin HTN: - not on meds, stable here, monitor NSVT - maintain K>4, Mg >2 - normal LV function on echo here - mibi as above
[2020-04-27] MEDS: MINERAL OIL/PET HY-PHL TOPICAL OINTMENT 454 GM JAR TP SCH (13:57)
[2020-04-27] MEDS: predniSONE 20 MG TABLET (UD) PO SCH (13:57)
[2020-04-27] MEDS: APIXABAN 5 MG TABLET PO SCH ×2 (13:58→22:27)
[2020-04-27] MEDS: FLUCONAZOLE 100 MG TABLET (UD) PO SCH (13:58)
[2020-04-27] MEDS: FUROSEMIDE 40 MG TABLET (FP) PO SCH (13:58)
[2020-04-27] MEDS: CLOPIDOGREL BISULFATE 75 MG TABLET (FP) PO SCH (13:58)
[2020-04-27] MEDS: BUDESONIDE/FORMETEROL FUMARATE 160/4.5 mcg INHALER IH SCH ×2 (13:58→22:55)
[2020-04-27] MEDS: PANTOPRAZOLE 20 MG TABLET PO SCH ×2 (13:58→22:26)
[2020-04-27] MEDS: POTASSIUM CHLORIDE ORAL LIQUID 20 MEQ/15 ML PO SCH (13:58)
--- NOTE | 2020-04-27 16:39 | PN ---
Physical Exam: SUBJECTIVE: Patient seen and examined. Eating lunch. Has no complaints but anxious to go home. OBJECTIVE: Vital Signs Temperature 97.9 F 04/27/20 14:00 Pulse Rate 71 04/27/20 14:00 Respiratory Rate 20 04/27/20 13:49 Blood Pressure 112/57 L 04/27/20 14:00 O2 Sat by Pulse Oximetry (%) 97 04/27/20 14:06 GENERAL: The patient is awake, alert, and fully oriented, on 3L Nc NECK: supple. LUNGS: decreased breath sounds bilateral bases HEART: irregular, S1, S2 ABDOMEN: Soft, nontender, nondistended, normoactive bowel sounds EXTREMITIES: 2+ pulses, warm, well-perfused, no edema. NEUROLOGICAL: Cranial nerves II through XII grossly intact. Normal speech PSYCH: Normal mood, normal affect. SKIN: Warm, dry, normal turgor Laboratory Results - last 24 hr 04/26/20 04/27/20 19:33 06:10 TSH 0.04 L D Free T4 1.32 H Vancomycin Pre-Dose 19.4 H Active Medications Generic Name Dose Route Start Last Admin Trade Name Freq PRN Reason Stop Dose Admin Acetaminophen 650 mg 04/14/20 15:03 04/16/20 01:03 Tylenol - PO 650 mg Q6H PRN Administration FEVER Apixaban 5 mg 04/16/20 12:45 04/27/20 13:58 Eliquis - PO 5 mg BID JENY Administration Atorvastatin Calcium 80 mg 04/14/20 22:00 04/26/20 21:49 Lipitor - PO 80 mg HS JENY Administration Budesonide/Formoterol Fumarate 2 puff 04/14/20 22:00 04/27/20 13:58 Symbicort 160/4.5mcg - IH 2 puff BID JENY Administration Bupropion HCl 150 mg 04/15/20 10:00 04/27/20 13:58 Wellbutrin Xl - PO 150 mg DAILY JENY Administration Clopidogrel Bisulfate 75 mg 04/15/20 10:00 04/27/20 13:58 Plavix - PO 75 mg DAILY JENY Administration Diltiazem HCl 120 mg 04/16/20 11:30 04/27/20 13:57 Cardizem Cd - PO 120 mg DAILY JENY Administration Emollient Ointment 1 applic 04/15/20 13:45 04/27/20 13:57 Aquaphor - TP 1 applic DAILY JENY Administration Fluconazole 100 mg 04/25/20 12:15 04/27/20 13:58 Diflucan - PO 100 mg DAILY JENY Administration Furosemide 40 mg 04/27/20 10:00 04/27/20 13:58 Lasix - PO 40 mg DAILY JENY Administration IV Flush 10 ml 04/23/20 18:24 Sydney-Cath Flush IVPUSH PRN PRN FLUSH IV Flush 10 ml 04/25/20 10:50 Sydney-Cath Flush IVPUSH PRN PRN FLUSH Aztreonam 1 gm/ Dextrose 50 mls @ 100 mls/hr 04/23/20 08:15 04/27/20 13:57 IVPB 100 mls/hr Q8H-IV JENY Administration Protocol Pantoprazole Sodium 20 mg 04/14/20 22:00 04/27/20 13:58 Protonix - PO 20 mg BID JENY Administration Polyethylene Glycol 17 gm 04/14/20 15:03 Miralax (For Daily Use) - PO HS PRN CONSTIPATION Potassium Chloride 40 meq 04/17/20 10:00 04/27/20 13:58 Potassium Chloride Oral Liquid PO 40 meq DAILY JENY Administration Prednisone 10 mg 04/27/20 12:30 Deltasone - PO DAILY JENY Senna 2 tab 04/14/20 22:00 04/26/20 21:48 Senna - PO 2 tab HS JENY Administration Tamsulosin HCl 0.4 mg 04/14/20 22:00 04/26/20 21:50 Flomax - PO 0.4 mg HS JENY Administration ASSESSMENT/PLAN: Patient is a 64 YOM with a significant PMH of Sq Cell Lung CA (s/p resection in Jul 2019, port insertion, and chemo with carbo/abraxane), HTN, HLD, CAD (stents x2, on Plavix), COPD, [place] (on home O2 at night as needed), GERD, PVD and recent admission for COVID presents to the ED after found to be tachycardic on Dr. Tolbert's clinic. Found to have Afib with RVR, with TFT consistent with hyperthyroid. #Metastatic squamous cell lung Ca -s/p Lt. upper lobe wedge resection/Rt. upper lobe SRS -on carbo/abraxane, and immunotherapy with pembrolizumab, 2 cycles completed -hyperthyroidism likely 2/2 autoimmune thyroiditis 2/2 ?pembrolizumab -holding pembrolizumab -to follow up with Dr. Tolbert in clinic #Afib with RVR -likely 2/2 hyperthyroid, pneumonia, no hx of afib -Improved with IV Cardizem -continue PO cardizem 120mg daily -on Eliquis 5mg bid -Elevated troponins likely demand ischemia -stress test today -cardiology on board #Hyperthyroidism -TSH 0.01, FT4 7 -- ?autoimmune thyroiditis possible 2/2 pembrolizumab -Pt likely to go hypothyroid from the thyroiditis and need LT4 replacement. -FT4 trending down, TSH improving -Methimazole 10mg daily -Endocrine on board #Acute on chronic hypoxic and hypercapneic respiratory failure -CXR 04/16 : progressive bilateral pulmonary and pleural changes in comparison to CXR on 04/14 -likely 2/2 post obstructive pneumonia 2/2 Lung Ca, ?pneumonitis 2/2 pembrolizumab -on IV aztreonam. Diflucan for yeast on sputum culture. -ID on board -Blood cultures negative, Urine legionella/pneumoniae negative -inhaled bronchodilators -on steroid taper -supplemental oxygen to keep spo2 >90% -bipap prn -Pulm consulted. Visit type - Emergency Visit Emergency Visit: Yes ED Registration Date: 04/14/20 Care time: The patient presented to the Emergency Department on the above date and was hospitalized for further evaluation of their emergent condition. - New Patient This patient is new to me today: No - Critical Care Critical Care patient: No - Medication Review Med list reviewed for High Risk Meds patients 65 and older: Yes ATTENDING PHYSICIAN STATEMENT I saw and evaluated the patient. I reviewed the resident's note and discussed the case with the resident. I agree with the resident's findings and plan as documented. SUBJECTIVE: OBJECTIVE: ASSESSMENT AND PLAN:
--- NOTE | 2020-04-27 17:47 | PN ---
Teaching Attending Note Name of Resident: Yennifer Gottlieb ATTENDING PHYSICIAN STATEMENT I saw and evaluated the patient. I reviewed the resident's note and discussed the case with the resident. I agree with the resident's findings and plan as documented. SUBJECTIVE: Wanted to go home ASSESSMENT AND PLAN: 64 y/o gentleman with HTN, CAD s/p stents, COPD/ILD, obesity Oligometastatic Squamous cell lung cancer. stage IV, s/p Lt. upper lobe wedge resection/Rt. upper lobe SRS s/p carbo/abraxane on immunotherapy with pembrolizumab Was due for C3 but present with generalized weakness/nausea/'new onset afib. 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 afib secondary to hyperthyroidism hypoadrenalism -- low am cortisol grade 3 pneumonitis requiring oxygen CHF on steroid taper/ antibiotics/ diuretics/methimazole Repeat imaging as outpatient Hold pembrolizumab
[2020-04-27] MEDS: ATORVASTATIN CA 80 MG TABLET (FP) PO SCH (22:27)
[2020-04-27] MEDS: TAMSULOSIN HCL 0.4 MG CAP PO SCH (22:27)
[2020-04-27] MEDS: SENNOSIDES 8.6MG TABLET (FP) PO SCH (22:27)
[2020-04-28] MEDS ORDERED: ACETAMINOPHEN 325 MG TABLET (FP) PO PRN (07:05)
[2020-04-28] MEDS ORDERED: POLYETHYLENE GLYCOL 3350 119 GM BTL PO PRN (07:05)
--- NOTE | 2020-04-28 07:53 | PN ---
Progress Note, Physician History of Present Illness: PULMONARY ALERT,COMFORTABLE,-SOB - Current Medication List Current Medications: Active Medications Acetaminophen (Tylenol -) 650 mg PO Q6H PRN PRN Reason: FEVER Apixaban (Eliquis -) 5 mg PO BID [facility] Atorvastatin Calcium (Lipitor -) 80 mg PO HS [facility] Budesonide/Formoterol Fumarate (Symbicort 160/4.5mcg -) 2 puff IH BID [facility] Bupropion HCl (Wellbutrin Xl -) 150 mg PO DAILY [facility] Clopidogrel Bisulfate (Plavix -) 75 mg PO DAILY [facility] Diltiazem HCl (Cardizem Cd -) 120 mg PO DAILY [facility] Emollient Ointment (Aquaphor -) 1 applic TP DAILY [facility] Fluconazole (Diflucan -) 100 mg PO DAILY [facility] Last Admin: 04/27/20 13:58 Dose: 100 mg Documented by: Furosemide (Lasix -) 40 mg PO DAILY [facility] Last Admin: 04/27/20 13:58 Dose: 40 mg Documented by: IV Flush (Sydney-Cath Flush) 10 ml IVPUSH PRN PRN PRN Reason: FLUSH IV Flush (Sydney-Cath Flush) 10 ml IVPUSH PRN PRN PRN Reason: FLUSH Pantoprazole Sodium (Protonix -) 20 mg PO BID [facility] Polyethylene Glycol (Miralax (For Daily Use) -) 17 gm PO HS PRN PRN Reason: CONSTIPATION Potassium Chloride (Potassium Chloride Oral Liquid) 40 meq PO DAILY [facility] Prednisone (Deltasone -) 10 mg PO DAILY [facility] Senna (Senna -) 2 tab PO HS [facility] Tamsulosin HCl (Flomax -) 0.4 mg PO HS [facility] - Objective Vital Signs: Vital Signs Temperature 97.9 F 04/28/20 06:36 Pulse Rate 62 04/28/20 06:36 Respiratory Rate 102 H 04/28/20 06:36 Blood Pressure 102/42 L 04/28/20 06:36 O2 Sat by Pulse Oximetry (%) 97 04/28/20 06:36 Constitutional: Yes: Well Nourished, Calm Eyes: Yes: WNL HENT: Yes: WNL Neck: Yes: WNL Cardiovascular: Yes: Pulse Irregular, S1, S2 Respiratory: Yes: Diminished Gastrointestinal: Yes: Normal Bowel Sounds, Soft Extremities: Yes: WNL Edema: Yes Labs: CBC, BMP Problem List - Problems (1) Acute on chronic respiratory failure with hypoxemia Code(s): J96.21 - ACUTE AND CHRONIC RESPIRATORY FAILURE WITH HYPOXIA (2) Atrial fibrillation with RVR Code(s): I48.91 - UNSPECIFIED ATRIAL FIBRILLATION (3) Pneumonia Code(s): J18.9 - PNEUMONIA, UNSPECIFIED ORGANISM (4) Anemia Code(s): D64.9 - ANEMIA, UNSPECIFIED (5) CAD (coronary artery disease) Code(s): I25.10 - ATHSCL HEART DISEASE OF [place] CORONARY ARTERY W/O ANG PCTRS (6) Lung cancer Code(s): C34.90 - MALIGNANT NEOPLASM OF UNSP PART OF UNSP BRONCHUS OR LUNG (7) COPD (chronic obstructive pulmonary disease) Code(s): J44.9 - CHRONIC OBSTRUCTIVE PULMONARY DISEASE, UNSPECIFIED Assessment/Plan A/P Acute on Chronic Hypoxic Respiratory Failure improved Lung Cancer Pneumonia COPD Atrial Fibrillation CHF CAD +Troponins likely Demand Ischemia [place] GERD h/o COVID19 - antibiotics completed - inhaled bronchodilators - prednisone - O2 to keep SpO2 >90% - rate control - anticoagulation - lasix po DR DUNCAN
[2020-04-28 08:07] LABS: FOLLICLE STIMULATING HORMONE 15.8 mIU/mL (1.5-12.4); LUTEINIZING HORMONE 8.9 mIU/mL (1.7-8.6)
--- NOTE | 2020-04-28 09:00 | PN ---
Progress Note (short form) - Note Progress Note: Feels better Vital Signs Period Temp Pulse Resp BP Sys/Adams Pulse Ox Last 24 Hr 97.5 F-98.3 F 62-92 20-102 101-122/42-65 92-100 PE: Awake alert Neck: Supple HEENT: EOMI Lungs: basal crackles CVS: S1S2 Abd: Benign Ext: trace edema CMP Sodium 139 mmol/L (136-145) 04/23/20 06:18 Potassium 4.2 mmol/L (3.5-5.1) 04/23/20 06:18 Chloride 99 mmol/L (98-107) 04/23/20 06:18 Carbon Dioxide 36 mmol/L (21-32) H 04/23/20 06:18 Anion Gap 4 MMOL/L (8-16) L 04/23/20 06:18 BUN 28.6 mg/dL (7-18) H 04/23/20 06:18 Creatinine 0.5 mg/dL (0.55-1.3) L 04/23/20 06:18 Est GFR (CKD-EPI)AfAm 130.88 04/23/20 06:18 Est GFR (CKD-EPI)NonAf 112.92 04/23/20 06:18 Random Glucose 90 mg/dL (74-106) 04/23/20 06:18 Lactic Acid 1.2 mmol/L (0.4-2.0) 04/14/20 10:50 Calcium 9.6 mg/dL (8.5-10.1) 04/23/20 06:18 Magnesium 2.2 mg/dL (1.8-2.4) 04/23/20 06:18 Total Bilirubin 0.4 mg/dL (0.2-1) 04/21/20 06:30 AST 16 U/L (15-37) 04/21/20 06:30 ALT 26 U/L (13-61) 04/21/20 06:30 Alkaline Phosphatase 74 U/L (45-117) 04/21/20 06:30 LD Total 187 U/L (87-246) 04/14/20 10:50 Creatine Kinase 82 U/L (26-308) 04/15/20 04:00 Troponin I 1.67 ng/ml (0.00-0.05) H* 04/15/20 04:00 B-Natriuretic Peptide 3776.0 pg/ml (5-125) H 04/23/20 06:18 Total Protein 5.9 g/dl (6.4-8.2) L 04/21/20 06:30 Albumin 2.4 g/dl (3.4-5.0) L 04/21/20 06:30 Interleukin 6 36.2 pg/mL (0.0-15.5) H 04/16/20 06:28 TSH 0.04 uIU/ml (0.358-3.74) L D 04/27/20 06:10 Free T4 1.32 ng/dl (0.76-1.16) H 04/27/20 06:10 Free T3 1.5 pg/ml (2.0-4.4) L 04/27/20 06:10 Thyroid Stim Immunoglob <0.10 IU/L (0.00-0.55) 04/16/20 06:28 FSH 15.8 mIU/mL (1.5-12.4) H 04/27/20 06:10 Luteinizing Hormone 8.9 mIU/mL (1.7-8.6) H 04/27/20 06:10 Cortisol 30 Minute 4.10 mcg/dL (.) 04/24/20 06:30 Cortisol 60 Minute 5.5 ug/dL (.) 04/24/20 06:55 Cortisol AM Sample 0.6 ug/dL (6.2-19.4) L 04/24/20 06:00 ACTH 5.8 PG/ML (7.2-63.3) L 04/24/20 06:00 AP: Hyperthyroidism: Probably Thyroiditis sec to Pembrolizumab TSI <0.1 FT4 1.32 from 6.57 . Sed rate 117 IL6 pending FT4 1.12 on 03/03 to 1.38 on 03/24 to 7.45 on 04/14 Off Methimazole 10mg now Off Pembrolizumab On Prednisone now for his lungs. It should help with the thyroiditis also. Continue to monitor TFT. Pt likely to go hypothyroid from the thyroiditis in the future and need LT4 replacement. Adrenal Insufficiency: Probably sec Cortisol 4.1 and 5.5 at 30 and 60mins post ACTH stimulation, ACTH 5.8, Will need to continue him on Prednisone 5 mg daily for life unless the pituitary function recovers in the future Lung CA A Fib CAD HLD Will f/u
[2020-04-28] MEDS ORDERED: PT OWN MED DRAWER 7, Y5N ONE (09:49)
[2020-04-28] MEDS: FUROSEMIDE 40 MG TABLET (FP) PO SCH (09:57)
[2020-04-28] MEDS: FLUCONAZOLE 100 MG TABLET (UD) PO SCH (09:57)
[2020-04-28] MEDS ORDERED: APIXABAN 5 MG TABLET PO SCH (10:00)
[2020-04-28] MEDS ORDERED: MINERAL OIL/PET HY-PHL TOPICAL OINTMENT 454 GM JAR TP SCH (10:00)
[2020-04-28] MEDS ORDERED: BUDESONIDE/FORMETEROL FUMARATE 160/4.5 mcg INHALER IH SCH (10:00)
[2020-04-28] MEDS ORDERED: POTASSIUM CHLORIDE ORAL LIQUID 20 MEQ/15 ML PO SCH (10:00)
[2020-04-28] MEDS ORDERED: CLOPIDOGREL BISULFATE 75 MG TABLET (FP) PO SCH (10:00)
[2020-04-28] MEDS ORDERED: PANTOPRAZOLE 20 MG TABLET PO SCH (10:00)
--- NOTE | 2020-04-28 12:17 | DS ---
Physical Examination Vital Signs: Vital Signs Temperature 98.8 F 04/28/20 10:00 Pulse Rate 74 04/28/20 10:00 Respiratory Rate 20 04/28/20 10:00 Blood Pressure 130/56 L 04/28/20 10:00 O2 Sat by Pulse Oximetry (%) 100 04/28/20 10:00 Constitutional: Yes: No Distress, Calm Cardiovascular: Yes: Pulse Irregular Respiratory: Yes: Diminished Gastrointestinal: Yes: Normal Bowel Sounds, Soft, Abdomen, Obese. No: Tenderness Edema: Yes Edema: LLE: Trace, RLE: Trace Labs: CBC, BMP 04/22/20 06:04 04/23/20 06:18 Discharge Summary Problems reviewed: Yes Reason For Visit: NSTEMI,ATRIAL FIBRILLATION W RAPID VENT RESPONSE Current Active Problems Acute on chronic respiratory failure with hypoxemia (Acute) Atrial fibrillation with RVR (Acute) COPD (chronic obstructive pulmonary disease) (Acute) Hyperthyroidism (Acute) NSTEMI (non-ST elevated myocardial infarction) (Acute) Pneumonia (Acute) Health Concerns: History of Present Illness Initial Comments: 04/14/20 10:44 64 YOM with a significant PMH of Sq Cell Lung CA (s/p resection in Jul 2019, por t insertion, and chemo with carbo/abraxane), HTN, HLD, CAD (stents x2, on Plavix), COPD, [place] (on home O2 at night as needed), GERD, PVD and recent admission for COVID presents to the ED from [facility] for evaluation of nausea and weakness today. Patient states that he woke up today and felt very nauseas, tired, sleepy, weak and warm, prompting his arrival to the ED. He is also endorsing a low appetite, recent cough and shortness of breath along with 2 days of nonbloody diarrhea. Last chemotherapy was 3 weeks ago. Denies chest pain, palpitation, dizziness, Vomiting, abdominal pain, bladder and bowel problems, leg swelling, weakness, numbness or tingling. No sick contacts or travel. No new changes in medications. HOSPITAL COURSE Rapid afib -- clinical thyroiditis and penumona as the cause he was seen by Cardiology,ID, Endocrinology ,Oncology and Pulmonary He was on Aztreonam and Vanco-- antibiotics completed Was on IV lasix-- changed to PO He clinically getting better Had stress test on 04/27-- positive for ischemia- pt declined Cardiac cath- public housing interviewer and pt has agreed for medical management for now Rate is controlled Continue to monitor TFT. Pt likely to go hypothyroid from the thyroiditis in the future and need LT4 replacement. If the TSI is reported WNL and FT4 continue to come down, will D/C Methimazole. stable for dc to NH Condition: Guarded - Instructions Diet, Activity, Other Instructions: Continue to monitor TFT. Pt likely to go hypothyroid from the thyroiditis in the future and need LT4 replacement. If the TSI is reported WNL and FT4 continue to come down, will D/C Methimazole. Referrals: Kota Xavier MD [Primary Care Provider] - - Home Medications Comprehensive Discharge Medication List: Ambulatory Orders Aspirin [ASA -] 81 mg PO DAILY 06/13/19 Budesonide/Formeterol Fumarate [SYMBICORT 160/4.5mcg -] 2 inh PO BID 06/13/19 Bupropion HCl [Bupropion HCl Sr] 150 mg PO DAILY 06/13/19 Clopidogrel Bisulfate [Plavix -] 75 mg PO DAILY 06/13/19 Polyethylene Glycol 3350 [Miralax 119 gm Btl -] 17 gm PO HS 06/16/19 Sennosides [Senna] 8.6 mg PO HS 06/16/19 Simvastatin [Zocor] 80 mg PO HS 06/16/19 Tamsulosin HCl [Flomax] 0.4 mg PO HS 12/20/19 Ascorbic Acid [Vitamin C -] 250 mg PO BID #42 tablet 12/22/19 Zinc 50 mg PO BID #42 tablet 12/22/19 Acetaminophen [Tylenol] 650 mg PO ASDIR 03/03/20 Budesonide/Formeterol Fumarate [SYMBICORT 160/4.5mcg -] 2 inh IH BID 03/03/20 Cholecalciferol (Vitamin D3) [Vitamin D3 -] 1,000 unit PO DAILY 03/03/20 Ferrous Sulfate [Feosol] 325 mg PO DAILY 03/03/20 Mag Hydrox/Al Hydrox/Simeth [Mylanta *Suspension*] 15 ml PO ASDIR 03/03/20 Pantoprazole Sodium [Protonix -] 20 mg PO BID 03/03/20
--- NOTE | 2020-04-28 12:58 | PN ---
Progress Note (short form) - Note Progress Note: s: no cp sob palps dizzy Current Medications Generic Name Dose Route Start Last Admin Trade Name Freq PRN Reason Stop Dose Admin Acetaminophen 650 mg 04/28/20 07:05 Tylenol - PO Q6H PRN FEVER Apixaban 5 mg 04/28/20 10:00 04/28/20 09:57 Eliquis - PO 5 mg BID JENY Administration Atorvastatin Calcium 80 mg 04/28/20 22:00 Lipitor - PO HS JENY Budesonide/Formoterol Fumarate 2 puff 04/28/20 10:00 04/28/20 10:03 Symbicort 160/4.5mcg - IH 2 puff BID JENY Administration Bupropion HCl 150 mg 04/28/20 10:00 04/28/20 09:57 Wellbutrin Xl - PO 150 mg DAILY JENY Administration Clopidogrel Bisulfate 75 mg 04/28/20 10:00 04/28/20 09:57 Plavix - PO 75 mg DAILY JENY Administration Diltiazem HCl 120 mg 04/28/20 10:00 04/28/20 09:58 Cardizem Cd - PO 120 mg DAILY JENY Administration Emollient Ointment 1 applic 04/28/20 10:00 04/28/20 09:57 Aquaphor - TP 1 applic DAILY JENY Administration Fluconazole 100 mg 04/25/20 12:15 04/28/20 09:57 Diflucan - PO 100 mg DAILY JENY Administration Furosemide 40 mg 04/27/20 10:00 04/28/20 09:57 Lasix - PO 40 mg DAILY JENY Administration IV Flush 10 ml 04/23/20 18:24 Sydney-Cath Flush IVPUSH PRN PRN FLUSH IV Flush 10 ml 04/25/20 10:50 Sydney-Cath Flush IVPUSH PRN PRN FLUSH Pantoprazole Sodium 20 mg 04/28/20 10:00 04/28/20 09:57 Protonix - PO 20 mg BID JENY Administration Polyethylene Glycol 17 gm 04/28/20 07:05 Miralax (For Daily Use) - PO HS PRN CONSTIPATION Potassium Chloride 40 meq 04/28/20 10:00 04/28/20 09:57 Potassium Chloride Oral Liquid PO 40 meq DAILY JENY Administration Prednisone 10 mg 04/27/20 12:30 09/09/20 09:57 Deltasone - PO 10 mg DAILY JENY Administration Senna 2 tab 04/28/20 22:00 Senna - PO HS JENY Tamsulosin HCl 0.4 mg 04/28/20 22:00 Flomax - PO HS JENY Vital Signs Period Temp Pulse Resp BP Sys/Adams Pulse Ox Last 24 Hr 97.5 F-98.8 F 62-92 20-102 102-130/42-65 92-100 Constitutional: Yes: No Distress, Calm Eyes: Yes: Conjunctiva Clear Neck: Yes: Supple, Trachea Midline Respiratory: Yes: Regular, Cough, Diminished Gastrointestinal: Yes: Normal Bowel Sounds, Soft Cardiovascular: Yes: irregular, nl s1 s2 JVD: No Integumentary: No: Jaundice Neurological: Yes: Alert, Oriented Psychiatric: No: Agitated Assessment/Plan echo 06/2019 nl LV/RV function, tr TR echo 03/2020: nl lv/rv, no sig valve path mibi 06/2019 mild inferolateral ischemia, no TID, nl EF CXR: progressive R sided infiltrative changes, L side clear mibi 04/2020 medium sized, mod to severe inferior and inferolateral wall defects that are partially reversible consistent with infarct with mild to mod per- infarct ischemia acute on chronic diastolic CHF: -vol status improved with iv lasix - cont PO lasix Pafib: new dx -Remains in SR. - initially in AF w/ RVR, now improved after cardizem IV and converted to cardizem CD 04/17. On Eliquis - free T4 elevated, management as per PMD hyperthyroidism: - TSH 0.01 here with new onset afib - manage per primary CAD s/p [place], stents: - mild ischemia on mibi 06/2019, low risk finding, asymptomatic - cont plavix, dc aspirin now on anticoagulation - cont statin - nuclear stress yesterday shows inferior and inferolateral infarct with mild to mod farida-infarct ischemia, EF 45% - discussed cardiac cath with patient, he tamekailnes at this point - will continue medical management as above elevated trop: - no chest pain - likely demand in setting of new onset afib with RVR - echo unremarkable - chf, pna, and copd improving lung cancer: - manage per onc HLD: - cont statin HTN: - not on meds, stable here, monitor NSVT - maintain K>4, Mg >2 - normal LV function on echo here
[2020-04-28 14:22] VITALS: BP 111/53; PULSE 69; TEMP 98
[2020-04-28] MEDS ORDERED: SENNOSIDES 8.6MG TABLET (FP) PO SCH (22:00)
[2020-04-28] MEDS ORDERED: TAMSULOSIN HCL 0.4 MG CAP PO SCH (22:00)
[2020-04-28] MEDS ORDERED: ATORVASTATIN CA 80 MG TABLET (FP) PO SCH (22:00)
== END 2020-04-28 16:00 | DRG 643 ==
LOC: JER 10:07 → JERBED 12:32 → J4W 16:52 → J7W 04-27 19:31
PROVIDERS: ADMIT Internal Medicine; ATTEND Internal Medicine
DX: E06.3 Autoimmune thyroiditis (principal); J18.9 Pneumonia, unspecified organism; J96.21 Acute and chronic respiratory failure with hypoxia; J96.22 Acute and chronic respiratory failure with hypercapnia; I21.4 Non-ST elevation (NSTEMI) myocardial infarction; I50.33 Acute on chronic diastolic (congestive) heart failure; I24.8 Other forms of acute ischemic heart disease; I47.2 Ventricular tachycardia; C34.12 Malignant neoplasm of upper lobe, left bronchus or lung; I11.0 Hypertensive heart disease with heart failure; E78.5 Hyperlipidemia, unspecified; I25.10 Atherosclerotic heart disease of native coronary artery without angina pectoris; J44.9 Chronic obstructive pulmonary disease, unspecified; K21.9 Gastro-esophageal reflux disease without esophagitis; E05.80 Other thyrotoxicosis without thyrotoxic crisis or storm; G47.33 Obstructive sleep apnea (adult) (pediatric); I25.2 Old myocardial infarction; I48.91 Unspecified atrial fibrillation; I73.9 Peripheral vascular disease, unspecified; R19.7 Diarrhea, unspecified; E66.9 Obesity, unspecified; Z68.36 Body mass index [BMI] 36.0-36.9, adult; I48.0 Paroxysmal atrial fibrillation; D63.8 Anemia in other chronic diseases classified elsewhere; T45.1X5A Adverse effect of antineoplastic and immunosuppressive drugs, initial encounter; D64.81 Anemia due to antineoplastic chemotherapy; Z86.73 Personal history of transient ischemic attack (TIA), and cerebral infarction without residual deficits; Z99.81 Dependence on supplemental oxygen; Z88.0 Allergy status to penicillin
CPT/HCPCS: 36415; 36600; 71045-TC-FY; 71250-TC; 78452-TC; 80048; 80053; 81003; 82024; 82533; 82550; 82803; 83001; 83002; 83003; 83520; 83605; 83615; 83735; 83880; 84439; 84443; 84445; 84481; 84484; 85025; 85027; 85610; 85651; 85730; 86376; 86800; 86850; 86900; 86901; 87040; 87070; 87077; 87086; 87205; 87899; 93005; 93010; 93017; 93306-TC; 94640; 94660; 97116-GP; 97162-GP; 99291; A9502; C1887; G0480; J0131; J0834; J1644; J2785; U0003

== ENCOUNTER → 2021-03-04 | Day surgery (SDC) | payer OTHER ==
[~2021-03-04] MED LIST: CARBOPLATIN IVPB ONE; DEXAMETHASONE SODIUM PHOSPHATE 10 MG, DIPHENHYDRAMINE 25 MG in SODIUM CHLORIDE 100 ML IVPB ONE; FAMOTIDINE 20 MG/50 ML IVPB 20 MG/50 ML MG IVPB ONE; PACLITAXEL 108 MG in SODIUM CHLORIDE 250 ML IVPB ONE; PALONOSETRON HCL 0.25 MG/5 ML VIAL IVPUSH ONE; SODIUM CHLORIDE 250 ML IV ONE; SODIUM CHLORIDE IVPB ONE
[2021-03-04 09:29] LABS: BASO % 0.5 % (0-2.0); EOS % 2.7 % (0-4.5); HEMATOCRIT 35.9 % (35.4-49); HEMOGLOBIN 11.7 GM/dL (11.7-16.9); LYMPH % 9.6 % (8-40); MCHC 32.5 g/dl (32.0-35.9); MEAN CELL VOLUME 92.1 fl (80-96); MEAN PLT VOLUME 7.3 fl (7.5-11.1); MONO % 6.4 % (3.8-10.2); NEUT % 80.8 % (42.8-82.8); PLATELET COUNT 227 10^3/uL (134-434); RDW 15.7 % (11.9-15.9); WHITE BLOOD COUNT 9.3 K/mm3 (4.0-10.0)
[2021-03-04 09:35] LABS: CALCIUM 9.3 mg/dL (8.5-10.1)
[2021-03-04 09:36] LABS: ALBUMIN 3.2 g/dl (3.4-5.0); BLOOD UREA NITROGEN 20.1 mg/dL (7-18)
[2021-03-04 09:39] LABS: CREATININE 1.2 mg/dL (0.55-1.3)
[2021-03-04 09:41] LABS: BILIRUBIN,TOTAL 0.7 mg/dL (0.2-1); TOT PROT 6.6 g/dl (6.4-8.2)
== END | disposition home or self-care (01) ==
LOC: JONCCHEMO 05:17
PROVIDERS: ATTEND Internal Medicine Hematology & Oncology
DX: Z53.8 Procedure and treatment not carried out for other reasons (principal)
CPT/HCPCS: 36415; 80053; 85025; 96365

== ENCOUNTER 2021-03-11 07:34 | Day surgery (SDC) | payer OTHER ==
[2021-03-11] MEDS ORDERED: SODIUM CHLORIDE 250 ML IV ONE (10:00)
[2021-03-11] MEDS ORDERED: FAMOTIDINE 20 MG/50 ML IVPB 20 MG/50 ML MG IVPB ONE (10:30)
[2021-03-11] MEDS ORDERED: DEXAMETHASONE SODIUM PHOSPHATE 10 MG, DIPHENHYDRAMINE 25 MG in SODIUM CHLORIDE 100 ML IVPB ONE (10:30)
[2021-03-11] MEDS ORDERED: PALONOSETRON HCL 0.25 MG/5 ML VIAL IVPUSH ONE (10:30)
[2021-03-11 10:46] LABS: BASO % 0.4 % (0-2.0); EOS % 3.4 % (0-4.5); HEMATOCRIT 37.2 % (35.4-49); HEMOGLOBIN 12.2 GM/dL (11.7-16.9); LYMPH % 7.6 % (8-40); MCH 30.3 pg (25.7-33.7); MCHC 32.9 g/dl (32.0-35.9); MEAN PLT VOLUME 7.3 fl (7.5-11.1); MONO % 8.6 % (3.8-10.2); PLATELET COUNT 229 10^3/uL (134-434); RBC 4.04 M/mm3 (4.00-5.60); RDW 15.9 % (11.9-15.9); WHITE BLOOD COUNT 7.9 K/mm3 (4.0-10.0)
[2021-03-11] MEDS ORDERED: PACLITAXEL 108 MG in SODIUM CHLORIDE 250 ML IVPB ONE (11:00)
[2021-03-11 11:04] LABS: ALBUMIN 3.4 g/dl (3.4-5.0)
[2021-03-11 11:05] LABS: CALCIUM 9.5 mg/dL (8.5-10.1)
[2021-03-11 11:09] LABS: CREATININE 1.1 mg/dL (0.55-1.3)
[2021-03-11 11:10] LABS: BILIRUBIN,TOTAL 0.3 mg/dL (0.2-1); TOT PROT 7.1 g/dl (6.4-8.2)
[2021-03-11] MEDS ORDERED: CARBOPLATIN IVPB ONE ×3 (12:00→12:45)
[2021-03-11] MEDS ORDERED: SODIUM CHLORIDE IVPB ONE ×3 (12:00→12:45)
[2021-03-11 15:56] VITALS: TEMP 97.8
[2021-03-11 15:57] VITALS: BP 102/66; PULSE 85
== END 2021-03-11 11:20 | disposition home or self-care (01) ==
LOC: JONCCHEMO 07:34
PROVIDERS: ATTEND Internal Medicine Hematology & Oncology
DX: Z51.11 Encounter for antineoplastic chemotherapy (principal); C34.92 Malignant neoplasm of unspecified part of left bronchus or lung
CPT/HCPCS: 36415; 80053; 85025; 96361; 96367; 96413; J2469

== ENCOUNTER 2021-03-18 07:39 | Day surgery (SDC) | payer OTHER ==
[2021-03-18] MEDS ORDERED: SODIUM CHLORIDE 250 ML IV ONE (10:00)
[2021-03-18] MEDS ORDERED: FAMOTIDINE 20 MG/50 ML IVPB 20 MG/50 ML MG IVPB ONE (10:30)
[2021-03-18] MEDS ORDERED: PALONOSETRON HCL 0.25 MG/5 ML VIAL IVPUSH ONE (10:30)
[2021-03-18] MEDS ORDERED: DEXAMETHASONE SODIUM PHOSPHATE 10 MG, DIPHENHYDRAMINE 25 MG in SODIUM CHLORIDE 100 ML IVPB ONE (10:30)
[2021-03-18] MEDS ORDERED: CARBOPLATIN IVPB ONE (11:00)
[2021-03-18] MEDS ORDERED: SODIUM CHLORIDE IVPB ONE (11:00)
[2021-03-18 11:31] LABS: BASO % 0.5 % (0-2.0); EOS % 3.6 % (0-4.5); HEMATOCRIT 36.3 % (35.4-49); LYMPH % 5.5 % (8-40); MCH 30.8 pg (25.7-33.7); MEAN CELL VOLUME 93.1 fl (80-96); MEAN PLT VOLUME 7.3 fl (7.5-11.1); MONO % 8.5 % (3.8-10.2); NEUT % 81.9 % (42.8-82.8); PLATELET COUNT 221 10^3/uL (134-434); RDW 15.7 % (11.9-15.9); WHITE BLOOD COUNT 7.9 K/mm3 (4.0-10.0)
[2021-03-18 11:56] LABS: CALCIUM 9.4 mg/dL (8.5-10.1)
[2021-03-18 11:57] LABS: ALBUMIN 3.3 g/dl (3.4-5.0); BLOOD UREA NITROGEN 18.5 mg/dL (7-18)
[2021-03-18 12:02] LABS: BILIRUBIN,TOTAL 0.5 mg/dL (0.2-1)
[2021-03-18 15:27] VITALS: TEMP 98.2
[2021-03-18 15:36] VITALS: BP 115/65; PULSE 78
== END 2021-03-18 14:30 | disposition home or self-care (01) ==
LOC: JONCCHEMO 07:39
PROVIDERS: ATTEND Internal Medicine Hematology & Oncology
DX: Z51.11 Encounter for antineoplastic chemotherapy (principal); C34.92 Malignant neoplasm of unspecified part of left bronchus or lung; C34.91 Malignant neoplasm of unspecified part of right bronchus or lung
CPT/HCPCS: 36415; 80053; 85025; 96367; 96375; 96413; J2469

== ENCOUNTER 2021-03-25 07:38 | Day surgery (SDC) | payer OTHER ==
[2021-03-25] MEDS ORDERED: SODIUM CHLORIDE 250 ML IV ONE (09:00)
[2021-03-25] MEDS ORDERED: PALONOSETRON HCL 0.25 MG/5 ML VIAL IVPUSH ONE (09:30)
[2021-03-25] MEDS ORDERED: FAMOTIDINE 20 MG/50 ML IVPB 20 MG/50 ML MG IVPB ONE (09:30)
[2021-03-25] MEDS ORDERED: DEXAMETHASONE SODIUM PHOSPHATE 10 MG, DIPHENHYDRAMINE 25 MG in SODIUM CHLORIDE 100 ML IVPB ONE (09:30)
[2021-03-25] MEDS ORDERED: CARBOPLATIN IVPB ONE (10:00)
[2021-03-25] MEDS ORDERED: SODIUM CHLORIDE IVPB ONE (10:00)
[2021-03-25 11:02] LABS: BASO % 0.2 % (0-2.0); EOS % 2.5 % (0-4.5); HEMATOCRIT 34.5 % (35.4-49); HEMOGLOBIN 11.6 GM/dL (11.7-16.9); LYMPH % 5.6 % (8-40); MCH 31.6 pg (25.7-33.7); MCHC 33.6 g/dl (32.0-35.9); MEAN PLT VOLUME 7.1 fl (7.5-11.1); MONO % 9.6 % (3.8-10.2); NEUT % 82.1 % (42.8-82.8); PLATELET COUNT 180 10^3/uL (134-434); RBC 3.67 M/mm3 (4.00-5.60); WHITE BLOOD COUNT 6.6 K/mm3 (4.0-10.0)
[2021-03-25 11:22] LABS: CALCIUM 9.2 mg/dL (8.5-10.1)
[2021-03-25 11:23] LABS: ALBUMIN 3.1 g/dl (3.4-5.0); BLOOD UREA NITROGEN 17.3 mg/dL (7-18)
[2021-03-25 11:27] LABS: BILIRUBIN,TOTAL 0.6 mg/dL (0.2-1)
[2021-03-25 11:28] LABS: TOT PROT 6.5 g/dl (6.4-8.2)
[2021-03-25 16:43] VITALS: TEMP 98.4
[2021-03-25 16:44] VITALS: BP 136/84; PULSE 94
== END 2021-03-25 14:15 | disposition home or self-care (01) ==
LOC: JONCCHEMO 07:38
PROVIDERS: ATTEND Internal Medicine Hematology & Oncology
DX: Z51.11 Encounter for antineoplastic chemotherapy (principal); C34.91 Malignant neoplasm of unspecified part of right bronchus or lung; C34.92 Malignant neoplasm of unspecified part of left bronchus or lung
CPT/HCPCS: 36415; 80053; 85025; 96367; 96413; J2469

== ENCOUNTER 2021-04-01 06:36 | Day surgery (SDC) | payer OTHER ==
[2021-04-01] MEDS ORDERED: SODIUM CHLORIDE 250 ML IV ONE (09:00)
[2021-04-01] MEDS ORDERED: FAMOTIDINE 20 MG/50 ML IVPB 20 MG/50 ML MG IVPB ONE (09:30)
[2021-04-01] MEDS ORDERED: DEXAMETHASONE SODIUM PHOSPHATE 10 MG, DIPHENHYDRAMINE 25 MG in SODIUM CHLORIDE 100 ML IVPB ONE (09:30)
[2021-04-01] MEDS ORDERED: PALONOSETRON HCL 0.25 MG/5 ML VIAL IVPUSH ONE (09:30)
[2021-04-01] MEDS ORDERED: CARBOPLATIN IVPB ONE (10:00)
[2021-04-01] MEDS ORDERED: SODIUM CHLORIDE IVPB ONE (10:00)
[2021-04-01 10:40] LABS: CALCIUM 9.1 mg/dL (8.5-10.1)
[2021-04-01 10:41] LABS: ALBUMIN 3.2 g/dl (3.4-5.0); BLOOD UREA NITROGEN 16.5 mg/dL (7-18); MAGNESIUM 1.8 mg/dL (1.8-2.4)
[2021-04-01 10:45] LABS: BILIRUBIN,TOTAL 0.6 mg/dL (0.2-1)
[2021-04-01 10:46] LABS: TOT PROT 6.6 g/dl (6.4-8.2)
[2021-04-01 10:58] LABS: BASO % 0.2 % (0-2.0); EOS % 1.4 % (0-4.5); HEMATOCRIT 34.4 % (35.4-49); HEMOGLOBIN 11.5 GM/dL (11.7-16.9); LYMPH % 5.3 % (8-40); MCH 31.7 pg (25.7-33.7); MCHC 33.6 g/dl (32.0-35.9); MEAN CELL VOLUME 94.5 fl (80-96); MEAN PLT VOLUME 7.2 fl (7.5-11.1); MONO % 9.6 % (3.8-10.2); NEUT % 83.5 % (42.8-82.8); PLATELET COUNT 120 10^3/uL (134-434); RBC 3.64 M/mm3 (4.00-5.60); RDW 16.1 % (11.9-15.9); WHITE BLOOD COUNT 5.8 K/mm3 (4.0-10.0)
[2021-04-01] MEDS: PALONOSETRON HCL 0.25 MG/5 ML VIAL IVPUSH ONE ×2 (12:00→12:10)
[2021-04-01 16:52] VITALS: TEMP 98.2
[2021-04-01 16:56] VITALS: BP 121/72; PULSE 87
== END 2021-04-01 13:45 | disposition home or self-care (01) ==
LOC: JONCCHEMO 06:36
PROVIDERS: ATTEND Internal Medicine Hematology & Oncology
DX: Z51.11 Encounter for antineoplastic chemotherapy (principal); C34.91 Malignant neoplasm of unspecified part of right bronchus or lung; C34.92 Malignant neoplasm of unspecified part of left bronchus or lung
CPT/HCPCS: 36415; 80053; 83735; 85025; 96367; 96413; J2469

== ENCOUNTER → 2021-04-08 | Day surgery (SDC) | payer OTHER ==
[~2021-04-08] MED LIST changes: -PACLITAXEL 108 MG in SODIUM CHLORIDE 250 ML IVPB ONE
[2021-04-08 10:22] LABS: BASO % 0.4 % (0-2.0); EOS % 1.5 % (0-4.5); HEMATOCRIT 32.1 % (35.4-49); HEMOGLOBIN 10.8 GM/dL (11.7-16.9); LYMPH % 6.5 % (8-40); MCHC 33.7 g/dl (32.0-35.9); MEAN CELL VOLUME 94.8 fl (80-96); MEAN PLT VOLUME 6.9 fl (7.5-11.1); MONO % 5.7 % (3.8-10.2); NEUT % 85.9 % (42.8-82.8); PLATELET COUNT 51 10^3/uL (134-434); RBC 3.39 M/mm3 (4.00-5.60); RDW 16.6 % (11.9-15.9); WHITE BLOOD COUNT 3.8 K/mm3 (4.0-10.0)
[2021-04-08 10:44] LABS: CALCIUM 9.1 mg/dL (8.5-10.1)
[2021-04-08 10:45] LABS: ALBUMIN 3.1 g/dl (3.4-5.0); BLOOD UREA NITROGEN 17.3 mg/dL (7-18); MAGNESIUM 1.6 mg/dL (1.8-2.4)
[2021-04-08 10:49] LABS: BILIRUBIN,TOTAL 0.4 mg/dL (0.2-1); TOT PROT 6.6 g/dl (6.4-8.2)
== END | disposition home or self-care (01) ==
LOC: JONCCHEMO 06:45
PROVIDERS: ATTEND Internal Medicine Hematology & Oncology
DX: Z53.8 Procedure and treatment not carried out for other reasons (principal)
CPT/HCPCS: 36415; 80053; 83735; 85025

== ENCOUNTER 2021-04-15 06:49 | Day surgery (SDC) | payer OTHER ==
[2021-04-15] MEDS ORDERED: SODIUM CHLORIDE 250 ML IV ONE (09:00)
[2021-04-15] MEDS ORDERED: FAMOTIDINE 20 MG/50 ML IVPB 20 MG/50 ML MG IVPB ONE (09:30)
[2021-04-15] MEDS ORDERED: DEXAMETHASONE SODIUM PHOSPHATE 10 MG, DIPHENHYDRAMINE 25 MG in SODIUM CHLORIDE 100 ML IVPB ONE (09:30)
[2021-04-15] MEDS ORDERED: PALONOSETRON HCL 0.25 MG/5 ML VIAL IVPUSH ONE (09:30)
[2021-04-15 09:47] LABS: HEMATOCRIT 30.2 % (35.4-49); HEMOGLOBIN 10.3 GM/dL (11.7-16.9); MCH 32.4 pg (25.7-33.7); MEAN CELL VOLUME 95.4 fl (80-96); MEAN PLT VOLUME 7.5 fl (7.5-11.1); PLATELET COUNT 42 10^3/uL (134-434); RBC 3.16 M/mm3 (4.00-5.60); RDW 17.7 % (11.9-15.9)
[2021-04-15] MEDS ORDERED: SODIUM CHLORIDE IVPB ONE (10:00)
[2021-04-15] MEDS ORDERED: CARBOPLATIN IVPB ONE (10:00)
[2021-04-15 10:11] LABS: BLOOD UREA NITROGEN 17.1 mg/dL (7-18)
[2021-04-15 10:13] LABS: CREATININE 1.1 mg/dL (0.55-1.3)
[2021-04-15 10:21] LABS: ANISOCYTOSIS 1+; BILIRUBIN,TOTAL 0.5 mg/dL (0.2-1); MACROCYTOSIS 0; PLATELET ESTIMATE DECREASED; TOT PROT 6.4 g/dl (6.4-8.2)
[2021-04-15 10:34] LABS: WHITE BLOOD COUNT 1.6 K/mm3 (4.0-10.0)
== END 2021-04-15 10:30 | disposition home or self-care (01) ==
LOC: JONCCHEMO 06:49
PROVIDERS: ATTEND Internal Medicine Hematology & Oncology
DX: Z53.8 Procedure and treatment not carried out for other reasons (principal)
CPT/HCPCS: 36415; 80053; 85025

== ENCOUNTER → 2021-04-29 | Day surgery (SDC) | payer OTHER ==
[2021-04-29 10:17] LABS: HEMATOCRIT 26.5 % (35.4-49); HEMOGLOBIN 9.2 GM/dL (11.7-16.9); MCH 32.8 pg (25.7-33.7); MCHC 34.7 g/dl (32.0-35.9); MEAN CELL VOLUME 94.5 fl (80-96); MEAN PLT VOLUME 7.1 fl (7.5-11.1); PLATELET COUNT 142 10^3/uL (134-434); RDW 18.3 % (11.9-15.9); WHITE BLOOD COUNT 2.7 K/mm3 (4.0-10.0)
[2021-04-29 10:37] LABS: CALCIUM 8.9 mg/dL (8.5-10.1)
[2021-04-29 10:38] LABS: ALBUMIN 2.9 g/dl (3.4-5.0); BLOOD UREA NITROGEN 15.6 mg/dL (7-18)
[2021-04-29 10:41] LABS: CREATININE 1.2 mg/dL (0.55-1.3)
[2021-04-29 10:42] LABS: BILIRUBIN,TOTAL 0.4 mg/dL (0.2-1); TOT PROT 6.8 g/dl (6.4-8.2)
[2021-04-29 12:34] LABS: ANISOCYTOSIS 1+; MACROCYTOSIS 1+; PLATELET ESTIMATE DECREASED
== END | disposition home or self-care (01) ==
LOC: JONCCHEMO 06:55
PROVIDERS: ATTEND Internal Medicine Hematology & Oncology
DX: Z53.8 Procedure and treatment not carried out for other reasons (principal)
CPT/HCPCS: 36415; 80053; 85025; 96365

== ENCOUNTER 2021-05-06 06:53 | Day surgery (SDC) | payer OTHER ==
[2021-05-06 12:17] LABS: BASO % 0.3 % (0-2.0); EOS % 1.9 % (0-4.5); HEMATOCRIT 25.6 % (35.4-49); HEMOGLOBIN 8.8 GM/dL (11.7-16.9); LYMPH % 2.8 % (8-40); MCH 32.4 pg (25.7-33.7); MCHC 34.2 g/dl (32.0-35.9); MEAN CELL VOLUME 94.9 fl (80-96); MEAN PLT VOLUME 7.1 fl (7.5-11.1); MONO % 24.5 % (3.8-10.2); NEUT % 70.5 % (42.8-82.8); PLATELET COUNT 285 10^3/uL (134-434); WHITE BLOOD COUNT 5.2 K/mm3 (4.0-10.0)
[2021-05-06 12:37] LABS: ALBUMIN 2.8 g/dl (3.4-5.0); BLOOD UREA NITROGEN 14.5 mg/dL (7-18); CALCIUM 8.9 mg/dL (8.5-10.1)
[2021-05-06 12:40] LABS: CREATININE 1.2 mg/dL (0.55-1.3)
[2021-05-06 12:43] LABS: TOT PROT 6.8 g/dl (6.4-8.2)
[2021-05-06 12:44] LABS: BILIRUBIN,TOTAL 0.5 mg/dL (0.2-1)
[2021-05-06] MEDS ORDERED: DEXAMETHASONE INJECTION 10 MG, DIPHENHYDRAMINE 25 MG in SODIUM CHLORIDE 100 ML IVPB ONE (13:00)
[2021-05-06] MEDS ORDERED: FAMOTIDINE 20 MG/50 ML IVPB 20 MG/50 ML MG IVPB ONE (13:00)
[2021-05-06] MEDS ORDERED: SODIUM CHLORIDE 250 ML IV ONE (13:00)
[2021-05-06] MEDS ORDERED: PALONOSETRON HCL 0.25 MG/5 ML VIAL IVPUSH ONE (13:00)
[2021-05-06 13:22] LABS: MAGNESIUM 1.5 mg/dL (1.8-2.4)
[2021-05-06] MEDS ORDERED: CARBOPLATIN IVPB ONE (13:30)
[2021-05-06] MEDS ORDERED: SODIUM CHLORIDE IVPB ONE (13:30)
[2021-05-06] MEDS ORDERED: MAGNESIUM SULF 50% (8.12 MEQ/2 ML-1 GM VIAL) IVPB ONE (14:08)
[2021-05-06 14:12] LABS: ANISOCYTOSIS 1+; MACROCYTOSIS 0; PLATELET ESTIMATE NORMAL
[2021-05-06 15:21] VITALS: TEMP 99
[2021-05-06 15:59] VITALS: BP 108/58; PULSE 83
== END 2021-05-06 16:05 | disposition home or self-care (01) ==
LOC: JONCCHEMO 06:53
PROVIDERS: ATTEND Internal Medicine Hematology & Oncology
DX: Z51.11 Encounter for antineoplastic chemotherapy (principal); C34.91 Malignant neoplasm of unspecified part of right bronchus or lung; C34.92 Malignant neoplasm of unspecified part of left bronchus or lung
CPT/HCPCS: 36415; 80053; 83735; 85025; 96361; 96367; 96375; 96413; J1100; J2469